=== PATIENT | female | born 1945 | race Caucasian/White ===

== ENCOUNTER 2016-10-04 10:58 | Emergency (ER) | payer BC, OTHER ==
[2016-10-04 11:07] VITALS: BP 172/100
[2016-10-04] MEDS ORDERED: methylPREDNISolone 125 MG* 2 ML VIAL IM ONE (12:07)
--- NOTE | 2016-10-04 12:36 | RAD ---
Indication: Cough. 2 views of the chest demonstrate no mediastinal shift. Heart is of normal size and configuration. Lung ponce demonstrate no pleural fluid, pneumonia or pneumothorax. When compared to previous exam of September 21, 2015 no significant change is noted. IMPRESSION: No active cardiopulmonary disease is noted.
--- NOTE | 2016-10-04 14:39 | UC ---
Dinesh Kennedy Karl, scribed for Lawanda Rosario DO on 10/04/16 at 1205 . Respiratory Complaint HPI - HPI Summary HPI Summary: Pt is a 71 y/o female that presents to [facility] c/o a cough and CP for the past 2 days. Pt reported that she has been feeling "lousy" for the past 3 days and has been suffering from a productive cough w/ green mucous (sometimes coughing so hard she vomits), burning 8/10 pleuritic CP, ear ache, SALAS, achyness in the neck and shoulders, and fatigue. - History of Current Complaint Chief Complaint: UCRespiratory Stated Complaint: DIZZINESS, AND ASTHMA Time Seen by Provider: 10/04/16 11:55 Hx Obtained From: Patient Onset/Duration: Sudden Onset, Lasting Days - 3, Worse Since Timing: Constant Severity Initially: Moderate Severity Currently: Moderate Pain Intensity: 8 - CP Pain Scale Used: 0-10 Numeric Character: Cough: Productive - green sputum Aggravating Factors: Recumbent Position Alleviating Factors: Bronchodilator, Upright Position Associated Signs And Symptoms: Positive: Dyspnea, Fever, Chills, Pleuritic Chest Pain, Wheezing, URI, Sinus Discomfort. Negative: Hemoptysis, Dizziness, Nasal Congestion, Hoarseness - Allergies/Home Medications Allergies/Adverse Reactions: Allergies Allergy/AdvReac Type Severity Reaction Status Date / Time Sulfa Drugs Allergy Severe Hives Verified 09/21/15 15:54 PMH/Surg Hx/FS Hx/Imm Hx Endocrine History Of: Reports: Thyroid Disease Denies: Diabetes Cardiovascular History Of: Reports: Cardiac Disorders - 5 stents, Hypertension Denies: Pacemaker/ICD Respiratory History Of: Reports: COPD, Asthma, Bronchitis GI/ History Of: Reports: Renal Disease - ARF in 20's Denies: Ulcer - Surgical History Surgical History: Yes Surgery Procedure, Year, and Place: HYSTERECTOMY 40 YRS AGO, BILATERAL CARPAL TUNNEL 20 YRS [id number] - 5 stents placed/cardiac, GROWTH REMOVED ON RIGHT FOOT X2 - Family History Known Family History: Positive: Hypertension Negative: Cardiac Disease, Diabetes - Social History Occupation: Retired Alcohol Use: Occasionally Substance Use Type: None Smoking Status (MU): Former Smoker Type: Cigarettes Amount Used/How Often: 2 CIG/DAY. smoking for 50 years Have You Smoked in the Last Year: Yes Household Exposure Type: Cigarettes - Immunization History Most Recent Influenza Vaccination: 2012 Most Recent Tetanus Shot: UTD Most Recent Pneumonia Vaccination: 2-3 years ago Review of Systems Constitutional: Fever, Chills, Fatigue Skin: Negative Eyes: Negative ENT: Ear Ache Respiratory: Cough Cardiovascular: Chest Pain Gastrointestinal: Vomiting Genitourinary: Negative Motor: Negative Neurovascular: Negative Musculoskeletal: Myalgia Neurological: Headache Psychological: Negative All Other Systems Reviewed And Are Negative: Yes Physical Exam Triage Information Reviewed: Yes Appearance: Well-Appearing, No Pain Distress, Well-Nourished Vital Signs: Initial Vital Signs Temp 100.0 F 10/04/16 11:02 Pulse 105 10/04/16 11:02 Resp 18 10/04/16 11:02 BP 172/100 10/04/16 11:02 Pulse Ox 97 10/04/16 11:02 Vital Signs Reviewed: Yes Eyes: Positive: Conjunctiva Clear. Negative: Discharge ENT: Positive: Normal ENT inspection, Pharynx normal, Nasal congestion, Nasal drainage, TMs normal. Negative: Tonsillar swelling, Tonsillar exudate, Trismus , Muffled/hoarse voice Neck exam: Normal Neck: Positive: Supple Respiratory: Positive: Chest non-tender, Lungs clear, Normal breath sounds, No respiratory distress Cardiovascular: Positive: RRR, No Murmur Musculoskeletal Exam: Normal Neurological: Positive: Alert, Muscle Tone Normal Psychological Exam: Normal Psychological: Positive: Age Appropriate Behavior Skin Exam: Normal - warm, dry, normal color UC Diagnostic Evaluation - Laboratory O2 Sat by Pulse Oximetry: 97 - Radiology Xray Interpretation: No Acute Changes - CXR Radiology Interpretation Completed By: Radiologist - IMPRESSION: No active cardiopulmonary disease is noted. Respiratory Course/Dx - Differential Dx/Diagnosis Differential Diagnosis/HQI/PQRI: Asthma, Bronchitis, Exacerbation Of COPD, Influenza, Lower Resp Infection, Sinusitis Provider Diagnoses: influenza, copd exacerbation Discharge - Discharge Plan Condition: Stable Disposition: HOME Prescriptions: Oseltamivir Phosphate [Tamiflu] 75 mg PO BID #10 cap guaiFENesin ER TAB [Mucinex*] 600 mg PO BID PRN #1 box PRN Reason: Cough guaiFENesin/CODIEN 100MG-10MG* [Robitussin AC 100Mg-10Mg*] 5 - 10 ml PO BEDTIME PRN #100 udc MDD 10ml PRN Reason: Cough predniSONE TAB* [Deltasone TAB*] 40 mg PO DAILY #8 tab Patient Education Materials: Influenza (ED), COPD (Chronic Obstructive Pulmonary Disease) (ED), Oseltamivir (By mouth) Referrals: Lina Miles MD [Primary Care Provider] - 2 Days (Follow up in 2 days for re- evaluation. This follow up visit is important, we want to know that you are improving. If you can not get in with your PCP, return here for re-evaluation. ) Additional Instructions: INHALED BRONCHODILATORS: You have received a prescription for an inhaled bronchodilator -- a medication which stimulates the airways in the lung to dilate. This improves the flow of air in asthma, bronchitis, and emphysema. These medicines have some similarity to adrenaline, and can cause similar side effects: shakiness, racing heart, and a sense of nervousness. These side effects decrease with time. Contact your doctor if these side effects are severe. Do not over-use the medicine. Too-frequent use of the inhaler may make it ineffective. Call your doctor if the inhaler is not controlling your symptoms at the prescribed doses. COUGH-SUPPRESSANT & EXPECTORANT MEDICATION: You are to use a cough medication as needed for relief of symptoms. This medicine is a combination of an expectorant (to make the mucous thinner and more easily "coughed up") and a cough suppressant (to reduce the frequency of coughing). The cough-suppressant medicine is related to narcotics. You may experience mild nausea and sleepiness. Some patients who are very sensitive to narcotics may have stomach pain from this medicine. Taking the medicine with food reduces these side effects. Do not drive or work with machinery until you know how this medicine affects you. The expectorant should have no side effects. Iodine-containing expectorants (such as organidin) should not be taken by persons with active thyroid disease unless approved by your doctor. Call the doctor if you develop shortness of breath, hives, rash, itching, lightheadedness, or severe nausea and vomiting. THE ABOVE MEDICATION CAN MAKE YOU GROGGY AND UNSTABLE OF YOUR FEET. SO PLEASE TAKE CARE WHEN GOING FROM LAYING DOWN TO SEATED OR WHEN STANDING UP. IF YOU FEEL LIGHT HEADED WHEN CHANGING POSITIONS, PLEASE SIT OR LAY BACK DOWN TO AVOID FALLING. ESPECIALLY WHEN WAKING UP AT NIGHT TO PEE. EXPECTORANT MEDICATION: An expectorant medicine has been prescribed. This type of drug makes mucous thinner, helping the sinuses, nose, and bronchial tubes to remain free of pus and mucous. Expectorants make a cough less severe and more comfortable, and help infected sinuses drain. In general, antihistamines defeat the purpose of the expectorant by making mucous thicker. They should be avoided unless specifically recommended by your physician Follow up in 2 days for re-evaluation. This follow up visit is important, we want to know that you are improving. If you can not get in with your PCP, return here for re-evaluation. The documentation as recorded by the Dinesh reaves Karl accurately reflects the service I personally performed and the decisions made by me, Lawanda Rosario DO.
== END 2016-10-04 13:08 | disposition home or self-care (01) ==
LOC: UCEAST 10:58
DX: J11.1 Influenza due to unidentified influenza virus with other respiratory manifestations (principal); J44.1 Chronic obstructive pulmonary disease with (acute) exacerbation; Z98.61 Coronary angioplasty status; Z87.891 Personal history of nicotine dependence; Z88.2 Allergy status to sulfonamides
CPT/HCPCS: 71020; 87502; 99212; G0463; J2930

== ENCOUNTER 2016-12-03 16:40 | Emergency (ER) | payer MEDICARE ==
[2016-12-03 19:57] VITALS: BP 160/90
--- NOTE | 2016-12-03 20:24 | RAD ---
HISTORY: Pain after trauma, left wrist COMPARISONS: None VIEWS: 3, Frontal, lateral, and oblique views of the left wrist FINDINGS: BONE DENSITY: Normal. BONES: There is no displaced fracture. 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 SOFT TISSUES: Unremarkable. OTHER FINDINGS: None. IMPRESSION: NO ACUTE OSSEOUS INJURY. IF SYMPTOMS PERSIST, RECOMMEND REPEAT IMAGING.
--- NOTE | 2016-12-03 20:31 | UC ---
Hand/Wrist HPI - HPI Summary HPI Summary: The patient comes in today for: 1. Lump on the left forearm: Onset: 5 hours ago. Palliative/provocative: Touching and moving the wrist makes the pain worse. Quality: Sharp Region: Lateral lower forearm/wrist area. Severity: 8/10 Time: Constant. Associated symptoms: Event: She had a window pane hit her left forearm. She is on Plavix. * - History Of Current Complaint Chief Complaint: UCUpperExtremity Stated Complaint: WRIST INJURY Time Seen by Provider: 12/03/16 19:54 Hx Obtained From: Patient - Allergies/Home Medications Allergies/Adverse Reactions: Allergies Allergy/AdvReac Type Severity Reaction Status Date / Time Sulfa Drugs Allergy Severe Hives Verified 09/21/15 15:54 Lisinopril Allergy See Comment Verified 12/03/16 19:23 Metoprolol Allergy See Comment Verified 12/03/16 19:23 PMH/Surg Hx/FS Hx/Imm Hx Previously Healthy: No - allergic to bees Endocrine History Of: Reports: Thyroid Disease, Dyslipidemia Denies: Diabetes, Hyperthyroidism, Hypothyroidism Cardiovascular History Of: Reports: Cardiac Disorders - 5 Stents, Hypertension - ON MEDICATION Denies: Pacemaker/ICD, Myocardial Infarction, Congestive Heart Failure, Atrial Fibrillation, Deep Vein Thrombosis, Bleeding Disorders Respiratory History Of: Reports: COPD, Asthma Denies: Bronchitis, Pneumonia, Pulmonary Embolism GI/ History Of: Reports: Gastroesophageal Reflux, Renal Disease - ARF in 20's Denies: Ulcer, Gastrointestinal Bleed, Gall Bladder Disease, Kidney Stones, Diverticulitis, Urosepsis Neurological History Of: Reports: CVA Denies: TIA, Dementia, Seizures, Migraine Psychological History Of: Reports: Depression Denies: Anxiety, Bipolar Disorder, Schizophrenia, Post Traumatic Stress Disorder Cancer History Of: Denies: Lung Cancer, Colorectal Cancer, Breast Cancer, Prostate Cancer, Cervical Cancer Other History Of: Anticoagulant Therapy - Plavix. Negative For: HIV, Hepatitis B, Hepatitis C - Surgical History Surgical History: Yes Surgery Procedure, Year, and Place: HYSTERECTOMY 40 YRS AGO, BILATERAL CARPAL TUNNEL 20 YRS [id number] - 5 stents placed/cardiac, GROWTH REMOVED ON RIGHT FOOT X2 - Family History Known Family History: Positive: Cardiac Disease, Hypertension, Diabetes - Social History Occupation: Retired Alcohol Use: Weekly Substance Use Type: None Smoking Status (MU): Light Every Day Tobacco Smoker Type: Cigarettes Amount Used/How Often: 2 CIG/DAY. smoking for 50 years Have You Smoked in the Last Year: Yes Household Exposure Type: Cigarettes - Immunization History Most Recent Influenza Vaccination: 2012 Most Recent Tetanus Shot: UTD Most Recent Pneumonia Vaccination: 2-3 years ago Review of Systems Constitutional: Negative Skin: Negative Eyes: Negative, Other - "I've got a problem with my eye." Sees a specialist. ENT: Negative Respiratory: Negative Cardiovascular: Negative Gastrointestinal: Negative Genitourinary: Negative Musculoskeletal: Arthralgia, Myalgia All Other Systems Reviewed And Are Negative: Yes Physical Exam Triage Information Reviewed: Yes Appearance: Well-Appearing, No Pain Distress, Well-Nourished Vital Signs: Initial Vital Signs Temp 98.7 F 12/03/16 19:27 Pulse 93 12/03/16 19:27 Resp 16 12/03/16 19:27 Pulse Ox 100 12/03/16 19:27 Vital Signs Reviewed: Yes Eyes: Positive: Conjunctiva Clear. Negative: Discharge ENT: Positive: Hearing grossly normal. Negative: Pharyngeal erythema, Nasal congestion, Nasal drainage, TM bulging, TM dull, TM red, Tonsillar swelling, Tonsillar exudate Dental: Negative: Gross Decay/Caries @, Dental Fracture @ Neck: Positive: Supple, Nontender, No Lymphadenopathy. Negative: Nuchal Rigidity Respiratory: Positive: Lungs clear, No respiratory distress, No accessory muscle use. Negative: Crackles, Wheezing Cardiovascular: Positive: RRR, No Murmur Abdomen Description: Positive: Nontender, No Organomegaly, Soft. Negative: Distended, Guarding Musculoskeletal: Positive: Strength Intact, Edema @ - She has ecchymotic edema of the left wrist area. It is tender. There is decreased range of motion. Neurological: Positive: Alert, Muscle Tone Normal Psychological: Positive: Normal Response To Family, Age Appropriate Behavior, Consolable Skin: Negative: rashes, breakdown Diagnostics - Radiology No standard instances Xray Interpretation: No Acute Changes - No fractures of the bones. Radiology Interpretation Completed By: Radiologist Hand/Wrist Course/Dx - Differential Dx/Diagnosis Differential Diagnosis/HQI/PQRI: Contusion Provider Diagnoses: Hematoma and contusion of the left wrist. Discharge - Discharge Plan Condition: Stable Disposition: HOME Patient Education Materials: Contusion in Children (ED), Hematoma (ED) Referrals: Lina Miles MD [Primary Care Provider] - (Please see your primary care provider later this week for re-evaluation.)
[2016-12-03] MEDS ORDERED: HYDROcodone/ACETAMIN 5-325 MG* 1 TAB PO ONE (20:51)
== END 2016-12-03 21:15 | disposition home or self-care (01) ==
LOC: UCEAST 16:40
DX: S60.212A Contusion of left wrist, initial encounter (principal); W22.8XXA Striking against or struck by other objects, initial encounter; Y93.9 Activity, unspecified; Y92.9 Unspecified place or not applicable; Z88.2 Allergy status to sulfonamides; Z88.8 Allergy status to other drugs, medicaments and biological substances; I10 Essential (primary) hypertension; Z95.5 Presence of coronary angioplasty implant and graft; F17.210 Nicotine dependence, cigarettes, uncomplicated
CPT/HCPCS: 99213; G0463

== ENCOUNTER 2017-01-27 14:40 | Emergency (ER) | payer MEDICARE ==
[2017-01-27] MEDS ORDERED: methylPREDNISolone 125 MG* 2 ML VIAL IM ONE (14:48)
[2017-01-27] MEDS ORDERED: Albuterol 2.5 MG/3 ML NEB.SOL* (0.083%) INH ONE (14:48)
[2017-01-27] MEDS ORDERED: Ipratropium 0.5MG/2.5ML NEB* 0.5 MG/2.5 ML NEB.SOLN INH ONE (14:48)
[2017-01-27 15:09] VITALS: BP 159/100
--- NOTE | 2017-03-15 07:41 | UC ---
Respiratory Complaint HPI - HPI Summary HPI Summary: pt c/o sob/wheezing since Saturday that has gotten progressively worse over the weekend. Aggravated by smoking and allergens. - History of Current Complaint Chief Complaint: UCRespiratory Stated Complaint: ASTHMA COPD SOB Time Seen by Provider: 01/27/17 14:47 Hx Obtained From: Patient Onset/Duration: Gradual Onset, Lasting Days, Still Present, Worse Since - today Severity Initially: Moderate Severity Currently: Moderate Pain Intensity: 3 Pain Scale Used: 0-10 Numeric Character: Sputum Description: - yellow Aggravating Factors: Allergens, Exertion Alleviating Factors: Nothing Associated Signs And Symptoms: Positive: Dyspnea, Wheezing, Nasal Congestion. Negative: Fever, Chills, Pleuritic Chest Pain, Hemoptysis, Dizziness, Edema, URI , Hoarseness, Sinus Discomfort - Allergies/Home Medications Allergies/Adverse Reactions: Allergies Allergy/AdvReac Type Severity Reaction Status Date / Time Sulfa Drugs Allergy Severe Hives Verified 02/22/17 15:51 Lisinopril Allergy See Comment Verified 02/22/17 15:51 Metoprolol Allergy See Comment Verified 02/22/17 15:51 PMH/Surg Hx/FS Hx/Imm Hx Endocrine History: Thyroid Disease Cardiovascular History: Cardiac Disease, Hypertension Respiratory History: COPD, Asthma Other History Of: Anticoagulant Therapy - Plavix. Negative For: HIV, Hepatitis B, Hepatitis C - Surgical History Surgical History: Yes Surgery Procedure, Year, and Place: HYSTERECTOMY 40 YRS AGO, BILATERAL CARPAL TUNNEL 20 YRS [id number] - 5 stents placed/cardiac, GROWTH REMOVED ON RIGHT FOOT X2 - Family History Known Family History: Positive: Cardiac Disease, Hypertension, Diabetes - Social History Alcohol Use: Weekly Substance Use Type: None Smoking Status (MU): Light Every Day Tobacco Smoker Type: Cigarettes Amount Used/How Often: 2 CIG/DAY. smoking for 50 years Have You Smoked in the Last Year: Yes Household Exposure Type: Cigarettes Cessation Counseling: Patient Advised to Stop - Immunization History Most Recent Influenza Vaccination: 2012 Most Recent Tetanus Shot: UTD Most Recent Pneumonia Vaccination: 2-3 years ago Review of Systems Constitutional: Negative Eyes: Negative ENT: Nasal Discharge Respiratory: Shortness Of Breath, Cough Cardiovascular: Negative Gastrointestinal: Negative Neurological: Negative Psychological: Negative All Other Systems Reviewed And Are Negative: Yes Physical Exam Triage Information Reviewed: Yes Appearance: Well-Appearing, No Pain Distress, Well-Nourished Vital Signs: Initial Vital Signs Temp 98.3 F 01/27/17 15:04 Pulse 83 01/27/17 15:04 Resp 22 01/27/17 15:04 BP 159/100 01/27/17 15:04 Pulse Ox 98 01/27/17 15:04 Vital Signs Reviewed: Yes Eyes: Positive: Conjunctiva Clear. Negative: Discharge ENT: Positive: Hearing grossly normal, Pharynx normal, Nasal drainage, TMs normal. Negative: Tonsillar swelling, Tonsillar exudate, Trismus, Muffled/ hoarse voice Neck: Positive: Supple, Nontender, No Lymphadenopathy Respiratory: Positive: No respiratory distress, No accessory muscle use, Wheezing - diffuse, all ponce. Negative: Crackles, Rhonchi Cardiovascular: Positive: RRR, No Murmur Musculoskeletal Exam: Normal Neurological: Positive: Alert, Muscle Tone Normal Psychological: Positive: Age Appropriate Behavior Skin Exam: Normal UC Diagnostic Evaluation - Laboratory O2 Sat by Pulse Oximetry: 98 Respiratory Course/Dx - Course Course Of Treatment: re-eval s/p neb and solumedrol - subjective improvement, decreased wheezing, better air movement - Differential Dx/Diagnosis Differential Diagnosis/HQI/PQRI: Asthma, Bronchitis, Exacerbation Of COPD, Lower Resp Infection, Sinusitis Provider Diagnoses: acute bronchitis, copd Discharge - Discharge Plan Condition: Stable Disposition: HOME Prescriptions: Fluticasone NASAL * [Flonase *] 2 spray BOTH NARES DAILY #1 btl Patient Education Materials: Acute Bronchitis (ED), COPD (Chronic Obstructive Pulmonary Disease) (ED), Allergies (ED) Referrals: Lina Miles MD [Primary Care Provider] - 2 Days Additional Instructions: CORTICOSTEROID MEDICATION: You have been given a medicine of the cortisone class. This medication is used to control inflammation or allergy. It is usually only given for a short period of time, until the acute process subsides. There are usually no side effects from short-term use of cortisone-like medications. Some persons feel an increased sense of well-being and are not sleepy at bedtime. Long-term use of cortisone medications is best avoided, unless required for a severe condition. If your condition does not remit, or relapses after the course of corticosteroid medication, you should consult your physician. Contact the physician if you develop lightheadedness, black or tarry stools , swelling of the legs, or significant rapid change in weight. INHALED BRONCHODILATORS: You have received a prescription for an inhaled bronchodilator -- a medication which stimulates the airways in the lung to dilate. This improves the flow of air in asthma, bronchitis, and emphysema. These medicines have some similarity to adrenaline, and can cause similar side effects: shakiness, racing heart, and a sense of nervousness. These side effects decrease with time. Contact your doctor if these side effects are severe. Do not over-use the medicine. Too-frequent use of the inhaler may make it ineffective. Call your doctor if the inhaler is not controlling your symptoms at the prescribed doses. EXPECTORANT MEDICATION: WE SENT IN A SCRIPT FOR MUCINEX SO THAT IT IS EASIER FOR YOU TO PICK THE RIGHT MED AT THE PHARMACY. HOWEVER, YOU CAN ALSO GO TO THE [employer] STORE AND BUY PLAIN GUAIFENESIN WITHOU BINDERS OR FILLERS. An expectorant medicine has been prescribed. This type of drug makes mucous thinner, helping the sinuses, nose, and bronchial tubes to remain free of pus and mucous. Expectorants make a cough less severe and more comfortable, and help infected sinuses drain. In general, antihistamines defeat the purpose of the expectorant by making mucous thicker. They should be avoided unless specifically recommended by your physician. CEPHALOSPORINS: An antibiotic of the cephalosporin class has been prescribed. This type of antibiotic covers a wide variety of infections, including those of the skin, lungs, middle ear, and urinary tract. This antibiotic is somewhat similar to the penicillin family. In rare cases , a person who is allergic to penicillin will also be allergic to this medication. If you have had a severe allergic reaction to penicillin, and have not taken this antibiotic since that time, notify your doctor. Antibiotics which cover many germs ("broad spectrum" antibiotics) are more likely to cause diarrhea or "yeast" infections. Women prone to vaginal yeast problems may suffer an attack after taking this antibiotic. In infants, oral thrush (white spots "stuck" on the cheek) or yeast diaper rash may result. See your doctor if these problems occur. Call the doctor at once if you develop hives, itching, shortness of breath , or lightheadedness. ANY TIME YOU TAKE AN ANTIBIOTIC, IT IS IMPORTANT TO REPLENISH THE BODY'S BALANCE OF "GOOD" BACTERIA BY EATING HIGH QUALITY CULTURED FOOD SUCH YOGURT, SAURKRAUT OR MARCELLO CHI AND/OR TAKING A PROBIOTIC SUPPLEMENT. NASAL CORTICOSTEROID INHALER: Nasal "cortisone" inhalers decrease swelling and inflammation in the nasal passages. Nasal steroids decrease the effects of allergy and infection without affecting your whole body. They do NOT cause the side effects we see with steroid shots or pills. These inhalers are a long-term investment in keeping your nose and sinuses clear. You probably won't notice any difference for at least a day. Sometimes it takes several days. Once you have noticed improvement, you can cut back on the inhaler. If your problem only occurs at certain times of the year, you can stop it when you' re better. There's no harm in using it for a long time. Some patients may notice a dry tight throat at first. If you develop severe pain, fever, or foul nasal drainage, see the doctor at once.
== END 2017-01-27 16:27 | disposition home or self-care (01) ==
LOC: UCEAST 14:40
DX: J44.0 Chronic obstructive pulmonary disease with (acute) lower respiratory infection (principal); J20.9 Acute bronchitis, unspecified; I10 Essential (primary) hypertension; F17.210 Nicotine dependence, cigarettes, uncomplicated; Z88.5 Allergy status to narcotic agent; Z88.2 Allergy status to sulfonamides; Z79.02 Long term (current) use of antithrombotics/antiplatelets
CPT/HCPCS: 96372; 99212; G0463; J2930; J7644

== ENCOUNTER 2017-02-22 15:43 | Emergency (ER) | payer MEDICARE ==
[2017-02-22 15:59] VITALS: BP 200/98
--- NOTE | 2017-02-22 19:13 | UC ---
David Kennedy Aidan, scribed for Kaye Andrade MD on 02/22/17 at 1617 . Shortness of Breath HPI - HPI Summary HPI Summary: 71 y/o female presents to the Urgent Care with a complaint of acute, moderate episodes of difficulty breathing that have persisted intermittently. Associated symptoms include HTN and SALAS. She denies any abdominal pain. Hx of chronic asthma. In the past, nebulizer treatment and strong abx have alleviated her symptoms. Has been seen several times in the last 3 months for the same. Had cxr in November. Abx (z-max) and prednisone helps, but she says not strong or long enough treatment. Has breathing medications at home, utd. Plans to f/u w/ pcp , but couldn't get in to the office today. No cp, palpitations. - History of Current Complaint Chief Complaint: UCRespiratory Stated Complaint: DIFFICULTY BREATHING Time Seen by Provider: 02/22/17 15:55 Hx Obtained From: Patient Hx Last Menstrual Period: unknown ?: No Onset/Duration: Gradual Onset, Lasting Weeks, Still Present Timing: Intermittent Episodes Lasting: Current Severity: Moderate Dyspnea At: Rest Aggrevating Factors: Nothing - unknown Alleviating Factors: Bronchodilators Associated Signs & Symptoms: Positive: Other - HTN, SALAS - Risk Factors Pulmonary Embolism: Smoking Cardiac: Smoking, Hypertension - Allergy/Home Medications Allergies/Adverse Reactions: Allergies Allergy/AdvReac Type Severity Reaction Status Date / Time Sulfa Drugs Allergy Severe Hives Verified 02/22/17 15:51 Lisinopril Allergy See Comment Verified 02/22/17 15:51 Metoprolol Allergy See Comment Verified 02/22/17 15:51 PMH/Surg Hx/FS Hx/Imm Hx Other History Of: Anticoagulant Therapy - Plavix. Negative For: HIV, Hepatitis B, Hepatitis C - Surgical History Surgical History: Yes Surgery Procedure, Year, and Place: HYSTERECTOMY 40 YRS AGO, BILATERAL CARPAL TUNNEL 20 YRS [id number] - 5 stents placed/cardiac, GROWTH REMOVED ON RIGHT FOOT X2 - Family History Known Family History: Positive: Cardiac Disease, Hypertension, Diabetes - Social History Occupation: Retired Lives: With Family Alcohol Use: Weekly Substance Use Type: None Smoking Status (MU): Light Every Day Tobacco Smoker Type: Cigarettes Amount Used/How Often: 2 CIG/DAY. smoking for 50 years Have You Smoked in the Last Year: Yes Household Exposure Type: Cigarettes - Immunization History Most Recent Influenza Vaccination: 2012 Most Recent Tetanus Shot: UTD Most Recent Pneumonia Vaccination: 2-3 years ago Review of Systems Constitutional: Negative Skin: Negative Eyes: Negative ENT: Negative Respiratory: Shortness Of Breath Cardiovascular: Other - high blood pressure Gastrointestinal: Negative Genitourinary: Negative Motor: Negative Neurovascular: Negative Musculoskeletal: Negative Neurological: Negative Psychological: Negative All Other Systems Reviewed And Are Negative: Yes Physical Exam Triage Information Reviewed: Yes Appearance: Well-Nourished Vital Signs: Initial Vital Signs Temp 99.5 F 02/22/17 15:48 Pulse 90 02/22/17 15:48 Resp 20 02/22/17 15:48 Pulse Ox 97 02/22/17 15:48 Vital Signs Reviewed: Yes Eye Exam: Normal ENT Exam: Normal ENT: Positive: TMs normal - [place], retracted TMs Respiratory Exam: Normal, Other - no dyspnea, no tachypnea, normal respiratory rate Respiratory: Positive: Chest non-tender, Wheezing - diffuse inspiratory and expiratory wheezes, Other: - breath sounds equal. Negative: Lungs clear, No accessory muscle use Cardiovascular Exam: Normal, Other - heart rate normal, good general skin color Cardiovascular: Positive: RRR, Brisk Capillary Refill Abdominal Exam: Normal Abdomen Description: Positive: Nontender, No Organomegaly, Soft Bowel Sounds: Positive: Present Musculoskeletal: Positive: Strength Intact Neurological Exam: Normal, Other - nonfocal, grosly intact Neurological: Positive: Alert Psychological Exam: Normal, Other - conversing easily and apropriately Skin Exam: Normal, Other - no visible or reported rash Shortness of Breath Dx - Course Course Of Treatment: 71 y/o female presents with difficulty breathing. According to the nurse, the patient was hypertensive. She should follow up with her primary care physician within 4 weeks to have her blood pressure evaluated. Declines nebulized tx - has at home, and will use upon returning home. Rx ciprofloxacin (she reports having taken in the past w/o difficulty) and longer prednisone (d/w pt). Will seek medical attention for worse or new problems, fever cp etc. Questions answered to the best of my ability. - Differential Dx/Diagnosis Provider Diagnoses: [id number] bronchitis, COPD, Wheezing Discharge - Discharge Plan Condition: Stable Disposition: HOME Prescriptions: Ciprofloxacin HCl [Cipro 500 MG TAB] 500 mg PO BID #28 tab predniSONE TAB* [Deltasone TAB*] 10 mg PO DAILY #42 tab Patient Education Materials: How to Stop Smoking (ED), COPD (Chronic Obstructive Pulmonary Disease) (ED), Chronic Bronchitis (ED), Chronic Hypertension (ED), Bronchospasm (ED) Referrals: Lina Miles MD [Primary Care Provider] - Additional Instructions: You have a blood pressure reading of 200/98, which illustrates hypertension. Recommended follow up with your primary care physician within 4 weeks to evaluate your blood pressure. The documentation as recorded by the David reaves Aidan accurately reflects the service I personally performed and the decisions made by me, Kaye Andrade MD.
== END 2017-02-22 17:15 | disposition home or self-care (01) ==
LOC: UCEAST 15:43
DX: J42 Unspecified chronic bronchitis (principal); J44.0 Chronic obstructive pulmonary disease with (acute) lower respiratory infection; J20.9 Acute bronchitis, unspecified; R06.2 Wheezing; Z72.0 Tobacco use; Z95.5 Presence of coronary angioplasty implant and graft; I10 Essential (primary) hypertension
CPT/HCPCS: 99212; G0463

== ENCOUNTER 2017-08-04 19:52 | Inpatient (IN) | payer MEDICARE ==
[2017-08-04] MEDS ORDERED: Albuterol/Ipratropium NEB.SOL* Albuterol 2.5 MG/Ipratropium 0.5 MG 3 ML INH ONE (20:13)
[2017-08-04] MEDS ORDERED: methylPREDNISolone 125 MG* 2 ML VIAL IV ONE (20:13)
[2017-08-04 20:40] LABS: Hematocrit 37 % (35-47); Hemoglobin 12.3 g/dl (12.0-16.0); Mean Corpuscular HGB Conc 34 g/dl (31-36); Mean Corpuscular Hemoglobin 27 pg (27-31); Mean Corpuscular Volume 81 fL (80-97); Mean Platelet Volume 7 um3 (7.4-10.4); Red Blood Count 4.52 10^6/ul (4.0-5.4); Red Cell Distribution Width 18 % (10.5-15); White Blood Count 9.2 10^3/ul (3.5-10.8)
--- NOTE | 2017-08-04 20:44 | RAD ---
INDICATION: Shortness of breath. COMPARISON: Comparison is made with a prior study from May 24, 2017. TECHNIQUE: A portable view of the chest was obtained. FINDINGS: Cardiac and mediastinal contours appear to be within normal limits. There is mild diffuse prominence of the interstitial markings which are unchanged. No focal infiltrate or pleural effusion is seen. The lungs are slightly hyperinflated. IMPRESSION: FINDINGS SUGGESTIVE OF COPD, NO EVIDENCE FOR ACUTE FINDING.
[2017-08-04 20:52] LABS: Albumin 3.9 g/dL (3.2-5.2); BUN/Creatinine Ratio 10.3 (8-20); Calcium 8.7 mg/dL (8.6-10.3); EGFR African American 109.7 (>60); EGFR Non-African American 85.3 (>60); Globulin 2.6 g/dL (2-4); Magnesium 1.9 mg/dL (1.9-2.7); Potassium 3.3 mmol/L (3.5-5.0); Total Bilirubin 0.2 mg/dL (0.2-1.0); Total Protein 6.5 g/dL (6.4-8.9)
[2017-08-04 20:54] LABS: PCO2 Arterial 38 mmHg (35-45)
[2017-08-04 20:58] LABS: Troponin I 1.54 ng/mL (<0.04)
[2017-08-04] MEDS ORDERED: Aspirin TAB* 325 MG PO ONE (20:59)
[2017-08-04] MEDS ORDERED: Potassium Chlor TAB* 20 MEQ TAB.ER PO ONE (21:00)
[2017-08-04 21:49] LABS: Troponin I 1.64 ng/mL (<0.04)
[2017-08-04] MEDS ORDERED: Heparin DRIP 25,000 UNITS(*) 25,000 UNITS/500 ML BAG IVPB SCH (22:00)
[2017-08-04] MEDS ORDERED: Heparin VIAL(*) 5000 UNITS/ML VIAL (FIVE THOUSAND) IV SCH (22:00)
[2017-08-04] MEDS: Nitroglycerin TAB 0.4 MG* 0.4 MG TAB SL PRN ×3 (22:16→22:27)
[2017-08-04] MEDS ORDERED: Nitroglycerin TAB 0.4 MG* 0.4 MG TAB ONE (22:17)
--- NOTE | 2017-08-04 22:20 | ED ---
Jt Kennedy Nikita, scribed for Clement Klein on 08/04/17 at 2018 . Shortness of Breath - HPI Summary HPI Summary: This patient is a 72 year old F presenting to ED with a chief complaint of SOB since earlier today. The CC is described as worsened since onset. The patient rates the pain 9/10 in severity. Symptoms aggravated by exertion. Symptoms alleviated by nothing. Patient reports difficulty breathing, SALAS, non-productive cough, and CP. Patient denies fever. Pt has not smoked in the last 3 weeks. - History of Current Complaint Chief Complaint: EDAsthma Time Seen by Provider: 08/04/17 20:06 Hx Obtained From: Patient Onset/Duration: Sudden Onset, Lasting Hours, Still Present Timing: Constant Current Severity: Severe Dyspnea At: Exertion Aggrevating Factors: Other - exertion Alleviating Factors: Nothing Associated Signs & Symptoms: Cough (Nonproductive) - Patient reports difficulty breathing, SALAS, non-productive cough, and CP. Patient denies fever. - Allergy/Home Medications Allergies/Adverse Reactions: Allergies Allergy/AdvReac Type Severity Reaction Status Date / Time Sulfa Drugs Allergy Severe Hives Verified 04/10/17 13:32 Bee Venom Allergy Unknown Verified 05/03/17 10:25 Reaction Details Lisinopril Allergy See Comment Verified 04/10/17 13:32 Metoprolol Allergy See Comment Verified 04/10/17 13:32 PMH/Surg Hx/FS Hx/Imm Hx Endocrine/Hematology History: Reports: Hx Anticoagulant Therapy - Plavix., Hx Thyroid Disease Denies: Hx Diabetes Cardiovascular History: Reports: Hx Coronary Artery Disease - stents 2005, Hx Hypercholesterolemia, Hx Hypertension - ON MEDICATION Denies: Hx Congestive Heart Failure, Hx Deep Vein Thrombosis, Hx Myocardial Infarction, Hx Pacemaker/ICD Respiratory History: Reports: Hx Asthma, Hx Chronic Obstructive Pulmonary Disease (COPD), Other Respiratory Problems/Disorders - HX OF PNEUMONIA 3/4 TIMES Denies: Hx Lung Cancer, Hx Pneumonia, Hx Pulmonary Embolism GI History: Reports: Hx Gastroesophageal Reflux Disease Denies: Hx Gall Bladder Disease, Hx Gastrointestinal Bleed, Hx Ulcer, Hx Urosepsis History: Reports: Hx Renal Disease - ARF in 20's Denies: Hx Kidney Stones Musculoskeletal History: Reports: Hx Back Problems - Chronic back pain, Hx Osteoporosis Sensory History: Reports: Hx Cataracts, Hx Contacts or Glasses Denies: Hx Hearing Aid Opthamlomology History: Reports: Hx Cataracts, Hx Contacts or Glasses Neurological History: Reports: Hx Headaches Denies: Hx Dementia, Hx Migraine, Hx Seizures, Hx Transient Ischemic Attacks (TIA) Psychiatric History: Reports: Hx Depression Denies: Hx Anxiety, Hx Panic Disorder, Hx Schizophrenia, Hx Bipolar Disorder - Cancer History Hx Chemotherapy: No Hx Radiation Therapy: No - Surgical History Surgery Procedure, Year, and Place: HYSTERECTOMY 40 YRS AGO,. BILATERAL CARPAL TUNNEL 20 YRS AGO. 2005 - stents placed/cardiac,. GROWTH REMOVED ON RIGHT FOOT X2. CATARACT Infectious Disease History: No Infectious Disease History: Denies: Hx Clostridium Difficile, Hx Hepatitis, Hx Human Immunodeficiency Virus (HIV), Hx of Known/Suspected MRSA, Hx Shingles, Hx Tuberculosis, Hx Known/ Suspected VRE, Hx Known/Suspected VRSA, History Other Infectious Disease, Traveled Outside the in Last 30 Days - Family History Known Family History: Positive: Cardiac Disease, Hypertension, Diabetes - Social History Alcohol Use: Daily Substance Use Type: Reports: None Smoking Status (MU): Former Smoker Type: Cigarettes Amount Used/How Often: 2 CIG/DAY. smoking for 50 years Have You Smoked in the Last Year: Yes Review of Systems Negative: Fever Positive: Chest Pain Positive: Shortness Of Breath, Cough - non-productive, Other - difficulty breathing Positive: Headache All Other Systems Reviewed And Are Negative: Yes Physical Exam Triage Information Reviewed: Yes Vital Signs On Initial Exam: Initial Vitals Temp Pulse Resp BP Pulse Ox 97 F 118 24 167/114 92 08/04/17 19:55 08/04/17 19:55 08/04/17 19:55 08/04/17 19:55 08/04/17 19:55 Vital Signs Reviewed: Yes Appearance: Positive: Well-Appearing, No Pain Distress Skin: Positive: Warm, Skin Color Reflects Adequate Perfusion, Dry Head/Face: Positive: Normal Head/Face Inspection Eyes: Positive: EOMI, AMADOR ENT: Positive: Normal ENT inspection Neck: Positive: Supple, Nontender Respiratory/Lung Sounds: Positive: Wheezes - bilaterally Cardiovascular: Positive: Pulses are Symmetrical in both Upper and Lower Extremities, Tachycardia Abdomen Description: Positive: Nontender, Soft Bowel Sounds: Positive: Present Musculoskeletal: Positive: Normal, Strength/ROM Intact Neurological: Positive: Normal, Sensory/Motor Intact, Alert, Oriented to Person Place, Time - Jorge Coma Scale Coma Scale Total: 15 Diagnostics - Vital Signs Vital Signs Temp Pulse Resp BP Pulse Ox 08/04/17 19:55 97 F 118 24 167/114 92 - Laboratory Lab Results: Lab Results 08/04/17 08/04/17 08/04/17 Range/Units 20:24 20:24 20:24 WBC (3.5-10.8) 10^3/ul RBC (4.0-5.4) 10^6/ul Hgb (12.0-16.0) g/dl Hct (35-47) % MCV (80-97) fL MCH (27-31) pg MCHC (31-36) g/dl RDW (10.5-15) % Plt Count (150-450) 10^3/ul MPV (7.4-10.4) um3 Neut % (Auto) (38-83) % Lymph % (Auto) (25-47) % [place] % (Auto) (1-9) % Eos % (Auto) (0-6) % Baso % (Auto) (0-2) % Absolute Neuts (auto) (1.5-7.7) 10^3/ul Absolute Lymphs (auto) (1.0-4.8) 10^3/ul Absolute Monos (auto) (0-0.8) 10^3/ul Absolute Eos (auto) (0-0.6) 10^3/ul Absolute Basos (auto) (0-0.2) 10^3/ul Absolute Nucleated RBC 10^3/ul Nucleated RBC % INR (Anticoag Therapy) 0.90 (0.89-1.11) APTT 27.4 (26.0-36.3) seconds Patient Temperature ABG pH (7.35-7.45) ABG pCO2 (35-45) mmHg ABG pO2 (80-100) mmHg ABG HCO3 (19-31) mmol/L ABG O2 Saturation (95-98) % ABG Base Excess (-2.0-2.0) Respiration Rate O2 Delivery Device Ventilator Type Vent Mode FiO2 Inspiratory Time PEEP Pressure Support Pressure Control EPAP IPAP BiPAP Sodium 127 L (133-145) mmol/L Potassium 3.3 L (3.5-5.0) mmol/L Chloride 95 L (101-111) mmol/L Carbon Dioxide 24 (22-32) mmol/L Anion Gap 8 (2-11) mmol/L BUN 7 (6-24) mg/dL Creatinine 0.68 (0.51-0.95) mg/dL Est GFR ( Amer) 109.7 (>60) Est GFR (Non-Af Amer) 85.3 (>60) BUN/Creatinine Ratio 10.3 (8-20) Glucose 128 H (70-100) mg/dL Lactic Acid (0.5-2.0) mmol/L Calcium 8.7 (8.6-10.3) mg/dL Magnesium 1.9 (1.9-2.7) mg/dL Total Bilirubin 0.20 (0.2-1.0) mg/dL AST 22 (13-39) U/L ALT 21 (7-52) U/L Alkaline Phosphatase 88 (34-104) U/L Total Creatine Kinase 124 (10-223) U/L CK-MB (CK-2) Pending Troponin I 1.54 H* (<0.04) ng/mL B-Natriuretic Peptide 331 H ( - 100) pg/mL Total Protein 6.5 (6.4-8.9) g/dL Albumin 3.9 (3.2-5.2) g/dL Globulin 2.6 (2-4) g/dL Albumin/Globulin Ratio 1.5 (1-3) Influenza A (Rapid) (Negative) Influenza B (Rapid) (Negative) 08/04/17 08/04/17 08/04/17 Range/Units 20:24 20:24 20:35 WBC 9.2 (3.5-10.8) 10^3/ul RBC 4.52 (4.0-5.4) 10^6/ul Hgb 12.3 (12.0-16.0) g/dl Hct 37 (35-47) % MCV 81 (80-97) fL MCH 27 (27-31) pg MCHC 34 (31-36) g/dl RDW 18 H (10.5-15) % Plt Count 240 (150-450) 10^3/ul MPV 7 L (7.4-10.4) um3 Neut % (Auto) 63.8 (38-83) % Lymph % (Auto) 16.8 L (25-47) % [place] % (Auto) 11.2 H (1-9) % Eos % (Auto) 7.5 H (0-6) % Baso % (Auto) 0.7 (0-2) % Absolute Neuts (auto) 5.8 (1.5-7.7) 10^3/ul Absolute Lymphs (auto) 1.5 (1.0-4.8) 10^3/ul Absolute Monos (auto) 1.0 H (0-0.8) 10^3/ul Absolute Eos (auto) 0.7 H (0-0.6) 10^3/ul Absolute Basos (auto) 0.1 (0-0.2) 10^3/ul Absolute Nucleated RBC 0 10^3/ul Nucleated RBC % 0 INR (Anticoag Therapy) (0.89-1.11) APTT (26.0-36.3) seconds Patient Temperature Not Reportable ABG pH 7.42 (7.35-7.45) ABG pCO2 38 (35-45) mmHg ABG pO2 63 L (80-100) mmHg ABG HCO3 25.0 (19-31) mmol/L ABG O2 Saturation 96.0 (95-98) % ABG Base Excess 0.2 (-2.0-2.0) Respiration Rate Not Reportable O2 Delivery Device Not Reportable Ventilator Type Not Reportable Vent Mode Not Reportable FiO2 Not Reportable Inspiratory Time Not Reportable PEEP Not Reportable Pressure Support Not Reportable Pressure Control Not Reportable EPAP Not Reportable IPAP Not Reportable BiPAP Not Reportable Sodium (133-145) mmol/L Potassium (3.5-5.0) mmol/L Chloride (101-111) mmol/L Carbon Dioxide (22-32) mmol/L Anion Gap (2-11) mmol/L BUN (6-24) mg/dL Creatinine (0.51-0.95) mg/dL Est GFR ( Amer) (>60) Est GFR (Non-Af Amer) (>60) BUN/Creatinine Ratio (8-20) Glucose (70-100) mg/dL Lactic Acid 1.2 (0.5-2.0) mmol/L Calcium (8.6-10.3) mg/dL Magnesium (1.9-2.7) mg/dL Total Bilirubin (0.2-1.0) mg/dL AST (13-39) U/L ALT (7-52) U/L Alkaline Phosphatase (34-104) U/L Total Creatine Kinase (10-223) U/L CK-MB (CK-2) Troponin I (<0.04) ng/mL B-Natriuretic Peptide ( - 100) pg/mL Total Protein (6.4-8.9) g/dL Albumin (3.2-5.2) g/dL Globulin (2-4) g/dL Albumin/Globulin Ratio (1-3) Influenza A (Rapid) (Negative) Influenza B (Rapid) (Negative) 08/04/17 08/04/17 Range/Units 21:06 21:23 WBC (3.5-10.8) 10^3/ul RBC (4.0-5.4) 10^6/ul Hgb (12.0-16.0) g/dl Hct (35-47) % MCV (80-97) fL MCH (27-31) pg MCHC (31-36) g/dl RDW (10.5-15) % Plt Count (150-450) 10^3/ul MPV (7.4-10.4) um3 Neut % (Auto) (38-83) % Lymph % (Auto) (25-47) % [place] % (Auto) (1-9) % Eos % (Auto) (0-6) % Baso % (Auto) (0-2) % Absolute Neuts (auto) (1.5-7.7) 10^3/ul Absolute Lymphs (auto) (1.0-4.8) 10^3/ul Absolute Monos (auto) (0-0.8) 10^3/ul Absolute Eos (auto) (0-0.6) 10^3/ul Absolute Basos (auto) (0-0.2) 10^3/ul Absolute Nucleated RBC 10^3/ul Nucleated RBC % INR (Anticoag Therapy) (0.89-1.11) APTT (26.0-36.3) seconds Patient Temperature ABG pH (7.35-7.45) ABG pCO2 (35-45) mmHg ABG pO2 (80-100) mmHg ABG HCO3 (19-31) mmol/L ABG O2 Saturation (95-98) % ABG Base Excess (-2.0-2.0) Respiration Rate O2 Delivery Device Ventilator Type Vent Mode FiO2 Inspiratory Time PEEP Pressure Support Pressure Control EPAP IPAP BiPAP Sodium (133-145) mmol/L Potassium (3.5-5.0) mmol/L Chloride (101-111) mmol/L Carbon Dioxide (22-32) mmol/L Anion Gap (2-11) mmol/L BUN (6-24) mg/dL Creatinine (0.51-0.95) mg/dL Est GFR ( Amer) (>60) Est GFR (Non-Af Amer) (>60) BUN/Creatinine Ratio (8-20) Glucose (70-100) mg/dL Lactic Acid (0.5-2.0) mmol/L Calcium (8.6-10.3) mg/dL Magnesium (1.9-2.7) mg/dL Total Bilirubin (0.2-1.0) mg/dL AST (13-39) U/L ALT (7-52) U/L Alkaline Phosphatase (34-104) U/L Total Creatine Kinase 125 (10-223) U/L CK-MB (CK-2) Pending Troponin I 1.64 H* (<0.04) ng/mL B-Natriuretic Peptide ( - 100) pg/mL Total Protein (6.4-8.9) g/dL Albumin (3.2-5.2) g/dL Globulin (2-4) g/dL Albumin/Globulin Ratio (1-3) Influenza A (Rapid) Negative (Negative) Influenza B (Rapid) Negative (Negative) Result Diagrams: 08/04/17 20:24 08/04/17 20:24 Lab Statement: Any lab studies that have been ordered have been reviewed, and results considered in the medical decision making process. - Radiology CXR Radiology Interpretation Completed By: Radiologist - FINDINGS SUGGESTIVE OF COPD , NO EVIDENCE FOR ACUTE FINDING. ED physician has reviewed this radiology report and agrees. - EKG 2101 Cardiac Rate: Tachycardia EKG Rhythm: Sinus Tachycardia - [address] Segment: Non-Specific Course/Dx - Course Assessment/Plan: This patient is a 72 year old F presenting to ED with a chief complaint of SOB since earlier today. Patient reports difficulty breathing, SALAS, non-productive cough, and CP. Patient denies fever. In the ED course, pt was given a neb treatment and solu-medrol. CXR reveals FINDINGS SUGGESTIVE OF COPD, NO EVIDENCE FOR ACUTE FINDING. EKG reveals sinus tachycardia at 100 bpm and non- specific ST changes. Bloodwork/UA obtained. Pt will be admitted for COPD exacerbation. Consulted Dr. Shirley at 2120 who accepts pt for admission. Pt will be admitted. - Diagnoses Differential Diagnosis/HQI/PQRI: Positive: Asthma, Bronchitis, CHF, COPD Exacerbation, NM, Pneumonia, Pneumothorax, Pulmonary Edema, Unstable Angina Provider Diagnoses: COPD exacerbation, ACS (acute coronary syndrome), Hyponatremia, Hypokalemia - Physician Notifications Discussed Care of Patient With: Lopez Shirley Time Discussed With Above Provider: 21:20 Instructed by Provider To: Other - Consulted Dr. Shirley who accepts pt for admission. - Critical Care Time Critical Care Time: 30-74 min Discharge - Discharge Plan Condition: Stable Disposition: ADMITTED TO [facility] Referrals: Lina Miles MD [Primary Care Provider] - The documentation as recorded by the Jt reaves Nikita accurately reflects the service I personally performed and the decisions made by Latoya pickens Emmanuel.
[2017-08-04] MEDS ORDERED: Aspirin Low Dose CHEW TAB* 81 MG ONE (22:34)
[2017-08-04] MEDS ORDERED: Aspirin Low Dose CHEW TAB* 81 MG PO ONE (22:36)
[2017-08-04] MEDS ORDERED: Heparin for STEMI(*) 5,000 UNITS/ML 1 ML VIAL IV ONE ×2 (22:42→22:50)
[2017-08-04 22:48] LABS: Urine Bacteria Absent (Absent); Urine Bilirubin Negative (Negative); Urine Glucose Negative (Negative); Urine Nitrite Negative (Negative)
[2017-08-04] MEDS ORDERED: Ticagrelor* 90 MG TAB PO ONE ×2 (23:00→23:04)
[2017-08-04] MEDS ORDERED: Heparin(*) 1000 UNIT/ML 10 ML VIAL CATH LAB IV ONE (23:01)
[2017-08-04] MEDS ORDERED: fentaNYL* 50 MCG/ML 2 ML VIAL (100 MCG VIAL) ONE (23:01)
[2017-08-04] MEDS ORDERED: Heparin 2 UNITS/ML IVPREMIX* 3,000 ML IV ONE (23:02)
[2017-08-04] MEDS ORDERED: nitroGLYCERIN DRIP* 25,000 MCG/250 ML BTL ONE (23:02)
[2017-08-04] MEDS ORDERED: Iohexol 350 (CONTRAST) 200 ML MDV IV ONE ×2 (23:02→23:57)
[2017-08-04] MEDS ORDERED: Lidocaine 1% INJ* 10 MG/ML 30 ML SDV ONE (23:02)
[2017-08-04] MEDS ORDERED: Midazolam* 1 MG/ML 10 ML VIAL (10 MG) ONE (23:38)
--- NOTE | 2017-08-04 23:41 | HP ---
H&P (Free Text) History and Physical: PCP: Cardiology: Gloria Rodriguez MD Date/Time: 08/04/20172119 CC: SOB HPI: Mrs An is a 72YO female HX CAD/stent x4 in the 1989, COPD recently quit who initially denied chest pain, but when pointed asked admitted to continuous chest pressure for the past 4 days ago associated with SOB, fatigue, light-headedness, & generalized weakness, but no sweats. She states that activity and exertion makes it worse and rest provides relief. This AM when she awoke it was the worst yet, but with nebulized albuterol and relaxation it subsided, but didn't go away. She went to visit her grandson in [place] today with her . She developed some nausea and radiation into the L neck and on the way home her decided she needed to be evaluated. Initial troponin was 1.5, confirmed with recheck at 1.6. MB index is >10%. She had been given aspirin 324mg in ED and heparin GTT initiated for non-STEMI. However; she was actively reporting 7/10 chest pressure improved to 4/10 after SL nitro x2. Case was reviewed with Nevaeh Muller MD cardiology who felt her ECG was diagnostic and advised activating the STEMI team. Case was then reviewed with Aye Damon MD interventional cardiology who evaluated her in the ED to arrange cardiac catheterization. Serial ECGs revealed subtle new elevation developing in V5/6 whereas the original ECG showed 1mm ST elevation in V3, 1.5mm in V4 with a Q-wave. Reciprocal changes were present in the inferior leads. She admits to non-compliance with her clopidogrel and states she has never been told to take aspirin. PMedHx CAD/stent x4 COPD hypothyroidism Ambulatory Orders Nursing to reconcile. FLUoxetine CAP* [Prozac CAP*] 20 mg PO DAILY 10/06/12 Clopidogrel TAB* [Plavix TAB*] 75 mg PO DAILY 07/19/14 Diltiazem CD CAP* [Cardizem CD CAP*] 180 mg PO DAILY 07/19/14 Pantoprazole TAB (NF) [Protonix TAB (NF)] 40 mg PO DAILY 07/19/14 Pravastatin (NF) [Pravachol (NF)] 40 mg PO QPM 07/19/14 EPINEPHrine PEN ADULT(NF) [Epipen ADULT(NF)] 0.3 mg .SEE ORDER ONCE 09/17/14 Levothyroxine TAB* [Synthroid 75 MCG TAB*] 50 mcg PO DAILY 09/17/14 Tiotropium CAP.INH* [Spiriva CAP.INH*] 1 cap INH DAILY 09/17/14 Trazodone HCl 150 mg PO BEDTIME PRN 09/17/14 Fluticasone NASAL * [Flonase *] 2 spray BOTH NARES DAILY #1 btl 01/27/17 Albuterol 2.5MG/3ML (0.083%)* [Ventolin 2.5 MG/3 ML NEB.MATTEO*] 2.5 mg INH QID PRN 05/03/17 Albuterol Sulfate [Proventil Hfa] 108 mcg IN QID 05/03/17 Aliskiren TAB* [Tekturna TAB*] 300 mg PO DAILY 05/03/17 Fexofenadine (NF) [Sabi 180 (NF)] 180 mg PO DAILY 05/03/17 Fluconazole [Fluconazole 150 mg tab] 150 mg PO DAILY 05/03/17 Fluticas/Salmet 230/21 HFA(NF) [Advair HFA 23O/21 (NF)] 1 puff INH BID 05/03/17 HYDROcodone/ACETAM 10-325 MG(N 1 tab PO Q6H PRN 05/03/17 Mometasone NASAL (NF) [Nasonex (NF)] 50 mcg NA QAM 05/03/17 Allergies Sulfa Drugs Allergy (Severe, Verified 04/10/17 13:32) Hives Bee Venom Allergy (Verified 05/03/17 10:25) Unknown Reaction Details Lisinopril Allergy (Verified 04/10/17 13:32) See Comment "Makes my asthma bad" Metoprolol Allergy (Verified 04/10/17 13:32) See Comment "Makes my asthma bad" PSurgHx OU cataract extractions tonsillectomy cardiac stents x4 (, 2005) appendectomy hysterectomy carpal tunnel release B foot surgery SocHx: quit smoking 1 month ago, 1-2 beer/day, no recreational drugs; lives with her ; 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; 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 FamHx: positive for CHF, HTN, CAD, dementia ROS: as above, otherwise reviewed and all were negative vitals: Vital Signs Temp 36.1 C 08/04/17 19:55 Pulse 109 08/04/17 22:23 Resp 26 08/04/17 22:23 BP 107/70 08/04/17 22:24 Pulse Ox 96 08/04/17 22:23 Intake & Output 08/03/17 08/04/17 08/04/17 23:59 11:59 23:59 Weight 54.431 kg Constitutional: NAD, normally developed, well-nourished elderly white female HEENM: atraumatic; sclera/conjunctiva: anicteric/clear; hearing: clinically intact; oropharynx: clear, mucosa moist Neck: soft tissue: non-tender; thyroid: normal Pulmonary: clear to auscultation bilaterally, good aeration, no accessory muscle use CV: RR/RR, normal S1S2, no carotid bruit, no jugular venous distention, 2+ B DP/ PT, no edema Abdominal: soft, non-distended, non-tender, no rebound/guarding/rigidity, normoactive bowel sounds, no hepatosplenomegaly or masses, no costovertebral angle tenderness Musculoskeletal: general: grossly intact, no palpable tenderness Integumental: normal appearance and texture of exposed skin, scattered SKs Psychiatric orientation: AA&O to PPS affect: anxious mood: cooperative eye contact: good content: minimizes, initially denied chest pain, then admitted to intermittent pain, and finally continuous pain responses: timely insight: poor Testing: Lab Results 08/04/17 08/04/17 08/04/17 Range/Units 20:24 20:24 20:24 WBC (3.5-10.8) 10^3/ul RBC (4.0-5.4) 10^6/ul Hgb (12.0-16.0) g/dl Hct (35-47) % MCV (80-97) fL MCH (27-31) pg MCHC (31-36) g/dl RDW (10.5-15) % Plt Count (150-450) 10^3/ul MPV (7.4-10.4) um3 Neut % (Auto) (38-83) % Lymph % (Auto) (25-47) % Polk % (Auto) (1-9) % Eos % (Auto) (0-6) % Baso % (Auto) (0-2) % Absolute Neuts (auto) (1.5-7.7) 10^3/ul Absolute Lymphs (auto) (1.0-4.8) 10^3/ul Absolute Monos (auto) (0-0.8) 10^3/ul Absolute Eos (auto) (0-0.6) 10^3/ul Absolute Basos (auto) (0-0.2) 10^3/ul Absolute Nucleated RBC 10^3/ul Nucleated RBC % INR (Anticoag Therapy) 0.90 (0.89-1.11) APTT 27.4 (26.0-36.3) seconds Patient Temperature ABG pH (7.35-7.45) ABG pCO2 (35-45) mmHg ABG pO2 (80-100) mmHg ABG HCO3 (19-31) mmol/L ABG O2 Saturation (95-98) % ABG Base Excess (-2.0-2.0) Respiration Rate O2 Delivery Device Ventilator Type Vent Mode FiO2 Inspiratory Time PEEP Pressure Support Pressure Control EPAP IPAP BiPAP Sodium 127 L (133-145) mmol/L Potassium 3.3 L (3.5-5.0) mmol/L Chloride 95 L (101-111) mmol/L Carbon Dioxide 24 (22-32) mmol/L Anion Gap 8 (2-11) mmol/L BUN 7 (6-24) mg/dL Creatinine 0.68 (0.51-0.95) mg/dL Est GFR ( Amer) 109.7 (>60) Est GFR (Non-Af Amer) 85.3 (>60) BUN/Creatinine Ratio 10.3 (8-20) Glucose 128 H (70-100) mg/dL Lactic Acid (0.5-2.0) mmol/L Calcium 8.7 (8.6-10.3) mg/dL Magnesium 1.9 (1.9-2.7) mg/dL Total Bilirubin 0.20 (0.2-1.0) mg/dL AST 22 (13-39) U/L ALT 21 (7-52) U/L Alkaline Phosphatase 88 (34-104) U/L Total Creatine Kinase 124 (10-223) U/L CK-MB (CK-2) 15.3 H (0.6-6.3) ng/mL Troponin I 1.54 H* (<0.04) ng/mL B-Natriuretic Peptide 331 H ( - 100) pg/mL Total Protein 6.5 (6.4-8.9) g/dL Albumin 3.9 (3.2-5.2) g/dL Globulin 2.6 (2-4) g/dL Albumin/Globulin Ratio 1.5 (1-3) Urine Color Urine Appearance Urine pH (5-9) Ur Specific E[place] (1.010-1.030) Urine Protein (Negative) Urine Ketones (Negative) Urine Blood (Negative) Urine Nitrate (Negative) Urine Bilirubin (Negative) Urine Urobilinogen (Negative) Ur Leukocyte Esterase (Negative) Urine WBC (Auto) (Absent) Urine RBC (Auto) (Absent) Ur Squamous Epith Cells (Absent) Urine Bacteria (Absent) Urine Glucose (Negative) Influenza A (Rapid) (Negative) Influenza B (Rapid) (Negative) 08/04/17 08/04/17 08/04/17 Range/Units 20:24 20:24 20:35 WBC 9.2 (3.5-10.8) 10^3/ul RBC 4.52 (4.0-5.4) 10^6/ul Hgb 12.3 (12.0-16.0) g/dl Hct 37 (35-47) % MCV 81 (80-97) fL MCH 27 (27-31) pg MCHC 34 (31-36) g/dl RDW 18 H (10.5-15) % Plt Count 240 (150-450) 10^3/ul MPV 7 L (7.4-10.4) um3 Neut % (Auto) 63.8 (38-83) % Lymph % (Auto) 16.8 L (25-47) % Polk % (Auto) 11.2 H (1-9) % Eos % (Auto) 7.5 H (0-6) % Baso % (Auto) 0.7 (0-2) % Absolute Neuts (auto) 5.8 (1.5-7.7) 10^3/ul Absolute Lymphs (auto) 1.5 (1.0-4.8) 10^3/ul Absolute Monos (auto) 1.0 H (0-0.8) 10^3/ul Absolute Eos (auto) 0.7 H (0-0.6) 10^3/ul Absolute Basos (auto) 0.1 (0-0.2) 10^3/ul Absolute Nucleated RBC 0 10^3/ul Nucleated RBC % 0 INR (Anticoag Therapy) (0.89-1.11) APTT (26.0-36.3) seconds Patient Temperature Not Reportable ABG pH 7.42 (7.35-7.45) ABG pCO2 38 (35-45) mmHg ABG pO2 63 L (80-100) mmHg ABG HCO3 25.0 (19-31) mmol/L ABG O2 Saturation 96.0 (95-98) % ABG Base Excess 0.2 (-2.0-2.0) Respiration Rate Not Reportable O2 Delivery Device Not Reportable Ventilator Type Not Reportable Vent Mode Not Reportable FiO2 Not Reportable Inspiratory Time Not Reportable PEEP Not Reportable Pressure Support Not Reportable Pressure Control Not Reportable EPAP Not Reportable IPAP Not Reportable BiPAP Not Reportable Sodium (133-145) mmol/L Potassium (3.5-5.0) mmol/L Chloride (101-111) mmol/L Carbon Dioxide (22-32) mmol/L Anion Gap (2-11) mmol/L BUN (6-24) mg/dL Creatinine (0.51-0.95) mg/dL Est GFR ( Amer) (>60) Est GFR (Non-Af Amer) (>60) BUN/Creatinine Ratio (8-20) Glucose (70-100) mg/dL Lactic Acid 1.2 (0.5-2.0) mmol/L Calcium (8.6-10.3) mg/dL Magnesium (1.9-2.7) mg/dL Total Bilirubin (0.2-1.0) mg/dL AST (13-39) U/L ALT (7-52) U/L Alkaline Phosphatase (34-104) U/L Total Creatine Kinase (10-223) U/L CK-MB (CK-2) (0.6-6.3) ng/mL Troponin I (<0.04) ng/mL B-Natriuretic Peptide ( - 100) pg/mL Total Protein (6.4-8.9) g/dL Albumin (3.2-5.2) g/dL Globulin (2-4) g/dL Albumin/Globulin Ratio (1-3) Urine Color Urine Appearance Urine pH (5-9) Ur Specific E[place] (1.010-1.030) Urine Protein (Negative) Urine Ketones (Negative) Urine Blood (Negative) Urine Nitrate (Negative) Urine Bilirubin (Negative) Urine Urobilinogen (Negative) Ur Leukocyte Esterase (Negative) Urine WBC (Auto) (Absent) Urine RBC (Auto) (Absent) Ur Squamous Epith Cells (Absent) Urine Bacteria (Absent) Urine Glucose (Negative) Influenza A (Rapid) (Negative) Influenza B (Rapid) (Negative) 08/04/17 08/04/17 08/04/17 Range/Units 21:06 21:23 21:49 WBC (3.5-10.8) 10^3/ul RBC (4.0-5.4) 10^6/ul Hgb (12.0-16.0) g/dl Hct (35-47) % MCV (80-97) fL MCH (27-31) pg MCHC (31-36) g/dl RDW (10.5-15) % Plt Count (150-450) 10^3/ul MPV (7.4-10.4) um3 Neut % (Auto) (38-83) % Lymph % (Auto) (25-47) % Polk % (Auto) (1-9) % Eos % (Auto) (0-6) % Baso % (Auto) (0-2) % Absolute Neuts (auto) (1.5-7.7) 10^3/ul Absolute Lymphs (auto) (1.0-4.8) 10^3/ul Absolute Monos (auto) (0-0.8) 10^3/ul Absolute Eos (auto) (0-0.6) 10^3/ul Absolute Basos (auto) (0-0.2) 10^3/ul Absolute Nucleated RBC 10^3/ul Nucleated RBC % INR (Anticoag Therapy) (0.89-1.11) APTT (26.0-36.3) seconds Patient Temperature ABG pH (7.35-7.45) ABG pCO2 (35-45) mmHg ABG pO2 (80-100) mmHg ABG HCO3 (19-31) mmol/L ABG O2 Saturation (95-98) % ABG Base Excess (-2.0-2.0) Respiration Rate O2 Delivery Device Ventilator Type Vent Mode FiO2 Inspiratory Time PEEP Pressure Support Pressure Control EPAP IPAP BiPAP Sodium (133-145) mmol/L Potassium (3.5-5.0) mmol/L Chloride (101-111) mmol/L Carbon Dioxide (22-32) mmol/L Anion Gap (2-11) mmol/L BUN (6-24) mg/dL Creatinine (0.51-0.95) mg/dL Est GFR ( Amer) (>60) Est GFR (Non-Af Amer) (>60) BUN/Creatinine Ratio (8-20) Glucose (70-100) mg/dL Lactic Acid (0.5-2.0) mmol/L Calcium (8.6-10.3) mg/dL Magnesium (1.9-2.7) mg/dL Total Bilirubin (0.2-1.0) mg/dL AST (13-39) U/L ALT (7-52) U/L Alkaline Phosphatase (34-104) U/L Total Creatine Kinase 125 (10-223) U/L CK-MB (CK-2) 15.2 H (0.6-6.3) ng/mL Troponin I 1.64 H* (<0.04) ng/mL B-Natriuretic Peptide ( - 100) pg/mL Total Protein (6.4-8.9) g/dL Albumin (3.2-5.2) g/dL Globulin (2-4) g/dL Albumin/Globulin Ratio (1-3) Urine Color Yellow Urine Appearance Clear Urine pH 5.0 (5-9) Ur Specific E[place] 1.016 (1.010-1.030) Urine Protein Negative (Negative) Urine Ketones Negative (Negative) Urine Blood Negative (Negative) Urine Nitrate Negative (Negative) Urine Bilirubin Negative (Negative) Urine Urobilinogen Negative (Negative) Ur Leukocyte Esterase Trace H (Negative) Urine WBC (Auto) Trace(0-5/hpf) (Absent) Urine RBC (Auto) Trace(0-2/hpf) (Absent) Ur Squamous Epith Cells Present H (Absent) Urine Bacteria Absent (Absent) Urine Glucose Negative (Negative) Influenza A (Rapid) Negative (Negative) Influenza B (Rapid) Negative (Negative) ECG, personally reviewed: (initial): sinus tachycardia rate 100, 1mm ST elevation in V3, 1.5mm ST elevation in V4, 1/2mm ST elevation in V5, reciprocal changes II/III ECG, personally reviewed: (2nd): sinus tachycardia rate 102, 1/2mm ST elevation in V2, 1mm in V3, 1mm V4 w/ Q-wave ECG, personally reviewed: (3rd): sinus tachycardia rate 108, 1mm ST elevation in V3, 1mm V4, 1mm V5, 0.5mm V6 CXR, personally reviewed: no acute process Impression: 72F presenting late in the course of an johanny-lateral STEMI DIAGNOSIS & PLAN Primary STEMI : 324mg aspirin given in ED : heparin loading : 180mg PO ticagrelor : Aye Damon MD interventional cardiology evaluated in ED and arranged emergent cardiac cath : ICU admission : post-cath orders per Aye Damon MD : supplemental oxygen : supportive care COPD exacerbation : albuterol nebs : mometasone/formoterol : tiotropium : IV methylprednisolone : incentive spirometry : supportive care Secondary hypothyroidism : review medication once reconciled Admission Rational: inpatient for subacute STEMI requiring cardiac cath, ICU monitoring DVTp: heparin GTT Code Status: full HCP:
[2017-08-04] MEDS ORDERED: Bivalirudin(*) 250 MG VIAL ONE (23:48)
[2017-08-05] MEDS ORDERED: nitroGLYCERIN DRIP* 25,000 MCG/250 ML BTL ONE (00:05)
[2017-08-05] MEDS ORDERED: Furosemide IV* 10 MG/ML 2 ML VIAL (20 MG) IV ONE ×2 (00:35→16:00)
[2017-08-05] MEDS ORDERED: Nitroglycerin TAB 0.4 MG* 0.4 MG TAB SL PRN (00:50)
[2017-08-05] MEDS ORDERED: Atorvastatin* 80 MG TAB PO ONE (00:59)
[2017-08-05] MEDS ORDERED: NS 0.9% 1000 ML* 1,000 ML IV SCH (01:00)
[2017-08-05 01:33] LABS: Hematocrit 36 % (35-47); Hemoglobin 12.2 g/dl (12.0-16.0); Mean Corpuscular HGB Conc 34 g/dl (31-36); Mean Corpuscular Hemoglobin 27 pg (27-31); Mean Corpuscular Volume 81 fL (80-97); Mean Platelet Volume 7 um3 (7.4-10.4); Red Blood Count 4.51 10^6/ul (4.0-5.4); Red Cell Distribution Width 18 % (10.5-15)
[2017-08-05] MEDS ORDERED: Albuterol 2.5 MG/3 ML NEB.SOL* (0.083%) INH PRN (02:06)
--- NOTE | 2017-08-05 02:40 | PN ---
Progress Note - Progress Note Date of Service: 08/05/17 Note: Aye Damon MD & I agree that given her EF ~25% on cardiac cath w/ global hypokinesia, she should continue a ORLIN agent and will there for continue aliskirin. Additionally, she would greatly benefit from low dose beta blockade, but has a HX of COPD exacerbation with metoprolol. As she is in the ICU in as controlled of an environment as possible, we will try carvedilol 3.125mg PO BID to start in the AM and monitor closely for worsening respiratory status. Reasoning and rationale, risks & benefits of this plan were discussed with Mrs An and she is in agreement to try. Questions were sought and answered to her satisfaction. Will start carvedilol in the AM after the steroids & further breathing treatments have had more of a chance to improve her current pulmonary status.
[2017-08-05] MEDS ORDERED: nitroGLYCERIN DRIP* 25,000 MCG/250 ML BTL IV SCH (04:00)
--- NOTE | 2017-08-05 04:07 | CONS ---
CC: Dr. Armin Rodriguez; Dr. Lina Miles * INTERVENTIONAL CARDIOLOGY CONSULT: DATE OF CONSULT: 08/04/17 INDICATION FOR CONSULT: The patient is a 72-year-old female with a known history of prior stents in her left anterior descending artery and circumflex artery, now with chest discomfort, abnormal cardiac enzymes, abnormal EKG suggesting possible subacute anterior myocardial infarction with ongoing symptoms. HISTORY OF PRESENT ILLNESS: The patient is a pleasant 72-year-old female, known to our group through Dr. Armin Rodriguez, who follows her for cardiac problems. She states that 4 days ago, she started having severe problems with her asthma and significant shortness of breath. On gi, it worsened and she started developing chest tightness with it. This chest tightness persisted over the past 3 days. Eventually, it got so severe that she presented to the emergency room. She arrived in the emergency room at 1952 by car. She eventually had an EKG done and cardiac enzymes were done as well and after Dr. Shirley, the hospitalist, got involved with the case, he called a STEMI alert after speaking with Dr. Muller, mechanic welder truck driver on-call. Of note, Dr. Muller did not formally see the patient but told Dr. Shirley to call the STEMI alert. I got notified of this at 2213. I came in to see her in the emergency room. She was still short of breath complaining about chest tightness sensation, she had diffuse wheezing noted. Her EKG demonstrated Q waves in V3 and V4 with poor R waves in V1 and V2 with mild ST- segment elevation in V3 and V4 and subtly in V5 with question of T-wave inversion inferiorly. Her cardiac enzymes were done within 2 hours of each other as a repeat sample was drawn and revealed a total CPK of 124, an MB of 15.3, and a troponin of 1.54. On repeat, roughly 1 hour later, total CPK 125, an MB of 15.2 , and a troponin of 1.64. Her B-natriuretic peptide was 331. With ongoing symptoms and EKG abnormalities and prior history of stents, I discussed with her the issue proceeding emergently to the cardiovascular laboratory. She understood that, understood the risks and benefits, and wished to proceed. Of note, in the emergency room, she was given 4000 units of heparin, 180 mg of Brilinta, and full- dose aspirin. At home, the patient reportedly has been inconsistently on clopidogrel and misses quite a number of doses at a time. She is also on diltiazem 180 mg a day , Tekturna 300 mg a day for hypertension, and is on pravastatin. Due to inability to obtain records from the office due to computer problems, the only significant history I could get on her was from the old records, which had other facility records showing on 04/19/06, she had a Cordis Cypher stent to the diagonal and a Cypher stent to the LAD as well as a stent listed also to the circumflex and another Cypher stent to the diagonal. These were done at [facility] and I have no records available regarding the actual report from back then. PAST MEDICAL HISTORY: Includes the coronary artery disease as well as hypertension, chronic obstructive lung disease/asthma, and hypothyroidism. ALLERGIES: Reportedly, she has an allergy to LISINOPRIL and METOPROLOL, which we do not know the etiology of this. REVIEW OF SYSTEMS: Negative for any bleeding issues including hematochezia, hematemesis, hematuria. No history of TIA or stroke, no history of allergy to contrast, and no history of renal insufficiency. PHYSICAL EXAM: When I saw revealed a female in mild respiratory distress. Blood pressure 120/79, pulse 108, oxygen saturation 99% on oxygen, respirations 24. Neck was supple. There was increased JVP. Carotids could not be assessed for bruits due to the wheezing that she was unable to stop. Chest had diffuse wheezing bilaterally. Heart revealed a regular rate and rhythm. Heart sounds were difficult to appreciate but no significant systolic murmur. Abdomen was soft and nontender. Extremities: Without edema. Neuro: The patient is alert and oriented with normal mentation. Musculoskeletal: The patient moves all extremities appropriately. Psychological: The patient is appropriately anxious. DIAGNOSTIC STUDIES/LAB DATA: Sodium 127, potassium 3.3, chloride 95, bicarb 24 , BUN 7, creatinine 0.6. Hemoglobin and hematocrit of 12.3 and 37 with a white count of 9200, platelet count of 240,000. SGOT 22. Total CPK of 124 and 125, MB 15.3 and 15.2, troponin 1.54 and 1.64 respectively. BNP was 331. EKG was as described with sinus tachycardia, heart rate of 100, MS interval 1.19 , QRS 0.09, QT 0.33, axis is -45 degrees with poor R-wave throughout the precordial leads all the way to V4 with mild ST-segment elevation in V3, V4, and minimally in V5. T-wave inversion suggested inferiorly. A repeat EKG showed similar findings with the exception of probable lead placement. OVERALL ASSESSMENT: Ms. An now presents in the throes of shortness of breath and chest discomfort for multiple days but interestingly an SGOT that was normal that would suggest she did not have a severe anterior wall myocardial infarction within the past 2 days. Her cardiac enzymes are elevated , some of which could be due to stress of her asthma, which has been severe over the past couple of days versus the presence of an ongoing critically occluded left anterior descending system. Her EKG clearly has changes from prior ones suggesting a dynamic acute coronary syndrome, possibly acute anterior NE. The risks and benefits of the cardiac catheterization were explained. She understood them and she was on appropriate medications preprocedure for the cardiac catheterization. Further management will be made pending results. [id number]/[facility] #: [id number] NEFTALY
[2017-08-05] MEDS: methylPREDNISolone SOD 40 MG* 1 ML VIAL IV SCH ×3 (04:18→19:42)
[2017-08-05] MEDS ORDERED: Morphine INJ* 2 MG/ML 1 ML SYRINGE (TWO MG - NEW SYRINGE VERSION) ONE (04:32)
--- NOTE | 2017-08-05 04:35 | PN ---
Progress Note - Progress Note Date of Service: 08/05/17 Note: Nursing reports back pain post-cardiac cath. Upon arrival Mrs An is lying supine w/ R groin sandbag per post-cath orders. She reports toothache like 8/10 back pain, no tearing or ripping. It is R>L, none centrally. While she has chronic LBP, this is higher than and not as severe as her typical pain. Blood pressure is good, systolic 130s. HR is sinus tachycardia in the 110s, stable. BLE PT/DP pulses are 2+. BLE capillary refill is <2s. R groin cath site appears normal. She denies chest pain at this time. There is no CVAT & no abdominal pain with palpation. Her pain is not typical for dissection. She has a history of unexplained renal failure x2 and so at this time, given the clinical picture I would not risk another dye load. Will give 2mg IV morphine and continue close monitoring.
[2017-08-05] MEDS ORDERED: Morphine INJ* 2 MG/ML 1 ML SYRINGE (TWO MG - NEW SYRINGE VERSION) IV ONE (05:00)
[2017-08-05 05:45] LABS: Hematocrit 38 % (35-47); Hemoglobin 12.6 g/dl (12.0-16.0); Mean Corpuscular HGB Conc 34 g/dl (31-36); Mean Corpuscular Hemoglobin 27 pg (27-31); Mean Corpuscular Volume 80 fL (80-97); Mean Platelet Volume 7 um3 (7.4-10.4); Red Blood Count 4.67 10^6/ul (4.0-5.4); Red Cell Distribution Width 18 % (10.5-15)
[2017-08-05 05:56] LABS: BUN/Creatinine Ratio 9.9 (8-20); EGFR African American 104.4 (>60); EGFR Non-African American 81.2 (>60); HDL Cholesterol 96.6 mg/dL; Potassium 3.5 mmol/L (3.5-5.0)
[2017-08-05 06:04] LABS: Troponin I 0.64 ng/mL (<0.04)
[2017-08-05] MEDS: Levothyroxine TAB* 50 MCG TAB PO SCH (06:07)
[2017-08-05] MEDS ORDERED: Lidocaine 2% VISCOUS* 15 ML UDC PO ONE (06:32)
[2017-08-05] MEDS ORDERED: Al Hydrox/Mg Hydrox/Simet LIQ* 30 ML UDC PO ONE (06:32)
[2017-08-05] MEDS: amLODIPine TAB* 5 MG PO SCH ×2 (06:44→08:23)
[2017-08-05] MEDS: Albuterol 2.5 MG/3 ML NEB.SOL* (0.083%) INH SCH ×2 (08:18→14:12)
[2017-08-05] MEDS: Mometasone/Formoter 200/5 MDI INH SCH ×2 (08:19→20:29)
[2017-08-05] MEDS: Tiotropium CAP.INH* CAP.INH/18 MCG (USE ORDER SET !) INH SCH (08:19)
[2017-08-05] MEDS: Carvedilol TAB* 3.125 MG PO SCH ×2 (08:22→20:53)
[2017-08-05] MEDS: Aspirin Low Dose CHEW TAB* 81 MG PO SCH (08:22)
[2017-08-05] MEDS: PARoxetine HCL TAB* 40 MG PO SCH (08:22)
[2017-08-05] MEDS: Fluticasone NASAL SPRAY 50MCG* 16 gm SPRAY BTL BOTH NARES SCH (08:23)
[2017-08-05] MEDS: Ticagrelor* 90 MG TAB PO SCH ×2 (08:23→20:53)
[2017-08-05] MEDS: Aliskiren TAB* 150 MG PO SCH (08:24)
[2017-08-05] MEDS ORDERED: Spiriva Inhaler DEVICE* 1 EACH DEVICE INH ONE (09:00)
--- NOTE | 2017-08-05 09:43 | PN ---
Subjective Date of Service: 08/05/17 Interval History: Patient seen and examined at bedside. Denies fever, chills, chest discomfort, N/ V/D. Pt continues to report shortness of breath, Pt states this has been ongoing for a few days but she feels it is improving. Tele: Sinus tach, rate 100's. Family History: Unchanged from Admission Social History: Unchanged from Admission Past Medical History: Unchanged from Admission Objective Active Medications: Albuterol (Ventolin 2.5 Mg/3 Ml Neb.Terra*) 2.5 mg INH Q2H PRN Reason: SOB/ WHEEZING Albuterol (Ventolin 2.5 Mg/3 Ml Neb.Terra*) 2.5 mg INH [id number] AWAKE BAHMAN Aliskiren (Tekturna Tab*) 300 mg PO DAILY BAHMAN Amlodipine Besylate (Norvasc Tab*) 2.5 mg PO DAILY BAHMAN Aspirin (Aspirin Low Dose Tab*) 81 mg PO DAILY BAHMAN Atorvastatin Calcium (Lipitor*) 80 mg PO 1700 BAHMAN Carvedilol (Coreg Tab*) 3.125 mg PO BID BAHMAN Fluticasone Propionate (Flonase Nasal [place] 50mcg*) 2 spray BOTH NARES DAILY BAHMAN Nitroglycerin/Dextrose (Nitroglycerin Drip*) 25,000 mcg in 250 mls @ 0 mls/hr IV .(Initial Rate) BAHMAN; 0 MCG/MIN Reason: Protocol Levothyroxine Sodium (Synthroid Tab*) 50 mcg PO 0600 BAHMAN Methylprednisolone Sodium Succinate (Solu-Medrol 40 Mg) 40 mg IV Q8H BAHMAN Mometasone Furoate/Formoterol Fumar (Dulera 200/5 Mdi*) 2 puff INH BID BAHMAN Nitroglycerin (Nitroglycerin Tab 0.4 Mg*) 0.4 mg SL Q5M PRN Reason: ANGINA Paroxetine HCl (Paxil Tab*) 40 mg PO DAILY BAHMAN Ticagrelor (Brilinta*) 90 mg PO BID BAHMAN Tiotropium [place] (Spiriva Cap.Inh*) 1 cap INH DAILY BAHMAN Trazodone HCl (Desyrel Tab*) 150 mg PO BEDTIME PRN Reason: SLEEP Vital Signs 08/05/17 08/05/17 08/05/17 00:50 00:58 01:00 Temperature 98.8 F 98.8 F Pulse Rate 111 Respiratory 22 22 Rate Blood Pressure 142/81 (mmHg) O2 Sat by Pulse 100 Oximetry 08/05/17 08/05/17 08/05/17 01:20 02:00 02:27 Temperature 98.8 F Pulse Rate 112 Respiratory 20 20 Rate Blood Pressure (mmHg) O2 Sat by Pulse 100 Oximetry 08/05/17 08/05/17 08/05/17 02:30 02:45 03:00 Temperature Pulse Rate 112 110 114 Respiratory 25 22 28 Rate Blood Pressure 127/96 157/90 163/101 (mmHg) O2 Sat by Pulse 100 100 100 Oximetry 08/05/17 08/05/17 08/05/17 03:02 03:08 03:15 Temperature Pulse Rate 111 115 119 Respiratory 22 18 29 Rate Blood Pressure 153/108 140/87 160/112 (mmHg) O2 Sat by Pulse 100 100 100 Oximetry 08/05/17 08/05/17 08/05/17 03:21 03:30 03:32 Temperature Pulse Rate 115 115 111 Respiratory 15 18 21 Rate Blood Pressure 147/94 130/88 (mmHg) O2 Sat by Pulse 100 100 100 Oximetry 08/05/17 08/05/17 08/05/17 03:36 03:45 03:51 Temperature 99.1 F Pulse Rate 113 116 Respiratory 25 24 Rate Blood Pressure 126/87 135/98 (mmHg) O2 Sat by Pulse 100 100 Oximetry 08/05/17 08/05/17 08/05/17 04:00 04:15 04:30 Temperature Pulse Rate 113 113 111 Respiratory 20 22 23 Rate Blood Pressure 135/99 138/99 134/93 (mmHg) O2 Sat by Pulse 99 100 99 Oximetry 08/05/17 08/05/17 08/05/17 04:38 04:39 04:45 Temperature Pulse Rate 107 Respiratory 27 27 26 Rate Blood Pressure 126/98 (mmHg) O2 Sat by Pulse 100 Oximetry 08/05/17 08/05/17 08/05/17 05:00 05:04 05:15 Temperature Pulse Rate 105 110 109 Respiratory 18 25 24 Rate Blood Pressure 126/78 148/80 (mmHg) O2 Sat by Pulse 100 100 100 Oximetry 08/05/17 08/05/17 08/05/17 05:30 05:45 06:00 Temperature Pulse Rate 105 108 109 Respiratory 24 26 16 Rate Blood Pressure 151/98 151/101 146/97 (mmHg) O2 Sat by Pulse 100 100 99 Oximetry 08/05/17 08/05/17 08/05/17 06:15 06:30 06:32 Temperature Pulse Rate 111 112 118 Respiratory 30 21 20 Rate Blood Pressure 160/92 163/98 150/108 (mmHg) O2 Sat by Pulse 100 100 100 Oximetry 08/05/17 08/05/17 08/05/17 06:46 07:00 07:10 Temperature Pulse Rate 114 102 108 Respiratory 23 21 16 Rate Blood Pressure 152/100 152/103 130/86 (mmHg) O2 Sat by Pulse 100 99 100 Oximetry 08/05/17 08/05/17 08/05/17 07:15 07:30 07:45 Temperature Pulse Rate 109 104 114 Respiratory 21 25 26 Rate Blood Pressure 134/91 137/87 122/80 (mmHg) O2 Sat by Pulse 100 99 99 Oximetry 08/05/17 08/05/17 08/05/17 08:00 08:15 08:30 Temperature 99.2 F Pulse Rate 114 111 107 Respiratory 24 25 20 Rate Blood Pressure 144/92 140/99 133/91 (mmHg) O2 Sat by Pulse 98 100 100 Oximetry 08/05/17 08:31 Temperature Pulse Rate 109 Respiratory 16 Rate Blood Pressure (mmHg) O2 Sat by Pulse 97 Oximetry Oxygen Devices in Use Now: None Appearance: NAD, laying in bed Ears/Nose/Mouth/Throat: Mucous Membranes Moist Respiratory: Symmetrical Chest Expansion and Respiratory Effort, Clear to Auscultation Cardiovascular: NL Sounds; No Murmurs; No JVD, RRR Abdominal: NL Sounds; No Tenderness; No Distention Extremities: No Edema Skin: No Rash or Ulcers Neurological: Alert and Oriented x 3, NL Muscle Strength and Tone Lines/Tubes/Other Access: Clean, Dry and Intact Peripheral IV - site benign Nutrition: Taking PO's Result Diagrams: 08/05/17 05:05 08/05/17 05:05 Additional Lab and Data: Microbiology and Other Data: Microbiology 08/05/17 01:10 Nasal Screen MRSA (PCR)(LEAH) - Final Nasal Mrsa Negative Assess/Plan/Problems-Billing Assessment: Ms. 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 - Patient Problems (1) Demand myocardial infarction Code(s): I21.9 - ACUTE MYOCARDIAL INFARCTION, UNSPECIFIED SNOMED Code(s): 15551618 Comment: - S/P cardiac cath, no intervention - Troponin peaked at 1.64 - Discontinue Nitro gtt - Continue statin, ASA, low dose carvedilol and Brilinta (2) COPD exacerbation Code(s): J44.1 - CHRONIC OBSTRUCTIVE PULMONARY DISEASE W (ACUTE) EXACERBATION SNOMED Code(s): 423193036680689 Comment: - Continue albuterol nebs, spiriva, dulera and steroids (3) CAD (coronary artery disease) Code(s): I25.10 - ATHSCL HEART DISEASE OF [place] CORONARY ARTERY W/O ANG PCTRS SNOMED Code(s): 42586384 Comment: - Continue ASA and statin - Started on low dose carvedilol and Brilinta (4) HTN (hypertension) Code(s): I10 - ESSENTIAL (PRIMARY) HYPERTENSION SNOMED Code(s): 41506797 Comment: - SBP 130-150's - Continue tekturna and amlodipine (5) Hypothyroidism Code(s): E03.9 - HYPOTHYROIDISM, UNSPECIFIED SNOMED Code(s): 16363251 Comment: - TSH 0.February - Continue levothyroxine (6) DVT prophylaxis Code(s): ZSH8415 - SNOMED Code(s): 483460921 (7) Full code status Code(s): Z78.9 - OTHER SPECIFIED HEALTH STATUS SNOMED Code(s): 388931134 Status and Disposition: Inpatient. Discharge to home when medically stable.
[2017-08-05] MEDS ORDERED: LORazepam TAB(*) 0.5 MG PO PRN ×2 (11:09→14:47)
[2017-08-05] MEDS: Al Hydrox/Mg Hydrox/Simet LIQ* 30 ML UDC PO PRN (11:34)
[2017-08-05 11:55] LABS: Troponin I 0.63 ng/mL (<0.04)
[2017-08-05] MEDS ORDERED: LORazepam TAB(*) 0.5 MG PO ONE (14:46)
[2017-08-05] MEDS: Atorvastatin* 80 MG TAB PO SCH (16:01)
--- NOTE | 2017-08-05 16:10 | ECHO ---
Patient: GAVIOTA ASENCIO [facility] Rec#: [id number] : 1945 Date: 08/05/2017 Age: 72y Height: 149.86 cm / 59.0 in Weight: 54.43 kg / 120.0 lbs Sex: F BSA: 1.48 Room#: [facility] Admit Date#: 08/05/2017 Type: Inpatient Referring: Carlos Alberto Damon MD Reading: Armin Rodriguez MD Control Supervisor: Rosalba Haro RDCS CC: FIOR GARVEY Transthoracic Echocardiogram Indication: S/P PCI BP: 146/97 HR: 112 Rhythm: A-Fib Findings History: CAD with stents x1989, COPD, hypothyroidism, former smoker, HTN. Technical Comments: The study quality is poor. The study is technically limited due to poor acoustic windows. Completed at 1210. Left Ventricle: The left ventricular chamber size is normal. Posterior wall hypertrophy is observed. There is a focal wall motion abnormality present. There is moderate to severely decreased left ventricular systolic function. The estimated ejection fraction is 30-35%. There is no consistent Doppler evidence of clinically significant diastolic dysfunction. The mid inferoseptal, apical anterior, apical lateral, and apical inferior wall segments are hypokinetic (score 2). The apical septal wall segment is akinetic (score 3). Overall wallmotion score index is 2.20 Left Atrium: The left atrium is mildly dilated. Right Ventricle: The right ventricular cavity size is normal. The right ventricular global systolic function is normal. Right Atrium: The right atrial cavity size is normal. Aortic Valve: The aortic valve is trileaflet. Systolic excursion of the aortic valve cusps is reduced. There is a trace of aortic regurgitation. There is mild aortic stenosis. The mean gradient of the aortic valve is 11.38 mmHg. The peak instantaneous gradient of the aortic valve is 19.03 mmHg. The aortic valve area, by peak velocities, is calculated at 1.2 cm2. The aortic valve area, by VTI's, is calculated at 1.25 cm2. Mitral Valve: There is mitral annular calcification. The mitral valve leaflets are moderately thickened. There is trace to mild mitral regurgitation. There is no evidence of mitral stenosis. Tricuspid Valve: The tricuspid valve leaflets are normal. There is mild tricuspid regurgitation. The right ventricular systolic pressure is estimated at 28 mmHg. There is evidence that pulmonary hypertension may be underestimated. There is no tricuspid stenosis. Pulmonic Valve: The pulmonic valve structure is not well visualized. There is no pulmonic stenosis. Pericardium: There is no significant pericardial effusion. Aorta: There is no dilatation of the ascending aorta. There is no dilatation of the aortic arch. The aortic root is normal in size. Pulmonary Artery: The main pulmonary artery is not well visualized. Venous: The inferior vena cava appears normal in size. There is a greater than 50% respiratory change in the inferior vena cava dimension. Conclusions There is a focal wall motion abnormality present. There is moderate to severely decreased left ventricular systolic function. The estimated ejection fraction is 30-35%. The mid inferoseptal, apical anterior, apical lateral, and apical inferior wall segments are hypokinetic (score 2). The apical septal wall segment is akinetic (score 3). The right ventricular global systolic function is normal. There is mild aortic stenosis. The mean gradient of the aortic valve is 11.38 mmHg. There is trace to mild mitral regurgitation. There is mild tricuspid regurgitation. The right ventricular systolic pressure is estimated at 28 mmHg. There is no significant pericardial effusion. Compared to study of 05/25/16, the decrease in LV function is new (previously normal) Measurements Name Value Normal Range RVIDd (AP) 2D 2 cm (0.9 - 2.6) RVDdMajor (2D) 2.7 cm (2.2 - 4.4) RAd ISD 4CH 4.2 cm (3.4 - 4.9) RA (A4C)W 3 cm (2.9 - 4.6) IVSd (2D) 1 cm (0.6 - 1) LVPWd (2D) 1.1 cm (0.6 - 1) LVIDd (2D) 4.3 cm (3.6 - 5.4) LVIDs (2D) 2.9 cm - LV FS (2D) 32 % (25 - 45) Aortic Annulus 2.1 cm (1.4 - 2.6) Ao root diameter (2D) 2.8 cm (2.1 - 3.5) Ascending Ao 2.8 cm (2.1 - 3.4) Aortic arch 3.3 cm (1.8 - 3.4) LA dimension (AP) 2D 2.9 cm (2.3 - 3.8) LAd ISD 4CH 5.1 cm (2.9 - 5.3) LA ISD 4CH W 3.6 cm (2.5 - 4.5) Name Value Normal Range LA ESV SP 4CH (A/L) 48 ml - LA ESV SP 2CH (A/L) 66 ml - LA ESV BP (A/L) 57 ml - LA ESV BP (A/L) index 38.27 ml/m2 - LA ESV SP 4CH (MOD) 46 ml - LA ESV SP 2CH (MOD) 65 ml - Name Value Normal Range MV E-wave Vmax 1.26 m/sec - MV deceleration time 149 msec - MV A-wave Vmax 0.83 m/sec - MV E:A ratio 1.51 ratio - LV septal e' Vmax 0.06 m/sec - LV lateral e' Vmax 0.13 m/sec - LV E:e' septal ratio 21 ratio - LV E:e' lateral ratio 9.69 ratio - Name Value Normal Range AV Vmax 2.2 m/sec - AV VTI 31.7 cm - AV peak gradient 19.03 mmHg - AV mean gradient 11.38 mmHg - LVOT diameter 2 cm - LVOT Vmax 0.84 m/sec - LVOT VTI 12.69 cm - LVOT peak gradient 2.83 mmHg - LVOT mean gradient 1.39 mmHg - AYLA (continuity Vmax) 1.2 cm2 - AYLA (continuity VTI) 1.25 cm2 - PEDRO Vmax 0.53 m/sec - Name Value Normal Range TR Vmax 2.5 m/sec - TR peak gradient 25 mmHg - RAP 3 mmHg - RVSP 28 mmHg - IVC diameter 1.3 cm - Name Value Normal Range PV Vmax 0.8 m/sec - PV peak gradient 2.57 mmHg - Wallmotion BAS Not Seen BA Not Seen BAL Not Seen DORIS Not Seen BI Not Seen BIS Not Seen MAS Not Seen MA Not Seen MAL Not Seen MIL Not Seen CA Not Seen MIS Hypokinetic Akinetic AA Hypokinetic AL Hypokinetic AI Hypokinetic APEX Akinetic
[2017-08-05] MEDS ORDERED: Acetaminophen TAB* 325 MG PO PRN (20:11)
[2017-08-05] MEDS: Levalbuterol 0.63MG/3ML NEB* UNIT OF USE INH SCH (20:26)
[2017-08-05] MEDS ORDERED: Metoprolol Tartrate TAB* 25 MG PO ONE (21:52)
[2017-08-05] MEDS: traZODone TAB* 100 MG PO PRN (21:59)
[2017-08-06] MEDS: Levalbuterol 0.63MG/3ML NEB* UNIT OF USE INH SCH ×6 (01:37→23:13)
[2017-08-06] MEDS: Levothyroxine TAB* 50 MCG TAB PO SCH (05:01)
[2017-08-06] MEDS: methylPREDNISolone SOD 40 MG* 1 ML VIAL IV SCH ×3 (05:01→21:11)
--- NOTE | 2017-08-06 05:18 | CATH ---
CC: Dr. Lina Miles; Dr. Armin Rodriguez * CARDIAC CATHETERIZATION REPORT: DATE OF PROCEDURE: 08/05/17 INDICATION FOR THE PROCEDURE: The patient presents with significant shortness of breath, abnormal EKG raising question of anterior wall myocardial infarction with abnormal cardiac enzyme. PROCEDURE: Coronary arteriography, left heart catheterization, left ventriculography. The patient was interviewed and examined in the emergency room where the risks and benefits were explained. She understood and wished to proceed. She was brought to the cardiovascular laboratory where a formal time-out was performed. EQUIPMENTS UTILIZED: 1. Sheath: A 6.5 Merit Prelude sheath. 2. Diagnostic catheter for right coronary artery was an AL1 5-Bel[place]ian after a FR4 5- [place]ian could not engage the anterior takeoff of the right coronary artery. The left coronary artery was cannulated utilizing a 6-[place]ian CL S3 curve catheter. 3. Left heart catheterization performed utilizing a 5-[place]ian angled pigtail catheter. HEMOSTASIS TECHNIQUE: With manual pressure in the intensive care unit with the sheath sutured in place. Medications given during the procedure included 0.5 mg of Versed, IV nitroglycerin drip started at 2 mcg per minute. The patient had already received aspirin and 180 mg Brilinta in the emergency room as well as 4000 units of heparin. The total contrast used was 175 cc of Omnipaque dye. The radiation exposure included 9.1 minutes of fluoro time. The air kerma radiation was 641 milligray. The DAP radiation was 3760 microgray per sq. m. RESULTS: HEMODYNAMIC DATA: LEFT HEART CATHETERIZATION: Central aortic pressure recorded at 127/68 with a mean of 94, left ventricular pressure 134 with left ventricular end-diastolic pressure of 22. LEFT VENTRICULOGRAPHY: Performed in the BAUER projection revealed severe hypo to akinesis of the mid to distal anterior wall and mid to distal inferior wall with severe hypokinesis of the apical region. Overall ejection fraction estimated at 25%. CORONARY ARTERIOGRAPHY: A. Left coronary artery: 1. Left main widely patent. 2. Left anterior descending artery, the proximal portion of left anterior descending artery has an eccentric 35% lesion. The proximal portion of the left anterior descending artery after that had a prior stent placed with the presence of a 50% narrowing in worst view just prior to the origin of that stent. The distal part of the stent was noted to have a 40% to 45% in-stent restenosis. The first diagonal branch bifurcated into a lateral and medial branch. The lateral branch had a 65 to 70% lesion, small caliber vessel. The ostium of the first diagonal branch had a 50% to 55% narrowing. The second diagonal branch had two stents within it and there was diffuse disease in the proximal portion of the stented area with 60% luminal reduction. 3. Circumflex artery - a nondominant vessel supplying a mid to low lying obtuse marginal branch. There was a stent seen in the proximal area with no significant in-stent restenosis identified. B. Right coronary artery - a dominant vessel supplying the PDA and multiple posterior left ventricular branches. There were multiple 30% narrowings seen in the proximal to mid portion with a 35% lesion seen in the mid to distal portion. OVERALL ASSESSMENT: The presence of moderate coronary artery disease involving the left system including the proximal left anterior descending artery leading to an area just prior to the stent in the proximal to mid LAD with distal in-stent restenosis as noted above. The second diagonal branch had 2 stents with a proximal area of 60% narrowing of in-stent restenosis. Moderate disease as mentioned in the ostium of the first diagonal branch. Of note, there is MICHELINE-3 flow seen throughout these vessels with no evidence of focal critical stenosis at this time. Any type of fractional flow reverse analysis was deferred in light of the patient actively wheezing with significant underlying lung disease. At this point in time, stabilization of the patient's breathing status as well as diuretic therapy to try to lower her left ventricular end-diastolic pressure, which will hopefully help to breathing, as well in addition to tuning her underlying lung disease would be most appropriate. Ideally, low dose beta elis would be recommended, perhaps with Coreg 3.125 mg once a day increasing to twice a day gingerly as she apparently does not tolerate beta blockers due to the lung disease. She apparently also did not tolerate lisinopril, but is currently on Tekturna, which should be continued for her LV dysfunction. She will be managed by her primary functional architect, Dr. Armin Rodriguez, who is coming on service on Saturday. Aggressive risk factor management including cholesterol management will be pursued and the patient was started on atorvastatin, high dose therapy. [id number]/[facility] #: [id number] [facility]
[2017-08-06 06:17] LABS: Hematocrit 37 % (35-47); Hemoglobin 12.3 g/dl (12.0-16.0); Mean Corpuscular HGB Conc 33 g/dl (31-36); Mean Corpuscular Hemoglobin 27 pg (27-31); Mean Corpuscular Volume 80 fL (80-97); Red Blood Count 4.61 10^6/ul (4.0-5.4); Red Cell Distribution Width 18 % (10.5-15); White Blood Count 13.3 10^3/ul (3.5-10.8)
[2017-08-06 06:32] LABS: Add Diff/Slide Review? Slide Review Added; Comments Flag Yes
[2017-08-06 06:43] LABS: Albumin 3.7 g/dL (3.2-5.2); BUN/Creatinine Ratio 21.9 (8-20); Calcium 8.6 mg/dL (8.6-10.3); EGFR African American 101.1 (>60); EGFR Non-African American 78.6 (>60); Globulin 2.7 g/dL (2-4); HDL Cholesterol 84.5 mg/dL; Potassium 3.6 mmol/L (3.5-5.0); Total Bilirubin 0.6 mg/dL (0.2-1.0); Total Protein 6.4 g/dL (6.4-8.9)
[2017-08-06] MEDS: Tiotropium CAP.INH* CAP.INH/18 MCG (USE ORDER SET !) INH SCH (07:44)
[2017-08-06] MEDS: Mometasone/Formoter 200/5 MDI INH SCH ×2 (07:45→20:44)
[2017-08-06] MEDS: PARoxetine HCL TAB* 40 MG PO SCH (08:43)
[2017-08-06] MEDS: Carvedilol TAB* 3.125 MG PO SCH ×2 (08:44→21:11)
[2017-08-06] MEDS: Aspirin Low Dose CHEW TAB* 81 MG PO SCH (08:44)
[2017-08-06] MEDS: Ticagrelor* 90 MG TAB PO SCH (08:44)
[2017-08-06] MEDS: amLODIPine TAB* 5 MG PO SCH (08:44)
[2017-08-06] MEDS: Aliskiren TAB* 150 MG PO SCH (08:46)
[2017-08-06] MEDS: Fluticasone NASAL SPRAY 50MCG* 16 gm SPRAY BTL BOTH NARES SCH (08:47)
[2017-08-06] MEDS: Atorvastatin* 80 MG TAB PO SCH (16:54)
[2017-08-06] MEDS ORDERED: guaiFENesin LIQ* 100 MG/5 ML UDC PO PRN (18:52)
--- NOTE | 2017-08-06 19:06 | PN ---
Subjective Date of Service: 08/06/17 Interval History: Patient seen and examined at bedside. Denies fever, chills, chest discomfort, N/ V/D. Pt reports a dry "hacking" cough that is occasionally productive with yellow mucous, oral and vaginal yeast infection related to steroids use. Pt states that he shortness of breath is slightly improved, but continues to be above her baseline. Pt reports that her anxiety has improved since changing to xopenex nebs yesterday. Pt states that she has not moved her bowels in several days, but reports passing flatus. Tele: Sinus tachy, rate 90-100's Family History: Unchanged from Admission Social History: Unchanged from Admission Past Medical History: Unchanged from Admission Objective Active Medications: Acetaminophen (Tylenol Tab*) 650 mg PO Q6H PRN Reason: PAIN Al Hydrox/Mg Hydrox/Simethicone (Maalox Plus*) 30 ml PO Q6H PRN Reason: INDIGESTION Albuterol (Ventolin 2.5 Mg/3 Ml Neb.Terra*) 2.5 mg INH Q2H PRN Reason: SOB/ WHEEZING Aliskiren (Tekturna Tab*) 300 mg PO DAILY [facility] Amlodipine Besylate (Norvasc Tab*) 2.5 mg PO DAILY [facility] Aspirin (Aspirin Low Dose Tab*) 81 mg PO DAILY BAHMAN Atorvastatin Calcium (Lipitor*) 80 mg PO 1700 BAHMAN Carvedilol (Coreg Tab*) 3.125 mg PO BID [facility] Clopidogrel Bisulfate (Plavix Tab*) 75 mg PO DAILY [facility] Fluticasone Propionate (Flonase Nasal [place] 50mcg*) 2 spray BOTH NARES DAILY BAHMAN Guaifenesin (Robitussin*) 5 ml PO Q6H PRN Reason: COUGH Levothyroxine Sodium (Synthroid Tab*) 50 mcg PO 0600 BAHMAN Methylprednisolone Sodium Succinate (Solu-Medrol 40 Mg) 40 mg IV Q8H BAHMAN Mometasone Furoate/Formoterol Fumar (Dulera 200/5 Mdi*) 2 puff INH BID BAHMAN Nitroglycerin (Nitroglycerin Tab 0.4 Mg*) 0.4 mg SL Q5M PRN Reason: ANGINA Paroxetine HCl (Paxil Tab*) 40 mg PO DAILY BAHMAN Tiotropium [place] (Spiriva Cap.Inh*) 1 cap INH DAILY BAHMAN Trazodone HCl (Desyrel Tab*) 150 mg PO BEDTIME PRN Reason: SLEEP Vital Signs 08/05/17 08/05/17 08/05/17 19:45 19:58 20:00 Temperature Pulse Rate 108 Respiratory 24 24 24 Rate Blood Pressure 122/86 (mmHg) O2 Sat by Pulse 95 Oximetry 08/05/17 08/05/17 08/06/17 20:18 20:30 03:23 Temperature 98.1 F 98.2 F Pulse Rate 120 89 99 Respiratory 24 20 20 Rate Blood Pressure 146/87 152/84 (mmHg) O2 Sat by Pulse 95 95 97 Oximetry 08/06/17 08/06/17 08/06/17 07:22 07:47 07:55 Temperature 98.0 F Pulse Rate 92 110 Respiratory 20 14 22 Rate Blood Pressure 136/84 (mmHg) O2 Sat by Pulse 95 97 Oximetry 08/06/17 08/06/17 08/06/17 11:15 14:09 15:30 Temperature 97.5 F 97.7 F Pulse Rate 86 97 93 Respiratory 20 14 20 Rate Blood Pressure 141/81 154/88 (mmHg) O2 Sat by Pulse 98 97 96 Oximetry Oxygen Devices in Use Now: None Appearance: NAD, sitting up in bed Respiratory: Symmetrical Chest Expansion and Respiratory Effort, - - Significant insp and exp wheezing bilateral Cardiovascular: NL Sounds; No Murmurs; No JVD, RRR - , tachycardia Abdominal: NL Sounds; No Tenderness; No Distention Extremities: No Edema Skin: No Rash or Ulcers Neurological: Alert and Oriented x 3, NL Muscle Strength and Tone Lines/Tubes/Other Access: Clean, Dry and Intact Peripheral IV - site benign Nutrition: Taking PO's Result Diagrams: 08/06/17 05:32 08/06/17 05:32 Additional Lab and Data: Microbiology and Other Data: Microbiology 08/05/17 01:10 Nasal Screen MRSA (PCR)(LEAH) - Final Nasal Mrsa Negative EKG Data: EKG today - shows new diffuse TWI Assess/Plan/Problems-Billing Assessment: Ms. 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 - Patient Problems (1) Demand myocardial infarction Code(s): I21.9 - ACUTE MYOCARDIAL INFARCTION, UNSPECIFIED SNOMED Code(s): 89295575 Comment: - ? [place]ubo cardiomyopathy - S/P cardiac cath, no intervention - moderate in-stent restenosis, no critical disease, EF 25-30% - Troponin peaked at 1.64 - Echo - EF 30-35%, focal wall motion abnormality present, multiple areas of hypokinesis, mild - Continue statin, ASA, low dose carvedilol and plavix (2) COPD exacerbation Code(s): J44.1 - CHRONIC OBSTRUCTIVE PULMONARY DISEASE W (ACUTE) EXACERBATION SNOMED Code(s): 553066792224110 Comment: - Continue albuterol nebs, spiriva, dulera and steroids - Will start doxycycline (no azithromycin as QTc is already prolonged) - Will ask pulm to consult on Pt in AM (3) CAD (coronary artery disease) Code(s): I25.10 - ATHSCL HEART DISEASE OF [place] CORONARY ARTERY W/O ANG PCTRS SNOMED Code(s): 51994391 Comment: - Continue low dose carvedilol, ASA and statin - Started on plavix (4) HTN (hypertension) Code(s): I10 - ESSENTIAL (PRIMARY) HYPERTENSION SNOMED Code(s): 37642687 Comment: - SBP 130-150's - Continue tekturna and amlodipine (5) Hypothyroidism Code(s): E03.9 - HYPOTHYROIDISM, UNSPECIFIED SNOMED Code(s): 71338613 Comment: - TSH 0.February - Continue levothyroxine (6) DVT prophylaxis Code(s): EJP5010 - SNOMED Code(s): 277735819 (7) Full code status Code(s): Z78.9 - OTHER SPECIFIED HEALTH STATUS SNOMED Code(s): 833665788 Status and Disposition: Inpatient. Discharge to home when medically stable.
[2017-08-06] MEDS ORDERED: Magnesium Hydroxide LIQ* 30 ML UDC PO PRN (19:16)
[2017-08-06] MEDS ORDERED: Polyethylene Glycol 3350* 17 GM PACKET PO PRN (19:16)
[2017-08-06] MEDS: Nystatin SUSPENSION* 100000 UNITS/ML 5 ML UDC PO SCH (22:45)
[2017-08-06] MEDS: traZODone TAB* 100 MG PO PRN (22:46)
[2017-08-06] MEDS: DOXYcycline IV* 100 MG in NS 0.9% 250 ML* 250 ML IVPB SCH (22:50)
[2017-08-06] MEDS: Miconazole VAG SUPP* 200 MG SUP VAGINAL SCH (22:56)
[2017-08-07] MEDS: Levalbuterol 0.63MG/3ML NEB* UNIT OF USE INH SCH ×6 (05:10→23:23)
[2017-08-07] MEDS: methylPREDNISolone SOD 40 MG* 1 ML VIAL IV SCH ×2 (05:37→12:44)
[2017-08-07] MEDS: Levothyroxine TAB* 50 MCG TAB PO SCH (05:37)
[2017-08-07 06:10] LABS: Hematocrit 35 % (35-47); Hemoglobin 11.9 g/dl (12.0-16.0); Mean Corpuscular HGB Conc 34 g/dl (31-36); Mean Corpuscular Hemoglobin 27 pg (27-31); Mean Corpuscular Volume 80 fL (80-97); Mean Platelet Volume 7 um3 (7.4-10.4); Red Blood Count 4.41 10^6/ul (4.0-5.4); Red Cell Distribution Width 18 % (10.5-15); White Blood Count 9.3 10^3/ul (3.5-10.8)
[2017-08-07 06:17] LABS: BUN/Creatinine Ratio 22.5 (8-20); Calcium 8.6 mg/dL (8.6-10.3); EGFR African American 90.9 (>60); EGFR Non-African American 70.7 (>60); Potassium 3.3 mmol/L (3.5-5.0)
[2017-08-07] MEDS: Mometasone/Formoter 200/5 MDI INH SCH ×2 (08:00→20:19)
[2017-08-07] MEDS: Tiotropium CAP.INH* CAP.INH/18 MCG (USE ORDER SET !) INH SCH (08:00)
[2017-08-07] MEDS: Carvedilol TAB* 3.125 MG PO SCH ×2 (09:29→20:46)
[2017-08-07] MEDS: PARoxetine HCL TAB* 40 MG PO SCH (09:29)
[2017-08-07] MEDS: amLODIPine TAB* 5 MG PO SCH (09:29)
[2017-08-07] MEDS: Aspirin Low Dose CHEW TAB* 81 MG PO SCH (09:30)
[2017-08-07] MEDS: Clopidogrel TAB* 75 MG PO SCH (09:30)
[2017-08-07] MEDS: Aliskiren TAB* 150 MG PO SCH (09:30)
[2017-08-07] MEDS: Fluticasone NASAL SPRAY 50MCG* 16 gm SPRAY BTL BOTH NARES SCH (09:31)
[2017-08-07] MEDS: Nystatin SUSPENSION* 100000 UNITS/ML 5 ML UDC PO SCH ×4 (09:32→20:44)
[2017-08-07] MEDS: DOXYCYCLINE IVPB SCH ×2 (09:33→20:45)
[2017-08-07] MEDS: D5W IVPB SCH ×2 (09:33→20:45)
[2017-08-07] MEDS: DOXYcycline IV* 100 MG in NS 0.9% 250 ML* 250 ML IVPB SCH (09:39)
--- NOTE | 2017-08-07 10:59 | PN ---
Progress Note - Progress Note Date of Service: 08/07/17 SOAP: Subjective: Ms. An is a very pleasant 72 yo female with a history of COPD, hypothyroidism, HTN, and CAD with four stents. Patient presented to the ED on complaining of worsening SOB. Patient was admitted to the hospital for a COPD exacerbation. Patient was also found to have an acute OH and had a cardiac catheterization procedure on 08/05. Today, patient states that she is feeling better, although states that she is still significantly SOB. Patient also admits to chest pressure, but states that it has also gotten much better within the past couple of days. Admits to thick, yellow sputum with difficulty coughing it up. Patient also admits to fatigue, significant wheezing, coughing, occasional nausea, decreased appetite, and constipation. Patient denies fevers, chills, CP, abdominal pain, vomiting, and LE edema. Objective: Vital Signs (72 hours) 08/04/17 08/04/17 08/04/17 19:55 20:10 20:11 Temperature 97 F Pulse Rate 118 Respiratory 24 22 Rate Blood Pressure 167/114 149/85 (mmHg) O2 Sat by Pulse 92 Oximetry 08/04/17 08/04/17 08/04/17 20:30 20:44 21:00 Temperature Pulse Rate 104 105 104 Respiratory 20 20 22 Rate Blood Pressure 121/92 126/91 (mmHg) O2 Sat by Pulse 92 99 99 Oximetry 08/04/17 08/04/17 08/04/17 21:30 22:00 22:23 Temperature Pulse Rate 104 107 109 Respiratory 22 24 26 Rate Blood Pressure 146/89 127/71 120/73 (mmHg) O2 Sat by Pulse 97 96 96 Oximetry 08/04/17 08/04/17 08/04/17 22:24 22:30 22:50 Temperature Pulse Rate 115 Respiratory 27 Rate Blood Pressure 107/70 115/69 126/74 (mmHg) O2 Sat by Pulse 98 Oximetry 08/04/17 08/04/17 08/05/17 23:00 23:15 00:50 Temperature 98.8 F Pulse Rate 107 108 Respiratory 18 22 Rate Blood Pressure 120/79 125/59 (mmHg) O2 Sat by Pulse 99 99 Oximetry 08/05/17 08/05/17 08/05/17 00:58 01:00 01:20 Temperature 98.8 F 98.8 F Pulse Rate 111 Respiratory 22 22 Rate Blood Pressure 142/81 (mmHg) O2 Sat by Pulse 100 Oximetry 08/05/17 08/05/17 08/05/17 02:00 02:27 02:30 Temperature Pulse Rate 112 112 Respiratory 20 20 25 Rate Blood Pressure 127/96 (mmHg) O2 Sat by Pulse 100 100 Oximetry 08/05/17 08/05/17 08/05/17 02:45 03:00 03:02 Temperature Pulse Rate 110 114 111 Respiratory 22 28 22 Rate Blood Pressure 157/90 163/101 153/108 (mmHg) O2 Sat by Pulse 100 100 100 Oximetry 08/05/17 08/05/17 08/05/17 03:08 03:15 03:21 Temperature Pulse Rate 115 119 115 Respiratory 18 29 15 Rate Blood Pressure 140/87 160/112 147/94 (mmHg) O2 Sat by Pulse 100 100 100 Oximetry 08/05/17 08/05/17 08/05/17 03:30 03:32 03:36 Temperature Pulse Rate 115 111 113 Respiratory 18 21 25 Rate Blood Pressure 130/88 126/87 (mmHg) O2 Sat by Pulse 100 100 100 Oximetry 08/05/17 08/05/17 08/05/17 03:45 03:51 04:00 Temperature 99.1 F Pulse Rate 116 113 Respiratory 24 20 Rate Blood Pressure 135/98 135/99 (mmHg) O2 Sat by Pulse 100 99 Oximetry 08/05/17 08/05/17 08/05/17 04:15 04:30 04:38 Temperature Pulse Rate 113 111 Respiratory 22 23 27 Rate Blood Pressure 138/99 134/93 (mmHg) O2 Sat by Pulse 100 99 Oximetry 08/05/17 08/05/17 08/05/17 04:39 04:45 05:00 Temperature Pulse Rate 107 105 Respiratory 27 26 18 Rate Blood Pressure 126/98 (mmHg) O2 Sat by Pulse 100 100 Oximetry 08/05/17 08/05/17 08/05/17 05:04 05:15 05:30 Temperature Pulse Rate 110 109 105 Respiratory 25 24 24 Rate Blood Pressure 126/78 148/80 151/98 (mmHg) O2 Sat by Pulse 100 100 100 Oximetry 08/05/17 08/05/17 08/05/17 05:45 06:00 06:15 Temperature Pulse Rate 108 109 111 Respiratory 26 16 30 Rate Blood Pressure 151/101 146/97 160/92 (mmHg) O2 Sat by Pulse 100 99 100 Oximetry 08/05/17 08/05/17 08/05/17 06:30 06:32 06:46 Temperature Pulse Rate 112 118 114 Respiratory 21 20 23 Rate Blood Pressure 163/98 150/108 152/100 (mmHg) O2 Sat by Pulse 100 100 100 Oximetry 08/05/17 08/05/17 08/05/17 07:00 07:10 07:15 Temperature Pulse Rate 102 108 109 Respiratory 21 16 21 Rate Blood Pressure 152/103 130/86 134/91 (mmHg) O2 Sat by Pulse 99 100 100 Oximetry 08/05/17 08/05/17 08/05/17 07:30 07:45 08:00 Temperature 99.2 F Pulse Rate 104 114 114 Respiratory 25 26 24 Rate Blood Pressure 137/87 122/80 144/92 (mmHg) O2 Sat by Pulse 99 99 98 Oximetry 08/05/17 08/05/17 08/05/17 08:15 08:30 08:31 Temperature Pulse Rate 111 107 109 Respiratory 25 20 16 Rate Blood Pressure 140/99 133/91 (mmHg) O2 Sat by Pulse 100 100 97 Oximetry 08/05/17 08/05/17 08/05/17 08:45 08:51 08:52 Temperature Pulse Rate 115 108 113 Respiratory 25 26 23 Rate Blood Pressure 147/101 147/84 136/99 (mmHg) O2 Sat by Pulse 97 97 96 Oximetry 08/05/17 08/05/17 08/05/17 09:00 09:15 09:32 Temperature Pulse Rate 109 114 Respiratory 28 26 24 Rate Blood Pressure 134/84 139/77 128/92 (mmHg) O2 Sat by Pulse 96 97 Oximetry 08/05/17 08/05/17 08/05/17 09:45 10:00 10:15 Temperature Pulse Rate 115 99 108 Respiratory 21 17 17 Rate Blood Pressure 128/87 132/96 124/79 (mmHg) O2 Sat by Pulse 94 96 98 Oximetry 08/05/17 08/05/17 08/05/17 10:30 10:45 10:47 Temperature Pulse Rate 88 104 98 Respiratory 24 22 22 Rate Blood Pressure 143/87 163/106 146/102 (mmHg) O2 Sat by Pulse 97 97 97 Oximetry 08/05/17 08/05/17 08/05/17 11:00 11:15 11:30 Temperature Pulse Rate 99 97 105 Respiratory 18 20 21 Rate Blood Pressure 146/107 139/101 147/104 (mmHg) O2 Sat by Pulse 97 99 100 Oximetry 08/05/17 08/05/17 08/05/17 11:34 11:45 11:48 Temperature Pulse Rate 114 Respiratory 20 26 22 Rate Blood Pressure 148/107 (mmHg) O2 Sat by Pulse 100 Oximetry 08/05/17 08/05/17 08/05/17 11:52 12:00 12:17 Temperature 98.9 F Pulse Rate 102 104 Respiratory 27 Rate Blood Pressure 168/102 155/97 (mmHg) O2 Sat by Pulse 100 100 Oximetry 08/05/17 08/05/17 08/05/17 12:30 13:00 13:30 Temperature Pulse Rate 102 100 103 Respiratory 33 20 16 Rate Blood Pressure 138/90 158/89 131/87 (mmHg) O2 Sat by Pulse 100 100 100 Oximetry 08/05/17 08/05/17 08/05/17 14:00 14:15 14:30 Temperature Pulse Rate 111 106 96 Respiratory 20 20 32 Rate Blood Pressure 119/102 145/90 (mmHg) O2 Sat by Pulse 98 98 98 Oximetry 08/05/17 08/05/17 08/05/17 15:00 15:01 16:00 Temperature 98.6 F Pulse Rate 102 102 Respiratory 43 22 24 Rate Blood Pressure 154/97 154/99 (mmHg) O2 Sat by Pulse 98 98 Oximetry 08/05/17 08/05/17 08/05/17 17:00 17:51 18:07 Temperature 97.5 F Pulse Rate 114 107 Respiratory 33 20 20 Rate Blood Pressure 166/91 141/81 (mmHg) O2 Sat by Pulse 99 95 Oximetry 08/05/17 08/05/17 08/05/17 19:45 19:58 20:00 Temperature Pulse Rate 108 Respiratory 24 24 24 Rate Blood Pressure 122/86 (mmHg) O2 Sat by Pulse 95 Oximetry 08/05/17 08/05/17 08/06/17 20:18 20:30 03:23 Temperature 98.1 F 98.2 F Pulse Rate 120 89 99 Respiratory 24 20 20 Rate Blood Pressure 146/87 152/84 (mmHg) O2 Sat by Pulse 95 95 97 Oximetry 08/06/17 08/06/17 08/06/17 07:22 07:47 07:55 Temperature 98.0 F Pulse Rate 92 110 Respiratory 20 14 22 Rate Blood Pressure 136/84 (mmHg) O2 Sat by Pulse 95 97 Oximetry 08/06/17 08/06/17 08/06/17 11:15 14:09 15:30 Temperature 97.5 F 97.7 F Pulse Rate 86 97 93 Respiratory 20 14 20 Rate Blood Pressure 141/81 154/88 (mmHg) O2 Sat by Pulse 98 97 96 Oximetry 08/06/17 08/06/17 08/06/17 19:22 20:44 20:45 Temperature 97.3 F Pulse Rate 96 92 Respiratory 24 18 Rate Blood Pressure 138/80 (mmHg) O2 Sat by Pulse 95 97 96 Oximetry 08/06/17 08/06/17 08/06/17 21:15 23:14 23:39 Temperature 98.0 F Pulse Rate 88 93 Respiratory 24 20 20 Rate Blood Pressure 111/69 (mmHg) O2 Sat by Pulse 94 95 Oximetry 08/07/17 08/07/17 08/07/17 03:32 07:26 07:55 Temperature 98.1 F 98.1 F Pulse Rate 93 83 84 Respiratory 18 20 Rate Blood Pressure 130/85 154/79 (mmHg) O2 Sat by Pulse 97 97 96 Oximetry Active Medications Acetaminophen (Tylenol Tab*) 650 mg PO Q6H PRN PRN Reason: PAIN Al Hydrox/Mg Hydrox/Simethicone (Maalox Plus*) 30 ml PO Q6H PRN PRN Reason: INDIGESTION Last Admin: 08/05/17 11:34 Dose: 30 ml Albuterol (Ventolin 2.5 Mg/3 Ml Neb.Terra*) 2.5 mg INH Q2H PRN PRN Reason: SOB/WHEEZING Last Admin: 08/05/17 03:31 Dose: 2.5 mg Aliskiren (Tekturna Tab*) 300 mg PO DAILY [facility] Last Admin: 08/07/17 09:30 Dose: 300 mg Amlodipine Besylate (Norvasc Tab*) 2.5 mg PO DAILY [facility] Last Admin: 08/07/17 09:29 Dose: 2.5 mg Aspirin (Aspirin Low Dose Tab*) 81 mg PO DAILY [facility] Last Admin: 08/07/17 09:30 Dose: 81 mg Atorvastatin Calcium (Lipitor*) 80 mg PO 1700 [facility] Last Admin: 08/06/17 16:54 Dose: 80 mg Carvedilol (Coreg Tab*) 3.125 mg PO BID [facility] Last Admin: 08/07/17 09:29 Dose: 3.125 mg Clopidogrel Bisulfate (Plavix Tab*) 75 mg PO DAILY [facility] Last Admin: 08/07/17 09:30 Dose: 75 mg Fluticasone Propionate (Flonase Nasal [place] 50mcg*) 2 spray BOTH NARES DAILY [facility] Last Admin: 08/07/17 09:31 Dose: 2 spray Guaifenesin (Robitussin*) 5 ml PO Q6H PRN PRN Reason: COUGH Last Admin: 08/07/17 09:29 Dose: 5 ml Doxycycline Hyclate 100 mg/ (Dextrose) 250 mls @ 250 mls/hr IVPB Q12H [facility] Last Admin: 08/07/17 09:33 Dose: 250 mls/hr Levalbuterol HCl (Xopenex 0.63mg/3ml Neb*) 0.63 mg INH [id number] AWAKE [facility] Last Admin: 08/07/17 07:59 Dose: 0.63 mg Levothyroxine Sodium (Synthroid Tab*) 50 mcg PO 0600 [facility] Last Admin: 08/07/17 05:37 Dose: 50 mcg Magnesium Hydroxide (Milk Of Magnesia Liq*) 30 ml PO Q6H PRN PRN Reason: CONSTIPATION Methylprednisolone Sodium Succinate (Solu-Medrol 40 Mg) 40 mg IV Q8H [facility] Last Admin: 08/07/17 05:37 Dose: 40 mg Miconazole Nitrate (Miconazole Vag Supp*) 200 mg VAGINAL BEDTIME [facility] Stop: 08/09/17 20:59 Last Admin: 08/06/17 22:56 Dose: 200 mg Mometasone Furoate/Formoterol Fumar (Dulera 200/5 Mdi*) 2 puff INH BID [facility] Last Admin: 08/07/17 08:00 Dose: 2 puff Nitroglycerin (Nitroglycerin Tab 0.4 Mg*) 0.4 mg SL Q5M PRN PRN Reason: ANGINA Nystatin (Nystatin Suspension*) 200,000 units PO QID [facility] Last Admin: 08/07/17 09:32 Dose: 200,000 units Paroxetine HCl (Paxil Tab*) 40 mg PO DAILY [facility] Last Admin: 08/07/17 09:29 Dose: 40 mg Polyethylene Glycol/Electrolytes (Miralax*) 17 gm PO DAILY PRN PRN Reason: CONSTIPATION Tiotropium [place] (Spiriva Cap.Inh*) 1 cap INH DAILY [facility] Last Admin: 08/07/17 08:00 Dose: 1 cap Trazodone HCl (Desyrel Tab*) 150 mg PO BEDTIME PRN PRN Reason: SLEEP Last Admin: 08/06/17 22:46 Dose: 150 mg Laboratory Results - last 24 hr 08/07/17 08/07/17 05:18 05:18 WBC 9.3 RBC 4.41 Hgb 11.9 L Hct 35 MCV 80 MCH 27 MCHC 34 RDW 18 H Plt Count 274 MPV 7 L Neut % (Auto) 84.1 H Lymph % (Auto) 6.5 L [place] % (Auto) 9.3 H Eos % (Auto) 0 Baso % (Auto) 0.1 Absolute Neuts (auto) 7.8 H Absolute Lymphs (auto) 0.6 L Absolute Monos (auto) 0.9 H Absolute Eos (auto) 0 Absolute Basos (auto) 0 Absolute Nucleated RBC 0 Nucleated RBC % 0 Sodium 126 L Potassium 3.3 L Chloride 95 L Carbon Dioxide 24 Anion Gap 7 BUN 18 Creatinine 0.80 Est GFR ( Amer) 90.9 Est GFR (Non-Af Amer) 70.7 BUN/Creatinine Ratio 22.5 H Glucose 137 H Calcium 8.6 HEENT: Moist, pink mucous membranes CV: RRR w/o MRG Respiratory: Significant inspiratory and expiratory wheezing in lung bases BL GI: Abdomen is soft, non-distended, and is non-tender to palpation. Extremities: W/o edema Assessment: Ms. An is a 72 yo female with a PMH of CAD, HTN, hypothyroidism , and COPD who presented to the ED complaining of worsening SOB. Patient was admitted for a COPD exacerbation. CXR revealed no acute findings and was consistent with COPD. EKG revealed non-specific ST segment changes as well as elevated troponin levels, and subsequently had a cardiac catheterization as a result. Plan: 1. Acute OH and CAD: Cardiac catheterization significant for stent re-stenosis; EF 25-30%. Continue medical therapy: ASA, plavix, carvedilol, and statin 2. COPD exacerbation: Continue albuterol nebulizer treatments, Spiriva, Dulera, and Methylprednisolone. Doxycycline has been initiated. 3. HTN: Continue carvedilol and amlodipine 4. Hypothyroidism: Continue levothyroxine
[2017-08-07] MEDS ORDERED: guaiFENesin LIQ* 100 MG/5 ML UDC PO SCH (14:00)
[2017-08-07] MEDS ORDERED: NS 0.9% 1000 ML* 1,000 ML IV SCH (14:30)
--- NOTE | 2017-08-07 14:39 | PN ---
Subjective Date of Service: 08/07/17 Interval History: This is a 72 yo female with COPD and CAD who presented with c/o CP and SOB. Initial concern for STEMI, cardiac cath was nonspecific but LV was globally hypokinetic thought to be a result of Takotsubo. She has an associated COPD exacerbation, currently being treated with IV corticosteroids and inhaled medications. Mucinex and doxycycline started yesterday. She is having trouble with significant anxiety. She continues to be dyspneic, cough is improving. Still producing thick sputum. No c/o CP, n/v. Appetite is poor. Objective Active Medications: Acetaminophen (Tylenol Tab*) 650 mg PO Q6H PRN PRN Reason: PAIN Al Hydrox/Mg Hydrox/Simethicone (Maalox Plus*) 30 ml PO Q6H PRN PRN Reason: INDIGESTION Last Admin: 08/05/17 11:34 Dose: 30 ml Albuterol (Ventolin 2.5 Mg/3 Ml Neb.Terra*) 2.5 mg INH Q2H PRN PRN Reason: SOB/WHEEZING Last Admin: 08/05/17 03:31 Dose: 2.5 mg Aliskiren (Tekturna Tab*) 300 mg PO DAILY [facility] Last Admin: 08/07/17 09:30 Dose: 300 mg Amlodipine Besylate (Norvasc Tab*) 2.5 mg PO DAILY [facility] Last Admin: 08/07/17 09:29 Dose: 2.5 mg Aspirin (Aspirin Low Dose Tab*) 81 mg PO DAILY [facility] Last Admin: 08/07/17 09:30 Dose: 81 mg Atorvastatin Calcium (Lipitor*) 80 mg PO 1700 [facility] Last Admin: 08/06/17 16:54 Dose: 80 mg Carvedilol (Coreg Tab*) 3.125 mg PO BID [facility] Last Admin: 08/07/17 09:29 Dose: 3.125 mg Clopidogrel Bisulfate (Plavix Tab*) 75 mg PO DAILY [facility] Last Admin: 08/07/17 09:30 Dose: 75 mg Fluticasone Propionate (Flonase Nasal [place] 50mcg*) 2 spray BOTH NARES DAILY [facility] Last Admin: 08/07/17 09:31 Dose: 2 spray Guaifenesin (Robitussin*) 5 ml PO Q6H [facility] Doxycycline Hyclate 100 mg/ (Dextrose) 250 mls @ 250 mls/hr IVPB Q12H [facility] Last Admin: 08/07/17 09:33 Dose: 250 mls/hr Sodium Chloride (Ns 0.9% 1000 Ml*) 1,000 mls @ 100 mls/hr IV PER RATE [facility] Stop: 08/08/17 00:29 Levalbuterol HCl (Xopenex 0.63mg/3ml Neb*) 0.63 mg INH [id number] AWAKE [facility] Last Admin: 08/07/17 11:13 Dose: 0.63 mg Levothyroxine Sodium (Synthroid Tab*) 50 mcg PO 0600 [facility] Last Admin: 08/07/17 05:37 Dose: 50 mcg Magnesium Hydroxide (Milk Of Magnesia Liq*) 30 ml PO Q6H PRN PRN Reason: CONSTIPATION Methylprednisolone Sodium Succinate (Solu-Medrol 40 Mg) 40 mg IV Q8H [facility] Last Admin: 08/07/17 12:44 Dose: 40 mg Miconazole Nitrate (Miconazole Vag Supp*) 200 mg VAGINAL BEDTIME [facility] Stop: 08/09/17 20:59 Last Admin: 08/06/17 22:56 Dose: 200 mg Mometasone Furoate/Formoterol Fumar (Dulera 200/5 Mdi*) 2 puff INH BID [facility] Last Admin: 08/07/17 08:00 Dose: 2 puff Nitroglycerin (Nitroglycerin Tab 0.4 Mg*) 0.4 mg SL Q5M PRN PRN Reason: ANGINA Nystatin (Nystatin Suspension*) 200,000 units PO QID [facility] Last Admin: 08/07/17 12:49 Dose: 200,000 units Paroxetine HCl (Paxil Tab*) 40 mg PO DAILY [facility] Last Admin: 08/07/17 09:29 Dose: 40 mg Polyethylene Glycol/Electrolytes (Miralax*) 17 gm PO DAILY PRN PRN Reason: CONSTIPATION Last Admin: 08/07/17 10:58 Dose: 17 gm Tiotropium [place] (Spiriva Cap.Inh*) 1 cap INH DAILY [facility] Last Admin: 08/07/17 08:00 Dose: 1 cap Trazodone HCl (Desyrel Tab*) 150 mg PO BEDTIME PRN PRN Reason: SLEEP Last Admin: 08/06/17 22:46 Dose: 150 mg Vital Signs: Temp Pulse Resp BP Pulse Ox 97.5 F 79 20 146/73 97 08/07/17 11:42 08/07/17 11:42 08/07/17 11:42 08/07/17 11:42 08/07/17 11:42 Oxygen Devices in Use Now: None Appearance: Relatively well appearing 72 yo female accompanied by her sister and in NAD Respiratory: Symmetrical Chest Expansion and Respiratory Effort, - - diffuse exp wheeze Cardiovascular: NL Sounds; No Murmurs; No JVD, RRR Abdominal: NL Sounds; No Tenderness; No Distention Extremities: No Edema Skin: No Rash or Ulcers Neurological: Alert and Oriented x 3 Result Diagrams: 08/07/17 05:18 08/07/17 05:18 Additional Lab and Data: Microbiology and Other Data: Microbiology 08/05/17 01:10 Nasal Screen MRSA (PCR)([facility]) - Final Nasal Mrsa Negative EKG Data: EKG today - shows new diffuse TWI Assess/Plan/Problems-Billing Assessment: Ms. An is a 72 yo female with PMH significant for CAD s/p cardiac stents x4 , COPD, HTN and hypothyroidism who presented to the emergency room with chest pain and was found to have an elevated troponin and was taken to the cardiac label maker with no focal stenosis noted but depressed EF, possibly Takotsubo's cardiomyopathy with COPD exacerbation. - Patient Problems (1) Demand myocardial infarction Comment: ? Takotsubo cardiomyopathy S/P cardiac cath, no intervention - moderate in-stent restenosis, no critical disease, EF 25-30% Troponin peaked at 1.64 Echo - EF 30-35%, focal wall motion abnormality present, multiple areas of hypokinesis, mild Continue statin, ASA, low dose carvedilol and plavix Cardiology consultation appreciated (2) Cardiomyopathy Comment: Possible Takotsubo No focal coronary stenosis EF 30-35% Cont Tekturna, ASA, Plavix, statin (3) COPD exacerbation Comment: Continue albuterol nebs, spiriva, dulera and steroids Transition from IV to po steroids Cont doxycycline (no azithromycin as QTc is already prolonged) and Mucinex (4) Prolonged QT interval Comment: Improving Cont to monitor No dysrhythmias (5) Hyponatremia Comment: Appears mildly hypovolemic Evaluate response to 1L fluid given slowly (6) Anxiety Comment: Likely acutely worse due to IV steroid use Cont Paxil Limit steroids Cont prn lorazepam (7) CAD (coronary artery disease) Comment: Moderate diffuse disease on cardiac cath Continue low dose carvedilol, ASA and statin Started on plavix (8) HTN (hypertension) Comment: SBP 130-150's Continue tekturna and amlodipine (9) Hypothyroidism Comment: TSH 0.February Continue levothyroxine (10) DVT prophylaxis Comment: Lovenox SQ (11) Full code status Status and Disposition: Inpatient. Anticipate dc in 2-3d
[2017-08-07] MEDS ORDERED: Potassium Chlor TAB* 20 MEQ TAB.ER PO ONE (14:46)
[2017-08-07] MEDS: Enoxaparin(*) 40 MG/0.4 ML SYR SUBCUT SCH (15:51)
--- NOTE | 2017-08-07 16:19 | PN ---
Subjective Date of Service: 08/07/17 - CC: SOB and pleuritic CP Interval History: The patient continues to be very winded, sleeps with HOB at 90 degrees. Persistent pleuritic CP and she is anxious although admits all improved c/w admission. Medications Active Medications: Acetaminophen (Tylenol Tab*) 650 mg PO Q6H PRN PRN Reason: PAIN Al Hydrox/Mg Hydrox/Simethicone (Maalox Plus*) 30 ml PO Q6H PRN PRN Reason: INDIGESTION Last Admin: 08/05/17 11:34 Dose: 30 ml Albuterol (Ventolin 2.5 Mg/3 Ml Neb.Terra*) 2.5 mg INH Q2H PRN PRN Reason: SOB/WHEEZING Last Admin: 08/05/17 03:31 Dose: 2.5 mg Aliskiren (Tekturna Tab*) 300 mg PO DAILY [facility] Last Admin: 08/07/17 09:30 Dose: 300 mg Amlodipine Besylate (Norvasc Tab*) 2.5 mg PO DAILY [facility] Last Admin: 08/07/17 09:29 Dose: 2.5 mg Aspirin (Aspirin Low Dose Tab*) 81 mg PO DAILY [facility] Last Admin: 08/07/17 09:30 Dose: 81 mg Atorvastatin Calcium (Lipitor*) 80 mg PO 1700 [facility] Last Admin: 08/06/17 16:54 Dose: 80 mg Carvedilol (Coreg Tab*) 3.125 mg PO BID [facility] Last Admin: 08/07/17 09:29 Dose: 3.125 mg Clopidogrel Bisulfate (Plavix Tab*) 75 mg PO DAILY [facility] Last Admin: 08/07/17 09:30 Dose: 75 mg Enoxaparin Sodium (Lovenox(*)) 40 mg SUBCUT Q24H [facility] Last Admin: 08/07/17 15:51 Dose: 40 mg Fluticasone Propionate (Flonase Nasal [place] 50mcg*) 2 spray BOTH NARES DAILY [facility] Last Admin: 08/07/17 09:31 Dose: 2 spray Guaifenesin (Mucinex*) 1,200 mg PO BID [facility] Doxycycline Hyclate 100 mg/ (Dextrose) 250 mls @ 250 mls/hr IVPB Q12H [facility] Last Admin: 08/07/17 09:33 Dose: 250 mls/hr Sodium Chloride (Ns 0.9% 1000 Ml*) 1,000 mls @ 100 mls/hr IV PER RATE [facility] Stop: 08/08/17 00:29 Last Admin: 08/07/17 14:36 Dose: 100 mls/hr Levalbuterol HCl (Xopenex 0.63mg/3ml Neb*) 0.63 mg INH [id number] AWAKE [facility] Last Admin: 08/07/17 15:44 Dose: 0.63 mg Levothyroxine Sodium (Synthroid Tab*) 50 mcg PO 0600 [facility] Last Admin: 08/07/17 05:37 Dose: 50 mcg Lorazepam (Ativan Tab(*)) 0.5 mg PO Q4H PRN PRN Reason: ANXIETY Magnesium Hydroxide (Milk Of Magnesia Liq*) 30 ml PO Q6H PRN PRN Reason: CONSTIPATION Last Admin: 08/07/17 15:51 Dose: 30 ml Miconazole Nitrate (Miconazole Vag Supp*) 200 mg VAGINAL BEDTIME [facility] Stop: 08/09/17 20:59 Last Admin: 08/06/17 22:56 Dose: 200 mg Mometasone Furoate/Formoterol Fumar (Dulera 200/5 Mdi*) 2 puff INH BID [facility] Last Admin: 08/07/17 08:00 Dose: 2 puff Nitroglycerin (Nitroglycerin Tab 0.4 Mg*) 0.4 mg SL Q5M PRN PRN Reason: ANGINA Nystatin (Nystatin Suspension*) 200,000 units PO QID [facility] Last Admin: 08/07/17 12:49 Dose: 200,000 units Paroxetine HCl (Paxil Tab*) 40 mg PO DAILY [facility] Last Admin: 08/07/17 09:29 Dose: 40 mg Polyethylene Glycol/Electrolytes (Miralax*) 17 gm PO DAILY PRN PRN Reason: CONSTIPATION Last Admin: 08/07/17 10:58 Dose: 17 gm Prednisone (Deltasone Tab*) 40 mg PO DAILY [facility] Tiotropium [place] (Spiriva Cap.Inh*) 1 cap INH DAILY [facility] Last Admin: 08/07/17 08:00 Dose: 1 cap Trazodone HCl (Desyrel Tab*) 150 mg PO BEDTIME PRN PRN Reason: SLEEP Last Admin: 08/06/17 22:46 Dose: 150 mg Objective Vital Signs: Temp Pulse Resp BP Pulse Ox 98.1 F 96 20 140/80 96 08/07/17 15:28 08/07/17 15:40 08/07/17 15:28 08/07/17 15:28 08/07/17 15:28 Oxygen Devices in Use Now: None, Nasal Cannula Appearance: lean older woman seen in gomez, O2 on, tachypnic and coughing. Eyes: No Scleral Icterus, PERRLA Ears/Nose/Mouth/Throat: Clear Oropharnyx Neck: NL Appearance and Movements; NL JVP Respiratory: Symmetrical Chest Expansion and Respiratory Effort - diffuse coarse rhonci, inspiratory wheezing and bronchial breathsounds. Distant throughout. Cardiovascular: NL Sounds; No Murmurs; No JVD, RRR Abdominal: NL Sounds; No Tenderness; No Distention Extremities: No Edema Skin: No Rash or Ulcers Neurological: Alert and Oriented x 3, NL Gait Laboratory Results: 08/07/17 05:18 08/07/17 05:18 INR (Anticoag Therapy) 0.90 (0.89-1.11) 08/04/17 20:24 APTT 20.8 seconds (26.0-36.3) L 08/06/17 05:32 Total Bilirubin 0.60 mg/dL (0.2-1.0) 08/06/17 05:32 AST 24 U/L (13-39) 08/06/17 05:32 ALT 18 U/L (7-52) 08/06/17 05:32 Alkaline Phosphatase 77 U/L (34-104) 08/06/17 05:32 CK-MB (CK-2) 12.0 ng/mL (0.6-6.3) H 08/05/17 10:50 B-Natriuretic Peptide 331 pg/mL (-100) H 08/04/17 20:24 Total Protein 6.4 g/dL (6.4-8.9) 08/06/17 05:32 Albumin 3.7 g/dL (3.2-5.2) 08/06/17 05:32 Globulin 2.7 g/dL (2-4) 08/06/17 05:32 Albumin/Globulin Ratio 1.4 (1-3) 08/06/17 05:32 Triglycerides 49 mg/dL 08/06/17 05:32 Cholesterol 176 mg/dL 08/06/17 05:32 LDL Cholesterol 82 mg/dL 08/06/17 05:32 HDL Cholesterol 84.5 mg/dL 08/06/17 05:32 08/05/17 08/05/17 05:05 10:50 Troponin I 0.64 H* 0.63 H* EKG Data: ECG today shows NSR, PVC, T wave inversion much improved c/w yesterday (seen in inferior and precordial leads). Assessment/Plan 72 yo with severe COPD, sub acute progressive SOB and pleuritic CP since January of this year, acutely worse this week. Troponins elevated, abnormal on admission, cathed and found to have moderate CAD with recommendations for medical management. EF 25% of V gram and elevated LVEDP or 20. Improving slowly with management of lungs and heart. Points of Discussion: CM: Continue Coreg and Tekturna. Low sodium prevents addition of aldactone unfortunately. Titrate medications for BP control. With elevated LVEDP and BP, and current steroid use may benefit from loop diuretic, consider 3 days/week or PRN. CAD: Continue Coreg/statin/plavis and supportive care to minimize stress on coronary plaque. Improved ECG reassuring. CP Sounds non cardiac as pleuritic. Hypokalemia noted, replace for goal 4.0-4.5 if able to diminsh risk of dysrhythmias.
[2017-08-07] MEDS: Atorvastatin* 80 MG TAB PO SCH (17:17)
[2017-08-07] MEDS: guaiFENesin ER TAB 600 MG PO SCH (20:46)
[2017-08-07] MEDS: Miconazole VAG SUPP* 200 MG SUP VAGINAL SCH (20:46)
[2017-08-07] MEDS: traZODone TAB* 100 MG PO PRN (23:44)
[2017-08-08] MEDS: Levalbuterol 0.63MG/3ML NEB* UNIT OF USE INH SCH ×3 (03:20→10:16)
[2017-08-08 07:00] LABS: Calcium 8.6 mg/dL (8.6-10.3); EGFR African American 90.9 (>60); EGFR Non-African American 70.7 (>60); Potassium 3.9 mmol/L (3.5-5.0)
[2017-08-08] MEDS: Levothyroxine TAB* 50 MCG TAB PO SCH (07:08)
[2017-08-08] MEDS: Tiotropium CAP.INH* CAP.INH/18 MCG (USE ORDER SET !) INH SCH (08:17)
[2017-08-08] MEDS: Aliskiren TAB* 150 MG PO SCH (08:19)
[2017-08-08] MEDS: Mometasone/Formoter 200/5 MDI INH SCH ×2 (08:19→19:49)
[2017-08-08] MEDS: Fluticasone NASAL SPRAY 50MCG* 16 gm SPRAY BTL BOTH NARES SCH (08:19)
[2017-08-08] MEDS: Nystatin SUSPENSION* 100000 UNITS/ML 5 ML UDC PO SCH ×4 (08:19→20:34)
[2017-08-08] MEDS: PARoxetine HCL TAB* 40 MG PO SCH (08:20)
[2017-08-08] MEDS: guaiFENesin ER TAB 600 MG PO SCH ×2 (08:20→20:31)
[2017-08-08] MEDS: Aspirin Low Dose CHEW TAB* 81 MG PO SCH (08:20)
[2017-08-08] MEDS: amLODIPine TAB* 5 MG PO SCH (08:20)
[2017-08-08] MEDS: Clopidogrel TAB* 75 MG PO SCH (08:20)
[2017-08-08] MEDS: Carvedilol TAB* 3.125 MG PO SCH ×2 (08:20→20:31)
[2017-08-08] MEDS ORDERED: predniSONE TAB* 20 MG PO SCH (09:00)
--- NOTE | 2017-08-08 09:52 | PN ---
Progress Note - Progress Note Date of Service: 08/08/17 SOAP: Subjective: Ms. An is a 72 yo female with a history of COPD, CAD, HTN, and hypothyroidism who presented with c/o SOB and chest pressure. Ms. An had a cardiac catheterization procedure d/t non-specific ST segment changes and elevated cardiac enzymes. Pt was found to have moderate stenosis that was advised to be treated with medical management. Patient is also being treated for a COPD exacerbation. Pt. is on doxycycline, maintenance and rescue inhalers , as well as IV corticosteroids. Pt. states she is feeling better today, however , still becomes SOB with any amount of exertion. Patient is interested in going home as she believes she will get a better night of sleep. Patient denies CP, abdominal pain, vomiting and diarrhea. Pt. admits to SOB with exertion, productive cough with thick, yellow sputum, decreased appetite, and fatigue. Objective: Vital Signs Temp Pulse Resp BP Pulse Ox 98.3 F 76 16 155/70 96 08/08/17 07:15 08/08/17 08:19 08/08/17 08:19 08/08/17 07:15 08/08/17 08:19 Active Medications Acetaminophen (Tylenol Tab*) 650 mg PO Q6H PRN PRN Reason: PAIN Al Hydrox/Mg Hydrox/Simethicone (Maalox Plus*) 30 ml PO Q6H PRN PRN Reason: INDIGESTION Last Admin: 08/05/17 11:34 Dose: 30 ml Albuterol (Ventolin 2.5 Mg/3 Ml Neb.Terra*) 2.5 mg INH Q2H PRN PRN Reason: SOB/WHEEZING Last Admin: 08/05/17 03:31 Dose: 2.5 mg Aliskiren (Tekturna Tab*) 300 mg PO DAILY [facility] Last Admin: 08/08/17 08:19 Dose: 300 mg Amlodipine Besylate (Norvasc Tab*) 2.5 mg PO DAILY [facility] Last Admin: 08/08/17 08:20 Dose: 2.5 mg Aspirin (Aspirin Low Dose Tab*) 81 mg PO DAILY [facility] Last Admin: 08/08/17 08:20 Dose: 81 mg Atorvastatin Calcium (Lipitor*) 80 mg PO 1700 [facility] Last Admin: 08/07/17 17:17 Dose: 80 mg Carvedilol (Coreg Tab*) 3.125 mg PO BID [facility] Last Admin: 08/08/17 08:20 Dose: 3.125 mg Clopidogrel Bisulfate (Plavix Tab*) 75 mg PO DAILY [facility] Last Admin: 08/08/17 08:20 Dose: 75 mg Enoxaparin Sodium (Lovenox(*)) 40 mg SUBCUT Q24H [facility] Last Admin: 08/07/17 15:51 Dose: 40 mg Fluticasone Propionate (Flonase Nasal [place] 50mcg*) 2 spray BOTH NARES DAILY [facility] Last Admin: 08/08/17 08:19 Dose: 2 spray Guaifenesin (Mucinex*) 1,200 mg PO BID [facility] Last Admin: 08/08/17 08:20 Dose: 1,200 mg Doxycycline Hyclate 100 mg/ (Dextrose) 250 mls @ 250 mls/hr IVPB Q12H [facility] Last Admin: 08/07/17 20:45 Dose: 250 mls/hr Levalbuterol HCl (Xopenex 0.63mg/3ml Neb*) 0.63 mg INH [id number] AWAKE [facility] Last Admin: 08/08/17 08:17 Dose: 0.63 mg Levothyroxine Sodium (Synthroid Tab*) 50 mcg PO 0600 [facility] Last Admin: 08/08/17 07:08 Dose: 50 mcg Lorazepam (Ativan Tab(*)) 0.5 mg PO Q4H PRN PRN Reason: ANXIETY Magnesium Hydroxide (Milk Of Magnesia Liq*) 30 ml PO Q6H PRN PRN Reason: CONSTIPATION Last Admin: 08/07/17 15:51 Dose: 30 ml Miconazole Nitrate (Miconazole Vag Supp*) 200 mg VAGINAL BEDTIME [facility] Stop: 08/09/17 20:59 Last Admin: 08/07/17 20:46 Dose: 200 mg Mometasone Furoate/Formoterol Fumar (Dulera 200/5 Mdi*) 2 puff INH BID [facility] Last Admin: 08/08/17 08:19 Dose: 2 puff Nitroglycerin (Nitroglycerin Tab 0.4 Mg*) 0.4 mg SL Q5M PRN PRN Reason: ANGINA Nystatin (Nystatin Suspension*) 200,000 units PO QID [facility] Last Admin: 08/08/17 08:19 Dose: 200,000 units Paroxetine HCl (Paxil Tab*) 40 mg PO DAILY [facility] Last Admin: 08/08/17 08:20 Dose: 40 mg Polyethylene Glycol/Electrolytes (Miralax*) 17 gm PO DAILY PRN PRN Reason: CONSTIPATION Last Admin: 08/07/17 10:58 Dose: 17 gm Prednisone (Deltasone Tab*) 40 mg PO DAILY [facility] Last Admin: 08/08/17 08:20 Dose: 40 mg Tiotropium [place] (Spiriva Cap.Inh*) 1 cap INH DAILY [facility] Last Admin: 08/08/17 08:17 Dose: 1 cap Trazodone HCl (Desyrel Tab*) 150 mg PO BEDTIME PRN PRN Reason: SLEEP Last Admin: 08/07/17 23:44 Dose: 150 mg Laboratory Last Values WBC 9.3 10^3/ul (3.5-10.8) 08/07/17 05:18 RBC 4.41 10^6/ul (4.0-5.4) 08/07/17 05:18 Hgb 11.9 g/dl (12.0-16.0) L 08/07/17 05:18 Hct 35 % (35-47) 08/07/17 05:18 MCV 80 fL (80-97) 08/07/17 05:18 MCH 27 pg (27-31) 08/07/17 05:18 MCHC 34 g/dl (31-36) 08/07/17 05:18 RDW 18 % (10.5-15) H 08/07/17 05:18 Plt Count 274 10^3/ul (150-450) 08/07/17 05:18 MPV 7 um3 (7.4-10.4) L 08/07/17 05:18 Neut % (Auto) 84.1 % (38-83) H 08/07/17 05:18 Lymph % (Auto) 6.5 % (25-47) L 08/07/17 05:18 [place] % (Auto) 9.3 % (1-9) H 08/07/17 05:18 Eos % (Auto) 0 % (0-6) 08/07/17 05:18 Baso % (Auto) 0.1 % (0-2) 08/07/17 05:18 Absolute Neuts (auto) 7.8 10^3/ul (1.5-7.7) H 08/07/17 05:18 Absolute Lymphs (auto) 0.6 10^3/ul (1.0-4.8) L 08/07/17 05:18 Absolute Monos (auto) 0.9 10^3/ul (0-0.8) H 08/07/17 05:18 Absolute Eos (auto) 0 10^3/ul (0-0.6) 08/07/17 05:18 Absolute Basos (auto) 0 10^3/ul (0-0.2) 08/07/17 05:18 Absolute Nucleated RBC 0 10^3/ul 08/07/17 05:18 Nucleated RBC % 0 08/07/17 05:18 INR (Anticoag Therapy) 0.90 (0.89-1.11) 08/04/17 20:24 APTT 20.8 seconds (26.0-36.3) L 08/06/17 05:32 Patient Temperature Not Reportable 08/04/17 20:35 ABG pH 7.42 (7.35-7.45) 08/04/17 20:35 ABG pCO2 38 mmHg (35-45) 08/04/17 20:35 ABG pO2 63 mmHg (80-100) L 08/04/17 20:35 ABG HCO3 25.0 mmol/L (19-31) 08/04/17 20:35 ABG O2 Saturation 96.0 % (95-98) 08/04/17 20:35 ABG Base Excess 0.2 (-2.0-2.0) 08/04/17 20:35 Respiration Rate Not Reportable 08/04/17 20:35 O2 Delivery Device Not Reportable 08/04/17 20:35 Ventilator Type Not Reportable 08/04/17 20:35 Vent Mode Not Reportable 08/04/17 20:35 FiO2 Not Reportable 08/04/17 20:35 Inspiratory Time Not Reportable 08/04/17 20:35 PEEP Not Reportable 08/04/17 20:35 Pressure Support Not Reportable 08/04/17 20:35 Pressure Control Not Reportable 08/04/17 20:35 EPAP Not Reportable 08/04/17 20:35 IPAP Not Reportable 08/04/17 20:35 BiPAP Not Reportable 08/04/17 20:35 Sodium 129 mmol/L (133-145) L 08/08/17 06:32 Potassium 3.9 mmol/L (3.5-5.0) 08/08/17 06:32 Chloride 100 mmol/L (101-111) L 08/08/17 06:32 Carbon Dioxide 23 mmol/L (22-32) 08/08/17 06:32 Anion Gap 6 mmol/L (2-11) 08/08/17 06:32 BUN 16 mg/dL (6-24) 08/08/17 06:32 Creatinine 0.80 mg/dL (0.51-0.95) 08/08/17 06:32 Est GFR ( Amer) 90.9 (>60) 08/08/17 06:32 Est GFR (Non-Af Amer) 70.7 (>60) 08/08/17 06:32 BUN/Creatinine Ratio 20.0 (8-20) 08/08/17 06:32 Glucose 100 mg/dL (70-100) 08/08/17 06:32 Lactic Acid 1.2 mmol/L (0.5-2.0) 08/04/17 20:24 Calcium 8.6 mg/dL (8.6-10.3) 08/08/17 06:32 Magnesium 1.9 mg/dL (1.9-2.7) 08/04/17 20:24 Total Bilirubin 0.60 mg/dL (0.2-1.0) 08/06/17 05:32 AST 24 U/L (13-39) 08/06/17 05:32 ALT 18 U/L (7-52) 08/06/17 05:32 Alkaline Phosphatase 77 U/L (34-104) 08/06/17 05:32 Total Creatine Kinase 121 U/L (10-223) 08/05/17 10:50 CK-MB (CK-2) 12.0 ng/mL (0.6-6.3) H 08/05/17 10:50 Troponin I 0.63 ng/mL (<0.04) H* 08/05/17 10:50 B-Natriuretic Peptide 331 pg/mL (-100) H 08/04/17 20:24 Total Protein 6.4 g/dL (6.4-8.9) 08/06/17 05:32 Albumin 3.7 g/dL (3.2-5.2) 08/06/17 05:32 Globulin 2.7 g/dL (2-4) 08/06/17 05:32 Albumin/Globulin Ratio 1.4 (1-3) 08/06/17 05:32 Triglycerides 49 mg/dL 08/06/17 05:32 Cholesterol 176 mg/dL 08/06/17 05:32 LDL Cholesterol 82 mg/dL 08/06/17 05:32 HDL Cholesterol 84.5 mg/dL 08/06/17 05:32 Urine Color Yellow 08/04/17 21:49 Urine Appearance Clear 08/04/17 21:49 Urine pH 5.0 (5-9) 08/04/17 21:49 Ur Specific [place] 1.016 (1.010-1.030) 08/04/17 21:49 Urine Protein Negative (Negative) 08/04/17 21:49 Urine Ketones Negative (Negative) 08/04/17 21:49 Urine Blood Negative (Negative) 08/04/17 21:49 Urine Nitrate Negative (Negative) 08/04/17 21:49 Urine Bilirubin Negative (Negative) 08/04/17 21:49 Urine Urobilinogen Negative (Negative) 08/04/17 21:49 Ur Leukocyte Esterase Trace (Negative) H 08/04/17 21:49 Urine WBC (Auto) Trace(0-5/hpf) (Absent) 08/04/17 21:49 Urine RBC (Auto) Trace(0-2/hpf) (Absent) 08/04/17 21:49 Ur Squamous Epith Cells Present (Absent) H 08/04/17 21:49 Urine Bacteria Absent (Absent) 08/04/17 21:49 Urine Glucose Negative (Negative) 08/04/17 21:49 Influenza A (Rapid) Negative (Negative) 08/04/17 21:06 Influenza B (Rapid) Negative (Negative) 08/04/17 21:06 General: WDWN 72 yo female in NAD. A&O x3. CV: RRR w/o MRG Respiratory: Expiratory wheezes appreciated GI: Abdomen is soft, non-distended and non-tender to palpation. Extremities: W/o edema Assessment: Ms. An is a 72 yo female with a history of CAD, COPD, hypothyroidism, and HTN who was admitted for a COPD exacerbation as well as a cardiac event. Plan: 1. COPD Exacerbation: Continue maintenance and rescue inhalers as well as doxycycline and mucinex. Transition to oral steroid taper. 2. CAD: Continue medical management--ASA, Plavix, Tekturna, and statin therapy. 3. HTN: Continue tekturna and amlodipine 4. Hypothyroidism: Continue levothyroxine 5. DVT prophylaxis: Lovenox SQ
[2017-08-08] MEDS: DOXYCYCLINE IVPB SCH (10:00)
[2017-08-08] MEDS: D5W IVPB SCH (10:00)
[2017-08-08] MEDS: Enoxaparin(*) 40 MG/0.4 ML SYR SUBCUT SCH (13:39)
[2017-08-08] MEDS: Albuterol/Ipratropium NEB.SOL* Albuterol 2.5 MG/Ipratropium 0.5 MG 3 ML INH SCH ×2 (13:51→19:51)
--- NOTE | 2017-08-08 14:07 | PN ---
Subjective Date of Service: 08/08/17 Interval History: Patient offers no new complaints. She continues to have a productive cough and significant dyspnea. No CP or edema Objective Active Medications: Acetaminophen (Tylenol Tab*) 650 mg PO Q6H PRN PRN Reason: PAIN Al Hydrox/Mg Hydrox/Simethicone (Maalox Plus*) 30 ml PO Q6H PRN PRN Reason: INDIGESTION Last Admin: 08/05/17 11:34 Dose: 30 ml Albuterol/Ipratropium (Duoneb (Albuterol 2.5 Mg/Ipratropium 0.5 Mg)) 1 neb INH [id number] AWAKE [facility] Last Admin: 08/08/17 13:51 Dose: 1 neb [place]iren (Tekturna Tab*) 300 mg PO DAILY [facility] Last Admin: 08/08/17 08:19 Dose: 300 mg Amlodipine Besylate (Norvasc Tab*) 2.5 mg PO DAILY [facility] Last Admin: 08/08/17 08:20 Dose: 2.5 mg Aspirin (Aspirin Low Dose Tab*) 81 mg PO DAILY [facility] Last Admin: 08/08/17 08:20 Dose: 81 mg Atorvastatin Calcium (Lipitor*) 80 mg PO 1700 [facility] Last Admin: 08/07/17 17:17 Dose: 80 mg Carvedilol (Coreg Tab*) 3.125 mg PO BID [facility] Last Admin: 08/08/17 08:20 Dose: 3.125 mg Clopidogrel Bisulfate (Plavix Tab*) 75 mg PO DAILY [facility] Last Admin: 08/08/17 08:20 Dose: 75 mg Enoxaparin Sodium (Lovenox(*)) 40 mg SUBCUT Q24H [facility] Last Admin: 08/08/17 13:39 Dose: 40 mg Fluticasone Propionate (Flonase Nasal [place] 50mcg*) 2 spray BOTH NARES DAILY [facility] Last Admin: 08/08/17 08:19 Dose: 2 spray Guaifenesin (Mucinex*) 1,200 mg PO BID [facility] Last Admin: 08/08/17 08:20 Dose: 1,200 mg Doxycycline Hyclate 100 mg/ (Dextrose) 250 mls @ 250 mls/hr IVPB Q12H [facility] Last Admin: 08/08/17 10:00 Dose: 250 mls/hr Levothyroxine Sodium (Synthroid Tab*) 50 mcg PO 0600 [facility] Last Admin: 08/08/17 07:08 Dose: 50 mcg Lorazepam (Ativan Tab(*)) 0.5 mg PO Q4H PRN PRN Reason: ANXIETY Magnesium Hydroxide (Milk Of Magnesia Liq*) 30 ml PO Q6H PRN PRN Reason: CONSTIPATION Last Admin: 08/07/17 15:51 Dose: 30 ml Miconazole Nitrate (Miconazole Vag Supp*) 200 mg VAGINAL BEDTIME [facility] Stop: 08/09/17 20:59 Last Admin: 08/07/17 20:46 Dose: 200 mg Mometasone Furoate/Formoterol Fumar (Dulera 200/5 Mdi*) 2 puff INH BID [facility] Last Admin: 08/08/17 08:19 Dose: 2 puff Nitroglycerin (Nitroglycerin Tab 0.4 Mg*) 0.4 mg SL Q5M PRN PRN Reason: ANGINA Nystatin (Nystatin Suspension*) 200,000 units PO QID [facility] Last Admin: 08/08/17 13:39 Dose: 200,000 units Paroxetine HCl (Paxil Tab*) 40 mg PO DAILY [facility] Last Admin: 08/08/17 08:20 Dose: 40 mg Polyethylene Glycol/Electrolytes (Miralax*) 17 gm PO DAILY PRN PRN Reason: CONSTIPATION Last Admin: 08/07/17 10:58 Dose: 17 gm Prednisone (Deltasone Tab*) 40 mg PO DAILY [facility] Last Admin: 08/08/17 08:20 Dose: 40 mg Tiotropium [place] (Spiriva Cap.Inh*) 1 cap INH DAILY [facility] Last Admin: 08/08/17 08:17 Dose: 1 cap Trazodone HCl (Desyrel Tab*) 150 mg PO BEDTIME PRN PRN Reason: SLEEP Last Admin: 08/07/17 23:44 Dose: 150 mg Vital Signs: Temp Pulse Resp BP Pulse Ox 97.6 F 87 14 141/78 97 08/08/17 11:15 08/08/17 13:52 08/08/17 13:52 08/08/17 11:15 08/08/17 13:52 Oxygen Devices in Use Now: None Appearance: 72 yo female in NAD, accompanied by her daughter and sister Respiratory: Symmetrical Chest Expansion and Respiratory Effort, - - diffuse expiratory wheeze Cardiovascular: NL Sounds; No Murmurs; No JVD, RRR Abdominal: NL Sounds; No Tenderness; No Distention Extremities: No Edema Skin: No Rash or Ulcers Neurological: Alert and Oriented x 3 Result Diagrams: 08/07/17 05:18 08/08/17 06:32 Additional Lab and Data: Microbiology and Other Data: Microbiology 08/05/17 01:10 Nasal Screen MRSA (PCR)([facility]) - Final Nasal Mrsa Negative EKG Data: EKG today - shows new diffuse TWI Assess/Plan/Problems-Billing Assessment: Ms. An is a 72 yo female with PMH significant for CAD s/p cardiac stents x4 , COPD, HTN and hypothyroidism who presented to the emergency room with chest pain and was found to have an elevated troponin and was taken to the cardiac lab intern with no focal stenosis noted but depressed EF, possibly Takotsubo's cardiomyopathy with COPD exacerbation. - Patient Problems (1) Demand myocardial infarction Comment: ? Takotsubo cardiomyopathy S/P cardiac cath, no intervention - moderate in-stent restenosis, no critical disease, EF 25-30% Troponin peaked at 1.64 Echo - EF 30-35%, focal wall motion abnormality present, multiple areas of hypokinesis, mild Continue statin, ASA, low dose carvedilol and plavix Cardiology consultation appreciated (2) Cardiomyopathy Comment: Possible Takotsubo No focal coronary stenosis EF 30-35% Cont Tekturna, ASA, Plavix, statin (3) COPD exacerbation Comment: Continue albuterol nebs, spiriva, dulera and steroids Cont po steroids Cont doxycycline (no azithromycin as QTc is already prolonged) and Mucinex Requested pulm consult (4) Prolonged QT interval Comment: Improved No dysrhythmias (5) Hyponatremia Comment: Improved with 1L NS (6) Anxiety Comment: Likely acutely worse due to IV steroid use Cont Paxil Improving with tapering steroids Cont prn lorazepam (7) CAD (coronary artery disease) Comment: Moderate diffuse disease on cardiac cath Continue low dose carvedilol, ASA and statin Started on plavix (8) HTN (hypertension) Comment: SBP 130-150's Continue tekturna and amlodipine (9) Hypothyroidism Comment: TSH 0.February Continue levothyroxine (10) DVT prophylaxis Comment: Lovenox SQ (11) Full code status Status and Disposition: Inpatient. Anticipate dc in 1-2d
[2017-08-08] MEDS: Atorvastatin* 80 MG TAB PO SCH (17:46)
[2017-08-08] MEDS: methylPREDNISolone SOD 40 MG* 1 ML VIAL IV SCH (18:01)
[2017-08-08] MEDS ORDERED: DOXYcycline IV* 100 MG in NS 0.9% 250 ML* 250 ML IVPB SCH ×2 (19:35→21:00)
[2017-08-08] MEDS: Miconazole VAG SUPP* 200 MG SUP VAGINAL SCH (20:39)
--- NOTE | 2017-08-08 20:45 | CONS ---
PULMONARY CONSULTATION REPORT: DATE OF CONSULT: 08/08/17 CONSULTATION REQUESTED BY: DEMETRIA Marcelino REASON FOR CONSULT: Evaluation of shortness of breath, COPD exacerbation. HISTORY OF PRESENT ILLNESS: The patient is a 72-year-old female with history of coronary artery disease, status post stent; COPD, known to me from prior outpatient evaluation. The patient was admitted for evaluation of chest pain for 4 days and was found to have non-ST elevation OR. The patient underwent cardiac catheterization and was found to have no significant thrombosis, mild occlusion of previously placed stents. Pulmonary consultation was requested for evaluation of COPD exacerbation. The patient reports having worsening dyspnea on exertion for few weeks prior to the admission. The patient denies sick contacts. The patient reports cough productive of mild amounts of phlegm, mostly dry in nature. The patient has been getting progressively dyspneic with exertion recently as per her , who is at bedside. The patient also reports fatigue, lightheadedness, and generalized weakness. The patient denies fevers or chills. PAST MEDICAL HISTORY: 1. Coronary artery disease, status post stent. 2. COPD. 3. Hypothyroidism. PAST SURGICAL HISTORY: 1. Cataract extraction. 2. Tonsillectomy. 3. Cardiac stent. 4. Appendectomy. 5. Hysterectomy. 6. Carpal tunnel release surgery. MEDICATIONS: 1. Fluoxetine. 2. Clopidogrel. 3. Diltiazem. 4. Pantoprazole. 5. Pravastatin. 6. Epinephrine. 7. Levothyroxine. 8. Tiotropium. 9. Trazodone. 10. Fluticasone. 11. Albuterol. 12. Aliskiren. 13. Fluconazole. 14. Advair. 15. Hydrocodone. 16. Nasonex. ALLERGIES: SULFA DRUGS, BEE VENOM, LISINOPRIL, METOPROLOL. FAMILY HISTORY: CHF, hypertension, CAD, and dementia. SOCIAL HISTORY: Former smoker, quit smoking a month ago, drinks 1 to 2 beers per day. No drug abuse. Liver at home with her . REVIEW OF SYSTEMS: All 14 systems reviewed and as per HPI, review of systems negative other than stated above. PHYSICAL EXAM: General: The patient in bed, in no apparent distress. Vital Signs: Temperature 97.6, pulse 87 beats per minute, respiratory rate 14 per minute, O2 sat 97% on room air, blood pressure 141/78. HEENT: Pupils equal , reactive to light. Mucous membranes moist. Neck: Supple. No JVD. Lungs: Good air entry bilaterally, scattered wheezes and end-expiratory wheezes bilaterally. Cardiovascular: S1, S2 present. Slightly tachycardic. Abdomen: Soft, nontender, nondistended. Bowel sounds are present. Musculoskeletal: Normal range of motion, no edema. Skin: No rash or bruises. Neurological: No focal deficits. DIAGNOSTIC STUDIES/LAB DATA: WBC 9.3, hemoglobin 11.9, hematocrit 35, platelet count 274. Blood gas analysis showed pH of 7.42, PCO2 38, PO2 63, bicarb 25, O2 sat 96%. Sodium 129, potassium 3.9, chloride 100, bicarb 23, BUN 16, creatinine 0.8. Troponin is elevated. LFTs within normal limits. Influenza A and B negative. Chest x-ray on admission was personally reviewed by me, evidence of hyperinflation without acute airspace opacities. IMPRESSION AND RECOMMENDATIONS: 72-year-old female with history of chronic obstructive pulmonary disease, former smoker, quit smoking a month ago with history of coronary artery disease, systolic heart failure admitted with worsening shortness of breath, found to have a [id number] elevation myocardial infarction and acute chronic obstructive pulmonary disease exacerbation. Acute chronic obstructive pulmonary disease exacerbation. The patient with significant wheezing still. The patient was tapered off to p.o. prednisone. Given significant symptoms, would recommend continuing on Solu-Medrol 40 mg q.12 hours. The patient with thick phlegm, having trouble expectorating. Recommend flutter device. Continue with current management for cardiac disease. Continue with inhalers. The patient reports that she has not been smoking over the past month. She is slow to recover and her shortness of breath is combination of underlying heart and lung disease. Continue with current management. Thank you for allowing me to participate in care of your patient. Will follow up with you. [id number]/[facility] #: [id number] NEFTALY
[2017-08-08] MEDS: LORazepam TAB(*) 0.5 MG PO PRN (21:29)
[2017-08-08] MEDS: traZODone TAB* 100 MG PO PRN (23:20)
[2017-08-09] MEDS: Albuterol/Ipratropium NEB.SOL* Albuterol 2.5 MG/Ipratropium 0.5 MG 3 ML INH SCH ×4 (01:32→21:30)
[2017-08-09] MEDS: methylPREDNISolone SOD 40 MG* 1 ML VIAL IV SCH ×2 (03:59→15:33)
[2017-08-09] MEDS: Levothyroxine TAB* 50 MCG TAB PO SCH (05:28)
[2017-08-09] MEDS: Nystatin SUSPENSION* 100000 UNITS/ML 5 ML UDC PO SCH ×4 (09:05→20:27)
[2017-08-09] MEDS: Aspirin Low Dose CHEW TAB* 81 MG PO SCH (09:06)
[2017-08-09] MEDS: amLODIPine TAB* 5 MG PO SCH (09:06)
[2017-08-09] MEDS: Clopidogrel TAB* 75 MG PO SCH (09:07)
[2017-08-09] MEDS: PARoxetine HCL TAB* 40 MG PO SCH (09:07)
[2017-08-09] MEDS: Carvedilol TAB* 3.125 MG PO SCH ×2 (09:07→20:25)
[2017-08-09] MEDS: guaiFENesin ER TAB 600 MG PO SCH ×2 (09:07→20:25)
[2017-08-09] MEDS: Fluticasone NASAL SPRAY 50MCG* 16 gm SPRAY BTL BOTH NARES SCH (09:08)
[2017-08-09] MEDS: Aliskiren TAB* 150 MG PO SCH (09:08)
[2017-08-09] MEDS: Mometasone/Formoter 200/5 MDI INH SCH ×2 (09:30→21:27)
[2017-08-09] MEDS: DOXYCYCLINE IVPB SCH ×2 (09:32→20:25)
[2017-08-09] MEDS: D5W IVPB SCH ×2 (09:32→20:25)
[2017-08-09] MEDS: Tiotropium CAP.INH* CAP.INH/18 MCG (USE ORDER SET !) INH SCH (09:51)
--- NOTE | 2017-08-09 12:08 | PN ---
Subjective Date of Service: 08/09/17 Interval History: Patient feels slightly improved today. Cough is not as severe and dyspnea improving. No new complaints. Objective Active Medications: Acetaminophen (Tylenol Tab*) 650 mg PO Q6H PRN PRN Reason: PAIN Al Hydrox/Mg Hydrox/Simethicone (Maalox Plus*) 30 ml PO Q6H PRN PRN Reason: INDIGESTION Last Admin: 08/05/17 11:34 Dose: 30 ml Albuterol/Ipratropium (Duoneb (Albuterol 2.5 Mg/Ipratropium 0.5 Mg)) 1 neb INH [id number] AWAKE [facility] Last Admin: 08/09/17 09:18 Dose: 1 neb Aliskiren (Tekturna Tab*) 300 mg PO DAILY [facility] Last Admin: 08/09/17 09:08 Dose: 300 mg Amlodipine Besylate (Norvasc Tab*) 2.5 mg PO DAILY [facility] Last Admin: 08/09/17 09:06 Dose: 2.5 mg Aspirin (Aspirin Low Dose Tab*) 81 mg PO DAILY [facility] Last Admin: 08/09/17 09:06 Dose: 81 mg Atorvastatin Calcium (Lipitor*) 80 mg PO 1700 [facility] Last Admin: 08/08/17 17:46 Dose: 80 mg Carvedilol (Coreg Tab*) 3.125 mg PO BID [facility] Last Admin: 08/09/17 09:07 Dose: 3.125 mg Clopidogrel Bisulfate (Plavix Tab*) 75 mg PO DAILY [facility] Last Admin: 08/09/17 09:07 Dose: 75 mg Enoxaparin Sodium (Lovenox(*)) 40 mg SUBCUT Q24H [facility] Last Admin: 08/08/17 13:39 Dose: 40 mg Fluticasone Propionate (Flonase Nasal [place] 50mcg*) 2 spray BOTH NARES DAILY [facility] Last Admin: 08/09/17 09:08 Dose: 2 spray Guaifenesin (Mucinex*) 1,200 mg PO BID [facility] Last Admin: 08/09/17 09:07 Dose: 1,200 mg Doxycycline Hyclate 100 mg/ (Dextrose) 250 mls @ 250 mls/hr IVPB 0900,2100 [facility] Last Admin: 08/09/17 09:32 Dose: 250 mls/hr Levothyroxine Sodium (Synthroid Tab*) 50 mcg PO 0600 [facility] Last Admin: 08/09/17 05:28 Dose: 50 mcg Lorazepam (Ativan Tab(*)) 0.5 mg PO Q4H PRN PRN Reason: ANXIETY Last Admin: 08/08/17 21:29 Dose: 0.5 mg Magnesium Hydroxide (Milk Of Magnesia Liq*) 30 ml PO Q6H PRN PRN Reason: CONSTIPATION Last Admin: 08/07/17 15:51 Dose: 30 ml Methylprednisolone Sodium Succinate (Solu-Medrol 40 Mg) 40 mg IV Q12H [facility] Stop: 08/09/17 18:00 Last Admin: 08/09/17 03:59 Dose: 40 mg Miconazole Nitrate (Miconazole Vag Supp*) 200 mg VAGINAL BEDTIME [facility] Stop: 08/09/17 20:59 Last Admin: 08/08/17 20:39 Dose: 200 mg Mometasone Furoate/Formoterol Fumar (Dulera 200/5 Mdi*) 2 puff INH BID [facility] Last Admin: 08/09/17 09:30 Dose: 2 puff Nitroglycerin (Nitroglycerin Tab 0.4 Mg*) 0.4 mg SL Q5M PRN PRN Reason: ANGINA Nystatin (Nystatin Suspension*) 200,000 units PO QID [facility] Last Admin: 08/09/17 09:05 Dose: 200,000 units Paroxetine HCl (Paxil Tab*) 40 mg PO DAILY [facility] Last Admin: 08/09/17 09:07 Dose: 40 mg Polyethylene Glycol/Electrolytes (Miralax*) 17 gm PO DAILY PRN PRN Reason: CONSTIPATION Last Admin: 08/07/17 10:58 Dose: 17 gm Prednisone (Deltasone Tab*) 40 mg PO DAILY [facility] Tiotropium [place] (Spiriva Cap.Inh*) 1 cap INH DAILY [facility] Last Admin: 08/09/17 09:51 Dose: 1 cap Trazodone HCl (Desyrel Tab*) 150 mg PO BEDTIME PRN PRN Reason: SLEEP Last Admin: 08/08/17 23:20 Dose: 150 mg Vital Signs: Temp Pulse Resp BP Pulse Ox 97.6 F 87 20 145/72 97 08/09/17 11:28 08/09/17 11:28 08/09/17 11:28 08/09/17 11:28 08/09/17 11:28 Oxygen Devices in Use Now: None Appearance: Relatively well appearing 72 yo female in NAD Respiratory: Symmetrical Chest Expansion and Respiratory Effort, - - diffuse wheeze, but less severe, better air exchange Cardiovascular: NL Sounds; No Murmurs; No JVD, RRR Abdominal: NL Sounds; No Tenderness; No Distention Extremities: No Edema Skin: No Rash or Ulcers Neurological: Alert and Oriented x 3 Result Diagrams: 08/07/17 05:18 08/08/17 06:32 Additional Lab and Data: Microbiology and Other Data: Microbiology 08/05/17 01:10 Nasal Screen MRSA (PCR)(LE[facility]) - Final Nasal Mrsa Negative EKG Data: EKG today - shows new diffuse TWI Assess/Plan/Problems-Billing Assessment: Ms. An is a 72 yo female with PMH significant for CAD s/p cardiac stents x4 , COPD, HTN and hypothyroidism who presented to the emergency room with chest pain and was found to have an elevated troponin and was taken to the cardiac component lab tech with no focal stenosis noted but depressed EF, possibly Takotsubo's cardiomyopathy with COPD exacerbation. - Patient Problems (1) Demand myocardial infarction Comment: ? Takotsubo cardiomyopathy S/P cardiac cath, no intervention - moderate in-stent restenosis, no critical disease, EF 25-30% Troponin peaked at 1.64 Echo - EF 30-35%, focal wall motion abnormality present, multiple areas of hypokinesis, mild Continue statin, ASA, low dose carvedilol and plavix Cardiology consultation appreciated (2) Cardiomyopathy Comment: Possible Takotsubo No focal coronary stenosis EF 30-35% Cont Tekturna, ASA, Plavix, statin (3) COPD exacerbation Comment: Slightly improved today, pulm consult appreciated Continue albuterol nebs, spiriva, dulera and steroids Cont doxycycline (no azithromycin as QTc is already prolonged) and Mucinex Will attempt to transition back to oral steroids again and cont with flutter valve (4) Prolonged QT interval Comment: Improved No dysrhythmias (5) Hyponatremia Comment: Improved with 1L NS (6) Anxiety Comment: Likely acutely worse due to IV steroid use Cont Paxil Improving with tapering steroids Cont prn lorazepam (7) CAD (coronary artery disease) Comment: Moderate diffuse disease on cardiac cath Continue low dose carvedilol, ASA and statin Started on plavix (8) HTN (hypertension) Comment: SBP 130-150's Continue tekturna and amlodipine (9) Hypothyroidism Comment: TSH 0.February Continue levothyroxine (10) DVT prophylaxis Comment: Lovenox SQ (11) Full code status Status and Disposition: Inpatient. Possible dc home tomorrow
--- NOTE | 2017-08-09 12:20 | PN ---
Progress Note - Progress Note Date of Service: 08/09/17 SOAP: Subjective: Ms. An is a 72 yo female with a history of COPD, CAD s/p stent, and hypothyroidism who presents c/o SOB and chest pressure. Patient was admitted for a COPD exacerbation and also had non-specific ST segment changes and elevated cardiac enzymes that led to a cardiac catheterization procedure and was found to have moderate stenosis that was advised to be medically managed. Today, patient states that she is feeling better and denies fatigue, fevers, chills, CP, abdominal pain, N/V/D. Is still having YOU, but pt states she is able to ambulate around the hallways w/o stopping. Objective: Vital Signs Temp Pulse Resp BP Pulse Ox 97.6 F 87 20 145/72 97 08/09/17 11:28 08/09/17 11:28 08/09/17 11:28 08/09/17 11:28 08/09/17 11:28 Laboratory Last Values WBC 9.3 10^3/ul (3.5-10.8) 08/07/17 05:18 RBC 4.41 10^6/ul (4.0-5.4) 08/07/17 05:18 Hgb 11.9 g/dl (12.0-16.0) L 08/07/17 05:18 Hct 35 % (35-47) 08/07/17 05:18 MCV 80 fL (80-97) 08/07/17 05:18 MCH 27 pg (27-31) 08/07/17 05:18 MCHC 34 g/dl (31-36) 08/07/17 05:18 RDW 18 % (10.5-15) H 08/07/17 05:18 Plt Count 274 10^3/ul (150-450) 08/07/17 05:18 MPV 7 um3 (7.4-10.4) L 08/07/17 05:18 Neut % (Auto) 84.1 % (38-83) H 08/07/17 05:18 Lymph % (Auto) 6.5 % (25-47) L 08/07/17 05:18 [place] % (Auto) 9.3 % (1-9) H 08/07/17 05:18 Eos % (Auto) 0 % (0-6) 08/07/17 05:18 Baso % (Auto) 0.1 % (0-2) 08/07/17 05:18 Absolute Neuts (auto) 7.8 10^3/ul (1.5-7.7) H 08/07/17 05:18 Absolute Lymphs (auto) 0.6 10^3/ul (1.0-4.8) L 08/07/17 05:18 Absolute Monos (auto) 0.9 10^3/ul (0-0.8) H 08/07/17 05:18 Absolute Eos (auto) 0 10^3/ul (0-0.6) 08/07/17 05:18 Absolute Basos (auto) 0 10^3/ul (0-0.2) 08/07/17 05:18 Absolute Nucleated RBC 0 10^3/ul 08/07/17 05:18 Nucleated RBC % 0 08/07/17 05:18 INR (Anticoag Therapy) 0.90 (0.89-1.11) 08/04/17 20:24 APTT 20.8 seconds (26.0-36.3) L 08/06/17 05:32 Patient Temperature Not Reportable 08/04/17 20:35 ABG pH 7.42 (7.35-7.45) 08/04/17 20:35 ABG pCO2 38 mmHg (35-45) 08/04/17 20:35 ABG pO2 63 mmHg (80-100) L 08/04/17 20:35 ABG HCO3 25.0 mmol/L (19-31) 08/04/17 20:35 ABG O2 Saturation 96.0 % (95-98) 08/04/17 20:35 ABG Base Excess 0.2 (-2.0-2.0) 08/04/17 20:35 Respiration Rate Not Reportable 08/04/17 20:35 O2 Delivery Device Not Reportable 08/04/17 20:35 Ventilator Type Not Reportable 08/04/17 20:35 Vent Mode Not Reportable 08/04/17 20:35 FiO2 Not Reportable 08/04/17 20:35 Inspiratory Time Not Reportable 08/04/17 20:35 PEEP Not Reportable 08/04/17 20:35 Pressure Support Not Reportable 08/04/17 20:35 Pressure Control Not Reportable 08/04/17 20:35 EPAP Not Reportable 08/04/17 20:35 IPAP Not Reportable 08/04/17 20:35 BiPAP Not Reportable 08/04/17 20:35 Sodium 129 mmol/L (133-145) L 08/08/17 06:32 Potassium 3.9 mmol/L (3.5-5.0) 08/08/17 06:32 Chloride 100 mmol/L (101-111) L 08/08/17 06:32 Carbon Dioxide 23 mmol/L (22-32) 08/08/17 06:32 Anion Gap 6 mmol/L (2-11) 08/08/17 06:32 BUN 16 mg/dL (6-24) 08/08/17 06:32 Creatinine 0.80 mg/dL (0.51-0.95) 08/08/17 06:32 Est GFR ( Amer) 90.9 (>60) 08/08/17 06:32 Est GFR (Non-Af Amer) 70.7 (>60) 08/08/17 06:32 BUN/Creatinine Ratio 20.0 (8-20) 08/08/17 06:32 Glucose 100 mg/dL (70-100) 08/08/17 06:32 Lactic Acid 1.2 mmol/L (0.5-2.0) 08/04/17 20:24 Calcium 8.6 mg/dL (8.6-10.3) 08/08/17 06:32 Magnesium 1.9 mg/dL (1.9-2.7) 08/04/17 20:24 Total Bilirubin 0.60 mg/dL (0.2-1.0) 08/06/17 05:32 AST 24 U/L (13-39) 08/06/17 05:32 ALT 18 U/L (7-52) 08/06/17 05:32 Alkaline Phosphatase 77 U/L (34-104) 08/06/17 05:32 Total Creatine Kinase 121 U/L (10-223) 08/05/17 10:50 CK-MB (CK-2) 12.0 ng/mL (0.6-6.3) H 08/05/17 10:50 Troponin I 0.63 ng/mL (<0.04) H* 08/05/17 10:50 B-Natriuretic Peptide 331 pg/mL (-100) H 08/04/17 20:24 Total Protein 6.4 g/dL (6.4-8.9) 08/06/17 05:32 Albumin 3.7 g/dL (3.2-5.2) 08/06/17 05:32 Globulin 2.7 g/dL (2-4) 08/06/17 05:32 Albumin/Globulin Ratio 1.4 (1-3) 08/06/17 05:32 Triglycerides 49 mg/dL 08/06/17 05:32 Cholesterol 176 mg/dL 08/06/17 05:32 LDL Cholesterol 82 mg/dL 08/06/17 05:32 HDL Cholesterol 84.5 mg/dL 08/06/17 05:32 Urine Color Yellow 08/04/17 21:49 Urine Appearance Clear 08/04/17 21:49 Urine pH 5.0 (5-9) 08/04/17 21:49 Ur Specific [place] 1.016 (1.010-1.030) 08/04/17 21:49 Urine Protein Negative (Negative) 08/04/17 21:49 Urine Ketones Negative (Negative) 08/04/17 21:49 Urine Blood Negative (Negative) 08/04/17 21:49 Urine Nitrate Negative (Negative) 08/04/17 21:49 Urine Bilirubin Negative (Negative) 08/04/17 21:49 Urine Urobilinogen Negative (Negative) 08/04/17 21:49 Ur Leukocyte Esterase Trace (Negative) H 08/04/17 21:49 Urine WBC (Auto) Trace(0-5/hpf) (Absent) 08/04/17 21:49 Urine RBC (Auto) Trace(0-2/hpf) (Absent) 08/04/17 21:49 Ur Squamous Epith Cells Present (Absent) H 08/04/17 21:49 Urine Bacteria Absent (Absent) 08/04/17 21:49 Urine Glucose Negative (Negative) 08/04/17 21:49 Influenza A (Rapid) Negative (Negative) 08/04/17 21:06 Influenza B (Rapid) Negative (Negative) 08/04/17 21:06 Active Medications Acetaminophen (Tylenol Tab*) 650 mg PO Q6H PRN PRN Reason: PAIN Al Hydrox/Mg Hydrox/Simethicone (Maalox Plus*) 30 ml PO Q6H PRN PRN Reason: INDIGESTION Last Admin: 08/05/17 11:34 Dose: 30 ml Albuterol/Ipratropium (Duoneb (Albuterol 2.5 Mg/Ipratropium 0.5 Mg)) 1 neb INH [id number] AWAKE [facility] Last Admin: 08/09/17 09:18 Dose: 1 neb Aliskiren (Tekturna Tab*) 300 mg PO DAILY [facility] Last Admin: 08/09/17 09:08 Dose: 300 mg Amlodipine Besylate (Norvasc Tab*) 2.5 mg PO DAILY [facility] Last Admin: 08/09/17 09:06 Dose: 2.5 mg Aspirin (Aspirin Low Dose Tab*) 81 mg PO DAILY [facility] Last Admin: 08/09/17 09:06 Dose: 81 mg Atorvastatin Calcium (Lipitor*) 80 mg PO 1700 [facility] Last Admin: 08/08/17 17:46 Dose: 80 mg Carvedilol (Coreg Tab*) 3.125 mg PO BID [facility] Last Admin: 08/09/17 09:07 Dose: 3.125 mg Clopidogrel Bisulfate (Plavix Tab*) 75 mg PO DAILY [facility] Last Admin: 08/09/17 09:07 Dose: 75 mg Enoxaparin Sodium (Lovenox(*)) 40 mg SUBCUT Q24H [facility] Last Admin: 08/08/17 13:39 Dose: 40 mg Fluticasone Propionate (Flonase Nasal [place] 50mcg*) 2 spray BOTH NARES DAILY [facility] Last Admin: 08/09/17 09:08 Dose: 2 spray Guaifenesin (Mucinex*) 1,200 mg PO BID [facility] Last Admin: 08/09/17 09:07 Dose: 1,200 mg Doxycycline Hyclate 100 mg/ (Dextrose) 250 mls @ 250 mls/hr IVPB 0900,2100 [facility] Last Admin: 08/09/17 09:32 Dose: 250 mls/hr Levothyroxine Sodium (Synthroid Tab*) 50 mcg PO 0600 [facility] Last Admin: 08/09/17 05:28 Dose: 50 mcg Lorazepam (Ativan Tab(*)) 0.5 mg PO Q4H PRN PRN Reason: ANXIETY Last Admin: 08/08/17 21:29 Dose: 0.5 mg Magnesium Hydroxide (Milk Of Magnjermain Liq*) 30 ml PO Q6H PRN PRN Reason: CONSTIPATION Last Admin: 08/07/17 15:51 Dose: 30 ml Methylprednisolone Sodium Succinate (Solu-Medrol 40 Mg) 40 mg IV Q12H [facility] Stop: 08/09/17 18:00 Last Admin: 08/09/17 03:59 Dose: 40 mg Miconazole Nitrate (Miconazole Vag Supp*) 200 mg VAGINAL BEDTIME [facility] Stop: 08/09/17 20:59 Last Admin: 08/08/17 20:39 Dose: 200 mg Mometasone Furoate/Formoterol Fumar (Dulera 200/5 Mdi*) 2 puff INH BID [facility] Last Admin: 08/09/17 09:30 Dose: 2 puff Nitroglycerin (Nitroglycerin Tab 0.4 Mg*) 0.4 mg SL Q5M PRN PRN Reason: ANGINA Nystatin (Nystatin Suspension*) 200,000 units PO QID [facility] Last Admin: 08/09/17 09:05 Dose: 200,000 units Paroxetine HCl (Paxil Tab*) 40 mg PO DAILY [facility] Last Admin: 08/09/17 09:07 Dose: 40 mg Polyethylene Glycol/Electrolytes (Miralax*) 17 gm PO DAILY PRN PRN Reason: CONSTIPATION Last Admin: 08/07/17 10:58 Dose: 17 gm Prednisone (Deltasone Tab*) 40 mg PO DAILY [facility] Tiotropium [place] (Spiriva Cap.Inh*) 1 cap INH DAILY [facility] Last Admin: 08/09/17 09:51 Dose: 1 cap Trazodone HCl (Desyrel Tab*) 150 mg PO BEDTIME PRN PRN Reason: SLEEP Last Admin: 08/08/17 23:20 Dose: 150 mg General: WDWN in NAD. A&O x3. HEENT: Mucous membranes and moist and pink CV: RRR w/o MRG Respiratory: CTA w/ moderate expiratory wheezes. Better today than previously Extremities: w/o edema Assessment: Ms. An is a 72 yo female who has a history of COPD, hypothyroidism, and CAD s/p stent who has been admitted for a COPD exacerbation and telemetry monitoring for a cardiac event in which there were non-specific ST segment changes and elevated cardiac enzymes. Plan: 1. COPD Exacerbation: Continue maintenance and rescue inhalers, nebulizer treatments, IV steroids that should be transitioned to orals w/in the next day, and doxycycline therapy. 2. CAD: Continue ASA, Plavix, statin, carvedilol 3. Anxiety: Continue prn ativan and paxil 4. HTN: Continue Amlodipine and Tekturna 5. Hypothyroidism: Continue levothyroxine
--- NOTE | 2017-08-09 15:22 | PN ---
Progress Note - Progress Note Date of Service: 08/09/17 - Pulm f/u Note: Pt seen and examined at bedside. Pt reports improvement in SOB. No new complaints. Cough is improved. Active Medications Generic Name Dose Route Start Last Admin Trade Name Freq PRN Reason Stop Dose Admin Acetaminophen 650 mg 08/05/17 20:11 Tylenol Tab* PO Q6H PRN PAIN Al Hydrox/Mg Hydrox/Simethicone 30 ml 08/05/17 11:07 08/05/17 11:34 Maalox Plus* PO 30 ml Q6H PRN Administration INDIGESTION Albuterol/Ipratropium 1 neb 08/08/17 13:00 08/09/17 14:01 Duoneb (Albuterol 2.5 Mg/Ipratropium 0.5 Mg) INH 1 neb [id number] AWAKE [facility] Administration Aliskiren 300 mg 08/05/17 09:00 08/09/17 09:08 Tekturna Tab* PO 300 mg DAILY [facility] Administration Amlodipine Besylate 2.5 mg 08/05/17 07:00 08/09/17 09:06 Norvasc Tab* PO 2.5 mg DAILY [facility] Administration Aspirin 81 mg 08/05/17 09:00 08/09/17 09:06 Aspirin Low Dose Tab* PO 81 mg DAILY [facility] Administration Atorvastatin Calcium 80 mg 08/05/17 17:00 08/08/17 17:46 Lipitor* PO 80 mg 1700 [facility] Administration Carvedilol 3.125 mg 08/05/17 09:00 08/09/17 09:07 Coreg Tab* PO 3.125 mg BID [facility] Administration Clopidogrel Bisulfate 75 mg 08/07/17 09:00 08/09/17 09:07 Plavix Tab* PO 75 mg DAILY [facility] Administration Enoxaparin Sodium 40 mg 08/07/17 15:00 08/08/17 13:39 Lovenox(*) SUBCUT 40 mg Q24H [facility] Administration Fluticasone Propionate 2 spray 08/05/17 09:00 08/09/17 09:08 Flonase Nasal [place] 50mcg* BOTH NARES 2 spray DAILY [facility] Administration Guaifenesin 1,200 mg 08/07/17 21:00 08/09/17 09:07 Mucinex* PO 1,200 mg BID [facility] Administration Doxycycline Hyclate 100 mg/ 250 mls @ 250 mls/hr 08/09/17 07:50 08/09/17 09: 32 Dextrose IVPB 250 mls/hr 0900,2100 [facility] Administration Levothyroxine Sodium 50 mcg 08/05/17 06:00 08/09/17 05:28 Synthroid Tab* PO 50 mcg 0600 [facility] Administration Lorazepam 0.5 mg 08/07/17 14:49 08/08/17 21:29 Ativan Tab(*) PO 0.5 mg Q4H PRN Administration ANXIETY Magnesium Hydroxide 30 ml 08/06/17 19:16 08/07/17 15:51 Milk Of Magnesia Liq* PO 30 ml Q6H PRN Administration CONSTIPATION Methylprednisolone Sodium Succinate 40 mg 08/08/17 16:00 08/09/17 03:59 Solu-Medrol 40 Mg IV 08/09/17 18:00 40 mg Q12H [facility] Administration Miconazole Nitrate 200 mg 08/06/17 21:00 08/08/17 20:39 Miconazole Vag Supp* VAGINAL 08/09/17 20:59 200 mg BEDTIME [facility] Administration Mometasone Furoate/Formoterol Fumar 2 puff 08/05/17 09:00 08/09/17 09:30 Dulera 200/5 Mdi* INH 2 puff BID [facility] Administration Nitroglycerin 0.4 mg 08/05/17 00:50 Nitroglycerin Tab 0.4 Mg* SL Q5M PRN ANGINA Nystatin 200,000 units 08/06/17 21:00 08/09/17 09:05 Nystatin Suspension* PO 200,000 units QID [facility] Administration Paroxetine HCl 40 mg 08/05/17 09:00 08/09/17 09:07 Paxil Tab* PO 40 mg DAILY [facility] Administration Polyethylene Glycol/Electrolytes 17 gm 08/06/17 19:16 08/07/17 10:58 Miralax* PO 17 gm DAILY PRN Administration CONSTIPATION Prednisone 40 mg 08/10/17 09:00 Deltasone Tab* PO DAILY [facility] Tiotropium [place] 1 cap 08/05/17 09:00 08/09/17 09:51 Spiriva Cap.Inh* INH 1 cap DAILY [facility] Administration Trazodone HCl 150 mg 08/05/17 02:34 08/08/17 23:20 Desyrel Tab* PO 150 mg BEDTIME PRN Administration SLEEP Vital Signs Temp Pulse Resp BP Pulse Ox 97.6 F 87 20 145/72 97 08/09/17 11:28 08/09/17 11:28 08/09/17 11:28 08/09/17 11:28 08/09/17 11:28 O/E; Pt in NAD HEENT: PERRLA, no JVD Lungs: Scaterred wheeze b/l CVS; S1, S2+ Abd: Soft, BS+ Ext: No edema Neuro; No focal defecits I/R: 72 yo f with CAD s/p cardiac stents x4, COPD, HTN and hypothyroidism who presented to the emergency room with chest pain and was found to have an elevated troponin and 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 Pt also with COPD exacerbation Improving slowly Will c/w steroid taper, will change to po tomorrow c/w bronchodilators Ambulate as tolerated O2 requirement to be assessed prior to d/c D/w Mickey Vieira NP.
[2017-08-09] MEDS: Enoxaparin(*) 40 MG/0.4 ML SYR SUBCUT SCH (15:33)
--- NOTE | 2017-08-09 16:47 | PN ---
Subjective Date of Service: 08/09/17 Interval History: Able to walk around hallway now Still with significant cough trouble bringing mucous up. No current chest pain no arrhythmias on telemetry ekg today nsr, LVH with repolarization abnormalities, anterior infarct, age indeterminate similar to 08/08/2017 Medications Active Medications: Acetaminophen (Tylenol Tab*) 650 mg PO Q6H PRN PRN Reason: PAIN Al Hydrox/Mg Hydrox/Simethicone (Maalox Plus*) 30 ml PO Q6H PRN PRN Reason: INDIGESTION Last Admin: 08/05/17 11:34 Dose: 30 ml Albuterol/Ipratropium (Duoneb (Albuterol 2.5 Mg/Ipratropium 0.5 Mg)) 1 neb INH [id number] AWAKE [facility] Last Admin: 08/09/17 14:01 Dose: 1 neb Aliskiren (Tekturna Tab*) 300 mg PO DAILY [facility] Last Admin: 08/09/17 09:08 Dose: 300 mg Amlodipine Besylate (Norvasc Tab*) 2.5 mg PO DAILY [facility] Last Admin: 08/09/17 09:06 Dose: 2.5 mg Aspirin (Aspirin Low Dose Tab*) 81 mg PO DAILY [facility] Last Admin: 08/09/17 09:06 Dose: 81 mg Atorvastatin Calcium (Lipitor*) 80 mg PO 1700 [facility] Last Admin: 08/08/17 17:46 Dose: 80 mg Carvedilol (Coreg Tab*) 3.125 mg PO BID [facility] Last Admin: 08/09/17 09:07 Dose: 3.125 mg Clopidogrel Bisulfate (Plavix Tab*) 75 mg PO DAILY [facility] Last Admin: 08/09/17 09:07 Dose: 75 mg Enoxaparin Sodium (Lovenox(*)) 40 mg SUBCUT Q24H [facility] Last Admin: 08/09/17 15:33 Dose: 40 mg Fluticasone Propionate (Flonase Nasal [place] 50mcg*) 2 spray BOTH NARES DAILY [facility] Last Admin: 08/09/17 09:08 Dose: 2 spray Guaifenesin (Mucinex*) 1,200 mg PO BID [facility] Last Admin: 08/09/17 09:07 Dose: 1,200 mg Doxycycline Hyclate 100 mg/ (Dextrose) 250 mls @ 250 mls/hr IVPB 0900,2100 [facility] Last Admin: 08/09/17 09:32 Dose: 250 mls/hr Levothyroxine Sodium (Synthroid Tab*) 50 mcg PO 0600 [facility] Last Admin: 08/09/17 05:28 Dose: 50 mcg Lorazepam (Ativan Tab(*)) 0.5 mg PO Q4H PRN PRN Reason: ANXIETY Last Admin: 08/08/17 21:29 Dose: 0.5 mg Magnesium Hydroxide (Milk Of Magnesia Liq*) 30 ml PO Q6H PRN PRN Reason: CONSTIPATION Last Admin: 08/07/17 15:51 Dose: 30 ml Methylprednisolone Sodium Succinate (Solu-Medrol 40 Mg) 40 mg IV Q12H [facility] Stop: 08/09/17 18:00 Last Admin: 08/09/17 15:33 Dose: 40 mg Miconazole Nitrate (Miconazole Vag Supp*) 200 mg VAGINAL BEDTIME [facility] Stop: 08/09/17 20:59 Last Admin: 08/08/17 20:39 Dose: 200 mg Mometasone Furoate/Formoterol Fumar (Dulera 200/5 Mdi*) 2 puff INH BID [facility] Last Admin: 08/09/17 09:30 Dose: 2 puff Nitroglycerin (Nitroglycerin Tab 0.4 Mg*) 0.4 mg SL Q5M PRN PRN Reason: ANGINA Nystatin (Nystatin Suspension*) 200,000 units PO QID [facility] Last Admin: 08/09/17 15:33 Dose: 200,000 units Paroxetine HCl (Paxil Tab*) 40 mg PO DAILY [facility] Last Admin: 08/09/17 09:07 Dose: 40 mg Polyethylene Glycol/Electrolytes (Miralax*) 17 gm PO DAILY PRN PRN Reason: CONSTIPATION Last Admin: 08/07/17 10:58 Dose: 17 gm Prednisone (Deltasone Tab*) 40 mg PO DAILY [facility] Tiotropium Reeves (Spiriva Cap.Inh*) 1 cap INH DAILY [facility] Last Admin: 08/09/17 09:51 Dose: 1 cap Trazodone HCl (Desyrel Tab*) 150 mg PO BEDTIME PRN PRN Reason: SLEEP Last Admin: 08/08/17 23:20 Dose: 150 mg Objective Vital Signs: Temp Pulse Resp BP Pulse Ox 98.2 F 92 18 136/68 96 08/09/17 15:40 12/01/17 15:40 08/09/17 15:40 08/09/17 15:40 08/09/17 15:40 Oxygen Devices in Use Now: None Appearance: nad, able to speak in sentences Eyes: No Scleral Icterus, PERRLA Ears/Nose/Mouth/Throat: Clear Oropharnyx Neck: NL Appearance and Movements; NL JVP Respiratory: - - mild increased work of breathing, decreased air movement with no wheezing noted Cardiovascular: NL Sounds; No Murmurs; No JVD, RRR Abdominal: NL Sounds; No Tenderness; No Distention Extremities: No Edema Skin: No Rash or Ulcers Neurological: Alert and Oriented x 3 Laboratory Results: 08/07/17 05:18 08/08/17 06:32 INR (Anticoag Therapy) 0.90 (0.89-1.11) 08/04/17 20:24 APTT 20.8 seconds (26.0-36.3) L 08/06/17 05:32 Total Bilirubin 0.60 mg/dL (0.2-1.0) 08/06/17 05:32 AST 24 U/L (13-39) 08/06/17 05:32 ALT 18 U/L (7-52) 08/06/17 05:32 Alkaline Phosphatase 77 U/L (34-104) 08/06/17 05:32 CK-MB (CK-2) 12.0 ng/mL (0.6-6.3) H 08/05/17 10:50 B-Natriuretic Peptide 331 pg/mL (-100) H 08/04/17 20:24 Total Protein 6.4 g/dL (6.4-8.9) 08/06/17 05:32 Albumin 3.7 g/dL (3.2-5.2) 08/06/17 05:32 Globulin 2.7 g/dL (2-4) 08/06/17 05:32 Albumin/Globulin Ratio 1.4 (1-3) 08/06/17 05:32 Triglycerides 49 mg/dL 08/06/17 05:32 Cholesterol 176 mg/dL 08/06/17 05:32 LDL Cholesterol 82 mg/dL 08/06/17 05:32 HDL Cholesterol 84.5 mg/dL 08/06/17 05:32 08/05/17 08/05/17 05:05 10:50 Troponin I 0.64 H* 0.63 H* Assessment/Plan 72 yo with severe COPD, sub acute progressive SOB and pleuritic CP since January of this year, acutely worse this week. Troponins elevated, abnormal on admission, cathed and found to have moderate CAD with recommendations for medical management. EF 25% of V gram and elevated LVEDP or 20. Improving slowly with management of lungs and heart. 08/09/2017 BSM: Angiogram, LV gram and clinical course reviewed, suspect stress cardiomyopathy in setting of COPD exacerbation and underlying CAD Points of Discussion: Coreg 3.125 mg po BID, did not tolerate metoprolol prevously Continue Tekturna, did not tolerate AceI previously Continue aspirin, plavix and statin Needs LVEF repeated at some point, hopeful for recovery once COPD exacerbation resolved. Patient needs follow up with Dr. Rodriguez after discharge
[2017-08-09] MEDS: Atorvastatin* 80 MG TAB PO SCH (17:44)
[2017-08-09] MEDS: Al Hydrox/Mg Hydrox/Simet LIQ* 30 ML UDC PO PRN (20:24)
[2017-08-09] MEDS: LORazepam TAB(*) 0.5 MG PO PRN (23:02)
[2017-08-09] MEDS: traZODone TAB* 100 MG PO PRN (23:02)
[2017-08-10] MEDS: Albuterol/Ipratropium NEB.SOL* Albuterol 2.5 MG/Ipratropium 0.5 MG 3 ML INH SCH ×2 (03:13→07:35)
[2017-08-10] MEDS: Levothyroxine TAB* 50 MCG TAB PO SCH (05:29)
[2017-08-10] MEDS: Tiotropium CAP.INH* CAP.INH/18 MCG (USE ORDER SET !) INH SCH (07:36)
[2017-08-10] MEDS: Mometasone/Formoter 200/5 MDI INH SCH (07:36)
[2017-08-10] MEDS: Aliskiren TAB* 150 MG PO SCH (08:55)
[2017-08-10] MEDS: Nystatin SUSPENSION* 100000 UNITS/ML 5 ML UDC PO SCH (08:55)
[2017-08-10] MEDS: Fluticasone NASAL SPRAY 50MCG* 16 gm SPRAY BTL BOTH NARES SCH (08:55)
[2017-08-10] MEDS: guaiFENesin ER TAB 600 MG PO SCH (08:56)
[2017-08-10] MEDS: Aspirin Low Dose CHEW TAB* 81 MG PO SCH (08:56)
[2017-08-10] MEDS: Carvedilol TAB* 3.125 MG PO SCH (08:56)
[2017-08-10] MEDS: amLODIPine TAB* 5 MG PO SCH (08:56)
[2017-08-10] MEDS: Clopidogrel TAB* 75 MG PO SCH (08:57)
[2017-08-10] MEDS: PARoxetine HCL TAB* 40 MG PO SCH (08:57)
[2017-08-10] MEDS ORDERED: predniSONE TAB* 20 MG PO SCH (09:00)
[2017-08-10] MEDS: DOXYCYCLINE IVPB SCH (09:55)
[2017-08-10] MEDS: D5W IVPB SCH (09:55)
[2017-08-10] MEDS: Al Hydrox/Mg Hydrox/Simet LIQ* 30 ML UDC PO PRN (11:12)
[2017-08-10] MEDS ORDERED: Albuterol/Ipratropium NEB.SOL* Albuterol 2.5 MG/Ipratropium 0.5 MG 3 ML INH PRN (12:21)
[2017-08-10 12:30] VITALS: BP 140/69
--- NOTE | 2017-08-11 06:41 | DS ---
CC: Dr. Miles; Dr. Damon; Dr. Sierra; Dr. Rodriguez; Dr. Jones. DISCHARGE SUMMARY: DATE OF ADMISSION: 08/04/17 DATE OF DISCHARGE: 08/10/17 PRIMARY CARE PROVIDER: Dr. Miles. MANAGER RETIREMENT: Dr. Damon. POLYMERIZATION OVEN TENDER: Dr. Jones. DISCHARGE DIAGNOSES: 1. 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 2. Systolic congestive heart failure with ejection fraction of 30% to 35%. 3. Acute hypoxemic respiratory failure. 4. Chronic obstructive pulmonary disease exacerbation secondary to bronchitis. 5. Hyponatremia. SECONDARY DIAGNOSES: 1. Coronary artery disease, status post stent x4. 2. Chronic obstructive pulmonary disease. 3. Hypothyroidism. MEDICATION LIST: 1. Paroxetine 40 mg p.o. daily. 2. Albuterol 2.5 mg nebulized q.i.d. p.r.n. shortness of breath. 3. Albuterol HFA 2 puffs inhaled q.i.d. 4. Clopidogrel 75 mg p.o. daily. 5. Aliskiren 300 mg p.o. daily. 6. EpiPen as needed for anaphylactic reaction. 7. Fexofenadine 180 mg p.o. daily. 8. Advair 230/21 one puff inhaled b.i.d. 9. Hydrocodone/acetaminophen 10/325 one tablet p.o. q. 6 hours p.r.n. pain. 10. Levothyroxine 50 mcg p.o. daily. 11. Pantoprazole 40 mg p.o. daily. 12. Spiriva 1 capsule inhaled daily. 13. Trazodone 150 mg p.o. at bedtime as needed for insomnia. 14. Fluticasone nasal spray 2 sprays to both nares daily. 15. Guaifenesin syrup 100 mg p.o. b.i.d. 16. Aspirin 81 mg p.o. daily. 17. Atorvastatin 80 mg p.o. daily. 18. Coreg 3.125 mg p.o. b.i.d. 19. Doxycycline 100 mg p.o. b.i.d. for 7 more days. 20. Lorazepam 0.5 mg p.o. t.i.d. as needed for anxiety, MDD 3 tablets dispensed 21 tablets, no refil l. 21. Nitroglycerin 0.4 mg sublingual q. 5 minutes as needed for chest pain, maximum 3 doses. 22. Nystatin suspension 200,000 units p.o. q.i.d. 23. Amlodipine 2.5 mg p.o. daily. HOSPITAL COURSE: Ms. An is a 72-year-old lady with a past medical history as stated above that p resented to the emergency room on August 05 with complaints of shortness of breath and chest pres sure that had started 4 days prior to admission. For more details about her presentation I refer you to her history and physical. 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 Damon and her cardiac cath showed moderate coronary artery disease involvi ng the left system including the proximal left anterior descending leading to an area just prior to t he stent in the proximal to mid LAD with distal in-stent restenosis. The second diagonal branch had 2 stents with the proximal area of 60% narrowing. Dr. Damon felt that stabilization of her breathin g status would be the mainstay of her therapy. Transthoracic echocardiogram revealed an ejection fra ction of 30% to 35% with inferoseptal, apical, anterior apical, lateral apical, inferior wall segment hypokinesis and the apical septal wall segment was akinetic and those changes were new when compared to her prior echo from May 2016. The patient was treated for her COPD exacerbation and had a progressive improvement of her respirator y status with doxycycline, steroids, and bronchodilators. She was seen in followup by Dr. 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 He suspected that the etiology was stress cardiomyopathy in the setting of COPD exacerbation and underlying CAD. The patient could not tolerate metoprolol previously so his recommendation was for Coreg. Continue Tekturna as the patient could not tolerate VEL inhibitors in the past. Continue aspirin, Plavix, statin, and they are hopeful that her LV function will improve over time once her COPD exacerbation is resolved. She will need f ollowup with Dr. Rodriguez after discharge. She was also seen by Dr. Jones and she agreed with the treatment with bronchodilators, steroid taper , and doxycycline. The patient had progressive improvement of her symptoms. She does not require masterson pplemental oxygen. She is able to ambulate around the unit without significant shortness of breath a nd she felt well enough to be discharged home today. She was advised that she should avoid tobacco. She states that she quit smoking 2 months ago and is now planning to start again, but she declines n eed for nicotine supplementation at this point. She was also advised to avoid excessive physical exer tion until she is seen by cardiology and cleared to resume all her activities. The patient is medically stable to be discharged home today. PHYSICAL EXAMINATION: Vital Signs: Temperature 99, respiratory rate 16, heart rate 80, oxygen satur ation 96% on room air, blood pressure 140/69. General: The patient is a pleasant elderly lady, sitt ing up in bed, in no acute distress. CVS: Normal S1 and S2. Regular, rate, and rhythm. Chest: Martine ath sounds present bilaterally, decreased, but no added sounds. Abdomen: Soft, bowel sounds are pre sent. Extremities: No edema. Neuro: She is alert, awake, and oriented x3. Able to move all 4 extr emities. DIET: Heart-healthy diet. ACTIVITY: As tolerated. Avoid excessive physical exertion. DISPOSITION: To home. STATUS WHILE IN THE HOSPITAL: Inpatient. Please keep in mind this is a summarized version of the patient's complex hospital stay. If you need more information please feel free to call me at [phone] or please obtain the full medical recor d. Approximately 45 minutes was spent to complete this discharge. [id number]/[facility] #: [id number]
== END 2017-08-10 13:32 | disposition home or self-care (01) | DRG 280 ==
LOC: ED 19:52 → CHICATH 23:26 → ICU 08-05 00:10 → MEDTELE 08-05 17:54
PROVIDERS: ADMIT Hospitalist; ATTEND Internal Medicine
PROC: B2111ZZ Fluoroscopy of Multiple Coronary Arteries using Low Osmolar Contrast (ICD-10-PCS; principal; 2017-08-05)
PROC: B2151ZZ Fluoroscopy of Left Heart using Low Osmolar Contrast (ICD-10-PCS; 2017-08-05)
PROC: 4A023N7 Measurement of Cardiac Sampling and Pressure, Left Heart, Percutaneous Approach (ICD-10-PCS; 2017-08-05)
DX: I21.A1 Myocardial infarction type 2 (principal); J96.01 Acute respiratory failure with hypoxia; I50.22 Chronic systolic (congestive) heart failure; I11.0 Hypertensive heart disease with heart failure; T82.855A Stenosis of coronary artery stent, initial encounter; E87.1 Hypo-osmolality and hyponatremia; J44.1 Chronic obstructive pulmonary disease with (acute) exacerbation; I51.81 Takotsubo syndrome; I25.10 Atherosclerotic heart disease of native coronary artery without angina pectoris; E03.9 Hypothyroidism, unspecified; Z88.8 Allergy status to other drugs, medicaments and biological substances; E78.00 Pure hypercholesterolemia, unspecified; K21.9 Gastro-esophageal reflux disease without esophagitis; G89.29 Other chronic pain; M54.9 Dorsalgia, unspecified; M81.0 Age-related osteoporosis without current pathological fracture; F32.9 Major depressive disorder, single episode, unspecified; R40.2412 Glasgow coma scale score 13-15, at arrival to emergency department; Y71.1 Therapeutic (nonsurgical) and rehabilitative cardiovascular devices associated with adverse incidents; D72.829 Elevated white blood cell count, unspecified; F41.9 Anxiety disorder, unspecified; K59.00 Constipation, unspecified; E86.1 Hypovolemia; I45.81 Long QT syndrome; J40 Bronchitis, not specified as acute or chronic; Z79.02 Long term (current) use of antithrombotics/antiplatelets; Z95.5 Presence of coronary angioplasty implant and graft; Z88.2 Allergy status to sulfonamides; Z91.030 Bee allergy status; Z98.42 Cataract extraction status, left eye; Z98.41 Cataract extraction status, right eye; Z90.710 Acquired absence of both cervix and uterus; Z87.891 Personal history of nicotine dependence; Z82.49 Family history of ischemic heart disease and other diseases of the circulatory system; Z82.0 Family history of epilepsy and other diseases of the nervous system; Z87.01 Personal history of pneumonia (recurrent); Z83.3 Family history of diabetes mellitus; Y92.9 Unspecified place or not applicable; Z79.82 Long term (current) use of aspirin
CPT/HCPCS: 36415; 71010; 80048; 80053; 80061; 81003; 81015; 82550; 82553; 82803; 83605; 83735; 83880; 84484; 84520; 85025; 85610; 85730; 87086; 87502; 87641; 93005; 93306; 94640; 94760; 99156; 99157; A9270-GY; C1887; J0583; J1644; J1650; J1940; J2250; J2270; J2920; J2930; J3010; J7512; J7614

== ENCOUNTER 2018-05-16 09:23 | Emergency (ER) | payer MEDICARE ==
[2018-05-16 09:40] VITALS: BP 183/90
[2018-05-16] MEDS ORDERED: Albuterol 2.5 MG/3 ML NEB.SOL* (0.083%) INH ONE (09:40)
[2018-05-16] MEDS ORDERED: Ipratropium 0.5MG/2.5ML NEB* 0.5 MG/2.5 ML NEB.SOLN INH ONE (09:40)
[2018-05-16] MEDS ORDERED: predniSONE TAB* 20 MG PO ONE (09:41)
--- NOTE | 2018-05-16 10:58 | UC ---
Respiratory Complaint HPI - HPI Summary HPI Summary: Patient is a 73-year-old female with a long history of COPD she presents here with wheezing which has been severe for the past 3 days. SHe states that she has been using her nebulizer almost continuously through the night. Denies any chest pain. She denies any productive cough. She denies any fever or chills. - History of Current Complaint Chief Complaint: UCRespiratory Stated Complaint: TROUBLE BREATHING Time Seen by Provider: 05/16/18 09:39 Hx Obtained From: Patient Hx Last Menstrual Period: unknown Onset/Duration: Gradual Onset, Lasting Days Timing: Constant Severity Initially: Mild Severity Currently: Moderate Pain Intensity: 0 Pain Scale Used: 0-10 Numeric Character: Cough: Nonproductive Aggravating Factors: Nothing Associated Signs And Symptoms: Positive: Wheezing - Allergies/Home Medications Allergies/Adverse Reactions: Allergies Allergy/AdvReac Type Severity Reaction Status Date / Time bee venom protein (honey bee) Allergy Unknown Verified 05/16/18 09:41 Reaction Details lisinopril Allergy Coughing Verified 05/16/18 09:41 metoprolol Allergy Unknown Verified 05/16/18 09:41 Reaction Details Sulfa (Sulfonamide Allergy Hives Verified 05/16/18 09:41 Antibiotics) PMH/Surg Hx/FS Hx/Imm Hx Endocrine History: Diabetes, Dyslipidemia Cardiovascular History: Cardiac Disease, Hypertension Respiratory History: COPD, Asthma Other History Of: Anticoagulant Therapy - Plavix. Negative For: HIV, Hepatitis B, Hepatitis C - Surgical History Surgical History: Yes Surgery Procedure, Year, and Place: HYSTERECTOMY 40 YRS AGO,. BILATERAL CARPAL TUNNEL 20 YRS AGO. 2005 - stents placed/cardiac,. GROWTH REMOVED ON RIGHT FOOT X2. CATARACT - Family History Known Family History: Positive: Cardiac Disease, Hypertension, Diabetes - Social History Alcohol Use: Daily Alcohol Amount: beer Substance Use Type: None Smoking Status (MU): Current Every Day Smoker Type: Cigarettes Amount Used/How Often: 5 CIG/DAY. smoking for 50 years Have You Smoked in the Last Year: Yes Household Exposure Type: Cigarettes - Immunization History Most Recent Influenza Vaccination: may 2017 Most Recent Tetanus Shot: UTD Most Recent Pneumonia Vaccination: 2013 Review of Systems Constitutional: Negative Skin: Negative Eyes: Negative ENT: Negative Respiratory: Shortness Of Breath Cardiovascular: Negative Gastrointestinal: Negative Genitourinary: Negative Motor: Negative Neurovascular: Negative Musculoskeletal: Negative Neurological: Negative Psychological: Negative Is Patient Immunocompromised?: No All Other Systems Reviewed And Are Negative: Yes Physical Exam Triage Information Reviewed: Yes Appearance: Ill-Appearing - Patient speaking in fragmented sentences/ appears in respiratory distress. Using accessory muscles. Vital Signs: Initial Vital Signs Temp 98.7 F 05/16/18 09:37 Pulse 91 05/16/18 09:37 Resp 20 05/16/18 09:37 BP 183/90 05/16/18 09:37 Pulse Ox 95 05/16/18 09:37 Eye Exam: Normal ENT Exam: Normal ENT: Positive: Hearing grossly normal, Uvula midline. Negative: Nasal congestion, Nasal drainage, Tonsillar swelling, Tonsillar exudate, Trismus, Muffled voice, Hoarse voice Dental: Negative: Abscess @ Neck: Positive: Supple Respiratory: Positive: Respiratory distress, Accessory muscle use, Wheezing Cardiovascular: Positive: RRR Musculoskeletal: Positive: ROM Intact, No Edema Neurological: Positive: Alert Psychological Exam: Normal Skin Exam: Normal UC Diagnostic Evaluation - Laboratory O2 Sat by Pulse Oximetry: 95 - low normal Re-Evaluation - Re-Evaluation First Eval Re-Evaluation Time: 10:53 Change: Improved - still wheezing, POx 97 %, still with increased WOB Respiratory Course/Dx - Course Course Of Treatment: refuses more nebs, refuses EKG or CXR, refuses to go to ER - Differential Dx/Diagnosis Provider Diagnoses: acute exacerbation of COPD Discharge - Sign-Out/Discharge Documenting (check all that apply): Patient Departure All imaging exams completed and their final reports reviewed: No Studies - Discharge Plan Condition: Guarded Disposition: HOME Prescriptions: predniSONE [Deltasone 20 MG TAB] 40 mg PO DAILY #10 tab Patient Education Materials: Bronchospasm (ED) Referrals: Lina Miles MD [Primary Care Provider] - As Soon As Possible - Billing Disposition and Condition Condition: GUARDED Disposition: Home
== END 2018-05-16 11:03 | disposition home or self-care (01) ==
LOC: UCEAST 09:23
DX: J44.1 Chronic obstructive pulmonary disease with (acute) exacerbation (principal); Z79.01 Long term (current) use of anticoagulants; Z95.5 Presence of coronary angioplasty implant and graft; Z88.2 Allergy status to sulfonamides; Z88.8 Allergy status to other drugs, medicaments and biological substances; Z91.030 Bee allergy status; F17.210 Nicotine dependence, cigarettes, uncomplicated
CPT/HCPCS: 99212; G0463; J7512

== ENCOUNTER 2018-06-06 20:21 | Emergency (ER) | payer MEDICARE ==
[2018-06-06 20:54] VITALS: BP 144/66
[2018-06-06] MEDS ORDERED: predniSONE TAB* 20 MG PO ONE (21:26)
--- NOTE | 2018-06-06 21:32 | UC ---
Asthma HPI - HPI Summary HPI Summary: 73-year-old female with history of COPD presents with 2 day history of shortness of breath wheezing. Associated with a nonproductive cough. States she's been unable to use her nebulizer at home as the tubing is cracked. Denies fever, chills, nasal congestion or drainage, ear pain or pressure, sinus pain or pressure, sore throat, chest pain, abdominal pain, nausea, or vomiting. Patient reports that she is still smoking. - History of Current Complaint Chief Complaint: UCRespiratory Stated Complaint: ASTHMA Time Seen by Provider: 06/06/18 21:03 Hx Obtained From: Patient Hx Last Menstrual Period: unknown Onset/Duration: Gradual Onset, Lasting Days - 2 Timing: Constant Initial Severity: Mild Current Severity: Moderate Pain Intensity: 0 Location/Character: Wheezing Aggravating Factor(s): Weather Change Alleviating Factor(s): Nothing Associated Signs and Symptoms: Positive: Shortness of Breath. Negative: Chest Pain, Edema, URI, Sinus Infection - Allergy/Home Medications Allergies/Adverse Reactions: Allergies Allergy/AdvReac Type Severity Reaction Status Date / Time bee venom protein (honey bee) Allergy Unknown Verified 06/06/18 20:55 Reaction Details lisinopril Allergy Coughing Verified 06/06/18 20:55 metoprolol Allergy Unknown Verified 06/06/18 20:55 Reaction Details Sulfa (Sulfonamide Allergy Hives Verified 06/06/18 20:55 Antibiotics) PMH/Surg Hx/FS Hx/Imm Hx Endocrine History: Thyroid Disease, Dyslipidemia Cardiovascular History: Cardiac Disease, Hypertension, Other Other Cardiovascular History: cardiomyopathy Respiratory History: COPD Psychological History: Anxiety Other History Of: Anticoagulant Therapy - Plavix. Negative For: HIV, Hepatitis B, Hepatitis C - Surgical History Surgical History: Yes Surgery Procedure, Year, and Place: HYSTERECTOMY 40 YRS AGO,. BILATERAL CARPAL TUNNEL 20 YRS AGO. 2005 - stents placed/cardiac,. GROWTH REMOVED ON RIGHT FOOT X2. CATARACT - Family History Known Family History: Positive: Cardiac Disease, Hypertension, Diabetes - Social History Occupation: Retired Lives: With Family Alcohol Use: Daily Alcohol Amount: beer Substance Use Type: None Smoking Status (MU): Current Every Day Smoker Type: Cigarettes Amount Used/How Often: 5 CIG/DAY. smoking for 50 years Have You Smoked in the Last Year: Yes Household Exposure Type: Cigarettes - Immunization History Most Recent Influenza Vaccination: may 2017 Most Recent Tetanus Shot: UTD Most Recent Pneumonia Vaccination: 2013 Review of Systems Constitutional: Negative Skin: Negative Eyes: Negative ENT: Negative Respiratory: Shortness Of Breath, Cough, Other - wheezing Cardiovascular: Negative Gastrointestinal: Negative Is Patient Immunocompromised?: No All Other Systems Reviewed And Are Negative: Yes Physical Exam Triage Information Reviewed: Yes Appearance: No Pain Distress, Well-Nourished, Ill-Appearing - Chronically Vital Signs: Initial Vital Signs Temp 97.6 F 06/06/18 20:49 Pulse 98 06/06/18 20:49 Resp 22 06/06/18 20:49 BP 144/66 06/06/18 20:49 Pulse Ox 99 06/06/18 20:49 Vital Signs Reviewed: Yes Eyes: Positive: Conjunctiva Clear. Negative: Discharge ENT: Positive: Hearing grossly normal, Pharynx normal, TMs normal, Uvula midline. Negative: Nasal congestion, Nasal drainage, Tonsillar swelling, Sinus tenderness Neck: Positive: Supple, Nontender, No Lymphadenopathy Respiratory: Positive: No respiratory distress, No accessory muscle use, Wheezing - Diffusely bilaterally. Negative: Crackles, Rhonchi Cardiovascular: Positive: RRR, No Murmur Neurological: Positive: Alert Skin Exam: Normal Asthma Course/Dx - Course Course Of Treatment: 73-year-old female with a history of COPD and still smoking presents with 2 day history of increasing shortness of breath. States that she's been unable to use her nebulizer because her tubing was cracked. Afebrile. No complaints of URI symptoms. Nonproductive cough. On exam she is in no acute distress however she has diffuse wheezing bilaterally. Patient is declining nebulizer treatments in the clinic. Start her on a prednisone taper giving her the first dose tonight. She was provided with new tubing for her nebulizer and instructed to perform a treatment when she gets home. She is to follow-up with her primary care provider in 2 days if symptoms persist. She is to seek immediate medical attention in the emergency room if she develops a fever, increased shortness of breath, chest pain, or any worsening of symptoms. Patient verbalizes understanding and agrees with plan of care. - Differential Dx/Diagnosis Differential Diagnosis/HQI/PQRI: Bronchitis, COPD Excerbation, Pneumonia Provider Diagnoses: COPD Exacerbation Discharge - Sign-Out/Discharge Documenting (check all that apply): Patient Departure All imaging exams completed and their final reports reviewed: No Studies - Discharge Plan Condition: Stable Disposition: HOME Prescriptions: predniSONE TAB* [Deltasone 10 MG TAB*] 10 mg PO DAILY #26 tab Patient Education Materials: COPD (Chronic Obstructive Pulmonary Disease) (ED) Referrals: Lina Miles MD [Primary Care Provider] - 2 Days (If no improvement) Additional Instructions: Start prednisone taper. We gave you the first dose of 40 mg in the clinic tonight. Starting tomorrow he will take 4 tablets daily for 2 days ,then 3 tablets daily for 3 days, then 2 tablets daily for 3 days, then 1 tablet daily for 3 days then stop. Be sure to use your albuterol inhaler and/or nebulizer according to directions for shortness of breath and wheezing. Follow-up with your primary care provider in 2 days if symptoms persist. Seek immediate medical attention in the emergency room if you develop fever greater than 100.5 F, develop chest pain, have worsening shortness of breath, persistent wheezing despite using albuterol, or any worsening of symptoms. - Billing Disposition and Condition Condition: STABLE Disposition: Home
== END 2018-06-06 21:35 | disposition home or self-care (01) ==
LOC: UCEAST 20:21
DX: J44.1 Chronic obstructive pulmonary disease with (acute) exacerbation (principal); Z88.8 Allergy status to other drugs, medicaments and biological substances; I10 Essential (primary) hypertension; Z88.1 Allergy status to other antibiotic agents; F17.210 Nicotine dependence, cigarettes, uncomplicated
CPT/HCPCS: 99212; G0463; J7512

== ENCOUNTER 2018-07-02 13:22 | Emergency (ER) | payer MEDICARE ==
[2018-07-02 13:50] VITALS: BP 145/62
--- NOTE | 2018-07-02 14:34 | UC ---
Respiratory Complaint HPI - HPI Summary HPI Summary: 73-year-old female with history of COPD presents with 2 day history of increased shortness of breath and persistent wheezing. Associated with a nonproductive cough. Denies fever, chills, chest pain, palpitations, edema, weakness, dizziness, abdominal pain, nausea, or vomiting. She is a smoker less than half a pack per day. - History of Current Complaint Chief Complaint: UCRespiratory Stated Complaint: RESP COMPLAINT Time Seen by Provider: 07/02/18 14:18 Hx Obtained From: Patient Hx Last Menstrual Period: unknown Onset/Duration: Gradual Onset, Lasting Days - 2 Severity Initially: Mild Severity Currently: Moderate Pain Intensity: 0 Character: Cough: Nonproductive Aggravating Factors: Exertion Alleviating Factors: Bronchodilator Associated Signs And Symptoms: Positive: Dyspnea, Wheezing. Negative: Fever, Chills, Pleuritic Chest Pain, Hemoptysis, Dizziness, Edema, URI, Nasal Congestion, Sinus Discomfort - Allergies/Home Medications Allergies/Adverse Reactions: Allergies Allergy/AdvReac Type Severity Reaction Status Date / Time bee venom protein (honey bee) Allergy Unknown Verified 07/02/18 13:41 Reaction Details lisinopril Allergy Coughing Verified 07/02/18 13:41 metoprolol Allergy Unknown Verified 07/02/18 13:41 Reaction Details Sulfa (Sulfonamide Allergy Hives Verified 07/02/18 13:41 Antibiotics) Home Medications: Home Medications amLODIPine TAB* [Norvasc 5 mg TAB*] 5 tab PO DAILY 07/02/18 [History] PMH/Surg Hx/FS Hx/Imm Hx Endocrine History: Hypothyroidism Cardiovascular History: Cardiac Disease, Hypertension Other Cardiovascular History: Cardiomyopathy Respiratory History: COPD Psychological History: Anxiety Other History Of: Anticoagulant Therapy - Plavix. Negative For: HIV, Hepatitis B, Hepatitis C - Surgical History Surgical History: Yes Surgery Procedure, Year, and Place: HYSTERECTOMY 40 YRS AGO,. BILATERAL CARPAL TUNNEL 20 YRS AGO. 2006 - stents placed/cardiac,. GROWTH REMOVED ON RIGHT FOOT X2. CATARACT - Family History Known Family History: Positive: Cardiac Disease, Hypertension, Diabetes - Social History Occupation: Retired Lives: With Family Alcohol Use: Weekly Alcohol Amount: beer Substance Use Type: None Smoking Status (MU): Current Every Day Smoker Type: Cigarettes Amount Used/How Often: 5 CIG/DAY. smoking for 50 years Have You Smoked in the Last Year: Yes Household Exposure Type: Cigarettes - Immunization History Most Recent Influenza Vaccination: may 2017 Most Recent Tetanus Shot: UTD Most Recent Pneumonia Vaccination: 2013 Review of Systems Constitutional: Negative Skin: Negative Eyes: Negative ENT: Negative Respiratory: Shortness Of Breath, Cough, Other - Wheezing Cardiovascular: Negative Gastrointestinal: Negative Is Patient Immunocompromised?: No All Other Systems Reviewed And Are Negative: Yes Physical Exam Triage Information Reviewed: Yes Appearance: No Pain Distress, Well-Nourished, Ill-Appearing - Chronically Vital Signs: Initial Vital Signs Temp 97.8 F 07/02/18 13:45 Pulse 71 07/02/18 13:45 Resp 18 07/02/18 13:45 BP 145/62 07/02/18 13:45 Pulse Ox 99 07/02/18 13:45 Eyes: Positive: Conjunctiva Clear. Negative: Discharge ENT: Positive: Pharynx normal, TMs normal, Uvula midline. Negative: Nasal congestion, Nasal drainage, Sinus tenderness Neck: Positive: Supple, Nontender, No Lymphadenopathy Respiratory: Positive: No respiratory distress, Wheezing - Diffuse bilateral wheezes Cardiovascular: Positive: RRR, No Murmur Neurological: Positive: Alert Skin Exam: Normal UC Diagnostic Evaluation - Laboratory O2 Sat by Pulse Oximetry: 99 Respiratory Course/Dx - Course Course Of Treatment: 73-year-old female with history of COPD presents with 2 day history of increased shortness of breath, wheezing, and a nonproductive cough. Afebrile. Exam reveals diffuse bilateral wheezing. Patient declines nebulizer treatment in the clinic. Start her on a prednisone taper. She is to follow-up with her primary care provider within 5 days for recheck. Warning symptoms were reviewed with the patient. Verbalized understanding and agrees with plan of care. - Differential Dx/Diagnosis Differential Diagnosis/HQI/PQRI: Bronchitis, Exacerbation Of COPD, Lower Resp Infection Provider Diagnoses: COPD Exacerbation Discharge - Sign-Out/Discharge Documenting (check all that apply): Patient Departure All imaging exams completed and their final reports reviewed: No Studies - Discharge Plan Condition: Stable Disposition: HOME Prescriptions: predniSONE TAB* [Deltasone 10 MG TAB*] 10 mg PO DAILY #30 tab Patient Education Materials: COPD (Chronic Obstructive Pulmonary Disease) (ED) Referrals: Lina Miles MD [Primary Care Provider] - 5 Days (Follow up within 5 days for recheck.) Additional Instructions: We will start you on a prednisone taper for your COPD exacerbation. Starting today take 4 tabs orally once a day for 3 days, then 3 tabs daily for 3 days, then 2 tabs daily for 3 days, then 1 tab daily for 3 days, then stop. Continue to use your inhalers and nebulizer treatments as directed. Follow up with your primary care provider within 5 days for recheck. Seek immediate medical attention in the emergency room if you develop fever greater than 100.5 F, have chest pain, increased shortness of breath, become weak or dizzy, or have any worsening of symptoms. - Billing Disposition and Condition Condition: STABLE Disposition: Home - Attestation Statements Provider Attestation: Please note I did not see this patient My shift ended at 2:30 PM chart was reviewed by me
== END 2018-07-02 14:48 | disposition home or self-care (01) ==
LOC: UCEAST 13:22
DX: J44.1 Chronic obstructive pulmonary disease with (acute) exacerbation (principal); I25.10 Atherosclerotic heart disease of native coronary artery without angina pectoris; I10 Essential (primary) hypertension; Z95.5 Presence of coronary angioplasty implant and graft; Z79.01 Long term (current) use of anticoagulants; Z88.2 Allergy status to sulfonamides; Z88.8 Allergy status to other drugs, medicaments and biological substances; Z91.030 Bee allergy status; F17.210 Nicotine dependence, cigarettes, uncomplicated
CPT/HCPCS: 99212; G0463

== ENCOUNTER 2018-08-01 15:08 | Emergency (ER) | payer MEDICARE ==
[2018-08-01] MEDS ORDERED: Albuterol/Ipratropium NEB.SOL* Albuterol 2.5 MG/Ipratropium 0.5 MG 3 ML INH ONE ×2 (16:10→16:17)
[2018-08-01] MEDS ORDERED: methylPREDNISolone 125 MG* 2 ML VIAL IV ONE (16:11)
[2018-08-01 16:24] LABS: ABS Basophils 0.1 10^3/ul (0-0.2); ABS Eosinophils 0 10^3/ul (0-0.6); ABS Lymphocytes 0.8 10^3/ul (1.0-4.8); ABS Monocytes 0.7 10^3/ul (0-0.8); ABS Neutrophils 9.8 10^3/ul (1.5-7.7); ABS Nucleated RBC 0 10^3/ul; Eosinophil % 0 % (0-6); Hematocrit 37 % (35-47); Hemoglobin 12.9 g/dl (12.0-16.0); Lymphocyte % 6.9 % (25-47); Mean Corpuscular HGB Conc 35 g/dl (31-36); Mean Corpuscular Hemoglobin 28 pg (27-31); Mean Corpuscular Volume 81 fL (80-97); Mean Platelet Volume 6.3 fL (7.4-10.4); Nucleated Red Blood Cells % 0; Platelet Count 438 10^3/ul (150-450); Red Blood Count 4.62 10^6/ul (4.00-5.40); Red Cell Distribution Width 15 % (10.5-15); White Blood Count 11.4 10^3/ul (3.5-10.8)
[2018-08-01 16:42] LABS: ALT 14 U/L (7-52); AST 18 U/L (13-39); Albumin 4.3 g/dL (3.2-5.2); Albumin/Globulin Ratio 1.6 (1-3); Alkaline Phosphatase 52 U/L (34-104); BUN/Creatinine Ratio 12.1 (8-20); Blood Urea Nitrogen 12 mg/dL (6-24); CO2 Carbon Dioxide 25 mmol/L (22-32); Calcium 9.3 mg/dL (8.6-10.3); Chloride 93 mmol/L (101-111); EGFR Non-African American 55.1 (>60); Globulin 2.7 g/dL (2-4); Glucose 133 mg/dL (70-100); Sodium 130 mmol/L (135-145)
[2018-08-01 16:44] LABS: Anion Gap 12 mmol/L (2-11); Potassium 2.7 mmol/L (3.5-5.0)
--- NOTE | 2018-08-01 16:52 | ED ---
Syncope/Near Syncope - HPI Summary HPI Summary: Patient is a 73 y/o F w/ c/o syncopal episode and back pain. She is accompanied by daughter. In the room, patient states that she does not want to be here and tells provider to, "get out". Daughter states that patient had a syncopal episode two days ago while she was standing at the kitchen counter. As she was falling, she hit her back and reported back pain and swelling. Daughter also notes that patient has not been taking her Prozac, which she has been on for years. Daughter is concerned about dementia, but reports that PCP is not entertaining the idea of a dementia workup. Daughter also reports that patient will experience dizziness with slight movements, has been increasingly forgetful , and behaving irrationally. She claims that patient "had a breakdown" this morning and asked for "help". Patient was willing to be in ED until she was placed in a room. She notes PMHx of CAD, COPD, hypothyroidism, asthma, ovarian cancer, [place], takotsubo cardiomyopathy. Daughter reports no Hx of schizophrenia, bipolar disorder. PSHx of stents, hysterectomy. On triage, pain is rated 8/10, nothing is noted to aggravate/alleviate Sx. Home medications and allergies are reviewed. - History Of Current Complaint Chief Complaint: EDDizziness Time Seen by Provider: 08/01/18 15:56 Hx Obtained From: Family/Steel Estimator - daughter Hx From Patient Unobtainable Due To: Other - patient refuses to talk to provider at this point Onset/Duration: Sudden Onset, Lasting Days - back pain two days, Still Present - back pain, Resolved - syncope Timing: Days - two days ago syncope Activity At Onset: Other - standing in front of kitchen counter Associated Head Trauma: No Aggravating Factor(s): Nothing Alleviating Factor(s): Nothing Associated Signs And Symptoms: Other - POSITIVE - DIZZINESS, BACK PAIN, BEHAVING IRRATIONALLY AND INCREASINGLY FORGETFUL - Allergies/Home Medications Allergies/Adverse Reactions: Allergies Allergy/AdvReac Type Severity Reaction Status Date / Time bee venom protein (honey bee) Allergy Unknown Verified 08/01/18 15:22 Reaction Details lisinopril Allergy Coughing Verified 08/01/18 15:22 metoprolol Allergy Unknown Verified 08/01/18 15:22 Reaction Details Sulfa (Sulfonamide Allergy Hives Verified 08/01/18 15:22 Antibiotics) PMH/Surg Hx/FS Hx/Imm Hx Endocrine/Hematology History: Reports: Hx Anticoagulant Therapy - Plavix., Hx Thyroid Disease Denies: Hx Diabetes Cardiovascular History: Reports: Hx Angina, Hx Coronary Artery Disease - stents 2005, Hx Hypercholesterolemia, Hx Hypertension Denies: Hx Congestive Heart Failure, Hx Deep Vein Thrombosis, Hx Myocardial Infarction, Hx Pacemaker/ICD Respiratory History: Reports: Hx Asthma, Hx Chronic Obstructive Pulmonary Disease (COPD), Hx Pneumonia, Other Respiratory Problems/Disorders - HX OF PNEUMONIA 3/4 TIMES Denies: Hx Lung Cancer, Hx Pulmonary Embolism GI History: Reports: Hx Gastroesophageal Reflux Disease Denies: Hx Gall Bladder Disease, Hx Gastrointestinal Bleed, Hx Ulcer, Hx Urosepsis History: Reports: Hx Renal Disease - ARF in 's Denies: Hx Kidney Stones Musculoskeletal History: Reports: Hx Back Problems - Chronic back pain, Hx Osteoporosis Sensory History: Reports: Hx Cataracts, Hx Contacts or Glasses Denies: Hx Hearing Aid Opthamlomology History: Reports: Hx Cataracts, Hx Contacts or Glasses Neurological History: Reports: Hx Headaches Denies: Hx Dementia, Hx Migraine, Hx Seizures, Hx Transient Ischemic Attacks (TIA) Psychiatric History: Reports: Hx Depression Denies: Hx Anxiety, Hx Panic Disorder, Hx Schizophrenia, Hx Bipolar Disorder - Cancer History Hx Chemotherapy: No Hx Radiation Therapy: No - Surgical History Surgery Procedure, Year, and Place: HYSTERECTOMY 40 YRS AGO,. BILATERAL CARPAL TUNNEL 20 YRS AGO. 2005 - stents placed/cardiac,. GROWTH REMOVED ON RIGHT FOOT X2. CATARACT Hx Anesthesia Reactions: No - slow to wake up prn Infectious Disease History: No Infectious Disease History: Denies: Hx Clostridium Difficile, Hx Hepatitis, Hx Human Immunodeficiency Virus (HIV), Hx of Known/Suspected MRSA, Hx Shingles, Hx Tuberculosis, Hx Known/ Suspected VRE, Hx Known/Suspected VRSA, History Other Infectious Disease, Traveled Outside the [place] in Last 30 Days - Family History Known Family History: Positive: Cardiac Disease, Hypertension, Diabetes - Social History Alcohol Use: Daily Alcohol Amount: beer Substance Use Type: Reports: None Smoking Status (MU): Current Every Day Smoker Type: Cigarettes Amount Used/How Often: 5 CIG/DAY. smoking for 50 years Have You Smoked in the Last Year: Yes Review of Systems Positive: Other - POSITIVE - BACK PAIN Neurological: Other - POSITIVE - DIZZINESS, INCREASINGLY FORGETFUL Positive: Syncope Psychological: Other - POSITIVE - BEHAVING IRRATIONALLY All Other Systems Reviewed And Are Negative: Yes Physical Exam - Summary Physical Exam Summary: Appearance: Well appearing, no pain distress Skin: warm, dry, reflects adequate perfusion Head/face: normal Eyes: EOMI, AMADOR ENT: normal Neck: supple, non-tender Respiratory: breath sounds present, bilateral wheezing Cardiovascular: RRR, pulses symmetrical Abdomen: non-tender, soft Bowel: present Musculoskeletal: normal, strength/ROM intact Neuro: normal, sensory motor intact, A&Ox3 Triage Information Reviewed: Yes Vital Signs On Initial Exam: Initial Vitals Temp Pulse Resp BP Pulse Ox 98.9 F 76 16 174/85 100 08/01/18 15:19 08/01/18 15:19 08/01/18 15:19 08/01/18 15:19 08/01/18 15:19 Vital Signs Reviewed: Yes Diagnostics - Vital Signs Vital Signs Temp Pulse Resp BP Pulse Ox 08/01/18 15:19 98.9 F 76 16 174/85 100 - Laboratory Lab Results: Lab Results 08/01/18 08/01/18 Range/Units 16:11 16:11 WBC 11.4 H (3.5-10.8) 10^3/ul RBC 4.62 (4.00-5.40) 10^6/ul Hgb 12.9 (12.0-16.0) g/dl Hct 37 (35-47) % MCV 81 (80-97) fL MCH 28 (27-31) pg MCHC 35 (31-36) g/dl RDW 15 (10.5-15) % Plt Count 438 (150-450) 10^3/ul MPV 6.3 L (7.4-10.4) fL Neut % (Auto) 86.0 H (38-83) % Lymph % (Auto) 6.9 L (25-47) % [place] % (Auto) 6.6 (0-7) % Eos % (Auto) 0 (0-6) % Baso % (Auto) 0.5 (0-2) % Absolute Neuts (auto) 9.8 H (1.5-7.7) 10^3/ul Absolute Lymphs (auto) 0.8 L (1.0-4.8) 10^3/ul Absolute Monos (auto) 0.7 (0-0.8) 10^3/ul Absolute Eos (auto) 0 (0-0.6) 10^3/ul Absolute Basos (auto) 0.1 (0-0.2) 10^3/ul Absolute Nucleated RBC 0 10^3/ul Nucleated RBC % 0 APTT 25.4 L (26.0-36.3) seconds Result Diagrams: 08/01/18 16:11 08/01/18 16:11 Lab Statement: Any lab studies that have been ordered have been reviewed, and results considered in the medical decision making process. - Radiology CXR Radiology Interpretation Completed By: Radiologist Summary of Radiographic Findings: CXR IMPRESSION: COPD WITH MILD FIBROTIC CHANGES. THIS REPORT WAS REVIEWED BY ED PHYSICIAN. - CT BRAIN CT CT Interpretation Completed By: Radiologist Summary of CT Findings: BRAIN CT IMPRESSION: NO ACUTE INTRACRANIAL PATHOLOGY. THIS REPORT WAS REVIEWED BY ED PHYSICIAN. ABD/PEL CT CT Interpretation Completed By: Radiologist Summary of CT Findings: ABD/PEL CT IMPRESSION: 1. ATHEROSCLEROSIS. 2. SCOLIOSIS AND DEGENERATIVE DISC DISEASE. 3. NO APPRECIABLE HYDRONEPHROSIS OR NEPHROLITHIASIS. THIS REPORT WAS REVIEWED BY ED PHYSICIAN. - EKG 1532 Cardiac Rate: NL - rate of 92 bpm EKG Rhythm: Sinus Rhythm Summary of EKG Findings: EKG showed sinus rhythm with rate of 92 BPM, no acute changes Re-Evaluation - Re-Evaluation First Eval Re-Evaluation Time: 16:15 Comment: Patient now agreeable with physical examination and further workup Second Eval Re-Evaluation Time: 18:42 Comment: Results of labs and tests were discussed with patient and patient's daughter. Admission was offerred, patient refused. Patient will be discharged to home and follow up with PCP. Course/Dx Course Of Treatment: Patient is a 73 y/o F w/ c/o syncopal episode and back pain. She is accompanied by daughter. In the room, patient states that she does not want to be here and tells provider to, "get out". Daughter states that patient had a syncopal episode two days ago while she was standing at the kitchen counter. As she was falling, she hit her back and reported back pain and swelling. Daughter also notes that patient has not been taking her Prozac, which she has been on for years. Daughter is concerned about dementia, but reports that PCP is not entertaining the idea of a dementia workup. Daughter also reports that patient will experience dizziness with slight movements, has been increasingly forgetful, and behaving irrationally. She claims that patient "had a breakdown" this morning and asked for "help". Patient was willing to be in ED until she was placed in a room. She notes PMHx of CAD, COPD, hypothyroidism, asthma, ovarian cancer, [place], takotsubo cardiomyopathy. Daughter reports no Hx of schizophrenia, bipolar disorder. PSHx of stents, hysterectomy. On physical exam, bilateral wheezing is noted. CXR IMPRESSION: COPD WITH MILD FIBROTIC CHANGES. BRAIN CT IMPRESSION: NO ACUTE INTRACRANIAL PATHOLOGY. ABD/ PEL CT IMPRESSION: 1. ATHEROSCLEROSIS. 2. SCOLIOSIS AND DEGENERATIVE DISC DISEASE. 3. NO APPRECIABLE HYDRONEPHROSIS OR NEPHROLITHIASIS. EKG showed sinus rhythm with rate of 92 BPM, no acute changes. Bloodwork, Toxicology screen, and UA were received. During ED course, patient received Klor Con Er Tab 40 meq PO ED ONCE ONE, solu-medrol 125 mg IV ED ONCE ONE, Ativan 1 mg IV PUSH ONCE ONE, and 1 duoneb. Results of labs and tests were discussed with patient and patient's daughter. Admission was offerred, patient refused. Patient will be discharged to home and follow up with PCP. - Diagnoses Differential Diagnosis/HQI/PQRI: Positive: Hyperventilation, Metabolic Reaction , Other - exc copd Provider Diagnoses: Anxiety, COPD exacerbation, Hypokalemia Discharge - Sign-Out/Discharge Documenting (check all that apply): Patient Departure - discharge - Discharge Plan Condition: Stable Disposition: HOME Prescriptions: Albuterol/Ipratropium NEB.MATTEO* [Duoneb (Albuterol 2.5 MG/Ipratropium 0.5 MG)] 1 neb INH Q6H PRN 20 Days neb.matteo PRN Reason: Sob/Wheezing Albuterol/Ipratropium NEB.MATTEO* [Duoneb (Albuterol 2.5 MG/Ipratropium 0.5 MG)] 1 neb INH Q6H PRN #50 neb.matteo MDD 4 PRN Reason: Sob/Wheezing ALPRAZolam TAB* [Xanax TAB*] 0.25 mg PO BID PRN #10 tab MDD 2 PRN Reason: Agitation/Anxiety/Insomnia methylPREDNISolone [Medrol Dosepak 4 MG*] 0 mg PO .SEE DANITA INSTRUCTION #1 tab Potassium Chlor TAB (NF) [Kaon-Cl-10 TAB (NF)] 10 meq PO ONCE #7 tab Patient Education Materials: Hypokalemia (ED), COPD (Chronic Obstructive Pulmonary Disease) (ED), Anxiety (ED) Referrals: Lina Miles MD [Primary Care Provider] - 3 Days Additional Instructions: RETURN TO ED FOR ANY NEW OR WORSENING SYMPTOMS. FOLLOW UP WITH PRIMARY CARE PHYSICIAN IN THREE DAYS. - Billing Disposition and Condition Condition: STABLE Disposition: Home - Attestation Statements Document Initiated by Scribe: Yes Documenting Scribe: RITESH LOZOYA Provider For Whom Scribe is Documenting (Include Credential): THEA GUSMAN MD Scribe Attestation: RITESH Kennedy , scribed for THEA GUSMAN MD on 08/01/18 at 1910. Scribe Documentation Reviewed: Yes Provider Attestation: The documentation as recorded by the RITESH reaves accurately reflects the service I personally performed and the decisions made by THEA pickens MD
[2018-08-01] MEDS ORDERED: LORazepam INJ* 2 MG/ML 1 ML VIAL IV PUSH ONE (17:01)
[2018-08-01] MEDS ORDERED: Potassium Chlor TAB* 20 MEQ TAB.ER PO ONE ×3 (17:02→18:59)
[2018-08-01] MEDS ORDERED: LORazepam INJ* 2 MG/ML 1 ML VIAL ONE (17:03)
[2018-08-01 17:04] LABS: Alcohol < 10 mg/dL (<10)
[2018-08-01 17:18] LABS: TSH (Thyroid Stimulating Horm) 0.85 mcIU/mL (0.34-5.60)
[2018-08-01 18:13] LABS: Urine Appearance Clear; Urine Bilirubin Negative (Negative); Urine Blood Negative (Negative); Urine Color Yellow; Urine Glucose Negative (Negative); Urine Ketones Negative (Negative); Urine Nitrite Negative (Negative); Urine Protein Negative (Negative); Urine Specific Gravity 1.009 (1.010-1.030); Urine Urobilinogen Negative (Negative)
[2018-08-01 18:28] LABS: Barbiturates Urine Screen None Detected (None Detect); Benzodiazepine Urine Screen None Detected (None Detect); Urine Cannabinoids Screen None Detected (None Detect)
[2018-08-01 19:15] VITALS: BP 163/82
== END 2018-08-01 19:13 | disposition home or self-care (01) ==
LOC: ED 15:08
DX: F41.9 Anxiety disorder, unspecified (principal); J44.1 Chronic obstructive pulmonary disease with (acute) exacerbation; E87.6 Hypokalemia; R55 Syncope and collapse; R42 Dizziness and giddiness; I25.10 Atherosclerotic heart disease of native coronary artery without angina pectoris; J44.9 Chronic obstructive pulmonary disease, unspecified; E03.9 Hypothyroidism, unspecified; J45.909 Unspecified asthma, uncomplicated; Z85.43 Personal history of malignant neoplasm of ovary; Z79.01 Long term (current) use of anticoagulants; F17.210 Nicotine dependence, cigarettes, uncomplicated
CPT/HCPCS: 36415; 70450; 71045; 74176; 80053; 80307; 80320; 81003; 82140; 83605; 83735; 83880; 84443; 84484; 85025; 85730; 93005; 96374; 96375; 99282; A9270-GY; G0480; J2060; J2930

== ENCOUNTER 2018-08-10 11:14 | Inpatient (IN) | payer MEDICARE ==
[2018-08-10] MEDS ORDERED: NS 0.9% 1000 ML*IV.FLUID IV ONE (12:06)
[2018-08-10 12:44] LABS: ABS Basophils 0 10^3/ul (0-0.2); ABS Eosinophils 0.1 10^3/ul (0-0.6); ABS Lymphocytes 0.7 10^3/ul (1.0-4.8); ABS Monocytes 1.2 10^3/ul (0-0.8); ABS Neutrophils 5.3 10^3/ul (1.5-7.7); ABS Nucleated RBC 0 10^3/ul; Eosinophil % 0.9 %; Hematocrit 32 % (35-47); Hemoglobin 11.3 g/dl (12.0-16.0); Lymphocyte % 10.3 %; Mean Corpuscular HGB Conc 36 g/dl (31-36); Mean Corpuscular Hemoglobin 28 pg (27-31); Mean Corpuscular Volume 78 fL (80-97); Mean Platelet Volume 6.5 fL (7.4-10.4); Nucleated Red Blood Cells % 0; Platelet Count 258 10^3/ul (150-450); Red Blood Count 4.04 10^6/ul (4.00-5.40); Red Cell Distribution Width 15 % (10.5-15); White Blood Count 7.3 10^3/ul (3.5-10.8)
[2018-08-10] MEDS ORDERED: Albuterol/Ipratropium NEB.SOL* Albuterol 2.5 MG/Ipratropium 0.5 MG 3 ML ONE (12:49)
[2018-08-10 12:52] LABS: INR 0.95 (0.77-1.02)
--- NOTE | 2018-08-10 12:52 | ED ---
Dizziness - HPI Summary HPI Summary: A 73 y/o female presents to [facility] with a chief complaint of dizziness since . The patient can't carry on a conversation so most of the following information is from her daughter. On 07/30/18 the patient had a syncopal episode and had a CT done on 08/01/18. The patient has not been taking her Restoril, Paxil and Tektura, but when she followed up with Dr. Miles started her up again on Restoril, Paxil and Tektura. The patient began taking these medications on 08/04/18 so she believes her dizziness is due to the medication. She also c/o nausea, confusion and lightheadedness. Her BP and HR are lower than her baseline. She is able to ambulate with help from others. She denies vomiting or room-spinning dizziness. She also takes coreg, chlorthalidone, clonidine and amlodipine. - History Of Current Complaint Chief Complaint: EDDizziness Stated Complaint: DIZZINESS Time Seen by Provider: 08/10/18 11:30 Hx Obtained From: Patient, Family/Referral Clerk Onset/Duration: Still Present, Gradually Timing: Constant Severity Initially: Moderate Severity Currently: Moderate Character: Lightheaded Associated Signs And Symptoms: Positive: Nausea, Change In Medication. Negative : Vomiting - Allergies/Home Medications Allergies/Adverse Reactions: Allergies Allergy/AdvReac Type Severity Reaction Status Date / Time bee venom protein (honey bee) Allergy Unknown Verified 08/01/18 15:22 Reaction Details lisinopril Allergy Coughing Verified 08/01/18 15:22 metoprolol Allergy Unknown Verified 08/01/18 15:22 Reaction Details Sulfa (Sulfonamide Allergy Hives Verified 08/01/18 15:22 Antibiotics) PMH/Surg Hx/FS Hx/Imm Hx Endocrine/Hematology History: Reports: Hx Anticoagulant Therapy - Plavix., Hx Thyroid Disease Denies: Hx Diabetes Cardiovascular History: Reports: Hx Angina, Hx Coronary Artery Disease - stents 2005, Hx Hypercholesterolemia, Hx Hypertension Denies: Hx Congestive Heart Failure, Hx Deep Vein Thrombosis, Hx Myocardial Infarction, Hx Pacemaker/ICD Respiratory History: Reports: Hx Asthma, Hx Chronic Obstructive Pulmonary Disease (COPD), Hx Pneumonia, Other Respiratory Problems/Disorders - HX OF PNEUMONIA 3/4 TIMES Denies: Hx Lung Cancer, Hx Pulmonary Embolism GI History: Reports: Hx Gastroesophageal Reflux Disease Denies: Hx Gall Bladder Disease, Hx Gastrointestinal Bleed, Hx Ulcer, Hx Urosepsis History: Reports: Hx Renal Disease - ARF in 20's Denies: Hx Kidney Stones Musculoskeletal History: Reports: Hx Back Problems - Chronic back pain, Hx Osteoporosis Sensory History: Reports: Hx Cataracts, Hx Contacts or Glasses Denies: Hx Hearing Aid Opthamlomology History: Reports: Hx Cataracts, Hx Contacts or Glasses Neurological History: Reports: Hx Headaches Denies: Hx Dementia, Hx Migraine, Hx Seizures, Hx Transient Ischemic Attacks (TIA) Psychiatric History: Reports: Hx Depression Denies: Hx Anxiety, Hx Panic Disorder, Hx Schizophrenia, Hx Bipolar Disorder - Cancer History Hx Chemotherapy: No Hx Radiation Therapy: No - Surgical History Surgery Procedure, Year, and Place: HYSTERECTOMY 40 YRS AGO,. BILATERAL CARPAL TUNNEL 20 YRS AGO. 2005 - stents placed/cardiac,. GROWTH REMOVED ON RIGHT FOOT X2. CATARACT Hx Anesthesia Reactions: No - slow to wake up prn Infectious Disease History: No Infectious Disease History: Denies: Hx Clostridium Difficile, Hx Hepatitis, Hx Human Immunodeficiency Virus (HIV), Hx of Known/Suspected MRSA, Hx Shingles, Hx Tuberculosis, Hx Known/ Suspected VRE, Hx Known/Suspected VRSA, History Other Infectious Disease, Traveled Outside the [place] in Last 30 Days - Family History Known Family History: Positive: Cardiac Disease, Hypertension, Diabetes - Social History Alcohol Use: Daily Alcohol Amount: beer Substance Use Type: Reports: None Smoking Status (MU): Current Every Day Smoker Type: Cigarettes Amount Used/How Often: 5 CIG/DAY. smoking for 50 years Have You Smoked in the Last Year: Yes Review of Systems Positive: Other - Positive: HR and BP lower than baseline Positive: Nausea. Negative: Vomiting Neurological: Other - Positive: non room spinning dizziness, lightheadedness, confused All Other Systems Reviewed And Are Negative: Yes Physical Exam - Summary Physical Exam Summary: Appearance: The patient is well-nourished in no acute distress and in no acute pain. Skin: The skin is warm and dry and skin color reflects adequate perfusion. HEENT: The head is normocephalic and atraumatic. The pupils are equal and reactive. The conjunctivae are clear and without drainage. Nares are patent and without drainage. Mouth reveals moist mucous membranes and the throat is without erythema and exudate. The external ears are intact. The ear canals are patent and without drainage. The tympanic membranes are intact. Neck: The neck is supple with full range of motion and non-tender. There are no carotid bruits. There is no neck vein distension. Respiratory: Chest is non-tender. Diffuse wheezes. Cardiovascular: Heart is regular rate and rhythm. There is no murmur or rub auscultated. There is no peripheral edema and pulses are symmetrical and equal. Abdomen: The abdomen is soft and non-tender. There are normal bowel sounds heard in all four quadrants and there is no organomegaly palpated. Musculoskeletal: There is no back tenderness noted. Extremities are non-tender with full range of motion. There is good capillary refill. There is no peripheral edema or calf tenderness elicited. Neurological: Sleepy. Patient is alert and oriented to person, place and time. The patient has symmetrical motor strength in all four extremities. Cranial nerves are grossly intact. Deep tendon reflexes are symmetrical and equal in all four extremities. Psychiatric: The patient has an appropriate affect and does not exhibit any anxiety or depression. GCS: 14 Triage Information Reviewed: Yes Vital Signs On Initial Exam: Initial Vitals Temp Pulse Resp BP Pulse Ox 98.1 F 58 16 80/42 98 08/10/18 11:23 08/10/18 11:23 08/10/18 11:23 08/10/18 11:23 08/10/18 11:23 Vital Signs Reviewed: Yes Diagnostics - Vital Signs Vital Signs Temp Pulse Resp BP Pulse Ox 08/10/18 12:21 57 18 115/58 97 08/10/18 12:06 55 17 91/60 97 08/10/18 12:00 55 20 96 08/10/18 11:51 56 14 86/55 98 08/10/18 11:36 56 15 106/58 98 08/10/18 11:35 17 08/10/18 11:23 98.1 F 58 16 80/42 98 - Laboratory Result Diagrams: 08/10/18 12:27 08/10/18 17:03 Lab Statement: Any lab studies that have been ordered have been reviewed, and results considered in the medical decision making process. - Radiology CXR Radiology Interpretation Completed By: Radiologist Summary of Radiographic Findings: No evidence for acute disease. ED physician has reviewed this imaging report. - CT Brain CT Interpretation Completed By: Radiologist Summary of CT Findings: 1. NO EVIDENCE FOR ACUTE INTRACRANIAL ABNORMALITY. 2. FINDINGS SUGGESTIVE OF MILD CHRONIC SMALL VESSEL ISCHEMIC CHANGES. ED physician has reviewed this imaging report. - EKG 13:29 Cardiac Rate: NL - 61 bpm EKG Rhythm: Sinus Rhythm Summary of EKG Findings: LAD Re-Evaluation - Re-Evaluation First Eval Re-Evaluation Time: 13:20 Change: Unchanged Comment: Pt Still feels the same. Dizzy Course/Dx - Course Course Of Treatment: Ms. An was brought in by her daughter with a concern that she has been weak and nauseated and sitting in her chair for several days. She has been this way in the past with UTIs. She also for some reason stopped taking her Paxil, Restoril and Tekturna a couple months ago and was just restarted a few days ago. The patient was cooperative to the exam but somewhat sleepy. She was found to be quite hyponatremic at 107 and hypokalemic at 2.5. Normal saline was started for her and the hospitalist service was contacted. They recommended that she go to the ICU under Dr. Stoner's care and he came to the department and admitted her. - Diagnoses Provider Diagnoses: Hyponatremia, Hypokalemia - Provider Notifications Discussed Care Of Patient With: Sofia Martinez Time Discussed With Above Provider: 13:40 Instructed by Provider To: Other - referred to city weighmaster - Critical Care Time Critical Care Time: 30-74 min Discharge - Sign-Out/Discharge Documenting (check all that apply): Patient Departure - admit - Discharge Plan Condition: Fair Disposition: ADMITTED TO [facility] Referrals: Lina Miles MD [Primary Care Provider] - - Billing Disposition and Condition Condition: FAIR Disposition: Admitted to [facility] - Attestation Statements Document Initiated by Anthonyibe: Yes Documenting Scribe: Carlos Alberto Gasca Provider For Whom Trevin is Documenting (Include Credential): Tramaine Dominguez MD Scribe Attestation: Carlos Alberto Kennedy, scribed for Tramaine Dominguez MD on 08/10/18 at 1916. Scribe Documentation Reviewed: Yes Provider Attestation: The documentation as recorded by the Carlos Alberto reaves accurately reflects the service I personally performed and the decisions made by me, Tramaine Dominguez MD Status of Scribe Document: Viewed Consult Consult: at 14:40 Dr. Stoner, city weighmaster, saw the patient in the ED. At 15:00 discussed pt plan with Dr. Stoner. The patient will be admitted.
[2018-08-10] MEDS ORDERED: Albuterol/Ipratropium NEB.SOL* Albuterol 2.5 MG/Ipratropium 0.5 MG 3 ML INH ONE (13:03)
[2018-08-10 13:08] LABS: EGFR Non-African American 69.5 (>60)
[2018-08-10 14:01] LABS: Urine Appearance Clear; Urine Blood Negative (Negative); Urine Color Yellow; Urine Ketones Negative (Negative); Urine Protein Negative (Negative); Urine Specific Gravity 1.008 (1.010-1.030); Urine Urobilinogen Negative (Negative)
[2018-08-10] MEDS ORDERED: NS 0.9% 1000 ML* 1,000 ML IV ONE (14:11)
[2018-08-10] MEDS ORDERED: Potassium Chlor TAB* 20 MEQ TAB.ER PO ONE (15:31)
[2018-08-10] MEDS ORDERED: Albuterol/Ipratropium NEB.SOL* Albuterol 2.5 MG/Ipratropium 0.5 MG 3 ML INH PRN (15:32)
[2018-08-10] MEDS ORDERED: Ondansetron INJ* 2 MG/ML VIAL IV PRN (15:36)
--- NOTE | 2018-08-10 15:43 | HP ---
H&P (Free Text) History and Physical: History and Physical -- Critical Care Limitations in history/physical: none, history from daughters at bedside as well as patient HPI: 73y F w/pmhx of CAD s/p PCI, HLD, HTN, h/o takatsubo CMP, COPD, hypothyroidism, GERD, Depression; patient brought in from home after they noticed she was not well responsive, pale appearing, HR lower and BP lower. Patient had an episode of syncope prior to , resolved, not taken to hospital. She was brought to hospital the Saturday after, noted to have low potassium, given potassium and sent home. She saw her PMD/psychiatrist on saturday who restarted her Paxil, added back restoril and restarted Tekturna (she was off these meds for an unknown amount of time). Since saturday she has been more tired as per family, not her self. Patient states she hasnt been hungry, has been drinking fluids though, baseline about 1 liter of water a day, still taking her other medications which include chlorthalidone. Making urine, no diarrhea/n/v/and pain. no sob/cp. no seizures. She has been on steroids for short periods of 5-7 days 2-3x in the past 3 months for exaccerbations of her COPD but not on chronic systemic steroids except for inhaled steroids. In ER, she was hypotensive 80s, given IVF bolus, then 2nd bolus. BP now 130s. She is awake/alert, feels okay, family states she looks better. History as above confirmed from her and daughters. Given 2 Liter NS bolus only. Noted ot have severe hyponatremia. ROS: negative except for pertinent positives mentioned above. PMHx: CAD s/p PCI, HLD, HTN, h/o takatsubo CMP, COPD, hypothyroidism, GERD, Depression PSHx: hysterectomy, CAD s/p PCI Family History: HTN, cardiac disease, DM Social History: Alcohol-daily beer, Smoking-active 5cig/day , Drug use-none; family-lives with Allergies: Allergies Allergy/AdvReac Type Severity Reaction Status Date / Time bee venom protein (honey bee) Allergy Unknown Verified 08/01/18 15:22 Reaction Details lisinopril Allergy Coughing Verified 08/01/18 15:22 metoprolol Allergy Unknown Verified 08/01/18 15:22 Reaction Details Sulfa (Sulfonamide Allergy Hives Verified 08/01/18 15:22 Antibiotics) Home Medications: Clopidogrel TAB* [Plavix TAB*] 75 mg PO DAILY 07/19/14 [History Confirmed ] Pantoprazole TAB (NF) [Protonix TAB (NF)] 40 mg PO DAILY 07/19/14 [History Confirmed 06/06/18] EPINEPHrine PEN ADULT(NF) [Epipen ADULT(NF)] 0.3 mg .SEE ORDER ONCE 09/17/14 [ History Confirmed 06/06/18] Levothyroxine TAB* [Synthroid 75 MCG TAB*] 50 mcg PO DAILY 09/17/14 [History Confirmed 06/06/18] Tiotropium CAP.INH* [Spiriva CAP.INH*] 1 cap INH DAILY 09/17/14 [History Confirmed 06/06/18] Trazodone HCl 150 mg PO BEDTIME PRN 09/17/14 [History Confirmed 06/06/18] Fluticasone NASAL * [Flonase *] 2 spray BOTH NARES DAILY #1 btl 01/27/17 [Rx Confirmed 06/06/18] Albuterol 2.5MG/3ML (0.083%)* [Ventolin 2.5 MG/3 ML NEB.MATTEO*] 2.5 mg INH QID PRN 05/03/17 [History Confirmed 06/06/18] Albuterol Sulfate [Proventil Hfa] 108 mcg IN QID 05/03/17 [History Confirmed ] Aliskiren TAB* [Tekturna TAB*] 300 mg PO DAILY 05/03/17 [History Confirmed 06/06] Fexofenadine (NF) [Sabi 180 (NF)] 180 mg PO DAILY 05/03/17 [History Confirmed 06/06/18] Fluticas/Salmet 230/21 HFA(NF) [Advair HFA 23O (NF)] 1 puff INH BID 05/03/17 [History Confirmed 06/06/18] PARoxetine HCL TAB* [Paxil TAB*] 40 mg PO DAILY 08/05/17 [History Confirmed ] Aspirin 81 mg CHEW TAB* 81 mg PO DAILY #30 tab 08/10/17 [Rx Confirmed 06/06/18] Atorvastatin* [Lipitor 80 MG*] 80 mg PO 1700 #30 tab 08/10/17 [Rx Confirmed ] Carvedilol TAB* [Coreg TAB*] 3.125 mg PO BID #60 tab 08/10/17 [Rx Confirmed ] LORazepam TAB(*) [Ativan 0.5 MG TAB (*)] 0.5 mg PO TID PRN #21 tab MDD 3 tabs [Rx Confirmed 06/06/18] Nitroglycerin TAB 0.4 MG* 0.4 mg SL Q5M PRN #30 tab 08/10/17 [Rx Confirmed 06/06] amLODIPine TAB* [Norvasc 5 mg TAB*] 5 tab PO DAILY 07/02/18 [History] predniSONE TAB* [Deltasone 10 MG TAB*] 10 mg PO DAILY #30 tab 07/02/18 [Rx] ALPRAZolam TAB* [Xanax TAB*] 0.25 mg PO BID PRN #10 tab MDD 2 08/01/18 [Rx] Albuterol/Ipratropium NEB.MATTEO* [Duoneb (Albuterol 2.5 MG/Ipratropium 0.5 MG)] 1 neb INH Q6H PRN #50 neb.matteo MDD 4 08/01/18 [Rx] Albuterol/Ipratropium NEB.MATTEO* [Duoneb (Albuterol 2.5 MG/Ipratropium 0.5 MG)] 1 neb INH Q6H PRN 20 Days neb.matteo 08/01/18 [Rx] Potassium Chlor TAB (NF) [Kaon-Cl-10 TAB (NF)] 10 meq PO ONCE #7 tab 08/01/18 [ Rx] methylPREDNISolone [Medrol Dosepak 4 MG*] 0 mg PO .SEE DANITA INSTRUCTION #1 tab [Rx] Tele: NSR Vitals: Vital Signs Temp 98.1 F 08/10/18 11:23 Pulse 64 08/10/18 14:19 Resp 21 08/10/18 14:19 BP 118/59 08/10/18 14:19 Pulse Ox 98 08/10/18 14:19 Intake & Output 08/09/18 08/10/18 08/10/18 18:59 06:59 18:59 Intake Total 1000 Balance 1000 Weight 53.524 kg Intake: IV Fluids 1000 O2/Vent: NC Infusions: heplock Current Medications: - Physical Exam: General: awake, alert, no distress, no diaphoresis Head: normocephalic, atraumatic HEENT: no pallor, no icterus, moist mucous membranes Neck: soft, supple, no jvd, no stridor CVS: normal rate, regular, no murmur Resp: bilateral air entry, no rhales, no wheeze, no rhonchi, no acc muscle use Abdomen: soft, nontender, nondistended, bowel sounds present Ext: pulses+, warm, no edema Skin: intact, dry appearing Neuro: awake, alert, orientedx3, moving all extremities, no gross focal deficit Labs: Laboratory Results - last 24 hr 08/10/18 08/10/18 08/10/18 12:27 12:27 12:27 WBC 7.3 RBC 4.04 Hgb 11.3 L Hct 32 L MCV 78 L MCH 28 MCHC 36 RDW 15 Plt Count 258 MPV 6.5 L Neut % (Auto) 72.5 Lymph % (Auto) 10.3 [place] % (Auto) 16.0 Eos % (Auto) 0.9 Baso % (Auto) 0.3 Absolute Neuts (auto) 5.3 Absolute Lymphs (auto) 0.7 L Absolute Monos (auto) 1.2 H Absolute Eos (auto) 0.1 Absolute Basos (auto) 0 Absolute Nucleated RBC 0 Nucleated RBC % 0 INR (Anticoag Therapy) 0.95 ABG pH ABG pCO2 ABG pO2 ABG HCO3 ABG O2 Saturation ABG Base Excess Sodium 107 L* Potassium 2.5 L* D Chloride 74 L Carbon Dioxide 27 Anion Gap 6 BUN 13 Creatinine 0.81 Est GFR ( Amer) 84.1 Est GFR (Non-Af Amer) 69.5 BUN/Creatinine Ratio 16.0 Glucose 106 H Serum Osmolality Lactic Acid Calcium 7.9 L Total Bilirubin 0.80 AST 15 ALT 10 Alkaline Phosphatase 46 Troponin I 0.00 Total Protein 5.2 L Albumin 3.3 Globulin 1.9 L Albumin/Globulin Ratio 1.7 Urine Color Urine Appearance Urine pH Ur Specific [place] Urine Protein Urine Ketones Urine Blood Urine Nitrate Urine Bilirubin Urine Urobilinogen Ur Leukocyte Esterase Urine Glucose 08/10/18 08/10/18 08/10/18 12:27 12:27 12:40 WBC RBC Hgb Hct MCV MCH MCHC RDW Plt Count MPV Neut % (Auto) Lymph % (Auto) [place] % (Auto) Eos % (Auto) Baso % (Auto) Absolute Neuts (auto) Absolute Lymphs (auto) Absolute Monos (auto) Absolute Eos (auto) Absolute Basos (auto) Absolute Nucleated RBC Nucleated RBC % INR (Anticoag Therapy) ABG pH 7.49 H ABG pCO2 30 L ABG pO2 83 ABG HCO3 25.0 ABG O2 Saturation 98.6 H ABG Base Excess 0.1 Sodium Potassium Chloride Carbon Dioxide Anion Gap BUN Creatinine Est GFR ( Amer) Est GFR (Non-Af Amer) BUN/Creatinine Ratio Glucose Serum Osmolality 227 L* Lactic Acid 0.8 Calcium Total Bilirubin AST ALT Alkaline Phosphatase Troponin I Total Protein Albumin Globulin Albumin/Globulin Ratio Urine Color Urine Appearance Urine pH Ur Specific [place] Urine Protein Urine Ketones Urine Blood Urine Nitrate Urine Bilirubin Urine Urobilinogen Ur Leukocyte Esterase Urine Glucose 08/10/18 13:41 WBC RBC Hgb Hct MCV MCH MCHC RDW Plt Count MPV Neut % (Auto) Lymph % (Auto) [place] % (Auto) Eos % (Auto) Baso % (Auto) Absolute Neuts (auto) Absolute Lymphs (auto) Absolute Monos (auto) Absolute Eos (auto) Absolute Basos (auto) Absolute Nucleated RBC Nucleated RBC % INR (Anticoag Therapy) ABG pH ABG pCO2 ABG pO2 ABG HCO3 ABG O2 Saturation ABG Base Excess Sodium Potassium Chloride Carbon Dioxide Anion Gap BUN Creatinine Est GFR ( Amer) Est GFR (Non-Af Amer) BUN/Creatinine Ratio Glucose Serum Osmolality Lactic Acid Calcium Total Bilirubin AST ALT Alkaline Phosphatase Troponin I Total Protein Albumin Globulin Albumin/Globulin Ratio Urine Color Yellow Urine Appearance Clear Urine pH 7.0 Ur Specific [place] 1.008 L Urine Protein Negative Urine Ketones Negative Urine Blood Negative Urine Nitrate Negative Urine Bilirubin Negative Urine Urobilinogen Negative Ur Leukocyte Esterase Negative Urine Glucose Negative Imaging: CT brain 08/10 - no acute process CXR 08/10 - no acute infiltrate Assessment: 73y F w/pmhx of CAD s/p PCI, HLD, HTN, h/o takatsubo CMP, COPD, hypothyroidism, GERD, Depression; patient brought in from home after they noticed she was not well responsive, pale appearing, HR lower and BP lower. Patient had an episode of syncope prior to , resolved, not taken to hospital. She was brought to hospital the Saturday after, noted to have low potassium, given potassium and sent home. She saw her PMD/psychiatrist on saturday who restarted her Paxil, added back restoril and restarted Tekturna (she was off these meds for an unknown amount of time). Since saturday she has been more tired as per family, not her self. Patient states she hasnt been hungry, has been drinking fluids though, baseline about 1 liter of water a day, still taking her other medications which include chlorthalidone. Making urine, no diarrhea/n/v/and pain. no sob/cp. no seizures. She has been on steroids for short periods of 5-7 days 2-3x in the past 3 months for exaccerbations of her COPD but not on chronic systemic steroids except for inhaled steroids. -Severe hyponatremia, with mild symptoms -Hypovolemia suspected -hypokalemia -hypotension, improved HTN CAD Hypothyroidism COPD Plan: Neuro- awake, alert. no seizures, nausea/vom. she may have had some hypovolemia and IVF bolus improved her mental status also. No indication for hypertonic saline solution at this time. delirium prec. avoid sedation -cont paxil, she has been on it chronically and just restarted; though this is a possible cause of hyponatremia, she has been on it long standing. discussed with family, will have psych reconsider anther potential agent if hyponatremia recurrent/not improving. -prn restoril CVS- hypotension initially but imrpoved with IVF bolus. clinically dry appearing. hold off diuretics. will continue tekturna, coreg, clonidine, amlodipine as needed for blood pressure. IVF hydration NS. follow BMP. Replete IV KCL 60meq and 40meq PO after BMP followup done at 5pm. monitor i/o. TTE to follow LV function from last time. Resp- no distress, RA. cont bronchodilators prn. cont pulmicort inh. ID- afebrile. wbc normal. no source of active infection. no abx indicated. GI- no nausea/vom. zofran prn. heart healthy diet, fluid restrict for tonight. cont PPI for GERD. Renal- Cr okay, Hypokalemia and hyponatremia. Clinically dry appearing, was hypotensive. Likely volume depleted and solute depleted from poor po intake as well as concurrent use of diuretics. Possibility of antidepressants also causing this but less likely to me. followup urine Na and urine osmo. serum osmo low. r/o SIADH vs renal loss. BMP repeat at 5pm, then will re-eval fluid administration needed. Will fluid restrict for now. hold all diuretics. Seems symptoms have been ongoing for a week now and worse. will correct volume status first and then reassess Na level and rate of correction, will likely target goal of 8-12/day of Na correction. -nephrology consult. Heme- hg stbale, plt stable. cont DAPT for CAD. Endo- fingerstick as needed. cont synthroid. Musculsk- pressure ulcer prophylaxis. Bedrest. Wounds- none Nutrition- cardiac diet, fluid restrict DVT prophylaxis: scd GI prophylaxis: ppi Central Line: no Arterial Line: no Bateman Cathetor: no Disposition: admit to ICU; expected LOS >2 midnights Code Status: full code Total Critical Care time is 40 minutes, excluding procedures/teaching Flaquito Stoner MD Lease Administration Supervisor (Electronically Signed)
[2018-08-10] MEDS ORDERED: POTASSIUM CHLORIDE ONE (15:49)
[2018-08-10] MEDS: KCL 20 MEQ/100 ML IVPREMIX* 20 MEQ/100 ML BAG IV SCH ×2 (15:51→20:07)
[2018-08-10 18:00] LABS: EGFR Non-African American 77.1 (>60)
--- NOTE | 2018-08-10 18:32 | PN ---
Progress Note - Progress Note Date of Service: 08/10/18 Note: Patient recieved IVF bolus in ER 2 L NS repeat NA now 107->112; K 2.4 Likely was hypovolemia and solute depletion Urine osmo normal with elevated Na level, with dilute serum osmo, overal DRY appearing. will given KCL IV runs to replete KCL which has 50cc/hr NS infusion also. Then recheck BMP and start NaCL infusion then. Correction of volume has occurred already, now will start Na correction. Flaquito Stoner Glove Maker
[2018-08-10] MEDS: Budesonide NEB* 0.25 MG/2 ML NEB.SOLN INH SCH (19:42)
[2018-08-10] MEDS: ALPRAZolam TAB* 0.25 MG PO PRN (21:56)
[2018-08-11] MEDS ORDERED: Potassium Chlor TAB* 20 MEQ TAB.ER PO ONE (00:30)
[2018-08-11 00:34] LABS: EGFR Non-African American 70.5 (>60)
[2018-08-11] MEDS: KCL 20 MEQ/100 ML IVPREMIX* 20 MEQ/100 ML BAG IV SCH (00:50)
[2018-08-11 04:43] LABS: Hematocrit 30 % (35-47); Hemoglobin 10.8 g/dl (12.0-16.0); Mean Corpuscular HGB Conc 36 g/dl (31-36); Mean Corpuscular Hemoglobin 28 pg (27-31); Mean Corpuscular Volume 78 fL (80-97); Mean Platelet Volume 6.7 fL (7.4-10.4); Platelet Count 218 10^3/ul (150-450); Red Blood Count 3.83 10^6/ul (4.00-5.40); Red Cell Distribution Width 15 % (10.5-15); White Blood Count 6.6 10^3/ul (3.5-10.8)
[2018-08-11] MEDS: Levothyroxine TAB* 50 MCG TAB PO SCH (06:04)
[2018-08-11] MEDS: CMC:Pantoprazole TAB (NF) 40 MG TAB PO SCH (06:04)
[2018-08-11] MEDS: PARoxetine HCL TAB* 40 MG PO SCH (07:39)
[2018-08-11] MEDS: Clopidogrel TAB* 75 MG PO SCH (07:39)
[2018-08-11] MEDS: Aspirin 81 mg CHEW TAB* 81 MG TAB.CHEW PO SCH (07:39)
[2018-08-11] MEDS: Budesonide NEB* 0.25 MG/2 ML NEB.SOLN INH SCH ×2 (07:50→19:32)
[2018-08-11] MEDS: Tiotropium CAP.INH* CAP.INH/18 MCG (USE ORDER SET !) INH SCH (07:50)
[2018-08-11 08:13] LABS: EGFR Non-African American 74.8 (>60)
[2018-08-11] MEDS ORDERED: Spiriva Inhaler DEVICE* 1 EACH DEVICE INH ONE (09:00)
[2018-08-11] MEDS ORDERED: NS 0.9% 500 ML* 500 ML IV ONE ×2 (11:00→11:01)
--- NOTE | 2018-08-11 11:13 | PN ---
Progress Note - Progress Note Date of Service: 08/11/18 Note: Progress Note -- Critical Care 24 hour events -awake/alert. no distress. no complaints -afebrile, making urine -BP 80-90s; giving additional bolus today Tele: NSR Vitals: Vital Signs Temp 98.5 F 08/11/18 08:00 Pulse 60 08/11/18 10:30 Resp 16 08/11/18 10:54 BP 87/50 08/11/18 10:30 Pulse Ox 96 08/11/18 10:30 Intake & Output 08/10/18 08/11/18 08/11/18 18:59 06:59 18:59 Intake Total 2080 689 Output Total 1350 1175 200 Balance 730 -486 -200 Weight 53.5 kg 53.9 kg Intake: IV Fluids 2000 250 NS 1000 250 IVPB 199 KCL in Sterile Water 199 Oral 80 240 Output: Urine 1350 1175 200 O2/Vent: RA Infusions: heplock Current Medications: Albuterol/Ipratropium (Duoneb (Albuterol 2.5 Mg/Ipratropium 0.5 Mg)) 1 neb INH Q6H PRN PRN Reason: SOB/WHEEZING Alprazolam (Xanax Tab*) 0.25 mg PO BID PRN PRN Reason: AGITATION/ANXIETY/INSOMNIA Last Admin: 08/10/18 21:56 Dose: 0.25 mg Aspirin (Aspirin 81 Mg Chew Tab*) 81 mg PO DAILY [facility] Last Admin: 08/11/18 07:39 Dose: 81 mg Budesonide (Pulmicort Neb*) 0.25 mg INH RT.BID [facility] Last Admin: 08/11/18 07:50 Dose: 0.25 mg Clopidogrel Bisulfate (Plavix Tab*) 75 mg PO DAILY [facility] Last Admin: 08/11/18 07:39 Dose: 75 mg Levothyroxine Sodium (Synthroid Tab*) 50 mcg PO DAILY@0600 [facility] Last Admin: 08/11/18 06:04 Dose: 50 mcg Ondansetron HCl (Zofran Inj*) 4 mg IV Q4H PRN PRN Reason: NAUSEA/VOMITING Pantoprazole Sodium (Protonix Tab (Nf)) 40 mg PO DAILY@0600 [facility] Last Admin: 08/11/18 06:04 Dose: 40 mg Paroxetine HCl (Paxil Tab*) 40 mg PO DAILY [facility] Last Admin: 08/11/18 07:39 Dose: 40 mg Tiotropium [place] (Spiriva Cap.Inh*) 1 cap INH DAILY [facility] Last Admin: 08/11/18 07:50 Dose: 1 cap Physical Exam: General: awake, alert, no distress, no diaphoresis Head: normocephalic, atraumatic HEENT: no pallor, no icterus, moist mucous membranes Neck: soft, supple, no jvd, no stridor CVS: normal rate, regular, no murmur Resp: bilateral air entry, no rhales, no wheeze, no rhonchi, no acc muscle use Abdomen: soft, nontender, nondistended, bowel sounds present Ext: pulses+, warm, no edema Skin: intact, dry appearing Neuro: awake, alert, orientedx3, moving all extremities, no gross focal deficit Labs: Laboratory Results - last 24 hr 08/10/18 08/10/18 08/10/18 12:27 12:27 12:27 WBC 7.3 RBC 4.04 Hgb 11.3 L Hct 32 L MCV 78 L MCH 28 MCHC 36 RDW 15 Plt Count 258 MPV 6.5 L Neut % (Auto) 72.5 Lymph % (Auto) 10.3 Whitley % (Auto) 16.0 Eos % (Auto) 0.9 Baso % (Auto) 0.3 Absolute Neuts (auto) 5.3 Absolute Lymphs (auto) 0.7 L Absolute Monos (auto) 1.2 H Absolute Eos (auto) 0.1 Absolute Basos (auto) 0 Absolute Nucleated RBC 0 Nucleated RBC % 0 INR (Anticoag Therapy) 0.95 ABG pH ABG pCO2 ABG pO2 ABG HCO3 ABG O2 Saturation ABG Base Excess Sodium 107 L* Potassium 2.5 L* D Chloride 74 L Carbon Dioxide 27 Anion Gap 6 BUN 13 Creatinine 0.81 Est GFR ( Amer) 84.1 Est GFR (Non-Af Amer) 69.5 BUN/Creatinine Ratio 16.0 Glucose 106 H Hemoglobin A1c Serum Osmolality Lactic Acid Calcium 7.9 L Phosphorus Magnesium Total Bilirubin 0.80 AST 15 ALT 10 Alkaline Phosphatase 46 Troponin I 0.00 Total Protein 5.2 L Albumin 3.3 Globulin 1.9 L Albumin/Globulin Ratio 1.7 TSH Urine Color Urine Appearance Urine pH Ur Specific [place] Urine Protein Urine Ketones Urine Blood Urine Nitrate Urine Bilirubin Urine Urobilinogen Ur Leukocyte Esterase Urine Osmolality U Sodium Concentration Urine Glucose 08/10/18 08/10/18 08/10/18 12:27 12:27 12:27 WBC RBC Hgb Hct MCV MCH MCHC RDW Plt Count MPV Neut % (Auto) Lymph % (Auto) Whitley % (Auto) Eos % (Auto) Baso % (Auto) Absolute Neuts (auto) Absolute Lymphs (auto) Absolute Monos (auto) Absolute Eos (auto) Absolute Basos (auto) Absolute Nucleated RBC Nucleated RBC % INR (Anticoag Therapy) ABG pH ABG pCO2 ABG pO2 ABG HCO3 ABG O2 Saturation ABG Base Excess Sodium Potassium Chloride Carbon Dioxide Anion Gap BUN Creatinine Est GFR ( Amer) Est GFR (Non-Af Amer) BUN/Creatinine Ratio Glucose Hemoglobin A1c 5.7 H Serum Osmolality 227 L* Lactic Acid 0.8 Calcium Phosphorus Magnesium Total Bilirubin AST ALT Alkaline Phosphatase Troponin I Total Protein Albumin Globulin Albumin/Globulin Ratio TSH Urine Color Urine Appearance Urine pH Ur Specific [place] Urine Protein Urine Ketones Urine Blood Urine Nitrate Urine Bilirubin Urine Urobilinogen Ur Leukocyte Esterase Urine Osmolality U Sodium Concentration Urine Glucose 08/10/18 08/10/18 08/10/18 12:27 12:40 13:41 WBC RBC Hgb Hct MCV MCH MCHC RDW Plt Count MPV Neut % (Auto) Lymph % (Auto) Whitley % (Auto) Eos % (Auto) Baso % (Auto) Absolute Neuts (auto) Absolute Lymphs (auto) Absolute Monos (auto) Absolute Eos (auto) Absolute Basos (auto) Absolute Nucleated RBC Nucleated RBC % INR (Anticoag Therapy) ABG pH 7.49 H ABG pCO2 30 L ABG pO2 83 ABG HCO3 25.0 ABG O2 Saturation 98.6 H ABG Base Excess 0.1 Sodium Potassium Chloride Carbon Dioxide Anion Gap BUN Creatinine Est GFR ( Amer) Est GFR (Non-Af Amer) BUN/Creatinine Ratio Glucose Hemoglobin A1c Serum Osmolality Lactic Acid Calcium Phosphorus Magnesium Total Bilirubin AST ALT Alkaline Phosphatase Troponin I Total Protein Albumin Globulin Albumin/Globulin Ratio TSH 3.66 Urine Color Yellow Urine Appearance Clear Urine pH 7.0 Ur Specific [place] 1.008 L Urine Protein Negative Urine Ketones Negative Urine Blood Negative Urine Nitrate Negative Urine Bilirubin Negative Urine Urobilinogen Negative Ur Leukocyte Esterase Negative Urine Osmolality U Sodium Concentration Urine Glucose Negative 08/10/18 08/10/18 08/10/18 14:21 14:21 17:03 WBC RBC Hgb Hct MCV MCH MCHC RDW Plt Count MPV Neut % (Auto) Lymph % (Auto) [place] % (Auto) Eos % (Auto) Baso % (Auto) Absolute Neuts (auto) Absolute Lymphs (auto) Absolute Monos (auto) Absolute Eos (auto) Absolute Basos (auto) Absolute Nucleated RBC Nucleated RBC % INR (Anticoag Therapy) ABG pH ABG pCO2 ABG pO2 ABG HCO3 ABG O2 Saturation ABG Base Excess Sodium 112 L* Potassium 2.4 L* Chloride 81 L Carbon Dioxide 23 Anion Gap 8 BUN 10 Creatinine 0.74 Est GFR ( Amer) 93.3 Est GFR (Non-Af Amer) 77.1 BUN/Creatinine Ratio 13.5 Glucose 93 Hemoglobin A1c Serum Osmolality Lactic Acid Calcium 7.7 L Phosphorus Magnesium Total Bilirubin AST ALT Alkaline Phosphatase Troponin I Total Protein Albumin Globulin Albumin/Globulin Ratio TSH Urine Color Urine Appearance Urine pH Ur Specific [place] Urine Protein Urine Ketones Urine Blood Urine Nitrate Urine Bilirubin Urine Urobilinogen Ur Leukocyte Esterase Urine Osmolality 294 U Sodium Concentration 43 Urine Glucose 08/11/18 08/11/18 08/11/18 00:08 04:27 04:27 WBC 6.6 RBC 3.83 L Hgb 10.8 L Hct 30 L MCV 78 L MCH 28 MCHC 36 RDW 15 Plt Count 218 MPV 6.7 L Neut % (Auto) Lymph % (Auto) Whit[place] % (Auto) Eos % (Auto) Baso % (Auto) Absolute Neuts (auto) Absolute Lymphs (auto) Absolute Monos (auto) Absolute Eos (auto) Absolute Basos (auto) Absolute Nucleated RBC Nucleated RBC % INR (Anticoag Therapy) ABG pH ABG pCO2 ABG pO2 ABG HCO3 ABG O2 Saturation ABG Base Excess Sodium 113 L* 114 L* Potassium 3.2 L 3.2 L Chloride 85 L 86 L Carbon Dioxide 23 24 Anion Gap 5 4 BUN 10 9 Creatinine 0.80 0.75 Est GFR ( Amer) 85.3 91.9 Est GFR (Non-Af Amer) 70.5 76.0 BUN/Creatinine Ratio 12.5 12.0 Glucose 100 98 Hemoglobin A1c Serum Osmolality Lactic Acid Calcium 7.8 L 8.1 L Phosphorus 2.5 Magnesium 1.7 L Total Bilirubin AST ALT Alkaline Phosphatase Troponin I Total Protein Albumin Globulin Albumin/Globulin Ratio TSH Urine Color Urine Appearance Urine pH Ur Specific [place] Urine Protein Urine Ketones Urine Blood Urine Nitrate Urine Bilirubin Urine Urobilinogen Ur Leukocyte Esterase Urine Osmolality U Sodium Concentration Urine Glucose 08/11/18 07:47 WBC RBC Hgb Hct MCV MCH MCHC RDW Plt Count MPV Neut % (Auto) Lymph % (Auto) [place] % (Auto) Eos % (Auto) Baso % (Auto) Absolute Neuts (auto) Absolute Lymphs (auto) Absolute Monos (auto) Absolute Eos (auto) Absolute Basos (auto) Absolute Nucleated RBC Nucleated RBC % INR (Anticoag Therapy) ABG pH ABG pCO2 ABG pO2 ABG HCO3 ABG O2 Saturation ABG Base Excess Sodium 117 L* Potassium 3.3 L Chloride 85 L Carbon Dioxide 26 Anion Gap 6 BUN 8 Creatinine 0.76 Est GFR ( Amer) 90.5 Est GFR (Non-Af Amer) 74.8 BUN/Creatinine Ratio 10.5 Glucose 95 Hemoglobin A1c Serum Osmolality Lactic Acid Calcium 8.4 L Phosphorus Magnesium Total Bilirubin AST ALT Alkaline Phosphatase Troponin I Total Protein Albumin Globulin Albumin/Globulin Ratio TSH Urine Color Urine Appearance Urine pH Ur Specific [place] Urine Protein Urine Ketones Urine Blood Urine Nitrate Urine Bilirubin Urine Urobilinogen Ur Leukocyte Esterase Urine Osmolality U Sodium Concentration Urine Glucose Imaging: CT brain 08/10 - no acute process CXR 08/10 - no acute infiltrate Assessment: 73y F w/pmhx of CAD s/p PCI, HLD, HTN, h/o takatsubo CMP, COPD, hypothyroidism, GERD, Depression; patient brought in from home after they noticed she was not well responsive, pale appearing, HR lower and BP lower. Patient had an episode of syncope prior to , resolved, not taken to hospital. She was brought to hospital the Saturday after, noted to have low potassium, given potassium and sent home. She saw her PMD/psychiatrist on saturday who restarted her Paxil, added back restoril and restarted Tekturna (she was off these meds for an unknown amount of time). Since saturday she has been more tired as per family, not her self. Patient states she hasnt been hungry, has been drinking fluids though, baseline about 1 liter of water a day, still taking her other medications which include chlorthalidone. Making urine, no diarrhea/n/v/and pain. no sob/cp. no seizures. She has been on steroids for short periods of 5-7 days 2-3x in the past 3 months for exaccerbations of her COPD but not on chronic systemic steroids except for inhaled steroids. -Severe hyponatremia, with mild symptoms -Hypovolemia suspected -hypokalemia -hypotension, improved HTN CAD Hypothyroidism COPD Plan: Neuro- awake, alert. no seizures, nausea/vom. sodium improving. no hypertonic indicated. delirium prec. avoid sedation -cont paxil. prn restoril if needed CVS- BP lower this morning, afebrile, wbc normal, nontoxic. will give additional IVF NS bolus. has not been on IVF infusion. fluids were bolus from yesterday and KCL infusions yesterday. Na improved, making urine. euvolemic appearing now. Re-eval after NS bolus, then will start low dose NS infusion. hold off diuretics. holding antihypertensives still (tekturna, coreg, clonidine , amlodipine). TTE to follow LV function from last time. Resp- no distress, RA. cont bronchodilators prn. cont pulmicort inh. ID- afebrile. wbc normal. no source of active infection. no abx indicated. GI- no nausea/vom. zofran prn. heart healthy diet. cont PPI for GERD. Renal- Cr okay, Hypokalemia and hyponatremia. Sodium improved 107 to 117 after bolus for volume rescucitation. did recieve IV KCL with NA piggybacks. NA bolus now, then will start NS infusion 50cc/hr after next BMP. holding antihypertensives. no diuretics. Urine osm normal, higher sodium, which could mean renal loss of Na causing hyponatremia. Slow correction of Na. -nephrology consult. Heme- hg stbale, plt stable. cont DAPT for CAD. Endo- fingerstick as needed. cont synthroid. Musculsk- pressure ulcer prophylaxis. Bedrest, oob to chair Wounds- none Nutrition- cardiac diet, fluid restrict DVT prophylaxis: scd GI prophylaxis: ppi Central Line: no Arterial Line: no Bateman Cathetor: no Disposition: ICU Code Status: full code Total Critical Care time is 30 minutes, excluding procedures/teaching Flaquito Stoner MD [employer] (Electronically Signed)
[2018-08-11 12:56] LABS: EGFR Non-African American 86.5 (>60)
--- NOTE | 2018-08-11 13:12 | ECHO ---
Patient: GAVIOTA ASENCIO [facility] Rec#: [id number] : 1945 Date: 08/11/2018 Age: 73y Height: 147 cm / 57.9 in Weight: 53.5 kg / 117.9 lbs Sex: F BSA: 1.45 Room#: ICU 1 Admit Date#: 08/10/2018 Type: Inpatient Referring: Flaquito Stoner Reading: Armin Rodriguez MD Non Morse Intercept Technician: Jana Stokes,JATINCS,RDMS CC: FIRO GARVEY Transthoracic Echocardiogram Indication: Cardiomyopathy BP: 135/58 HR: 56 Rhythm: Bradycardia Findings History: CAD, PCI, Takotsubo, COPD, syncope Technical Comments: The study quality is fair. Left Ventricle: The left ventricular chamber size is normal. There is no left ventricular hypertrophy. Global left ventricular wall motion and contractility are within normal limits. The estimated ejection fraction is 55-60%. There is no consistent Doppler evidence of clinically significant diastolic dysfunction. Left Atrium: The left atrial chamber size is normal. Right Ventricle: The right ventricular chamber size and systolic function are within normal limits. Right Atrium: The right atrial cavity size is normal. Aortic Valve: The aortic valve leaflets are mildly thickened. There is aortic annular calcification. There is a trace of aortic regurgitation. There is moderate aortic stenosis. The mean gradient of the aortic valve is 14 mmHg. The aortic valve area, by VTI's, is calculated at 0.9 cm2. Mitral Valve: The mitral valve leaflets are mildly thickened. There is no evidence of mitral regurgitation. There is no evidence of mitral stenosis. Tricuspid Valve: The tricuspid valve leaflets are normal. There is mild tricuspid regurgitation. No pulmonary hypertension is noted. Pulmonic Valve: The pulmonic valve structure is not well visualized. Pericardium: There is no significant pericardial effusion. Aorta: The aortic root appears normal. The aortic arch is not well visualized. Pulmonary Artery: The main pulmonary artery is not well visualized. Venous: The inferior vena cava appears normal in size. There is an approximate 50% respiratory change in the inferior vena cava dimension. Summary: There was not any prior study for comparison. Conclusions There is no left ventricular hypertrophy. Global left ventricular wall motion and contractility are within normal limits. The estimated ejection fraction is 55-60%. The aortic valve leaflets are mildly thickened. There is moderate aortic stenosis. The mean gradient of the aortic valve is 14 mmHg. There is no evidence of mitral regurgitation. There is mild tricuspid regurgitation. There is no significant pericardial effusion. Measurements Name Value Normal Range RVIDd (AP) 2D 2 cm (0.9 - 2.6) RAd ISD 4CH 4.1 cm (3.4 - 4.9) RA (A4C)W 2.5 cm (2.9 - 4.6) IVSd (2D) 1 cm (0.6 - 1) LVPWd (2D) 1 cm (0.6 - 1) LVIDd (2D) 4 cm (3.6 - 5.4) LVIDs (2D) 3 cm - LV FS (2D) 25 % (25 - 45) Aortic Annulus 2 cm (1.4 - 2.6) Ao root diameter (2D) 2.7 cm (2.1 - 3.5) Ascending Ao 2.3 cm (2.1 - 3.4) LA dimension (AP) 2D 3 cm (2.3 - 3.8) LAd ISD 4CH 4.4 cm (2.9 - 5.3) LA ISD 4CH W 3.4 cm (2.5 - 4.5) Name Value Normal Range LA ESV BP (A/L) index 26 ml/m2 - Name Value Normal Range MV E-wave Vmax 0.7 m/sec - MV deceleration time 264 msec - MV A-wave Vmax 0.9 m/sec - MV E:A ratio 0.9 ratio - LV septal e' Vmax 0.06 m/sec - LV lateral e' Vmax 0.06 m/sec - LV E:e' septal ratio 12 ratio - LV E:e' lateral ratio 12 ratio - Name Value Normal Range AV Vmax 2.7 m/sec - AV VTI 60 cm - AV peak gradient 29 mmHg - AV mean gradient 14 mmHg - LVOT diameter 2 cm - LVOT Vmax 0.8 m/sec - LVOT VTI 17 cm - LVOT peak gradient 2.6 mmHg - LVOT mean gradient 1 mmHg - DOI (VTI) 0.3 ratio - AYLA (continuity Vmax) 0.9 cm2 - AYLA (continuity VTI) 0.9 cm2 - Name Value Normal Range TR Vmax 2.1 m/sec - TR peak gradient 17 mmHg - RAP 3 mmHg - RVSP 20 mmHg - IVC diameter 1.7 cm - Name Value Normal Range PV Vmax 0.6 m/sec - PV peak gradient 1.4 mmHg -
[2018-08-11] MEDS ORDERED: NS 0.9% IVPB ONE (15:00)
[2018-08-11] MEDS ORDERED: POTASSIUM CHLORIDE IVPB ONE (15:00)
[2018-08-11] MEDS ORDERED: Magnesium Sulfate IV* 2 GM in NS 0.9% 100 ML* 100 ML IV ONE (15:43)
[2018-08-11] MEDS ORDERED: Magnesium Sulfate 2 GM IV (Premix) IVPB ONE (16:00)
[2018-08-11 16:36] LABS: EGFR Non-African American 70.5 (>60)
[2018-08-11] MEDS ORDERED: Acetaminophen TAB* 325 MG PO PRN (17:04)
[2018-08-11] MEDS ORDERED: Acetaminophen TAB* 325 MG ONE (17:14)
[2018-08-11 22:37] LABS: EGFR Non-African American 67.6 (>60)
[2018-08-12] MEDS: Levothyroxine TAB* 50 MCG TAB PO SCH (05:37)
[2018-08-12] MEDS: CMC:Pantoprazole TAB (NF) 40 MG TAB PO SCH (05:37)
[2018-08-12 05:41] LABS: Hematocrit 33 % (35-47); Hemoglobin 11.5 g/dl (12.0-16.0); Mean Corpuscular HGB Conc 35 g/dl (31-36); Mean Corpuscular Hemoglobin 28 pg (27-31); Mean Corpuscular Volume 79 fL (80-97); Mean Platelet Volume 6.7 fL (7.4-10.4); Platelet Count 226 10^3/ul (150-450); Red Blood Count 4.11 10^6/ul (4.00-5.40); Red Cell Distribution Width 15 % (10.5-15); White Blood Count 5.9 10^3/ul (3.5-10.8)
[2018-08-12 06:06] LABS: EGFR Non-African American 89.6 (>60)
[2018-08-12] MEDS: Budesonide NEB* 0.25 MG/2 ML NEB.SOLN INH SCH ×2 (07:59→19:48)
[2018-08-12] MEDS: Tiotropium CAP.INH* CAP.INH/18 MCG (USE ORDER SET !) INH SCH (07:59)
[2018-08-12] MEDS: Clopidogrel TAB* 75 MG PO SCH (09:06)
[2018-08-12] MEDS: Aspirin 81 mg CHEW TAB* 81 MG TAB.CHEW PO SCH (09:06)
[2018-08-12] MEDS: PARoxetine HCL TAB* 40 MG PO SCH (09:06)
--- NOTE | 2018-08-12 10:44 | PN ---
Progress Note - Progress Note Date of Service: 08/12/18 Note: Progress Note -- Critical Care 24 hour events -awake/alert. no distress. no complaints -afebrile, making urine Tele: NSR Vitals: Vital Signs Temp 99.3 F 08/12/18 08:00 Pulse 71 08/12/18 09:01 Resp 17 08/12/18 09:01 BP 124/59 08/12/18 09:01 Pulse Ox 97 08/12/18 09:01 Intake & Output 08/11/18 08/12/18 08/12/18 18:59 06:59 18:59 Intake Total 820 1109 Output Total 750 1350 225 Balance 70 -241 -225 Weight 54 kg Intake: IV Fluids 500 929 NS 500 NS 60KCL 929 Oral 320 180 Output: Urine 750 1350 225 Other: Estimated Void Small # Voids 1 O2/Vent: RA Infusions: NS + 40meq kcl @ 75cc/hr Current Medications: Acetaminophen (Tylenol Tab*) 650 mg PO Q4H PRN PRN Reason: PAIN Albuterol/Ipratropium (Duoneb (Albuterol 2.5 Mg/Ipratropium 0.5 Mg)) 1 neb INH Q6H PRN PRN Reason: SOB/WHEEZING Last Admin: 08/12/18 07:59 Dose: 1 neb Alprazolam (Xanax Tab*) 0.25 mg PO BID PRN PRN Reason: AGITATION/ANXIETY/INSOMNIA Last Admin: 08/10/18 21:56 Dose: 0.25 mg Aspirin (Aspirin 81 Mg Chew Tab*) 81 mg PO DAILY [facility] Last Admin: 08/12/18 09:06 Dose: 81 mg Budesonide (Pulmicort Neb*) 0.25 mg INH RT.BID [facility] Last Admin: 08/12/18 07:59 Dose: 0.25 mg Clopidogrel Bisulfate (Plavix Tab*) 75 mg PO DAILY [facility] Last Admin: 08/12/18 09:06 Dose: 75 mg Potassium Chloride/Sodium Chloride (Ns 0.9% W/ 40 Meq Kcl 1000 Ml*) 1,000 mls @ 75 mls/hr IV PER RATE [facility] Levothyroxine Sodium (Synthroid Tab*) 50 mcg PO DAILY@0600 [facility] Last Admin: 08/12/18 05:37 Dose: 50 mcg Ondansetron HCl (Zofran Inj*) 4 mg IV Q4H PRN PRN Reason: NAUSEA/VOMITING Pantoprazole Sodium (Protonix Tab (Nf)) 40 mg PO DAILY@0600 [facility] Last Admin: 08/12/18 05:37 Dose: 40 mg Paroxetine HCl (Paxil Tab*) 40 mg PO DAILY [facility] Last Admin: 08/12/18 09:06 Dose: 40 mg Tiotropium [place] (Spiriva Cap.Inh*) 1 cap INH DAILY [facility] Last Admin: 08/12/18 07:59 Dose: 1 cap Physical Exam: General: awake, alert, no distress, no diaphoresis Head: normocephalic, atraumatic HEENT: no pallor, no icterus, moist mucous membranes Neck: soft, supple, no jvd, no stridor CVS: normal rate, regular, no murmur Resp: bilateral air entry, no rhales, no wheeze, no rhonchi, no acc muscle use Abdomen: soft, nontender, nondistended, bowel sounds present Ext: pulses+, warm, no edema Skin: intact, dry appearing Neuro: awake, alert, orientedx3, moving all extremities, no gross focal deficit Labs: Laboratory Results - last 24 hr 08/11/18 08/11/18 08/11/18 12:08 15:50 21:57 WBC RBC Hgb Hct MCV MCH MCHC RDW Plt Count MPV Sodium 118 L* 116 L* 116 L* Potassium 3.2 L 3.2 L TNP Chloride 90 L 88 L 88 L Carbon Dioxide 24 23 22 Anion Gap 4 5 6 BUN 8 10 11 Creatinine 0.67 0.80 0.83 Est GFR ( Amer) 104.7 85.3 81.8 Est GFR (Non-Af Amer) 86.5 70.5 67.6 BUN/Creatinine Ratio 11.9 12.5 13.3 Glucose 91 139 H 105 H Calcium 7.7 L 7.9 L 7.9 L Phosphorus Magnesium 08/11/18 08/12/18 08/12/18 22:45 05:34 05:34 WBC 5.9 RBC 4.11 Hgb 11.5 L Hct 33 L MCV 79 L MCH 28 MCHC 35 RDW 15 Plt Count 226 MPV 6.7 L Sodium 120 L Potassium 3.5 3.6 Chloride 91 L Carbon Dioxide 24 Anion Gap 5 BUN 7 Creatinine 0.65 Est GFR ( Amer) 108.4 Est GFR (Non-Af Amer) 89.6 BUN/Creatinine Ratio 10.8 Glucose 92 Calcium 8.1 L Phosphorus 2.0 L Magnesium 2.1 Imaging: CT brain 08/10 - no acute process CXR 08/10 - no acute infiltrate Assessment: 73y F w/pmhx of CAD s/p PCI, HLD, HTN, h/o takatsubo CMP, COPD, hypothyroidism, GERD, Depression; patient brought in from home after they noticed she was not well responsive, pale appearing, HR lower and BP lower. Patient had an episode of syncope prior to , resolved, not taken to hospital. She was brought to hospital the Saturday after, noted to have low potassium, given potassium and sent home. She saw her PMD/psychiatrist on saturday who restarted her Paxil, added back restoril and restarted Tekturna (she was off these meds for an unknown amount of time). Since saturday she has been more tired as per family, not her self. Patient states she hasnt been hungry, has been drinking fluids though, baseline about 1 liter of water a day, still taking her other medications which include chlorthalidone. Making urine, no diarrhea/n/v/and pain. no sob/cp. no seizures. She has been on steroids for short periods of 5-7 days 2-3x in the past 3 months for exaccerbations of her COPD but not on chronic systemic steroids except for inhaled steroids. -Severe hyponatremia, with mild symptoms -Hypovolemia suspected -hypokalemia -hypotension, improved HTN CAD Hypothyroidism COPD Plan: Neuro- awake, alert. no seizures, nausea/vom. sodium improving. no hypertonic indicated. delirium prec. avoid sedation -cont paxil. prn restoril if needed CVS- BP stable.cont NS + 40meq kcl @ 75cc/hr. Na improved, making urine. euvolemic appearing now. hold off diuretics. holding antihypertensives still ( tekturna, coreg, clonidine, amlodipine). restart as needed. TTE to follow LV function from last time. Resp- no distress, RA. cont bronchodilators prn. cont pulmicort inh. ID- afebrile. wbc normal. no source of active infection. no abx indicated. GI- no nausea/vom. zofran prn. heart healthy diet. cont PPI for GERD. Renal- Cr okay, Hypokalemia and hyponatremia. Na improving. will cont 0.9% NS + 40KCL @ 75cc/hr. check BMP at 4pm. -nephrology consult later today or tomorrow for other alternative source; no further diuretics at this time. Heme- hg stbale, plt stable. cont DAPT for CAD. Endo- fingerstick as needed. cont synthroid. Musculsk- pressure ulcer prophylaxis. oob to chair, ambulate Wounds- none Nutrition- cardiac diet, fluid restrict DVT prophylaxis: scd GI prophylaxis: ppi Central Line: no Arterial Line: no Bateman Cathetor: no Disposition: potential transfer to medical floor later today Code Status: full code Flaquito Stoner MD [employer] (Electronically Signed)
[2018-08-12] MEDS ORDERED: NS 0.9% w/ 40 Meq KCL 1000 ML* 1,000 ML IV SCH (11:00)
[2018-08-12] MEDS: Ibuprofen TAB* 400 MG PO PRN (15:25)
[2018-08-12 16:00] LABS: EGFR Non-African American 67.6 (>60)
[2018-08-12] MEDS ORDERED: Lidocaine PATCH 5%* 1 PATCH ONE (16:07)
[2018-08-12] MEDS: Lidocaine PATCH 5%* 1 PATCH TRANSDERM SCH (16:21)
[2018-08-12] MEDS: Lidocaine Patch REMOVE* 1 NOTE MISC SCH (20:26)
[2018-08-12] MEDS ORDERED: Cyclobenzaprine TAB* 10 MG PO ONE (21:00)
[2018-08-12] MEDS: NS 0.9% w/ 40 Meq KCL 1000 ML* 1,000 ML IV SCH (22:38)
[2018-08-13] MEDS: Levothyroxine TAB* 50 MCG TAB PO SCH (06:00)
[2018-08-13] MEDS: CMC:Pantoprazole TAB (NF) 40 MG TAB PO SCH (06:00)
[2018-08-13 06:43] LABS: Hematocrit 33 % (35-47); Hemoglobin 11.5 g/dl (12.0-16.0); Mean Corpuscular HGB Conc 35 g/dl (31-36); Mean Corpuscular Hemoglobin 29 pg (27-31); Mean Corpuscular Volume 81 fL (80-97); Mean Platelet Volume 6.8 fL (7.4-10.4); Platelet Count 210 10^3/ul (150-450); Red Blood Count 4.03 10^6/ul (4.00-5.40); Red Cell Distribution Width 15 % (10.5-15); White Blood Count 8.7 10^3/ul (3.5-10.8)
[2018-08-13 07:17] LABS: EGFR Non-African American 94.6 (>60)
[2018-08-13] MEDS: Budesonide NEB* 0.25 MG/2 ML NEB.SOLN INH SCH ×2 (07:19→20:08)
[2018-08-13] MEDS: Tiotropium CAP.INH* CAP.INH/18 MCG (USE ORDER SET !) INH SCH (07:19)
[2018-08-13] MEDS ORDERED: Magnesium Sulfate 2 GM IV* 2 GM/50 ML BAG IVPB ONE (07:45)
[2018-08-13] MEDS: PARoxetine HCL TAB* 40 MG PO SCH (08:42)
[2018-08-13] MEDS: Aspirin 81 mg CHEW TAB* 81 MG TAB.CHEW PO SCH (08:42)
[2018-08-13] MEDS: NS 0.9% w/ 40 Meq KCL 1000 ML* 1,000 ML IV SCH ×2 (08:50→23:13)
[2018-08-13] MEDS: Lidocaine PATCH 5%* 1 PATCH TRANSDERM SCH (08:52)
[2018-08-13] MEDS: Clopidogrel TAB* 75 MG PO SCH (08:58)
--- NOTE | 2018-08-13 17:42 | PN ---
Subjective Date of Service: 08/13/18 Interval History: Ms. An is feeling fine today. She is frustrated about being in the hospital and is anxious to go home. She has been ambulating around the unit, but is bored. She is very hesitant to any medication changes at d/c without approval from her PCP. She denies CP, SOB, N/V/D, dizziness. Family History: Unchanged from Admission Social History: Unchanged from Admission Past Medical History: Unchanged from Admission Objective Active Medications: Acetaminophen (Tylenol Tab*) 650 mg PO Q4H PRN PAIN Albuterol/Ipratropium (Duoneb (Albuterol 2.5 Mg/Ipratropium 0.5 Mg)) 1 neb INH Q6H PRN SOB/WHEEZING Alprazolam (Xanax Tab*) 0.25 mg PO BID PRN AGITATION/ANXIETY/INSOMNIA Aspirin (Aspirin 81 Mg Chew Tab*) 81 mg PO DAILY [facility] Budesonide (Pulmicort Neb*) 0.25 mg INH RT.BID [facility] Clopidogrel Bisulfate (Plavix Tab*) 75 mg PO DAILY [facility] Potassium Chloride/Sodium Chloride (Ns 0.9% W/ 40 Meq Kcl 1000 Ml*) 1,000 mls @ 100 mls/hr IV PER RATE [facility] Ibuprofen (Motrin Tab*) 400 mg PO Q6H PRN PAIN Levothyroxine Sodium (Synthroid Tab*) 50 mcg PO DAILY@0600 [facility] Lidocaine (Lidoderm 5% Patch*) 1 patch TRANSDERM DAILY [facility] Ondansetron HCl (Zofran Inj*) 4 mg IV Q4H PRN NAUSEA/VOMITING Pantoprazole Sodium (Protonix Tab (Nf)) 40 mg PO DAILY@0600 [facility] Paroxetine HCl (Paxil Tab*) 40 mg PO DAILY [facility] Pharmacy Profile Note (Lidocaine Patch Remove*) 1 note N/A 2100 [facility] Tiotropium [place] (Spiriva Cap.Inh*) 1 cap INH DAILY [facility] Vital Signs - 8 hr 08/13/18 08/13/18 11:11 14:58 Temperature 98.2 F 97.8 F Pulse Rate 70 66 Respiratory 17 16 Rate Blood Pressure 129/59 137/47 (mmHg) O2 Sat by Pulse 99 100 Oximetry Oxygen Devices in Use Now: None Appearance: Elderly female sitting in bed in NAD Eyes: No Scleral Icterus Ears/Nose/Mouth/Throat: Mucous Membranes Moist Neck: NL Appearance and Movements; NL JVP, Trachea Midline Respiratory: Symmetrical Chest Expansion and Respiratory Effort, - - Expiratory wheezes throughout Cardiovascular: NL Sounds; No Murmurs; No JVD, RRR Abdominal: NL Sounds; No Tenderness; No Distention Extremities: No Edema Skin: No Rash or Ulcers Neurological: Alert and Oriented x 3, NL Gait Lines/Tubes/Other Access: Clean, Dry and Intact Peripheral IV Nutrition: Taking PO's Result Diagrams: 08/13/18 06:24 08/13/18 06:24 Assess/Plan/Problems-Billing Assessment: Ms. An is a 73 yo with PMH of CAD, HTN, COPD, and depression who presented to the ED with c/o AMS and was found to have hyponatremia, hypokalemia, and hypotension. - Patient Problems (1) Hyponatremia Current Visit: Yes Status: Acute Code(s): E87.1 - HYPO-OSMOLALITY AND HYPONATREMIA SNOMED Code(s): 11648431 Comment: - Down to 107 on admission, now up to 123 - Improving with IVF (2) Hypokalemia Current Visit: Yes Status: Acute Code(s): E87.6 - HYPOKALEMIA SNOMED Code( s): 76971425 Comment: - Resolved with repletion (3) Depression Current Visit: Yes Status: Acute Code(s): F32.9 - MAJOR DEPRESSIVE DISORDER , SINGLE EPISODE, UNSPECIFIED SNOMED Code(s): 27582457 Comment: - Appreciate psych consult - Continue paxil, xanax (4) COPD (chronic obstructive pulmonary disease) Current Visit: No Status: Chronic Code(s): J44.9 - CHRONIC OBSTRUCTIVE PULMONARY DISEASE, UNSPECIFIED SNOMED Code(s): 98496914 Comment: - Wheezing on exam today, though no evidence of exacerbation - Continue budesonide, spiriva, nebs (5) HTN (hypertension) Current Visit: No Status: Chronic Code(s): I10 - ESSENTIAL (PRIMARY) HYPERTENSION SNOMED Code(s): 03329022 Comment: - Hypotensive on admission, SBP now 120-150s - Currently off all antihypertensives; will need to reassess need for antihypertensives at d/c (6) CAD (coronary artery disease) Current Visit: No Status: Chronic Code(s): I25.10 - ATHSCL HEART DISEASE OF [place] CORONARY ARTERY W/O ANG PCTRS SNOMED Code(s): 27866741 Comment: - Continue aspirin, plavix (7) GERD (gastroesophageal reflux disease) Current Visit: Yes Status: Acute Code(s): K21.9 - GASTRO-ESOPHAGEAL REFLUX DISEASE WITHOUT ESOPHAGITIS SNOMED Code(s): 866190692 Comment: - Continue protonix (8) Hypothyroidism Current Visit: No Status: Chronic Code(s): E03.9 - HYPOTHYROIDISM, UNSPECIFIED SNOMED Code(s): 08159143 Comment: - TSH 3.66 - Continue levothyroxine (9) DVT prophylaxis Current Visit: No Status: Acute Code(s): WOR7361 - SNOMED Code(s): 664486917 Comment: - SCDs (10) Full code status Current Visit: No Status: Acute Code(s): Z78.9 - OTHER SPECIFIED HEALTH STATUS SNOMED Code(s): 176194392 Status and Disposition: Inpatient. Anticipate d/c home when medically stable. Attending: Alejandra David
[2018-08-13] MEDS: Ibuprofen TAB* 400 MG PO PRN (22:26)
[2018-08-13] MEDS: ALPRAZolam TAB* 0.25 MG PO PRN (22:26)
[2018-08-13] MEDS: Lidocaine Patch REMOVE* 1 NOTE MISC SCH (22:28)
[2018-08-14] MEDS: CMC:Pantoprazole TAB (NF) 40 MG TAB PO SCH (05:02)
[2018-08-14] MEDS: Levothyroxine TAB* 50 MCG TAB PO SCH (05:03)
[2018-08-14 06:18] LABS: Hematocrit 30 % (35-47); Hemoglobin 10.4 g/dl (12.0-16.0); Mean Corpuscular HGB Conc 35 g/dl (31-36); Mean Corpuscular Hemoglobin 28 pg (27-31); Mean Corpuscular Volume 81 fL (80-97); Mean Platelet Volume 6.7 fL (7.4-10.4); Platelet Count 196 10^3/ul (150-450); Red Blood Count 3.72 10^6/ul (4.00-5.40); Red Cell Distribution Width 16 % (10.5-15); White Blood Count 6.4 10^3/ul (3.5-10.8)
[2018-08-14 06:33] LABS: EGFR Non-African American 96.4 (>60)
[2018-08-14] MEDS: Lidocaine PATCH 5%* 1 PATCH TRANSDERM SCH (08:10)
[2018-08-14] MEDS: amLODIPine TAB* 5 MG PO SCH (08:10)
[2018-08-14] MEDS: Clopidogrel TAB* 75 MG PO SCH (08:11)
[2018-08-14] MEDS: Aspirin 81 mg CHEW TAB* 81 MG TAB.CHEW PO SCH (08:11)
[2018-08-14] MEDS: PARoxetine HCL TAB* 40 MG PO SCH (08:14)
[2018-08-14] MEDS: Budesonide NEB* 0.25 MG/2 ML NEB.SOLN INH SCH ×2 (08:18→19:37)
[2018-08-14] MEDS: Tiotropium CAP.INH* CAP.INH/18 MCG (USE ORDER SET !) INH SCH (08:19)
[2018-08-14] MEDS: NS 0.9% w/ 40 Meq KCL 1000 ML* 1,000 ML IV SCH (08:33)
--- NOTE | 2018-08-14 11:37 | PN ---
Subjective Date of Service: 08/14/18 Interval History: Ms. An feels ok today. She appears to be in better spirits. She has been up ambulating. Offers no complaints. Appetite is good. She is anxious to go home, but understand the need to stay in the hospital until her sodium has mostly normalized. She denies CP, SOB, N/V/D, dizziness. She reports that she started chlorthalidone approx 4 days prior to admission. Family History: Unchanged from Admission Social History: Unchanged from Admission Past Medical History: Unchanged from Admission Objective Active Medications: Acetaminophen (Tylenol Tab*) 650 mg PO Q4H PRN PAIN Albuterol/Ipratropium (Duoneb (Albuterol 2.5 Mg/Ipratropium 0.5 Mg)) 1 neb INH Q6H PRN SOB/WHEEZING Aliskiren (Tekturna Tab*) 300 mg PO DAILY [facility] Alprazolam (Xanax Tab*) 0.25 mg PO BID PRN AGITATION/ANXIETY/INSOMNIA Amlodipine Besylate (Norvasc Tab*) 5 mg PO DAILY [facility] Aspirin (Aspirin 81 Mg Chew Tab*) 81 mg PO DAILY [facility] Budesonide (Pulmicort Neb*) 0.25 mg INH RT.BID [facility] Carvedilol (Coreg Tab*) 3.125 mg PO BID [facility] Clopidogrel Bisulfate (Plavix Tab*) 75 mg PO DAILY [facility] Sodium Chloride (Ns 0.9% 1000 Ml*) 1,000 mls @ 100 mls/hr IV PER RATE [facility] Levothyroxine Sodium (Synthroid Tab*) 50 mcg PO DAILY@0600 [facility] Lidocaine (Lidoderm 5% Patch*) 1 patch TRANSDERM DAILY [facility] Ondansetron HCl (Zofran Inj*) 4 mg IV Q4H PRN NAUSEA/VOMITING Pantoprazole Sodium (Protonix Tab (Nf)) 40 mg PO DAILY@0600 [facility] Paroxetine HCl (Paxil Tab*) 40 mg PO DAILY [facility] Pharmacy Profile Note (Lidocaine Patch Remove*) 1 note N/A 2100 [facility] Tiotropium [place] (Spiriva Cap.Inh*) 1 cap INH DAILY [facility] Vital Signs - 8 hr 08/14/18 08/14/18 08/14/18 03:55 07:27 08:00 Temperature 98.1 F Pulse Rate 72 Respiratory 16 18 Rate Blood Pressure 172/60 153/63 (mmHg) O2 Sat by Pulse 100 Oximetry 08/14/18 08:23 Temperature Pulse Rate 72 Respiratory 14 Rate Blood Pressure (mmHg) O2 Sat by Pulse 99 Oximetry Oxygen Devices in Use Now: None Appearance: Elderly female sitting in bed in NAD Eyes: No Scleral Icterus Ears/Nose/Mouth/Throat: Mucous Membranes Moist Neck: NL Appearance and Movements; NL JVP, Trachea Midline Respiratory: Symmetrical Chest Expansion and Respiratory Effort, Clear to Auscultation Cardiovascular: NL Sounds; No Murmurs; No JVD, RRR Abdominal: NL Sounds; No Tenderness; No Distention Extremities: No Edema Skin: No Rash or Ulcers Neurological: Alert and Oriented x 3, NL Gait, NL Muscle Strength and Tone Lines/Tubes/Other Access: Clean, Dry and Intact Peripheral IV Nutrition: Taking PO's Result Diagrams: 08/14/18 05:58 08/14/18 05:58 Assess/Plan/Problems-Billing Assessment: Ms. An is a 73 yo with PMH of CAD, HTN, COPD, and depression who presented to the ED with c/o AMS, recently started on chlorthalidone and was found to have hyponatremia, hypokalemia, and hypotension. - Patient Problems (1) Hyponatremia Current Visit: Yes Status: Acute Code(s): E87.1 - HYPO-OSMOLALITY AND HYPONATREMIA SNOMED Code(s): 39675639 Comment: - Likely d/t a combination of factors, but recently starting a thiazide was likely a large contributor - Down to 107 on admission, now up to 125; continue to trend - Improving with IVF; continue NS - Should not resume chlorthalidone at d/c (2) HTN (hypertension) Current Visit: No Status: Chronic Code(s): I10 - ESSENTIAL (PRIMARY) HYPERTENSION SNOMED Code(s): 57248633 Comment: - Hypotensive on admission, SBP now 120-170 - No antihypertensives since admission - Hold amlodipine, clonidine - Restart coreg, tekturna - Should not resume chlorthalidone at d/c (3) Hypokalemia Current Visit: Yes Status: Acute Code(s): E87.6 - HYPOKALEMIA SNOMED Code( s): 44581917 Comment: - 2/2 hypovolemia, dehydration, thiazide use - Resolved with repletion - Back to normal, will change fluids to NS w/o potassium (4) Depression Current Visit: Yes Status: Acute Code(s): F32.9 - MAJOR DEPRESSIVE DISORDER , SINGLE EPISODE, UNSPECIFIED SNOMED Code(s): 54627771 Comment: - Paroxetine may have contributed to hyponatremia - Appreciate psych consult to determine if medications need adjustment - Hold lorazepam - Continue paxil, xanax (5) Hypothyroidism Current Visit: No Status: Chronic Code(s): E03.9 - HYPOTHYROIDISM, UNSPECIFIED SNOMED Code(s): 49602724 Comment: - TSH 3.66 - Med rec on admission was not correct, and pt was taken off levothyroxine in July by her PCP, but has been on it since admission; she will need to f/u with PCP to have TSH rechecked - D/c levothyroxine (6) COPD (chronic obstructive pulmonary disease) Current Visit: No Status: Chronic Code(s): J44.9 - CHRONIC OBSTRUCTIVE PULMONARY DISEASE, UNSPECIFIED SNOMED Code(s): 47665138 Comment: - Clear lungs on exam today; no evidence of exacerbation - Continue budesonide, spiriva, nebs (7) CAD (coronary artery disease) Current Visit: No Status: Chronic Code(s): I25.10 - ATHSCL HEART DISEASE OF [place] CORONARY ARTERY W/O ANG PCTRS SNOMED Code(s): 33176968 Comment: - Continue aspirin, plavix (8) GERD (gastroesophageal reflux disease) Current Visit: Yes Status: Acute Code(s): K21.9 - GASTRO-ESOPHAGEAL REFLUX DISEASE WITHOUT ESOPHAGITIS SNOMED Code(s): 050857588 Comment: - Continue protonix (9) DVT prophylaxis Current Visit: No Status: Acute Code(s): UDS6778 - SNOMED Code(s): 503078053 Comment: - SCDs (10) Full code status Current Visit: No Status: Acute Code(s): Z78.9 - OTHER SPECIFIED HEALTH STATUS SNOMED Code(s): 537776972 Status and Disposition: Inpatient. Anticipate d/c home when medically stable, possibly tomorrow. Attending: Alejandra David
[2018-08-14] MEDS: NS 0.9% 1000 ML* 1,000 ML IV SCH ×2 (12:28→22:39)
[2018-08-14] MEDS: Aliskiren TAB* 300 MG PO SCH (12:28)
[2018-08-14] MEDS: Carvedilol TAB* 3.125 MG PO SCH (21:11)
[2018-08-14] MEDS: Lidocaine Patch REMOVE* 1 NOTE MISC SCH (21:13)
[2018-08-15] MEDS: CMC:Pantoprazole TAB (NF) 40 MG TAB PO SCH (05:54)
[2018-08-15 06:24] LABS: Hematocrit 30 % (35-47); Hemoglobin 10.3 g/dl (12.0-16.0); Mean Corpuscular HGB Conc 35 g/dl (31-36); Mean Corpuscular Hemoglobin 28 pg (27-31); Mean Corpuscular Volume 82 fL (80-97); Mean Platelet Volume 6.9 fL (7.4-10.4); Platelet Count 201 10^3/ul (150-450); Red Blood Count 3.65 10^6/ul (4.00-5.40); Red Cell Distribution Width 16 % (10.5-15); White Blood Count 6.5 10^3/ul (3.5-10.8)
[2018-08-15 06:46] LABS: EGFR Non-African American 98.3 (>60)
[2018-08-15] MEDS: Tiotropium CAP.INH* CAP.INH/18 MCG (USE ORDER SET !) INH SCH (07:11)
[2018-08-15] MEDS: Budesonide NEB* 0.25 MG/2 ML NEB.SOLN INH SCH (07:11)
--- NOTE | 2018-08-15 07:52 | PN ---
Subjective Date of Service: 08/15/18 Interval History: Ms. An reports feeling better but she is quite tired as she has had a hard time sleeping in the hospital as she has shared a room. She denies chest pain. She doesn't feel short of breath but agrees that she is a bit wheezy today. She does not like taking prednisone but would consider it if need be. She is happy with the plan for discharge today. Family History: Unchanged from Admission Social History: Unchanged from Admission Past Medical History: Unchanged from Admission Objective Active Medications: Acetaminophen (Tylenol Tab*) 650 mg PO Q4H PRN Albuterol/Ipratropium (Duoneb (Albuterol 2.5 Mg/Ipratropium 0.5 Mg)) 1 neb INH Q6H PRN Aliskiren (Tekturna Tab*) 300 mg PO DAILY [facility] Alprazolam (Xanax Tab*) 0.25 mg PO BID PRN Amlodipine Besylate (Norvasc Tab*) 5 mg PO DAILY [facility] Aspirin (Aspirin 81 Mg Chew Tab*) 81 mg PO DAILY [facility] Budesonide (Pulmicort Neb*) 0.25 mg INH RT.BID [facility] Carvedilol (Coreg Tab*) 3.125 mg PO BID [facility] Clopidogrel Bisulfate (Plavix Tab*) 75 mg PO DAILY [facility] Sodium Chloride (Ns 0.9% 1000 Ml*) 1,000 mls @ 100 mls/hr IV PER RATE [facility] Lidocaine (Lidoderm 5% Patch*) 1 patch TRANSDERM DAILY [facility] Ondansetron HCl (Zofran Inj*) 4 mg IV Q4H PRN Pantoprazole Sodium (Protonix Tab (Nf)) 40 mg PO DAILY@0600 [facility] Paroxetine HCl (Paxil Tab*) 40 mg PO DAILY [facility] Pharmacy Profile Note (Lidocaine Patch Remove*) 1 note N/A 2100 [facility] Tiotropium [place] (Spiriva Cap.Inh*) 1 cap INH DAILY [facility] Vital Signs: Temp Pulse Resp BP Pulse Ox 98.8 F 73 15 159/68 96 08/15/18 02:45 08/15/18 07:13 08/15/18 07:13 08/15/18 02:45 08/15/18 07:13 Oxygen Devices in Use Now: None Appearance: Female lying in bed in NAD Eyes: No Scleral Icterus Ears/Nose/Mouth/Throat: Mucous Membranes Moist Respiratory: Symmetrical Chest Expansion and Respiratory Effort, - - Wheezing bilaterally, good aeration Cardiovascular: NL Sounds; No Murmurs; No JVD, No Edema Abdominal: NL Sounds; No Tenderness; No Distention Extremities: No Edema Skin: No Rash or Ulcers Neurological: Alert and Oriented x 3 Nutrition: Taking PO's Result Diagrams: 08/15/18 05:45 08/15/18 05:45 Microbiology and Other Data: . Assess/Plan/Problems-Billing Assessment: Ms. An is a 73 yo with PMH of CAD, HTN, COPD, and depression who presented to the ED with c/o AMS, recently started on chlorthalidone and was found to have hyponatremia, hypokalemia, and hypotension. - Patient Problems (1) Hyponatremia Comment: - Resolving - Likely d/t a combination of factors, but recently starting a thiazide was likely a large contributor - Should not resume chlorthalidone at d/c (2) Hypokalemia Comment: - Resolved. - 2/2 hypovolemia, dehydration, thiazide use (3) Cardiomyopathy Comment: - Asymptomatic - Hx of likely takotsubos in 2017 but EF now 50-55% (4) CAD (coronary artery disease) Comment: - Continue aspirin, plavix (5) HTN (hypertension) Comment: - Hypotensive on admission, SBP now 140 - Continue carvedilol and tekturna - Resume amlodipine, hold clonidine. Patient asked to check her BP at home and if over 150 systolically, should resume clonidine. D/C chlorthalidone. (6) COPD (chronic obstructive pulmonary disease) Comment: - Wheezing noted today, will send prescription to pharmacy if patient chooses to use it, it will be available - Continue budesonide, spiriva, nebs (7) GERD (gastroesophageal reflux disease) Comment: - Continue protonix (8) Hypothyroidism Comment: - TSH 3.66 - Med rec on admission was not correct, and pt was taken off levothyroxine in July by her PCP. D/c levothyroxine (9) Depression Comment: - With anxiety - Paroxetine may have contributed to hyponatremia - Appreciate psych consult. Hold lorazepam. Continue paxil, xanax. (10) DVT prophylaxis Comment: - SCDs (11) Full code status Comment: Status and Disposition: Inpatient. Discharge to home.
[2018-08-15] MEDS: Lidocaine PATCH 5%* 1 PATCH TRANSDERM SCH (08:21)
[2018-08-15] MEDS: Aliskiren TAB* 300 MG PO SCH (08:22)
[2018-08-15] MEDS: amLODIPine TAB* 5 MG PO SCH (08:22)
[2018-08-15] MEDS: Aspirin 81 mg CHEW TAB* 81 MG TAB.CHEW PO SCH (08:22)
[2018-08-15] MEDS: Carvedilol TAB* 3.125 MG PO SCH (08:22)
[2018-08-15] MEDS: Clopidogrel TAB* 75 MG PO SCH (08:23)
[2018-08-15] MEDS: PARoxetine HCL TAB* 40 MG PO SCH (08:25)
[2018-08-15 11:30] VITALS: BP 132/58
--- NOTE | 2018-08-15 12:23 | DS ---
CC: Dr. Miles * [facility] MEDICINE DISCHARGE SUMMARY: DATE OF ADMISSION: 08/10/18 DATE OF DISCHARGE: 08/15/18 PRIMARY CARE PHYSICIAN: Dr. Miles. ATTENDING PHYSICIAN: Dr. Richie Rodriguez * (dictation provided by Shelly Gregory NP). PRIMARY DIAGNOSES: 1. Hyponatremia secondary to chlorthalidone use. 2. Early asthma exacerbation. 3. Hypokalemia. SECONDARY DIAGNOSES: 1. History of chronic obstructive pulmonary disease/asthma with continued smoking. 2. Coronary artery disease, status post percutaneous coronary intervention. 3. Hyperlipidemia. 4. Hypertension. 5. History of takotsubo cardiomyopathy, now resolved. 6. Hypothyroidism. 7. Gastroesophageal reflux disease. 8. Depression. PAST SURGICAL HISTORY: Hysterectomy and again the coronary artery disease, status post PCI. MEDICATIONS AT THE TIME OF DISCHARGE: 1. Albuterol inhaler 2 puffs inhaled q.i.d. 2. Temazepam 15 mg p.o. at bedtime p.r.n. 3. Fluticasone/salmeterol 230/21 one puff inhaled b.i.d. 4. Tekturna 300 mg p.o. daily. 5. Fluticasone nasal spray, 2 sprays both nares daily. 6. EpiPen p.r.n. 7. Carvedilol 3.125 mg p.o. b.i.d. 8. Amlodipine 10 mg p.o. daily. 9. Pantoprazole 40 mg p.o. daily. 10. Nitroglycerin sublingually p.r.n. 11. Alprazolam 0.25 mg p.o. b.i.d. p.r.n. 12. Clopidogrel 75 mg p.o. daily. 13. Aspirin 81 mg p.o. daily. 14. Albuterol with ipratropium nebulizer inhaled p.r.n. 15. Spiriva 1 cap inhaled daily. 16. Paxil 40 mg p.o. daily. 17. Prednisone 40 mg via taper (new medication). 18. Lidocaine patch 5% p.r.n. (new medication). 19. The patient has been instructed to discontinue chlorthalidone. 20. The patient has been instructed to resume clonidine if her blood pressure remains above 150 systolically on check at home. 21. The patient has been instructed to hold lorazepam and continue alprazolam only. HOSPITAL COURSE: Ms. An is a 73-year-old female with a past medical history of asthma/COPD with continued smoking, history of takotsubo cardiomyopathy that resolved and coronary artery disease, who presented to the hospital on 08/10/18 with concern for being unresponsive. Please see the dictated H and P from Dr. Stoner for complete details. In brief, the patient's daughters brought the patient to the hospital after they noticed that she was not responding very well and was very pale. She had had an episode of syncope prior to but had not been evaluated at that point. She was brought to the hospital the Saturday before admission, noted to have a low potassium. At that point, potassium was repleted and she was sent home. She saw her primary care physician and psychiatrist on Saturday, who restarted Paxil and also we added back her Restoril and Tekturna. Apparently, she had been off these medications for some time. She has had several asthma exacerbations in recent months and recently completed a course of steroids. In the emergency room , she was hypotensive with blood pressure in the 80 systolically. She was given intravenous fluids and after a second bolus, her blood pressure improved to 130 systolically. She was awake and alert and feeling much better; however, she was also noted to have labs that showed very low sodium at 107, potassium at 2.5 with serum osmolality of 227. She had no leukocytosis. Her blood pressure had been 80 on arrival but it did improve with intravenous fluids. Ms. An was admitted to the hospital out of concern for her severe hyponatremia. Her hyponatremia was corrected with normal saline and she was initially monitored in the intensive care unit. Because of her low blood pressure and history of cardiomyopathy, she did have an echocardiogram while here in the hospital, which showed normal ejection fraction of 55%-60% with no wall motion or valvular abnormalities. Ms. An has been monitored in the hospital with slow correction of her sodium level, today it is 126. She is tolerating oral intake well. She is ambulating in her room independently. I suspected that her hyponatremia was secondary to chlorthalidone use and we have asked that that be held. During the hospitalization, we slowly resumed her antihypertensive medications. As of today, she is still off clonidine, which she had been on previously. We are discharging her to home on carvedilol, amlodipine, and Tekturna. She has been asked to hold the clonidine as well as the chlorthalidone and that she should check her blood pressure at home. She should resume clonidine if her blood pressure is over 150 systolically. We have also streamlined the patient's psychiatric medications and I have asked that she hold lorazepam but could continue alprazolam for depression and anxiety. Ms. An is evidencing some wheezing on examination today. She is not hypoxic and feels well. She states reluctance to start prednisone. I have instructed her that I will send a prescription to [facility] for her for prednisone and that she should strongly consider taking the medication. At this point, she appears to continue to be reluctant but it will be available to her if she needs it. I have also instructed her to follow up with her primary care physician or return to the emergency room and despite the use of prednisone, she feels short of breath, has chest pain or other concerning symptoms. I have also instructed her to follow up with a basic metabolic panel early next week and to see Dr. Miles early next week. Ms. An is medically stable for discharge to home. DISPOSITION: Home. DIET: Low fat. ACTIVITY: As tolerated. FOLLOWUP PLAN: 1. Please follow up with basic metabolic panel early next week to check sodium. 2. Please follow up with Dr. Miles early next week per routine after this hospitalization. 3. The patient has been instructed to check her blood pressure and resume clonidine if it is over 150 systolically. 4. The patient has been instructed to stop chlorthalidone. TIME SPENT: Approximately 75 minutes was spent on the discharge of this patient , more than half the time was spent with the patient at the bedside, reviewing the events leading up to this hospitalization and during this hospitalization, performing the physical examination, and reviewing the plan of care. SHELLY GREGORY NP [id number]/[facility] #: [id number] [facility]
== END 2018-08-15 12:00 | disposition home or self-care (01) | DRG 641 ==
LOC: ED 11:14 → ICU 15:11 → MED 08-12 18:24
PROVIDERS: ADMIT Internal Medicine Critical Care Medicine; ATTEND Internal Medicine
DX: E87.1 Hypo-osmolality and hyponatremia (principal); I51.81 Takotsubo syndrome; T50.2X5A Adverse effect of carbonic-anhydrase inhibitors, benzothiadiazides and other diuretics, initial encounter; E87.6 Hypokalemia; I25.10 Atherosclerotic heart disease of native coronary artery without angina pectoris; E78.5 Hyperlipidemia, unspecified; E03.9 Hypothyroidism, unspecified; I95.9 Hypotension, unspecified; F41.8 Other specified anxiety disorders; J44.9 Chronic obstructive pulmonary disease, unspecified; I10 Essential (primary) hypertension; K21.9 Gastro-esophageal reflux disease without esophagitis; F17.210 Nicotine dependence, cigarettes, uncomplicated; M81.0 Age-related osteoporosis without current pathological fracture; M54.9 Dorsalgia, unspecified; G89.29 Other chronic pain; Z90.710 Acquired absence of both cervix and uterus; Z91.030 Bee allergy status; Y92.009 Unspecified place in unspecified non-institutional (private) residence as the place of occurrence of the external cause; Z88.2 Allergy status to sulfonamides; Z88.8 Allergy status to other drugs, medicaments and biological substances; Z87.01 Personal history of pneumonia (recurrent); Z98.42 Cataract extraction status, left eye; Z98.41 Cataract extraction status, right eye; Z95.5 Presence of coronary angioplasty implant and graft; Z83.3 Family history of diabetes mellitus; Z82.49 Family history of ischemic heart disease and other diseases of the circulatory system; Z72.89 Other problems related to lifestyle; Z79.82 Long term (current) use of aspirin; Z79.02 Long term (current) use of antithrombotics/antiplatelets; Z79.52 Long term (current) use of systemic steroids
CPT/HCPCS: 36415; 70450; 71045; 80048; 80053; 81003; 82803; 83036; 83605; 83735; 83930; 83935; 84100; 84300; 84443; 84484; 85025; 85027; 85610; 87641; 93005; 93306; 94640; 99284; 99406; A9270-GY; J2405; J3475; J3480

== ENCOUNTER 2018-09-09 14:53 | Inpatient (IN) | payer MEDICARE ==
[2018-09-09] MEDS ORDERED: Mouth Piece, Nicotine* 1 EACH CARTRIDGE INH PRN (15:52)
[2018-09-09 16:07] LABS: ABS Basophils 0.1 10^3/ul (0-0.2); ABS Eosinophils 0.1 10^3/ul (0-0.6); ABS Lymphocytes 1.1 10^3/ul (1.0-4.8); ABS Monocytes 1.2 10^3/ul (0-0.8); ABS Neutrophils 9.5 10^3/ul (1.5-7.7); ABS Nucleated RBC 0 10^3/ul; Eosinophil % 0.5 %; Hematocrit 41 % (35-47); Hemoglobin 13.9 g/dl (12.0-16.0); Lymphocyte % 9.4 %; Mean Corpuscular HGB Conc 34 g/dl (31-36); Mean Corpuscular Hemoglobin 27 pg (27-31); Mean Corpuscular Volume 81 fL (80-97); Mean Platelet Volume 6.8 fL (7.4-10.4); Nucleated Red Blood Cells % 0; Platelet Count 387 10^3/ul (150-450); Red Blood Count 5.08 10^6/ul (4.00-5.40); Red Cell Distribution Width 16 % (10.5-15); White Blood Count 11.9 10^3/ul (3.5-10.8)
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
[2018-09-09 16:21] LABS: ALT 10 U/L (7-52); AST 17 U/L (13-39); Albumin 4.6 g/dL (3.2-5.2); Albumin/Globulin Ratio 1.5 (1-3); Alkaline Phosphatase 76 U/L (34-104); Anion Gap 11 mmol/L (2-11); BUN/Creatinine Ratio 20.9 (8-20); Blood Urea Nitrogen 27 mg/dL (6-24); CO2 Carbon Dioxide 24 mmol/L (22-32); Calcium 10.1 mg/dL (8.6-10.3); Chloride 97 mmol/L (101-111); EGFR Non-African American 40.6 (>60); Globulin 3.1 g/dL (2-4); Glucose 143 mg/dL (70-100); Potassium 3.5 mmol/L (3.5-5.0); Sodium 132 mmol/L (135-145); Total Protein 7.7 g/dL (6.4-8.9)
[2018-09-09 16:56] LABS: Acetaminophen < 15 mcg/mL; Alcohol < 10 mg/dL (<10); Salicylate < 2.50 mg/dL (<30)
[2018-09-09 19:58] LABS: Urine Appearance Cloudy; Urine Bacteria Absent (Absent); Urine Bilirubin Negative (Negative); Urine Blood Negative (Negative); Urine Color Amber; Urine Glucose Negative (Negative); Urine Ketones Trace (Negative); Urine Nitrite Negative (Negative); Urine Protein 1+(30 mg/dL) (Negative); Urine Red Blood Cell Trace(0-2/hpf) (Absent); Urine Specific Gravity 1.021 (1.010-1.030); Urine Urobilinogen Negative (Negative); Urine White Blood Cell 2+(11-20/hpf) (Absent)
[2018-09-09 20:26] LABS: Barbiturates Urine Screen None Detected (None Detect); Benzodiazepine Urine Screen None Detected (None Detect); Urine Cannabinoids Screen None Detected (None Detect)
--- NOTE | 2018-09-09 20:30 | PN ---
Progress Note - Progress Note Date of Service: 09/09/18 Note: Pt. received in sign out by DIETER Hays, pending MHE. Urinalysis is contaminated , will send for culture. Pt. was examined by therapist and psychiatry was consulted. They would like brain CT to r/o any other reasons for pt.'s confusion and behavioral issues such as bleed/mass. Psychiatry would like pt. held over night for evaluation by psychiatrist in the morning. Pt. has remained cooperative in the ED and status was switched to [address] negative per radiology. Pt. has remained cooperative in ED. Pending MHE in the a.m. Pt. will be signed out to Dr. Dunn.
--- NOTE | 2018-09-10 01:56 | ED ---
Progress - Progress Note Progress Note: Receiving sign out from DEMETRIA Pardo. Pt had a MHE and is being held until morning for a re-eval. Signing out pt to Dr. Mondragon. Course/Dx - Course Course Of Treatment: Nurse's notes reviewed. Patient is pending reevaluation by psychiatry and mental health in the morning. She previously had crisis evaluation in the psychiatrist's has elected to hold her over. Signed out to oncoming ER physician. - Diagnoses Provider Diagnoses: Anger reaction Discharge - Sign-Out/Discharge Documenting (check all that apply): Sign-Out Patient, Receiving Sign-Out Signing out patient TO: Nain Mondragon Receiving patient FROM: Raymond Ann - Discharge Plan Condition: Stable Referrals: Lina Miles MD [Primary Care Provider] - - Billing Disposition and Condition Condition: STABLE - Attestation Statements Document Initiated by Scribe: Yes Documenting Scribe: Josephine Lima Provider For Whom Scribe is Documenting (Include Credential): Jay Dunn MD Scribe Attestation: Josephine Kennedy scribed for Jay Dunn MD on 09/10/18 at 7648. Scribe Documentation Reviewed: Yes Provider Attestation: The documentation as recorded by the Josephine reaves accurately reflects the service I personally performed and the decisions made by Jay pickens MD Status of Scribe Document: Viewed
[2018-09-10] MEDS ORDERED: Clopidogrel TAB* 75 MG PO ONE (06:42)
[2018-09-10] MEDS ORDERED: Albuterol HFA INHALER* 8 gm MDI INH ONE (06:44)
[2018-09-10] MEDS ORDERED: Valsartan TAB* 160 MG PO ONE (06:44)
[2018-09-10] MEDS ORDERED: amLODIPine TAB* 5 MG PO ONE (06:44)
[2018-09-10] MEDS ORDERED: Atorvastatin* 80 MG TAB PO ONE (06:44)
[2018-09-10] MEDS ORDERED: Spiriva Inhaler DEVICE* 1 EACH DEVICE SCH (07:00)
--- NOTE | 2018-09-10 07:03 | PN ---
ED Flex Patient Progress Note Date of Service: 09/10/18 Subjective: This is a 73 year-old F who is pending observed secondary to angry behavior Pt became anger when went into room. admits to shortness of breath as has not had a respiratory treatment. Objective: Vitals: Most recent vital signs documented below. General NAD, Alert and oriented x3. patient would not let do a complete evaluation as became anger. breathing appears unlabored no acute pain distress Laboratory: Current laboratory results documented below. Assessment: anger reaction Plan: Pending psychiatric to observe will follow up daily until disposition made breathing treatment morning meds ordered Vital Signs Temp Pulse Resp BP Pulse Ox 98.5 F 102 20 182/93 100 09/09/18 19:48 09/09/18 19:48 09/09/18 19:48 09/09/18 19:48 09/09/18 19:48 Lab Results - Entire Visit 09/09/18 09/09/18 09/09/18 17:43 17:43 15:59 WBC RBC Hgb Hct MCV MCH MCHC RDW Plt Count MPV Neut % (Auto) Lymph % (Auto) Tate % (Auto) Eos % (Auto) Baso % (Auto) Absolute Neuts (auto) Absolute Lymphs (auto) Absolute Monos (auto) Absolute Eos (auto) Absolute Basos (auto) Absolute Nucleated RBC Nucleated RBC % Sodium 132 L Potassium 3.5 Chloride 97 L Carbon Dioxide 24 Anion Gap 11 BUN 27 H Creatinine 1.29 H Est GFR ( Amer) 49.2 Est GFR (Non-Af Amer) 40.6 BUN/Creatinine Ratio 20.9 H Glucose 143 H Calcium 10.1 Total Bilirubin 0.30 AST 17 ALT 10 Alkaline Phosphatase 76 Total Protein 7.7 Albumin 4.6 Globulin 3.1 Albumin/Globulin Ratio 1.5 TSH 2.30 Urine Color Shreya Urine Appearance Cloudy Urine pH 5.0 Ur Specific Bradford 1.021 Urine Protein 1+(30 mg/dl) A Urine Ketones Trace A Urine Blood Negative Urine Nitrate Negative Urine Bilirubin Negative Urine Urobilinogen Negative Ur Leukocyte Esterase Trace A Urine WBC (Auto) 2+(11-20/hpf) A Urine RBC (Auto) Trace(0-2/hpf) Ur Squamous Epith Cells Present A Urine Bacteria Absent Hyaline Casts Present A Urine Glucose Negative Salicylates < 2.50 Urine Opiates Screen Presumptive positive A Acetaminophen < 15 Ur Barbiturates Screen None detected Ur Phencyclidine Scrn None detected Ur Amphetamines Screen None detected U Benzodiazepines Scrn None detected Urine Cocaine Screen None detected U Cannabinoids Screen None detected Serum Alcohol < 10 09/09/18 15:59 WBC 11.9 H RBC 5.08 Hgb 13.9 Hct 41 MCV 81 MCH 27 MCHC 34 RDW 16 H Plt Count 387 MPV 6.8 L Neut % (Auto) 79.7 Lymph % (Auto) 9.4 Tate % (Auto) 9.9 Eos % (Auto) 0.5 Baso % (Auto) 0.5 Absolute Neuts (auto) 9.5 H Absolute Lymphs (auto) 1.1 Absolute Monos (auto) 1.2 H Absolute Eos (auto) 0.1 Absolute Basos (auto) 0.1 Absolute Nucleated RBC 0 Nucleated RBC % 0 Sodium Potassium Chloride Carbon Dioxide Anion Gap BUN Creatinine Est GFR ( Amer) Est GFR (Non-Af Amer) BUN/Creatinine Ratio Glucose Calcium Total Bilirubin AST ALT Alkaline Phosphatase Total Protein Albumin Globulin Albumin/Globulin Ratio TSH Urine Color Urine Appearance Urine pH Ur Specific Bradford Urine Protein Urine Ketones Urine Blood Urine Nitrate Urine Bilirubin Urine Urobilinogen Ur Leukocyte Esterase Urine WBC (Auto) Urine RBC (Auto) Ur Squamous Epith Cells Urine Bacteria Hyaline Casts Urine Glucose Salicylates Urine Opiates Screen Acetaminophen Ur Barbiturates Screen Ur Phencyclidine Scrn Ur Amphetamines Screen U Benzodiazepines Scrn Urine Cocaine Screen U Cannabinoids Screen Serum Alcohol
[2018-09-10] MEDS: Tiotropium CAP.INH* CAP.INH/18 MCG (USE ORDER SET !) INH SCH ×2 (07:22→09:40)
--- NOTE | 2018-09-10 07:25 | ED ---
Progress - Progress Note Progress Note: This pt was signed out by Dr. Dunn at shift change, pending disposition, on hold in the ED. Course/Dx - Course Course Of Treatment: Per ELIZABETH Saldana RN, pt will be admitted on an involuntary status by Dr. Malin, psychiatrist. Pt will be admitted to [facility] psychiatric facility with dx of mood disorder NOS. - Diagnoses Provider Diagnoses: Mood disorder Discharge - Sign-Out/Discharge Documenting (check all that apply): Patient Departure - Admit to [facility], Receiving Sign-Out Receiving patient FROM: Jay Dunn - Discharge Plan Condition: Stable Disposition: PSYCHIATRIC FACILITY-[facility] - Billing Disposition and Condition Condition: STABLE Disposition: Psychiatric Facility [facility] - Attestation Statements Document Initiated by Scribe: Yes Documenting Scribe: Justine Hyman Provider For Whom Trevin is Documenting (Include Credential): Nain Mondragon MD Scribe Attestation: Justine Kennedy, scribed for Nain Mondragon MD on 09/10/18 at 1806. Scribe Documentation Reviewed: Yes Provider Attestation: The documentation as recorded by the scribJustine fatima accurately reflects the service I personally performed and the decisions made by , Nain Mondragon MD Status of Scribe Document: Viewed
[2018-09-10] MEDS: cloNIDine TAB* 0.1 MG PO SCH ×2 (09:39→20:49)
[2018-09-10] MEDS: Mometasone/Formoter 200/5 MDI INH SCH ×2 (09:39→21:22)
[2018-09-10] MEDS: PARoxetine HCL TAB* 40 MG PO SCH (14:08)
--- NOTE | 2018-09-10 14:09 | PN ---
ED Flex Patient Progress Note Date of Service: 09/10/18 Subjective: Patient brought in by family due to aggressive behaviors and lack of self-care at home. Children feel she is off her baseline and do not feel she is safe to come home. Objective: aging white female, irritable and unable to contract for safety Assessment: Unspecified Mood DO Plan: Admit to [facility] on involuntary 9.39 legal status. Vital Signs Temp Pulse Resp BP Pulse Ox 98.1 F 90 17 141/71 98 09/10/18 08:08 09/10/18 08:08 09/10/18 08:08 09/10/18 08:08 09/10/18 08:08 Lab Results - Entire Visit 09/09/18 09/09/18 09/09/18 17:43 17:43 15:59 WBC RBC Hgb Hct MCV MCH MCHC RDW Plt Count MPV Neut % (Auto) Lymph % (Auto) [place] % (Auto) Eos % (Auto) Baso % (Auto) Absolute Neuts (auto) Absolute Lymphs (auto) Absolute Monos (auto) Absolute Eos (auto) Absolute Basos (auto) Absolute Nucleated RBC Nucleated RBC % Sodium 132 L Potassium 3.5 Chloride 97 L Carbon Dioxide 24 Anion Gap 11 BUN 27 H Creatinine 1.29 H Est GFR ( Amer) 49.2 Est GFR (Non-Af Amer) 40.6 BUN/Creatinine Ratio 20.9 H Glucose 143 H Calcium 10.1 Total Bilirubin 0.30 AST 17 ALT 10 Alkaline Phosphatase 76 Total Protein 7.7 Albumin 4.6 Globulin 3.1 Albumin/Globulin Ratio 1.5 TSH 2.30 Urine Color Shreya Urine Appearance Cloudy Urine pH 5.0 Ur Specific Sherrill 1.021 Urine Protein 1+(30 mg/dl) A Urine Ketones Trace A Urine Blood Negative Urine Nitrate Negative Urine Bilirubin Negative Urine Urobilinogen Negative Ur Leukocyte Esterase Trace A Urine WBC (Auto) 2+(11-20/hpf) A Urine RBC (Auto) Trace(0-2/hpf) Ur Squamous Epith Cells Present A Urine Bacteria Absent Hyaline Casts Present A Urine Glucose Negative Salicylates < 2.50 Urine Opiates Screen Presumptive positive A Acetaminophen < 15 Ur Barbiturates Screen None detected Ur Phencyclidine Scrn None detected Ur Amphetamines Screen None detected U Benzodiazepines Scrn None detected Urine Cocaine Screen None detected U Cannabinoids Screen None detected Serum Alcohol < 10 09/09/18 15:59 WBC 11.9 H RBC 5.08 Hgb 13.9 Hct 41 MCV 81 MCH 27 MCHC 34 RDW 16 H Plt Count 387 MPV 6.8 L Neut % (Auto) 79.7 Lymph % (Auto) 9.4 [place] % (Auto) 9.9 Eos % (Auto) 0.5 Baso % (Auto) 0.5 Absolute Neuts (auto) 9.5 H Absolute Lymphs (auto) 1.1 Absolute Monos (auto) 1.2 H Absolute Eos (auto) 0.1 Absolute Basos (auto) 0.1 Absolute Nucleated RBC 0 Nucleated RBC % 0 Sodium Potassium Chloride Carbon Dioxide Anion Gap BUN Creatinine Est GFR ( Amer) Est GFR (Non-Af Amer) BUN/Creatinine Ratio Glucose Calcium Total Bilirubin AST ALT Alkaline Phosphatase Total Protein Albumin Globulin Albumin/Globulin Ratio TSH Urine Color Urine Appearance Urine pH Ur Specific Sherrill Urine Protein Urine Ketones Urine Blood Urine Nitrate Urine Bilirubin Urine Urobilinogen Ur Leukocyte Esterase Urine WBC (Auto) Urine RBC (Auto) Ur Squamous Epith Cells Urine Bacteria Hyaline Casts Urine Glucose Salicylates Urine Opiates Screen Acetaminophen Ur Barbiturates Screen Ur Phencyclidine Scrn Ur Amphetamines Screen U Benzodiazepines Scrn Urine Cocaine Screen U Cannabinoids Screen Serum Alcohol
[2018-09-11 07:43] LABS: HDL Cholesterol 68.4 mg/dL
[2018-09-11] MEDS: Mometasone/Formoter 200/5 MDI INH SCH ×2 (09:16→21:56)
[2018-09-11] MEDS: PARoxetine HCL TAB* 40 MG PO SCH (09:17)
[2018-09-11] MEDS: cloNIDine TAB* 0.1 MG PO SCH ×2 (09:18→21:56)
[2018-09-11] MEDS: Tiotropium CAP.INH* CAP.INH/18 MCG (USE ORDER SET !) INH SCH (09:19)
[2018-09-11] MEDS: Nicotine Inhaler* 10 MG AMP INH PRN (10:31)
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
[2018-09-11] MEDS: Albuterol HFA INHALER* 8 gm MDI INH PRN (15:56)
[2018-09-11] MEDS: Acetaminophen TAB* 325 MG PO PRN (19:12)
[2018-09-11] MEDS: Lidocaine PATCH 5%* 1 PATCH TRANSDERM SCH (21:56)
[2018-09-12] MEDS: PARoxetine HCL TAB* 40 MG PO SCH (09:11)
[2018-09-12] MEDS: Lidocaine Patch REMOVE* 1 NOTE MISC PATCH OFF SCH (09:11)
[2018-09-12] MEDS: cloNIDine TAB* 0.1 MG PO SCH ×2 (09:11→21:53)
[2018-09-12] MEDS: Tiotropium CAP.INH* CAP.INH/18 MCG (USE ORDER SET !) INH SCH (09:12)
[2018-09-12] MEDS: Mometasone/Formoter 200/5 MDI INH SCH ×2 (09:12→21:55)
[2018-09-12] MEDS: Albuterol HFA INHALER* 8 gm MDI INH PRN ×3 (10:15→20:50)
[2018-09-12] MEDS: Nicotine Inhaler* 10 MG AMP INH PRN (10:53)
[2018-09-12] MEDS: Acetaminophen TAB* 325 MG PO PRN (16:10)
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
[2018-09-12] MEDS ORDERED: QUEtiapine TAB* 25 MG PO SCH ×2 (21:00)
[2018-09-12] MEDS: Lurasidone(*) 40 MG TAB PO SCH (21:54)
[2018-09-12] MEDS: Lidocaine PATCH 5%* 1 PATCH TRANSDERM SCH (21:58)
[2018-09-13] MEDS: Lidocaine Patch REMOVE* 1 NOTE MISC PATCH OFF SCH (09:48)
[2018-09-13] MEDS: cloNIDine TAB* 0.1 MG PO SCH ×2 (09:48→19:52)
[2018-09-13] MEDS: Tiotropium CAP.INH* CAP.INH/18 MCG (USE ORDER SET !) INH SCH (09:49)
[2018-09-13] MEDS: Mometasone/Formoter 200/5 MDI INH SCH ×2 (09:49→19:57)
[2018-09-13] MEDS: Albuterol HFA INHALER* 8 gm MDI INH PRN ×3 (11:25→20:00)
[2018-09-13] MEDS: Lurasidone(*) 40 MG TAB PO SCH (19:52)
[2018-09-13] MEDS: Lidocaine PATCH 5%* 1 PATCH TRANSDERM SCH (19:52)
[2018-09-13] MEDS ORDERED: QUEtiapine TAB* 100 MG PO SCH (21:00)
[2018-09-13] MEDS: Al Hydrox/Mg Hydrox/Simet LIQ* 30 ML UDC PO PRN (21:10)
[2018-09-14] MEDS: Tiotropium CAP.INH* CAP.INH/18 MCG (USE ORDER SET !) INH SCH (13:52)
[2018-09-14] MEDS: cloNIDine TAB* 0.1 MG PO SCH ×2 (13:52→21:23)
[2018-09-14] MEDS: Lidocaine Patch REMOVE* 1 NOTE MISC PATCH OFF SCH (13:52)
[2018-09-14] MEDS: Mometasone/Formoter 200/5 MDI INH SCH ×2 (13:52→21:24)
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
[2018-09-14] MEDS ORDERED: Mouth Piece, Nicotine* 1 EACH CARTRIDGE ONE ×2 (19:02→19:03)
[2018-09-14] MEDS: Nicotine Inhaler* 10 MG AMP INH PRN (19:05)
[2018-09-14] MEDS: Albuterol HFA INHALER* 8 gm MDI INH PRN (19:30)
[2018-09-14] MEDS ORDERED: QUEtiapine TAB* 100 MG PO SCH (21:00)
[2018-09-14] MEDS: Lurasidone(*) 40 MG TAB PO SCH (21:23)
[2018-09-14] MEDS: Lidocaine PATCH 5%* 1 PATCH TRANSDERM SCH (21:24)
[2018-09-14] MEDS: Al Hydrox/Mg Hydrox/Simet LIQ* 30 ML UDC PO PRN (21:37)
[2018-09-15 08:04] VITALS: BP 132/64
[2018-09-15] MEDS: Albuterol HFA INHALER* 8 gm MDI INH PRN (08:48)
[2018-09-15] MEDS: cloNIDine TAB* 0.1 MG PO SCH (08:49)
[2018-09-15] MEDS: Tiotropium CAP.INH* CAP.INH/18 MCG (USE ORDER SET !) INH SCH (08:49)
[2018-09-15] MEDS: Lidocaine Patch REMOVE* 1 NOTE MISC PATCH OFF SCH (08:50)
[2018-09-15] MEDS: Mometasone/Formoter 200/5 MDI INH SCH (08:50)
[2018-09-15] MEDS: Al Hydrox/Mg Hydrox/Simet LIQ* 30 ML UDC PO PRN (10:58)
[2018-09-15] MEDS ORDERED: Mouth Piece, Nicotine* 1 EACH CARTRIDGE ONE (11:05)
[2018-09-15] MEDS: Nicotine Inhaler* 10 MG AMP INH PRN (11:06)
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
== END 2018-09-15 13:31 | disposition home or self-care (01) | DRG 885 ==
LOC: ED 14:53 → BSU 09-10 12:49
PROVIDERS: ADMIT Psychiatry & Neurology Psychiatry; ATTEND Psychiatry & Neurology Psychiatry
DX: F39 Unspecified mood [affective] disorder (principal); J44.9 Chronic obstructive pulmonary disease, unspecified; I11.9 Hypertensive heart disease without heart failure; F43.20 Adjustment disorder, unspecified; E03.9 Hypothyroidism, unspecified; I25.10 Atherosclerotic heart disease of native coronary artery without angina pectoris; E78.00 Pure hypercholesterolemia, unspecified; K21.9 Gastro-esophageal reflux disease without esophagitis; M54.89 Other dorsalgia; M81.0 Age-related osteoporosis without current pathological fracture; F32.9 Major depressive disorder, single episode, unspecified; F17.210 Nicotine dependence, cigarettes, uncomplicated; I25.2 Old myocardial infarction; Z88.2 Allergy status to sulfonamides; Z88.8 Allergy status to other drugs, medicaments and biological substances; Z91.030 Bee allergy status; Z79.899 Other long term (current) drug therapy
CPT/HCPCS: 36415; 70450; 80053; 80061; 80307; 80320; 80329; 81003; 81015; 83036; 84443; 85025; 87077; 87086; 99222; 99231; 99232; 99284; A9270-GY; G0480

== ENCOUNTER 2018-11-24 05:06 | Observation (INO) | payer MEDICARE ==
[2018-11-24 05:49] LABS: ABS Basophils 0 10^3/ul (0-0.2); ABS Eosinophils 0.2 10^3/ul (0-0.6); ABS Lymphocytes 0.6 10^3/ul (1.0-4.8); ABS Monocytes 0.6 10^3/ul (0-0.8); ABS Neutrophils 8.6 10^3/ul (1.5-7.7); ABS Nucleated RBC 0 10^3/ul; Eosinophil % 1.8 %; Hematocrit 34 % (33-41); Hemoglobin 11.4 g/dL (12.0-16.0); Lymphocyte % 5.7 %; Mean Corpuscular HGB Conc 33 g/dL (31-36); Mean Corpuscular Hemoglobin 27 pg (27-31); Mean Corpuscular Volume 81 fL (80-97); Nucleated Red Blood Cells % 0; Platelet Count 288 10^3/uL (150-450); Red Blood Count 4.22 10^6 /uL (3.70-4.87); Red Cell Distribution Width 16 % (10.5-15); White Blood Count 9.9 10^3/uL (3.5-10.8)
[2018-11-24 05:54] LABS: INR 0.88 (0.77-1.02)
[2018-11-24 06:17] LABS: Troponin I 0.03 ng/mL (<0.04)
[2018-11-24 06:18] LABS: ALT 231 U/L (7-52); AST 309 U/L (13-39); Albumin 3.9 g/dL (3.2-5.2); Albumin/Globulin Ratio 1.7 (1-3); Alkaline Phosphatase 100 U/L (34-104); Anion Gap 6 mmol/L (2-11); BUN/Creatinine Ratio 16.5 (8-20); Blood Urea Nitrogen 14 mg/dL (6-24); C Reactive Protein 1.15 mg/L (<8.01); CO2 Carbon Dioxide 26 mmol/L (22-32); Calcium 8.7 mg/dL (8.6-10.3); Chloride 105 mmol/L (101-111); EGFR African American 79.5 (>60); EGFR Non-African American 65.7 (>60); Globulin 2.3 g/dL (2-4); Glucose 105 mg/dL (70-100); Magnesium 2.1 mg/dL (1.9-2.7); Potassium 4.3 mmol/L (3.5-5.0); Sodium 137 mmol/L (135-145); Total Protein 6.2 g/dL (6.4-8.9)
[2018-11-24 06:19] LABS: Alcohol < 10 mg/dL (<10)
[2018-11-24 06:30] LABS: TSH (Thyroid Stimulating Horm) 3.54 mcIU/mL (0.34-5.60)
[2018-11-24] MEDS ORDERED: NS 0.9% 1000 ML** 1,000 ML IV.FLUID IV ONE (07:40)
--- NOTE | 2018-11-24 07:55 | ED ---
HPI Cardiac - HPI Summary HPI Summary: Patient arrives by EMS with a concern for cardiac arrest. Daughter and giving a history. states patient with shortness of breath and used her inhaler. As they were setting up for her nebulizer treatment, patient became unresponsive. She was not talking and slumped to the floor. The proceeded to call 911 and was told to start chest compressions. did not check for a pulse. She was on the ground for 10 minutes prior to EMS arrival. EMS continued chest compressions and checked for a pulse which she had. She also began to arouse and they ceased compressions. She states on arrival she does not recall getting up this morning, but remembers the ambulance ride. She endorses fatigue and chest wall discomfort (from compressions) denies any chest pain otherwise. Denies SOB. - History of Current Complaint Chief Complaint: EDCardiacArrest Stated Complaint: RESPIRATORY DISTRESS PER EMS Time Seen by Provider: 11/24/18 05:30 Hx Obtained From: Patient Hx Last Menstrual Period: unknown Onset/Duration: Started Minutes Ago Timing: Constant Initial Severity: Mild Current Severity: None Pain Intensity: 0 Pain Scale Used: 0-10 Numeric Aggravating Factor(s): Nothing Alleviating Factor(s): Nothing - Risk Factors Pulmonary Embolism Risk Factors: Negative Cardiac Risk Factors: Negative - Additional Pertinent History Primary Care Physician: Dr. Miles - Allergy/Home Medications Allergies/Adverse Reactions: Allergies Allergy/AdvReac Type Severity Reaction Status Date / Time bee venom protein (honey bee) Allergy Unknown Verified 09/09/18 15:09 Reaction Details lisinopril Allergy Coughing Verified 09/09/18 15:09 metoprolol Allergy Unknown Verified 09/09/18 15:09 Reaction Details Sulfa (Sulfonamide Allergy Hives Verified 09/09/18 15:09 Antibiotics) PMH/Surg Hx/FS Hx/Imm Hx Previously Healthy: Yes Endocrine/Hematology History: Reports: Hx Anticoagulant Therapy - Plavix., Hx Thyroid Disease Denies: Hx Diabetes Cardiovascular History: Reports: Hx Angina, Hx Coronary Artery Disease - stents 2005, Hx Hypercholesterolemia, Hx Hypertension, Other Cardiovascular Problems/ Disorders - Takosubo last year Denies: Hx Congestive Heart Failure, Hx Deep Vein Thrombosis, Hx Myocardial Infarction, Hx Pacemaker/ICD Respiratory History: Reports: Hx Asthma, Hx Chronic Obstructive Pulmonary Disease (COPD), Hx Pneumonia, Other Respiratory Problems/Disorders - HX OF PNEUMONIA 3/4 TIMES Denies: Hx Lung Cancer, Hx Pulmonary Embolism GI History: Reports: Hx Gastroesophageal Reflux Disease Denies: Hx Gall Bladder Disease, Hx Gastrointestinal Bleed, Hx Ulcer, Hx Urosepsis History: Reports: Hx Renal Disease - ARF in 20's Denies: Hx Kidney Stones Musculoskeletal History: Reports: Hx Back Problems - Chronic back pain, Hx Osteoporosis Sensory History: Reports: Hx Cataracts, Hx Contacts or Glasses Denies: Hx Hearing Aid Opthamlomology History: Reports: Hx Cataracts, Hx Contacts or Glasses Neurological History: Reports: Hx Headaches Denies: Hx Dementia, Hx Migraine, Hx Seizures, Hx Transient Ischemic Attacks (TIA) Psychiatric History: Reports: Hx Eating Disorder - restriction, Hx Depression, Hx of Violent Episodes Against Others Denies: Hx Anxiety, Hx Panic Disorder, Hx Schizophrenia, Hx Bipolar Disorder - Cancer History Hx Chemotherapy: No Hx Radiation Therapy: No - Surgical History Surgery Procedure, Year, and Place: HYSTERECTOMY 40 YRS AGO,. BILATERAL CARPAL TUNNEL 20 YRS AGO. 2005 - stents placed/cardiac,. GROWTH REMOVED ON RIGHT FOOT X2. CATARACT Hx Anesthesia Reactions: No - slow to wake up prn Infectious Disease History: No Infectious Disease History: Denies: Hx Clostridium Difficile, Hx Hepatitis, Hx Human Immunodeficiency Virus (HIV), Hx of Known/Suspected MRSA, Hx Shingles, Hx Tuberculosis, Hx Known/ Suspected VRE, Hx Known/Suspected VRSA, History Other Infectious Disease, Traveled Outside the [place] in Last 30 Days - Family History Known Family History: Positive: Cardiac Disease, Hypertension, Diabetes - Social History Occupation: Unemployed Lives: With Family Alcohol Use: Daily Alcohol Amount: beer Hx Substance Use: No Substance Use Type: Reports: None Hx Tobacco Use: Yes Smoking Status (MU): Former Smoker Type: Cigarettes Amount Used/How Often: 5 CIG/DAY. smoking for 50 years Have You Smoked in the Last Year: Yes Review of Systems Positive: Fatigue. Negative: Fever, Chills, Skin Diaphoresis Negative: Dental Pain Negative: Palpitations, Chest Pain Negative: Shortness Of Breath, Cough Genitourinary: Negative Positive: no symptoms reported, see HPI Negative: Arthralgia, Myalgia Skin: Negative Negative: Anxious, Depressed All Other Systems Reviewed And Are Negative: Yes NIH Scale - NIH Scale Level of Consciousness: Alert/Keenly Responsive Ask Pt to Open/Close Eyes and In Home Sales Representative/Release Non-Paretic Hand: Both Correctly Best Gaze (Only Horizontal Eye Movement): Normal Visual Field Testing: No Visual Loss Facial Paresis-Pt to Smile & Close Eyes or Grimace Symmetry: Normal/Symmetrical Motor Function - Right Arm: No Drift-Holds 10 Seconds Motor Function - Left Arm: No Drift-Holds 10 Seconds Motor Function - Right Leg: No Drift-Holds 10 Seconds Motor Function - Left Leg: No Drift-Holds 10 Seconds Limb Ataxia-Must be out of Proportion to Weakness Present: Absent Sensory (Use Pinprick to Test Arms/Legs/Trunk/Face): Normal Best Language (Describe Picture, Name Items): No Aphasia Dysarthria (Read Several Words): Normal Extinction and Inattention: No Abnormality Physical Exam Triage Information Reviewed: Yes Vital Signs On Initial Exam: Initial Vitals Temp Pulse Resp BP Pulse Ox 98.5 F 73 16 130/72 96 11/24/18 05:13 11/24/18 05:13 11/24/18 05:13 11/24/18 05:13 11/24/18 05:13 Vital Signs Reviewed: Yes Appearance: Positive: No Pain Distress, Thin, Cachectic Skin: Positive: Warm, Skin Color Reflects Adequate Perfusion Eyes: Positive: EOMI, AMADOR, Conjunctiva Clear Neck: Positive: Supple, Nontender, No Lymphadenopathy Respiratory/Lung Sounds: Positive: Clear to Auscultation Cardiovascular: Positive: RRR, Pulses are Symmetrical in both Upper and Lower Extremities. Negative: Tachycardia, Leg Edema Left, Leg Edema Right Abdomen Description: Positive: Nontender, Soft. Negative: CVA Tenderness (R), CVA Tenderness (L) Musculoskeletal: Positive: Normal, Strength/ROM Intact. Negative: Edema Left, Edema Right Neurological: Positive: Sensory/Motor Intact, Alert, Oriented to Person Place, Time, Speech Normal. Negative: Disoriented Psychiatric: Positive: Normal, Affect/Mood Appropriate AVPU Assessment: Alert Diagnostics - Vital Signs Vital Signs Temp Pulse Resp BP Pulse Ox 11/24/18 05:13 98.5 F 73 16 130/72 96 - Laboratory Lab Results: Lab Results 11/24/18 11/24/18 11/24/18 Range/Units 05:39 05:39 05:39 WBC 9.9 (3.5-10.8) 10^3/uL RBC 4.22 (3.70-4.87) 10^6 /uL Hgb 11.4 L (12.0-16.0) g/dL Hct 34 (33-41) % MCV 81 (80-97) fL MCH 27 (27-31) pg MCHC 33 (31-36) g/dL RDW 16 H (10.5-15) % Plt Count 288 (150-450) 10^3/uL MPV 7.0 L (7.4-10.4) fL Neut % (Auto) 86.3 % Lymph % (Auto) 5.7 % Rock % (Auto) 5.8 % Eos % (Auto) 1.8 % Baso % (Auto) 0.4 % Absolute Neuts (auto) 8.6 H (1.5-7.7) 10^3/ul Absolute Lymphs (auto) 0.6 L (1.0-4.8) 10^3/ul Absolute Monos (auto) 0.6 (0-0.8) 10^3/ul Absolute Eos (auto) 0.2 (0-0.6) 10^3/ul Absolute Basos (auto) 0 (0-0.2) 10^3/ul Absolute Nucleated RBC 0 10^3/ul Nucleated RBC % 0 INR (Anticoag Therapy) 0.88 (0.77-1.02) Sodium 137 (135-145) mmol/L Potassium 4.3 (3.5-5.0) mmol/L Chloride 105 (101-111) mmol/L Carbon Dioxide 26 (22-32) mmol/L Anion Gap 6 (2-11) mmol/L BUN 14 (6-24) mg/dL Creatinine 0.85 (0.51-0.95) mg/dL Est GFR ( Amer) 79.5 (>60) Est GFR (Non-Af Amer) 65.7 (>60) BUN/Creatinine Ratio 16.5 (8-20) Glucose 105 H (70-100) mg/dL Lactic Acid (0.5-2.0) mmol/L Calcium 8.7 (8.6-10.3) mg/dL Magnesium 2.1 (1.9-2.7) mg/dL Total Bilirubin 0.40 (0.2-1.0) mg/dL AST 309 H (13-39) U/L ALT 231 H (7-52) U/L Alkaline Phosphatase 100 (34-104) U/L Troponin I 0.03 (<0.04) ng/mL C-Reactive Protein 1.15 (<8.01) mg/L Total Protein 6.2 L (6.4-8.9) g/dL Albumin 3.9 (3.2-5.2) g/dL Globulin 2.3 (2-4) g/dL Albumin/Globulin Ratio 1.7 (1-3) TSH 3.54 (0.34-5.60) mcIU/mL Serum Alcohol < 10 (<10) mg/dL 11/24/18 Range/Units 05:39 WBC (3.5-10.8) 10^3/uL RBC (3.70-4.87) 10^6 /uL Hgb (12.0-16.0) g/dL Hct (33-41) % MCV (80-97) fL MCH (27-31) pg MCHC (31-36) g/dL RDW (10.5-15) % Plt Count (150-450) 10^3/uL MPV (7.4-10.4) fL Neut % (Auto) % Lymph % (Auto) % Rock % (Auto) % Eos % (Auto) % Baso % (Auto) % Absolute Neuts (auto) (1.5-7.7) 10^3/ul Absolute Lymphs (auto) (1.0-4.8) 10^3/ul Absolute Monos (auto) (0-0.8) 10^3/ul Absolute Eos (auto) (0-0.6) 10^3/ul Absolute Basos (auto) (0-0.2) 10^3/ul Absolute Nucleated RBC 10^3/ul Nucleated RBC % INR (Anticoag Therapy) (0.77-1.02) Sodium (135-145) mmol/L Potassium (3.5-5.0) mmol/L Chloride (101-111) mmol/L Carbon Dioxide (22-32) mmol/L Anion Gap (2-11) mmol/L BUN (6-24) mg/dL Creatinine (0.51-0.95) mg/dL Est GFR ( Amer) (>60) Est GFR (Non-Af Amer) (>60) BUN/Creatinine Ratio (8-20) Glucose (70-100) mg/dL Lactic Acid 1.7 (0.5-2.0) mmol/L Calcium (8.6-10.3) mg/dL Magnesium (1.9-2.7) mg/dL Total Bilirubin (0.2-1.0) mg/dL AST (13-39) U/L ALT (7-52) U/L Alkaline Phosphatase (34-104) U/L Troponin I (<0.04) ng/mL C-Reactive Protein (<8.01) mg/L Total Protein (6.4-8.9) g/dL Albumin (3.2-5.2) g/dL Globulin (2-4) g/dL Albumin/Globulin Ratio (1-3) TSH (0.34-5.60) mcIU/mL Serum Alcohol (<10) mg/dL Result Diagrams: 11/24/18 05:39 11/24/18 05:39 Lab Statement: Any lab studies that have been ordered have been reviewed, and results considered in the medical decision making process. Disposition - Course Course Of Treatment: Patient arrives by EMS with a concern for cardiac arrest. Daughter and giving a history. states patient with shortness of breath and used her inhaler. As they were setting up for her nebulizer treatment, patient became unresponsive. She was not talking and slumped to the floor. The proceeded to call 911 and was told to start chest compressions. did not check for a pulse. She was on the ground for 10 minutes prior to EMS arrival. EMS continued chest compressions and checked for a pulse which she had. She also began to arouse and they ceased compressions. She states on arrival she does not recall getting up this morning , but remembers the ambulance ride. She endorses fatigue and chest wall discomfort (from compressions) denies any chest pain otherwise. Denies SOB. Per daughter, she likely has new onset dementia and she has lost 20 pounds in the past 6-8 weeks. She has a history of alcohol abuse and recently diagnosed bipolar. She was also recently seen for hypokalemia and hyponatremia. Per her daughter and son, she is likely not been taking her medications although she states she is. on physical examination, patient appears fatigued, but no other signs of trauma. Chest wall tenderness to palpation throughout. No pain to the abdomen. No CVA tenderness. No leg swelling or edema. Lungs CTA, RRR, although breath sounds are decreased bilaterally. Labs obtained which show an elevated liver enzymes of AST of 309 and ALT of 231. Total bilirubin is 0.4. Troponin is 0.03. Serum alcohol is negative. Discussed the case with Dr. cobb , hospitalist who agrees to admit for further evaluation. While in the ED, she is given 1 L normal saline. - Differential Dx - Cardiopulmonary Differential Diagnoses - Cardiopulmonary: Other - [place], SOB, syncope, transaminitis - Diagnoses Provider Diagnoses: Unresponsive episode Is Visit Related: No - Physician Notifications Discussed Care Of Patient With: Angelita Cbob Instructed by Provider To: Admit As Inpatient - Critical Care Time Critical Care Time: 30-74 min Discharge - Sign-Out/Discharge Documenting (check all that apply): Patient Departure Patient Received Moderate/Deep Sedation with Procedure: No - Discharge Plan Condition: Fair Disposition: ADMITTED TO [facility] Referrals: Lina Miles MD [Primary Care Provider] - - Billing Disposition and Condition Condition: FAIR Disposition: Admitted to [facility]
[2018-11-24 09:05] LABS: Urine Appearance Clear; Urine Bilirubin Negative (Negative); Urine Blood Negative (Negative); Urine Color Yellow; Urine Glucose 1+(50 mg/dL) (Negative); Urine Ketones Trace (Negative); Urine Nitrite Negative (Negative); Urine Protein Negative (Negative); Urine Specific Gravity 1.008 (1.010-1.030); Urine Urobilinogen Negative (Negative)
[2018-11-24] MEDS ORDERED: Albuterol/Ipratropium NEB.SOL* Albuterol 2.5 MG/Ipratropium 0.5 MG 3 ML INH PRN (10:32)
[2018-11-24] MEDS ORDERED: Albuterol HFA INHALER* 8 gm MDI INH PRN (10:32)
[2018-11-24] MEDS ORDERED: Temazepam CAP* 15 MG PO PRN (10:32)
[2018-11-24 10:56] LABS: Barbiturates Urine Screen None Detected (None Detect); Benzodiazepine Urine Screen None Detected (None Detect); Urine Cannabinoids Screen None Detected (None Detect)
[2018-11-24] MEDS: Enoxaparin(*) 40 MG/0.4 ML SYR SUBCUT SCH (11:57)
[2018-11-24] MEDS: amLODIPine TAB* 5 MG PO SCH (11:57)
[2018-11-24] MEDS: Lidocaine PATCH 5%* 1 PATCH TRANSDERM SCH (11:58)
[2018-11-24 12:07] LABS: Hepatitis C Antibody Nonreactive (Nonreactive)
[2018-11-24 12:11] LABS: Hepatitis B Surface Antigen Nonreactive (Nonreactive)
[2018-11-24] MEDS: Acetaminophen TAB* 325 MG PO PRN ×2 (13:12→22:21)
[2018-11-24] MEDS: Ondansetron INJ* 2 MG/ML VIAL IV SCH ×3 (14:13→22:23)
--- NOTE | 2018-11-24 14:16 | HP ---
HISTORY AND PHYSICAL: DATE OF ADMISSION: 11/24/18 PRIMARY CARE PROVIDER: Dr. Miles. MANAGER ENVIRONMENTAL HEALTH AND SAFETY: Asad An, patient's . CODE STATUS: DNR. CHIEF COMPLAINT: Altered mental status and transaminitis. SOURCE OF INFORMATION: HPI is obtained from the family, chart review, and patient herself. She is an adequate historian. HISTORY OF PRESENT ILLNESS: This is a 73-year-old female with past medical history of CAD, status post PCI; hypertension; hyperlipidemia; distant history of takotsubo cardiomyopathy with no resultant heart failure; COPD; hypothyroidism; mood disorder and newly diagnosed mild cognitive impairment; daily alcohol use with no history of withdrawal; tobacco use. She was brought in by ambulance after her found her nonresponsive. Per and daughter, the patient woke up this morning and said that she felt a little bit short of breath, they were loading a nebulizer for her and when she stood up to go receive nebulizer she became acutely tachypneic and then became dizzy, needing to be held up by her and then slumped over and they were unable to arose her. They did not check for her pulse. They thought that she was still breathing. 911 was called and they instructed the family to start chest compression which they did, EMS arrived roughly 10 minutes later and they noted that the patient at the time did have a pulse. They stopped compressions and when EMS had arrived, she was already arousing and then they brought her to the emergency room for workup. EMS also reports that in the field, she had normal vital signs with sinus rhythm in the 70s. When the patient arrived in the emergency room, her GCS was 15. She was slow to respond initially. Her blood pressure was 143/73, pulse 70, respiratory rate of 20, oxygen sat of 97, she was afebrile. The patient herself says she has no recollection of the event that the last time she remembers feeling well with waking up this morning and the day prior to admission was wholly uneventful. She said that in the last 2 months that her depression has worsened. She has had decreased appetite. She has seen a primary care provider and she was recently started on new psychiatric medications although she cannot which ones. She has had mild headaches and also has had worsening diarrhea over the past month and half that she attributed to dietitian discussion, although she has never had these type of symptoms before; furthermore that she has had unintended weight loss of about 15 pounds in 2 months. This is corroborated by our weights. She was last hospitalized here in August 2018, she was 115; on admission today she is 105. Furthermore, the patient endorses that she stopped taking any of her medications altogether. She denies fevers, chills. She denies new vision changes. She denies chest pain, shortness of breath, cough, or URI symptoms. She denies nausea or vomiting or lara abdominal pain. She denies dysuria, hematuria. She denies new myalgias, arthralgias, or weakness. She denies focal weakness, numbness, or confusion. She does endorse worsening depression. Denies anxiety, auditory, or visual hallucinations. She denies polyuria, polydipsia. She denies easy bruising or bleeding. EMERGENCY ROOM COURSE: Patient had labs drawn, which were remarkable only for CBC showing hemoglobin of 11, INR was normal. CMP was done, which was unremarkable save for new transaminitis with AST of 309, ALT of 231, and alk phos of 100, troponin's are flat at 0.03. Imaging completed in the emergency room included a CT head, which showed mild volume loss but no acute intracranial pathology. Chest x- ray showed COPD with no acute infiltrate. EKG showed normal sinus rhythm with borderline left axis deviation but no active ischemia. Hospitalist team was asked to evaluate this patient for further monitoring and evaluation for new transaminitis as well as acute episode of altered mental status and possible syncope in the home. PAST MEDICAL HISTORY: CAD, status post PCI; hypertension; hyperlipidemia; takotsubo cardiomyopathy, distant, with no resultant heart failure; COPD; hypothyroidism; bipolar depression; mild cognitive impairment; daily alcohol use without history of withdrawal; tobacco use. PAST SURGICAL HISTORY: She has had hysterectomy. She had her stents placed with angioplasty. MEDICATIONS: 1. Albuterol 2 puffs inhaled q.i.d. p.r.n. 2. Amlodipine 10 mg p.o. daily. 3. Atorvastatin 80 mg p.o. daily. 4. EpiPen p.r.n. for severe allergic reaction. 5. Advair 1 puff inhaled b.i.d. 6. Valsartan 320 mg p.o. daily. 7. DuoNebs inhaled q.6 hours p.r.n. 8. Aspirin 81 mg p.o. daily. 9. Clonidine 0.1 mg p.o. b.i.d. 10. Clopidogrel 75 mg p.o. daily. 11. Lidocaine patch to low back q.12 hours. 12. Mometasone/formoterol 2 puffs inhaled b.i.d. 13. Pantoprazole 40 mg p.o. daily. 14. Paroxetine 40 mg p.o. daily. 15. Temazepam 15 mg p.o. q.h.s. 16. Tiotropium 1 cap inhaled daily. ALLERGIES: BEES, LISINOPRIL, METOPROLOL. FAMILY HISTORY: Significant for hypertension and heart disease in her father and diabetes in her mother. 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 Alcohol use is daily 3 to 5 drinks, tobacco use is daily, one-half pack per day, with a 40-pack- year history. Illicits, she has no history of. REVIEW OF SYSTEMS: As per HPI with no additional findings and notably positive for unintended weight loss of 10 pounds, diarrhea 3 or 4 episodes a day and worsening depression in the last 2 months. PHYSICAL EXAMINATION GENERAL: This is a well-appearing woman sitting up in bed, in no acute distress , although does endorse depression. VITAL SIGNS: At the time of physical exam, patient is 155/75, afebrile, heart rate sinus in the 70s, satting 98% on room air. HEENT: She is normocephalic, atraumatic. Pupils are equal and reactive. Oropharynx is clear. NECK: Supple. No supraclavicular or cervical lymphadenopathy. LUNGS: Chest is clear to auscultation with distant lung sounds and mild expiratory wheezes. CARDIAC: She has regular rate and rhythm with no murmurs, rubs or gallops. ABDOMEN: Belly is scaphoid, soft, nondistended, nontender to any quadrant. No rebound. No guarding and no palpable hepatosplenomegaly. MUSCULOSKELETAL: She moves all 4 extremities spontaneously and denies any pain on passive or active range of motion. SKIN: Has no evidence of new ulcers or lesions. NEURO: Cranial nerves II through XII are intact. She has no focal weakness. Her sensation is intact bilaterally. She is A and O x4. DIAGNOSTIC STUDIES/LAB DATA: CBC with a white blood cell count of 9.9, hemoglobin 11.4, hematocrit 34, platelets 288. CMP: Sodium 137, potassium 4.3 , chloride 105, carbon dioxide 26, BUN 14, creatinine 0.85, glucose 105, lactic acid 1.7. Total bilirubin of 0.4, AST 309, ALT 231, alk phos 100, troponin 0.03 , CRP 1.15. Total protein 6.2, albumin 3.9, globulin 2.3. Vitamin B12 is 751, folate is 15. TSH is 3.54. Chest x-ray shows chronic COPD changes without evidence of acute infiltrate. Brain CT shows mild volume loss with no acute intracranial pathology. Abdominal ultrasound was ordered in the emergency room and shows a liver that is normal in shape, size, contour, and echogenicity, with no focal parenchymal masses. No hepatic dilatation. Common bile duct is 0.6 cm. Gallbladder shows a 0.3 cm nodular focus consistent with a gallbladder wall polyp. Negative Aviles sign. No pleural effusion and no ascites is noted. EKG was done, which showed normal sinus rhythm with borderline left axis deviation with no active ischemia. Images and EKG reviewed by myself, also of note the patient had an echocardiogram done in August 2018, which shows a normal ejection fraction, left ventricular function as well as no evidence of diastolic dysfunction with normal valves. ASSESSMENT AND PLAN: This is a 73-year-old female with past medical history of CAD, status post PCI, hypertension, hyperlipidemia, history of takotsubo cardiomyopathy, COPD, hypothyroidism, bipolar depression and newly diagnosed dementia, was brought in by ambulance after noted a syncopal and nonresponsive at home that had wholly resolved by the time she came to the emergency room and she also has a new transaminitis in the setting of unintended weight loss of 10 pounds over 2 months. 1. Elevated LFTs, this is a noncholestatic pattern. I have ordered a right upper quadrant ultrasound which does not show any focal parenchymal masses. We will send for a hep panel. Her AST to ALT ratio is 1 and she did not have a significant alcohol history that is contributing with her last drink over 4 days ago; furthermore we will rule out auto-immune and transaminitis. The patient does report starting new medications in the last 2 months and will have to call Dr. Kimbrough's office to determine if this is a drug-induced liver injury , although LFTs are only moderately elevated for this kind of injury, consider consulting GI. 2. Unintended weight loss, family attributes this to failure to thrive as she has had significant depression in the last 2 months and has refused counseling or further discussion with anyone. We will also consider a CT of chest, abdomen , and pelvis for unintended weight loss workup. 3. Altered mental status and syncopal event in the home. Unclear what prompted this and it had wholly resolved by the time she came to the emergency room; possibilities include vasovagal event or hypoxia triggering acute neurologic event. She has no evidence of stroke or TIA. She has no evidence of massive pulmonary embolism. Cardiac etiology with flat troponins and patient is GCS A and O x4 upon arrival. We will continue to monitor in the setting in the hospital. 4. CAD. We will continue beta-elis and aspirin. We will hold statin at this time given her elevated LFTs. 5. COPD. Possibly hypoxia did trigger this altered mental status/syncopal event in the home. She has a mild wheeze and we will continue to offer her DuoNebs and determine if she has any worsening respiratory distress consistent with a COPD exacerbation, although at the time of evaluation patient did not seem in worsening respiratory status. 6. Hypothyroidism, TSH is normal. 7. Bipolar depression. Need to call Dr. Miles's office to determine what new medications are; currently she is listed as taking Paxil. 8. Newly diagnosed mild cognitive impairment, will also need to get collateral information from primary care's office to determine what most recent MoCA is. 9. Daily alcohol use and tobacco use. The patient's last drink was over 3 days ago witnessed by her . She had one beer at that time. She has never had any history of withdrawal or needed significant treatment for alcohol use disorder. We will continue to monitor. 10. Hypertension. We will resume her home amlodipine and ARB in place of valsartan. 11. Hyperlipidemia. As above, we are holding her statin in the setting of new transaminitis. 12. DVT prophylaxis. She will be placed on Lovenox. 13. FEN. She has a heart-healthy diet. 14. Code status: DNR/DNI. Clearly documented by the patient herself. TIME SPENT: Was 45 minutes in the planning of this admission and execution of this H and P with over half of that was spent directly at the bedside of the patient providing direct patient care. Plan of care is reviewed with patient and her family and they are agreeable to admission for continued workup of new transaminitis and presumed syncopal event in the home. [id number]/CPS #: [id number] MTDD
[2018-11-24] MEDS ORDERED: Ibuprofen TAB* 600 MG PO PRN (17:24)
--- NOTE | 2018-11-24 19:30 | CONS ---
CONSULTATION REPORT: DATE OF CONSULT: 11/24/18 INDICATION: Increased liver function tests. NARRATIVE: Ms. An is a pleasant 73-year-old female, who was brought in by ambulance after being found down and unresponsive. She does not remember anything about this. She did have labs checked in the ED and she was found to have increased transaminases. Going back to September of this year, her transaminases were normal. She states that she has never had any liver diseases in the past. She does consume alcohol on a regular basis, she tells me 1 beer every now and then; however, in the chart, it appears that it is more of a significant alcohol use, upwards of 3 to 5 drinks per night. She denies any history of jaundice or dark urine. She denies any history of hepatitis exposures. 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 No family history of liver disease. She denies any new medications. No recent antibiotics. No herbs or over-the- counter supplements. She has not been taking any significant amounts of acetaminophen. She does feel extremely fatigued and worn out. No fevers or chills. No rashes anywhere. PAST MEDICAL HISTORY: Significant for coronary artery disease, hypertension, hyperlipidemia, cardiomyopathy, COPD, mild dementia, depression, bipolar. PAST SURGICAL HISTORY: Includes angioplasty with coronary artery stents and hysterectomy. MEDICATIONS UPON ADMISSION: Include: 1. Albuterol. 2. Amlodipine. 3. Atorvastatin. 4. Advair. 5. Valsartan. 6. Aspirin. 7. Clonidine. 8. Plavix, which she has been on for a while. 9. Lidocaine patch. 10. Pantoprazole. 11. Paroxetine. ALLERGIES: To LISINOPRIL and METOPROLOL. FAMILY HISTORY: Significant for diabetes and coronary artery disease. SOCIAL HISTORY: Positive alcohol. She continues to smoke. I counseled her against this. She lives at home with her . She is retired. REVIEW OF SYSTEMS: Twelve systems were reviewed and other than that mentioned in the HPI were unremarkable. PHYSICAL EXAM: Blood pressure is 180/70, pulse is 91, respiratory rate of 18, O2 sat is 97%, temperature is 98.7. General: Chronically ill-appearing female , in no apparent distress, alert, oriented, pleasant, fluent. HEENT: Mucous membranes are moist without lesions, ulcers, or exudates. Neck is supple. Trachea is midline. No scleral icterus. Heart: Regular rate and rhythm, tachycardic. Lungs: Clear to auscultation. Some wheezing on expiration. Abdomen has positive bowel sounds. Soft, nontender, nondistended. No hepatosplenomegaly, masses, rebound, or guarding. Skin is warm and dry. No rashes. Neuro: No asterixis. DIAGNOSTIC STUDIES/LAB DATA: Labs of note, white count is 9.9, hemoglobin is 11.4, platelets of 288. INR is 0.88. Her chemistry profile was normal with the exception of a glucose of 105. Her AST is 309, ALT is 231, both of these were normal back on 2018. TSH is normal at 3.54. Alcohol level of less than 10. Her tox screen is negative. Hepatitis A, B and C all nonreactive. She does have a right upper quadrant ultrasound from today, which shows a 3 mm gallbladder wall polyp, otherwise normal. She also had an MRCP in 2017 that was unremarkable. ASSESSMENT AND PLAN: This is a pleasant 73-year-old female admitted for an unresponsive episode of unknown etiology, who also has increased liver function tests/transaminases that have gone up since September of this year. Ultrasound, viral hepatitis serologies have been negative so far. One possibility would be her alcohol use. She denies any significant increase. It does not appear that there is a culprit medication. I would like to rule out autoimmune hepatitis, primary biliary cholangitis, and hemochromatosis. No masses were seen on recent ultrasound. Less likely could be a CMV or an HSV hepatitis. We will check the lab work and continue to follow closely. [id number]/[facility] #: [id number] [facility]
[2018-11-24] MEDS: Mometasone/Formoter 200/5 MDI INH SCH (20:29)
[2018-11-24] MEDS ORDERED: Lidocaine Patch REMOVE* 1 NOTE MISC PATCH OFF SCH (21:00)
[2018-11-24] MEDS: Pantoprazole TAB * 40 MG TAB PO SCH (22:22)
[2018-11-24] MEDS: cloNIDine TAB* 0.1 MG PO SCH (22:22)
[2018-11-25] MEDS: Ondansetron INJ* 2 MG/ML VIAL IV SCH ×3 (03:32→12:06)
[2018-11-25 07:17] LABS: Albumin 3.5 g/dL (3.2-5.2); Albumin/Globulin Ratio 1.8 (1-3); BUN/Creatinine Ratio 10.7 (8-20); Calcium 8.5 mg/dL (8.6-10.3); EGFR African American 80.6 (>60); EGFR Non-African American 66.6 (>60); Potassium 3.2 mmol/L (3.5-5.0); Total Bilirubin 0.5 mg/dL (0.2-1.0); Total Protein 5.5 g/dL (6.4-8.9)
[2018-11-25] MEDS: Mometasone/Formoter 200/5 MDI INH SCH (08:08)
--- NOTE | 2018-11-25 08:26 | PN ---
Subjective Date of Service: 11/25/18 Interval History: HD #2 on 11/25 73 yo F with mood d/o, MCI, COPD, CAD s/p PCI, Takasubos CM, Hypothyroid who presented with a witnessed unresponsive event in the home with new transaminits Overnight, no acute events, VSS Labs: AST/ALT improving, still having diarrhea We did discuss weight loss and initiating a weight loss workup with CT C AP, she does say she has had colo, no mammo. This morning she feels better, some nausea, still with diarrhea, but does have appetitie,no pain no SOB no MSK complaints. Again offered mental health services which she adamantly declines, and family wants to respect her wishes We discuss if scan comes back reassuring will likely d/c this afternoon. Objective Active Medications: Acetaminophen (Tylenol Tab*) 650 mg PO Q6H PRN PRN Reason: FEVER/PAIN Last Admin: 11/24/18 22:21 Dose: 650 mg Albuterol (Ventolin Hfa Inhaler*) 2 puff INH Q4H PRN PRN Reason: SOB/WHEEZING Albuterol/Ipratropium (Duoneb (Albuterol 2.5 Mg/Ipratropium 0.5 Mg)) 1 neb INH Q6H PRN PRN Reason: SOB/WHEEZING Last Admin: 11/24/18 13:50 Dose: 1 neb Amlodipine Besylate (Norvasc Tab*) 10 mg PO DAILY [facility] Last Admin: 11/24/18 11:57 Dose: 10 mg Aspirin (Aspirin 81 Mg Chew Tab*) 81 mg PO DAILY [facility] Clonidine HCl (Catapres Tab*) 0.1 mg PO BID [facility] Last Admin: 11/24/18 22:22 Dose: 0.1 mg Clopidogrel Bisulfate (Plavix Tab*) 75 mg PO DAILY [facility] Device (Tiotropium Inhaler Device*) 1 each INH 0900 ONE Stop: 11/25/18 09:01 Enoxaparin Sodium (Lovenox(*)) 40 mg SUBCUT Q24H [facility] Last Admin: 11/24/18 11:57 Dose: 40 mg Ibuprofen (Motrin Tab*) 600 mg PO Q8H PRN PRN Reason: PAIN Last Admin: 11/24/18 17:53 Dose: 600 mg Lidocaine (Lidoderm 5% Patch*) 1 patch TRANSDERM DAILY [facility] Last Admin: 11/24/18 11:58 Dose: 1 patch Mometasone Furoate/Formoterol Fumar (Dulera 200/5 Mdi*) 2 puff INH BID [facility] Last Admin: 11/25/18 08:08 Dose: 2 puff Ondansetron HCl (Zofran Inj*) 4 mg IV Q4H [facility] Last Admin: 11/25/18 03:32 Dose: 4 mg Pantoprazole Sodium (Protonix Tab*) 40 mg PO BID [facility] Last Admin: 11/24/18 22:22 Dose: 40 mg Paroxetine HCl (Paxil Tab*) 40 mg PO DAILY [facility] Pharmacy Profile Note (Lidocaine Patch Remove*) 1 note PATCH OFF 2100 [facility] Last Admin: 11/24/18 22:22 Dose: 1 note Temazepam (Restoril Cap*) 15 mg PO BEDTIME PRN PRN Reason: INSOMNIA Tiotropium [place] (Spiriva Cap.Inh*) 1 cap INH DAILY [facility] Last Admin: 11/25/18 08:08 Dose: 1 cap Vital Signs - 8 hr 11/25/18 11/25/18 11/25/18 03:34 07:45 08:11 Temperature 98.3 F 97.8 F Pulse Rate 64 67 84 Respiratory 16 20 18 Rate Blood Pressure 139/59 150/63 (mmHg) O2 Sat by Pulse 98 98 98 Oximetry Oxygen Devices in Use Now: None Appearance: Pleasant woman in NAD, thin Eyes: No Scleral Icterus, PERRLA Neck: NL Appearance and Movements; NL JVP Respiratory: Symmetrical Chest Expansion and Respiratory Effort, Clear to Auscultation Cardiovascular: NL Sounds; No Murmurs; No JVD, RRR Abdominal: NL Sounds; No Tenderness; No Distention, No Hepatosplenomegaly Lymphatic: No Cervical Adenopathy Extremities: No Edema Skin: No Rash or Ulcers Neurological: Alert and Oriented x 3 Result Diagrams: 11/24/18 05:39 11/25/18 06:06 Additional Lab and Data: Lab Results 11/24/18 11/24/18 11/24/18 Range/Units 05:39 05:39 05:39 WBC 9.9 (3.5-10.8) 10^3/uL RBC 4.22 (3.70-4.87) 10^6 /uL Hgb 11.4 L (12.0-16.0) g/dL Hct 34 (33-41) % MCV 81 (80-97) fL MCH 27 (27-31) pg MCHC 33 (31-36) g/dL RDW 16 H (10.5-15) % Plt Count 288 (150-450) 10^3/uL MPV 7.0 L (7.4-10.4) fL Neut % (Auto) 86.3 % Lymph % (Auto) 5.7 % Castro % (Auto) 5.8 % Eos % (Auto) 1.8 % Baso % (Auto) 0.4 % Absolute Neuts (auto) 8.6 H (1.5-7.7) 10^3/ul Absolute Lymphs (auto) 0.6 L (1.0-4.8) 10^3/ul Absolute Monos (auto) 0.6 (0-0.8) 10^3/ul Absolute Eos (auto) 0.2 (0-0.6) 10^3/ul Absolute Basos (auto) 0 (0-0.2) 10^3/ul Absolute Nucleated RBC 0 10^3/ul Nucleated RBC % 0 INR (Anticoag Therapy) 0.88 (0.77-1.02) Sodium 137 (135-145) mmol/L Potassium 4.3 (3.5-5.0) mmol/L Chloride 105 (101-111) mmol/L Carbon Dioxide 26 (22-32) mmol/L Anion Gap 6 (2-11) mmol/L BUN 14 (6-24) mg/dL Creatinine 0.85 (0.51-0.95) mg/dL Est GFR ( Amer) 79.5 (>60) Est GFR (Non-Af Amer) 65.7 (>60) BUN/Creatinine Ratio 16.5 (8-20) Glucose 105 H (70-100) mg/dL Lactic Acid (0.5-2.0) mmol/L Calcium 8.7 (8.6-10.3) mg/dL Magnesium 2.1 (1.9-2.7) mg/dL Total Bilirubin 0.40 (0.2-1.0) mg/dL AST 309 H (13-39) U/L ALT 231 H (7-52) U/L Alkaline Phosphatase 100 (34-104) U/L Troponin I 0.03 (<0.04) ng/mL C-Reactive Protein 1.15 (<8.01) mg/L Total Protein 6.2 L (6.4-8.9) g/dL Albumin 3.9 (3.2-5.2) g/dL Globulin 2.3 (2-4) g/dL Albumin/Globulin Ratio 1.7 (1-3) TSH 3.54 (0.34-5.60) mcIU/mL Serum Alcohol < 10 (<10) mg/dL 11/24/18 Range/Units 05:39 WBC (3.5-10.8) 10^3/uL RBC (3.70-4.87) 10^6 /uL Hgb (12.0-16.0) g/dL Hct (33-41) % MCV (80-97) fL MCH (27-31) pg MCHC (31-36) g/dL RDW (10.5-15) % Plt Count (150-450) 10^3/uL MPV (7.4-10.4) fL Neut % (Auto) % Lymph % (Auto) % Castro % (Auto) % Eos % (Auto) % Baso % (Auto) % Absolute Neuts (auto) (1.5-7.7) 10^3/ul Absolute Lymphs (auto) (1.0-4.8) 10^3/ul Absolute Monos (auto) (0-0.8) 10^3/ul Absolute Eos (auto) (0-0.6) 10^3/ul Absolute Basos (auto) (0-0.2) 10^3/ul Absolute Nucleated RBC 10^3/ul Nucleated RBC % INR (Anticoag Therapy) (0.77-1.02) Sodium (135-145) mmol/L Potassium (3.5-5.0) mmol/L Chloride (101-111) mmol/L Carbon Dioxide (22-32) mmol/L Anion Gap (2-11) mmol/L BUN (6-24) mg/dL Creatinine (0.51-0.95) mg/dL Est GFR ( Amer) (>60) Est GFR (Non-Af Amer) (>60) BUN/Creatinine Ratio (8-20) Glucose (70-100) mg/dL Lactic Acid 1.7 (0.5-2.0) mmol/L Calcium (8.6-10.3) mg/dL Magnesium (1.9-2.7) mg/dL Total Bilirubin (0.2-1.0) mg/dL AST (13-39) U/L ALT (7-52) U/L Alkaline Phosphatase (34-104) U/L Troponin I (<0.04) ng/mL C-Reactive Protein (<8.01) mg/L Total Protein (6.4-8.9) g/dL Albumin (3.2-5.2) g/dL Globulin (2-4) g/dL Albumin/Globulin Ratio (1-3) TSH (0.34-5.60) mcIU/mL Serum Alcohol (<10) mg/dL Assess/Plan/Problems-Billing Assessment: 73 yo F with mood d/o, MCI, COPD, CAD s/p PCI, Takasubos CM, Hypothyroid who presented with a witnessed unresponsive event in the home with new transaminits in setting of unintended weight loss, now downtrending LFTs - Patient Problems (1) Transaminitis Current Visit: Yes Status: Acute Code(s): R74.0 - NONSPEC ELEV OF LEVELS OF TRANSAMNS & LACTIC ACID DEHYDRGNSE SNOMED Code(s): 042209164 Comment: - RUQ US, Hep panel unremarkable, trending down, meds vs EtOH - In the setting of unintended weight loss of 10lbs, though labs reassuring, will proceed with CT CAP for weight loss, and if neg, would d/c (2) COPD (chronic obstructive pulmonary disease) Current Visit: No Status: Chronic Code(s): J44.9 - CHRONIC OBSTRUCTIVE PULMONARY DISEASE, UNSPECIFIED SNOMED Code(s): 85122896 Comment: - Continue budesonide, spiriva, nebs (3) Depression Current Visit: No Status: Acute Code(s): F32.9 - MAJOR DEPRESSIVE DISORDER, SINGLE EPISODE, UNSPECIFIED SNOMED Code(s): 50803475 Comment: - With anxiety - Paroxetine as an old medication continued, I did reach out to Dr. Uriostegui office to give her an FYI and make sure no new meds are offenders (4) GERD (gastroesophageal reflux disease) Current Visit: No Status: Acute Code(s): K21.9 - GASTRO-ESOPHAGEAL REFLUX DISEASE WITHOUT ESOPHAGITIS SNOMED Code(s): 451393271 Comment: - Continue protonix (5) Hypokalemia Current Visit: No Status: Acute Code(s): E87.6 - HYPOKALEMIA SNOMED Code(s ): 51203178 Comment: - Repleted today (6) HTN (hypertension) Current Visit: No Status: Chronic Code(s): I10 - ESSENTIAL (PRIMARY) HYPERTENSION SNOMED Code(s): 42466667 Comment: Clonidine, amlodipine (7) CAD (coronary artery disease) Current Visit: No Status: Chronic Code(s): I25.10 - ATHSCL HEART DISEASE OF [place] CORONARY ARTERY W/O ANG PCTRS SNOMED Code(s): 16183211 Comment: - Continue aspirin, plavix (8) DVT prophylaxis Current Visit: No Status: Acute Code(s): MTR9117 - SNOMED Code(s): 645171378 Comment: - Lovenox (9) DNR (do not resuscitate) Current Visit: Yes Status: Acute Status and Disposition: Anticipate d/c later today if scans are reassuring
[2018-11-25] MEDS: amLODIPine TAB* 5 MG PO SCH (08:32)
[2018-11-25] MEDS: cloNIDine TAB* 0.1 MG PO SCH (08:32)
[2018-11-25] MEDS: Pantoprazole TAB * 40 MG TAB PO SCH (08:32)
[2018-11-25] MEDS: Lidocaine PATCH 5%* 1 PATCH TRANSDERM SCH (08:32)
[2018-11-25] MEDS ORDERED: PARoxetine HCL TAB* 40 MG PO SCH (09:00)
[2018-11-25] MEDS ORDERED: Aspirin 81 mg CHEW TAB* 81 MG TAB.CHEW PO SCH (09:00)
[2018-11-25] MEDS ORDERED: Potassium Chlor TAB* 20 MEQ TAB.ER PO SCH (09:00)
[2018-11-25] MEDS ORDERED: Spiriva Inhaler DEVICE* 1 EACH DEVICE INH ONE (09:00)
[2018-11-25] MEDS ORDERED: Tiotropium CAP.INH* CAP.INH/18 MCG (USE ORDER SET !) INH SCH (09:00)
[2018-11-25] MEDS ORDERED: Clopidogrel TAB* 75 MG PO SCH (09:00)
[2018-11-25] MEDS ORDERED: Potassium Chloride LIQUID* 20 MEQ PACKET PO SCH (10:09)
[2018-11-25] MEDS ORDERED: Iohexol 300* (CONTRAST) 10 ML SDV IV ONE (10:49)
[2018-11-25] MEDS: Enoxaparin(*) 40 MG/0.4 ML SYR SUBCUT SCH (12:06)
[2018-11-25 13:10] VITALS: BP 118/61
--- NOTE | 2018-11-25 21:15 | DS ---
CC: Dr. Miles * DISCHARGE SUMMARY: DATE OF ADMISSION: 11/24/18 DATE OF DISCHARGE: 11/25/18 DISPOSITION AT DISCHARGE: Stable PRIMARY CARE PROVIDER: Dr. Miles. PRIMARY DIAGNOSES: 1. Transaminitis. 2. Status post altered mental status, resolved in hospital. SECONDARY DIAGNOSES: 1. Major depressive disorder. 2. Mild cognitive impairment. 3. Chronic obstructive pulmonary disease. 4. Coronary artery disease, status post PCI. 5. Distant history of takotsubo's cardiomyopathy. 6. Hypothyroidism. MEDICATIONS ON DISCHARGE: 1. Valsartan 320 mg p.o. daily. 2. Advair 1 puff b.i.d. 3. Atorvastatin 80 mg p.o. daily. 4. Amlodipine 10 mg p.o. daily. 5. Albuterol nebs 2 puffs inhaled 4 times a day. 6. EpiPen p.r.n. 7. Spiriva 1 cap inhaled daily. 8. Temazepam 15 mg p.o. at bedtime. 9. Paroxetine 40 mg p.o. daily. 10. Pantoprazole 40 mg b.i.d. 11. Dulera 2 puffs inhaled b.i.d. 12. Lidocaine patch to sternum daily as needed for pain. 13. Clopidogrel 75 mg p.o. daily. 14. Ibuprofen 600 mg p.o. q.8 hours p.r.n. 15. Clonidine 0.1 mg p.o. b.i.d. 16. Aspirin 81 mg p.o. daily. 17. Risperdal, dose unknown, q.h.s. that was added recently in September 2018. Medication changes on this admission include the addition of lidocaine patch to chest wall. Furthermore, we discussed that if liver function tests continue to remain elevated, would recommend holding statin. HISTORY OF PRESENT ILLNESS: This is a 73-year-old female with above past medical history, who presented to the emergency room on 11/24/18 after a witnessed syncopal and unresponsive event in the home. The family reported that the patient had gotten up on the morning of 11/24/18 and said that she felt short of breath and was loading a neb and then she stood up became acutely dizzy and slumped over, became pale and unresponsive. 911 was called, who instructed the family to do CPR, which they did for until EMS arrived, although she was already starting to arouse prior to when they arrived and CPR was held. When EMS did arrive, the patient had a pulse and was slowly responsive. In the emergency room, her vital signs were stable. Her labs were wholly unremarkable including troponins, BNP, lactic acid was unremarkable and only changes included AST elevation of 309 and ALT of 231, alkaline phosphatase was 100. Folate and TSH were normal. UA was normal. Tox screen was normal. EKG showed normal sinus rhythm with no ST changes. Chest x-ray was done, which showed no acute cardiopulmonary disease. Physical exam was wholly unremarkable. The patient had no complaints whatsoever other than mild chest wall pain. She was actually ready to be discharged. She had no complaints, although hospitalist team was asked to evaluate the patient for observation in the setting of presumed syncope witnessed in the home as well as new transaminitis of a non- cholestatic pattern. HOSPITAL COURSE BY PROBLEM: 1. Altered mental status/unresponsive event in the home. Serial workup including troponin trending, EKG, chest x-ray, labs, and telemetry monitoring for more than 24 hours revealed no acute changes. Her BNP was not elevated. She has had a recent echocardiogram in the last year that actually showed improvement from a distant history of takotsubo. She does not seem volume overloaded and as best as we can guess, it seems that this presentation was most consistent with likely a syncopal or possible hypoxic event in the home that passed very quickly. The only lab abnormalities included is transaminitis , which is discussed in the next problem. 2. Transaminitis. Hepatitis panel, right upper quadrant ultrasound and CT abdomen and pelvis were pursued, which all showed nothing. GI was consulted, who recommended testing for autoimmune hepatitis and those tests are still pending at the time of discharge. The suspicion is low. She does have associated diarrhea that has been ongoing for several weeks. Stool studies were sent and no evidence of C. diff. Stool cultures were negative and pancreatic elastase as well as other stool fat were still pending at the time of discharge. Ultimately, after discussion with Dr. Miles, the patient's primary care provider, we decided to trend LFTs as an outpatient. By hospital day 2, her LFTs had trended down. The differential still remains as possible med changes, although her LFTs are not technically high enough for drug-induced liver injury and/or possible alcohol use. The patient continues to use alcohol daily and reports she stopped taking all her medications. Furthermore, could consider if her statin has any role in this, although she states she has not been taking her statin for several weeks at this point. 3. Unintended weight loss. The patient and her family on review of systems on admission in the ER do note unintended weight loss and this was documented when she was last here in the [facility]. In September 2018, her weight was 115 pounds, here on admission it is 105 pounds. As above, a CT chest, abdomen and pelvis was pursued for oncologic rule out, which all showed normal other than DJD in the spine. Furthermore, she has had a recent colonoscopy with no concerning findings and relatively she said she has had a mammogram not too long ago that was negative for any findings. With the differential for unintended weight loss remains as failure to thrive, although accompanied with transaminitis and diarrhea, it does make one concerned, although there was no discernible GI pathology that we could find in our workup. 4. Major depressive disorder. Obviously, this patient has declined in a mood disorder standpoint over the last several months. Psychiatry was offered to her. Counseling was recommended to her. She reports significant intramarital stress and denies any kind of outpatient followup with [facility], although ultimately she decided to continue the discussion with her primary care provider. 5. COPD. She had no evidence of exacerbation, no wheezing. She was satting well. No new oxygen requirements. Her home inhalers were continued. 6. Hypothyroidism. Her levothyroxine was continued. 7. GERD. We continued her Protonix. 8. Hypertension. Her clonidine and amlodipine were continued and the patient was not hypertensive at any point during her hospitalization. 9. CAD. We continued her aspirin, Plavix and statin. 10. The patient is a DNR. On 11/25/18, after reassuring scans and workup, the patient and her family felt that they wanted to return to home and would represent if symptoms got worse or any new symptoms occurred. We did plan for an outpatient followup LFT check on Saturday or Saturday prior to a followup appointment with Dr. Miles. DATA ON DAY OF DISCHARGE: BMP has a sodium of 135, potassium 3.2 which was repleted with 40 mEq of potassium, chloride 103, carbon dioxide 24, BUN 8, creatinine 0.84, glucose 99. LFTs show AST of 134, ALT of 149, and alkaline phosphatase of 78. Hepatitis panel was negative. Imaging done in this hospitalization included CT chest, abdomen and pelvis, which for the lung showed no suspicious nodules. For the abdomen, showed diverticulosis without diverticulitis, but does not show any pathology of gallbladder, pancreas or small bowel. 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 Right upper quadrant ultrasound was done, which does not show any pathology other than a benign appearing gallbladder polyp. Chest x-ray was done, which showed no acute cardiopulmonary disease other than COPD. CONSULTANTS DURING THIS HOSPITALIZATION: Include Dr. Reardon from GI, who felt that the patient was safe to be discharged home with ongoing workup for transaminitis as an outpatient. PHYSICAL EXAM ON DAY OF DISCHARGE: Notable for just a pleasant well woman, in no acute distress with no concerning findings and is documented in my progress note. ITEMS TO FOLLOWUP ON AFTER DISCHARGE: 1. Transaminitis. Please trend LFTs and can reconsult to GI as needed. She did see Dr. Reardon in the hospital and can make an appointment as needed with their office. For ongoing workup of elevated transaminitis, we did director of counseling the patient to undergo complete alcohol cessation during this time and she said that she would "think about it." 2. Mental health and failure to thrive. We assumed this weight loss is secondary to failure to thrive and we encouraged the patient to continue to follow up with mental health. Furthermore, if her unintended weight loss continues to progress, she may need further workup in the setting of this diarrhea and transaminitis. If you have any questions about the care of this patient during this hospitalization, please do not hesitate to reach out and contact me. TIME SPENT: Forty five minutes was spent on the planning of this discharge with over half of that spent directly at the bedside of the patient providing direct patient care. Her family as well as her are in agreement with discharge to home and continued follow up with primary care and we encouraged the patient to engage in a meaningful relationship with mental health. [id number]/[facility] #: [id number] [facility]
[2018-11-26 20:21] LABS: Mitochondria M2 Antibody 0.2 U
== END 2018-11-25 17:15 | disposition home or self-care (01) ==
LOC: ED 05:06 → MEDTELE 10:30 → INTOOBSV 10:30
PROVIDERS: ADMIT Internal Medicine; ATTEND Internal Medicine
DX: R74.0 Nonspecific elevation of levels of transaminase and lactic acid dehydrogenase [LDH] (principal); G31.84 Mild cognitive impairment of uncertain or unknown etiology; R41.82 Altered mental status, unspecified; F32.9 Major depressive disorder, single episode, unspecified; J44.9 Chronic obstructive pulmonary disease, unspecified; I25.10 Atherosclerotic heart disease of native coronary artery without angina pectoris; I42.9 Cardiomyopathy, unspecified; E03.9 Hypothyroidism, unspecified; Z79.82 Long term (current) use of aspirin; K21.9 Gastro-esophageal reflux disease without esophagitis; Z66 Do not resuscitate; Z88.2 Allergy status to sulfonamides; R19.7 Diarrhea, unspecified; E87.6 Hypokalemia
CPT/HCPCS: 36415; 70450; 71046; 71260; 74177; 76705; 80053; 80074; 80307; 80320; 81003; 82607; 82656; 82746; 83516; 83605; 83735; 84425; 84443; 84466; 84484; 85025; 85610; 86038; 86140; 87045; 87046; 87077; 87899; 93005; 94640; 96361; 96372; 96374; 99284; A9270-GY; G0378; G0480; J1650; J2405; Q9967

== ENCOUNTER 2019-04-14 03:48 | Inpatient (IN) | payer MEDICARE ==
[2019-04-14] MEDS ORDERED: Albuterol/Ipratropium NEB.SOL* Albuterol 2.5 MG/Ipratropium 0.5 MG 3 ML INH ONE (03:57)
[2019-04-14] MEDS ORDERED: methylPREDNISolone 125 MG* 2 ML VIAL IV ONE (03:57)
--- NOTE | 2019-04-14 03:57 | ED ---
Shortness of Breath - HPI Summary HPI Summary: Pt is a 74 y/o F presenting to the ED brought in by EMS for shortness of breath. She states she woke up and was suddenly unable to breathe. EMS gave her a breathing tx which alleviated her SOB, and she uses breathing tx and inhalers at home. She denies fevers, chills, nausea, vomiting, chest pain, diarrhea, sore throat, rhinorrhea, cough, edema, and rash. - History of Current Complaint Hx Obtained From: Patient Onset/Duration: Sudden Onset, Lasting Hours, Still Present Timing: Constant Current Severity: Moderate Dyspnea At: Rest Aggravating Factors: Nothing Alleviating Factors: EMS Tx Associated Signs & Symptoms: Negative - Allergy/Home Medications Allergies/Adverse Reactions: Allergies Allergy/AdvReac Type Severity Reaction Status Date / Time bee venom protein (honey bee) Allergy Unknown Verified 04/14/19 06:17 Reaction Details lisinopril Allergy Coughing Verified 04/14/19 06:17 metoprolol Allergy Unknown Verified 04/14/19 06:17 Reaction Details Sulfa (Sulfonamide Allergy Hives Verified 04/14/19 06:17 Antibiotics) PMH/Surg Hx/FS Hx/Imm Hx Previously Healthy: Yes Endocrine/Hematology History: Reports: Hx Anticoagulant Therapy - Plavix., Hx Thyroid Disease Denies: Hx Diabetes Cardiovascular History: Reports: Hx Angina, Hx Coronary Artery Disease - stents 2005, Hx Hypercholesterolemia, Hx Hypertension, Other Cardiovascular Problems/ Disorders - Takosubo last year Denies: Hx Congestive Heart Failure, Hx Deep Vein Thrombosis, Hx Myocardial Infarction, Hx Pacemaker/ICD Respiratory History: Reports: Hx Asthma, Hx Chronic Obstructive Pulmonary Disease (COPD), Hx Pneumonia, Other Respiratory Problems/Disorders - HX OF PNEUMONIA 3/4 TIMES Denies: Hx Lung Cancer, Hx Pulmonary Embolism GI History: Reports: Hx Gastroesophageal Reflux Disease Denies: Hx Gall Bladder Disease, Hx Gastrointestinal Bleed, Hx Ulcer, Hx Urosepsis History: Reports: Hx Renal Disease - ARF in 20's Denies: Hx Kidney Stones Musculoskeletal History: Reports: Hx Back Problems - Chronic back pain, Hx Osteoporosis Sensory History: Reports: Hx Cataracts, Hx Contacts or Glasses Denies: Hx Hearing Aid Opthamlomology History: Reports: Hx Cataracts, Hx Contacts or Glasses Neurological History: Reports: Hx Headaches Denies: Hx Dementia, Hx Migraine, Hx Seizures, Hx Transient Ischemic Attacks (TIA) Psychiatric History: Reports: Hx Eating Disorder - restriction, Hx Depression, Hx of Violent Episodes Against Others Denies: Hx Anxiety, Hx Panic Disorder, Hx Schizophrenia, Hx Bipolar Disorder - Cancer History Hx Chemotherapy: No Hx Radiation Therapy: No - Surgical History Surgery Procedure, Year, and Place: HYSTERECTOMY 40 YRS AGO,. BILATERAL CARPAL TUNNEL 20 YRS AGO. 2005 - stents placed/cardiac,. GROWTH REMOVED ON RIGHT FOOT X2. CATARACT Hx Anesthesia Reactions: No - slow to wake up prn Infectious Disease History: No Infectious Disease History: Denies: Hx Clostridium Difficile, Hx Hepatitis, Hx Human Immunodeficiency Virus (HIV), Hx of Known/Suspected MRSA, Hx Shingles, Hx Tuberculosis, Hx Known/ Suspected VRE, Hx Known/Suspected VRSA, History Other Infectious Disease, Traveled Outside the [place] in Last 30 Days - Family History Known Family History: Positive: Cardiac Disease, Hypertension, Diabetes - Social History Alcohol Use: None Alcohol Amount: beer Hx Substance Use: No Substance Use Type: Reports: None Hx Tobacco Use: Yes Smoking Status (MU): Former Smoker Type: Cigarettes Amount Used/How Often: 5 CIG/DAY. smoking for 50 years Have You Smoked in the Last Year: Yes Review of Systems Negative: Fever, Chills Negative: Sore Throat, Nasal Discharge Negative: Chest Pain Positive: Shortness Of Breath. Negative: Cough Negative: Vomiting, Nausea Negative: Edema Negative: Rash All Other Systems Reviewed And Are Negative: Yes Physical Exam - Summary Physical Exam Summary: Constitutional: Well-developed, Well-nourished, Alert. (-) Distressed Skin: Warm, Dry HENT: Normocephalic; Atraumatic Eyes: Conjunctiva normal Neck: Musculoskeletal ROM normal neck. (-) JVD, (-) Stridor, (-) Tracheal deviation Cardio: Rhythm regular, rate normal, Heart sounds normal; Intact distal pulses; The pedal pulses are 2+ and symmetric. Radial pulses are 2+ and symmetric. (-) Murmur Pulmonary/Chest wall: Effort normal. (-) Respiratory distress, few occasional wheezes present in bilateral lungs, (-) Rales Abd: Soft, (-) tenderness, (-) Distension, (-) Guarding, (-) Rebound Musculoskeletal: (-) Edema Lymph: (-) Cervical adenopathy Neuro: Alert, Oriented x3 Psych: Mood and affect Normal Triage Information Reviewed: Yes Vital Signs On Initial Exam: Initial Vitals Temp Pulse Resp BP Pulse Ox 97.6 F 81 20 106/67 96 04/14/19 03:50 04/14/19 03:50 04/14/19 03:50 04/14/19 03:50 04/14/19 03:50 Vital Signs Reviewed: Yes Diagnostics - Vital Signs Vital Signs Temp Pulse Resp BP Pulse Ox 04/14/19 03:50 97.6 F 81 20 106/67 96 - Laboratory Result Diagrams: 04/14/19 04:55 04/14/19 04:55 Lab Statement: Any lab studies that have been ordered have been reviewed, and results considered in the medical decision making process. - Radiology CXR Radiology Interpretation Completed By: Radiologist Summary of Radiographic Findings: R basilar infiltrate, pending official radiology report. - EKG 0406 Cardiac Rate: NL - 83bpm EKG Rhythm: Sinus Rhythm ST Segment: Non-Specific Ectopy: None Summary of EKG Findings: EKG at 0406 shows NSR at 83bpm with normal OR, normal QRS, borderline QTc, L axis deviation, elevated ST in v2, v3, and v4, normal T- waves. Overall this is a nonspecific LAD EKG. ST elevations unchanged from . Course/Dx - Course Course Of Treatment: Pt is a 74 y/o F presenting to the ED brought in by EMS for shortness of breath. She woke up suddenly with the SOB. She denies fevers, chills, nausea, vomiting, chest pain, diarrhea, sore throat, rhinorrhea, cough, edema, and rash. EMS gave her a breathing tx which alleviated her SOB. EKG at 0406 shows NSR at 83bpm with normal OR, normal QRS, borderline QTc, L axis deviation, elevated ST in v2, v3, and v4, normal T-waves. Overall this is a nonspecific LAD EKG. ST elevations unchanged from 11/24/18. CXR shows R basilar infiltrate, pending official radiology report. Pts lab results show Hgb of 11.4, RDW of 17, MPV of 6.6, CO2 of 20, total protein of 6.3, and troponin I of 0.24. At 0559, [place] was [place] [facility] [place] - Diagnoses Provider Diagnoses: COPD exacerbation, Elevated troponin, PNA (pneumonia), CAP (community acquired pneumonia) Discharge - Sign-Out/Discharge Documenting (check all that apply): Patient Departure - Discharge Plan Condition: Stable Disposition: ADMITTED TO [facility] Referrals: Lina Miles MD [Primary Care Provider] - - Billing Disposition and Condition Condition: STABLE Disposition: Admitted to [facility] - Attestation Statements Document Initiated by Scribe: Yes Documenting Scribe: Keyonna Caballero Provider For Whom Trevin is Documenting (Include Credential): Regina Santos MD. Scribe Attestation: I, Keyonna Caballero, scribed for Regina Bolden MD. on 04/14/19 at 0710. Scribe Documentation Reviewed: Yes Provider Attestation: The documentation as recorded by the scribe, Keyonna Caballero accurately reflects the service I personally performed and the decisions made by me, Regina Bolden MD. Status of Scribe Document: Viewed Consult Consult: [id number] - I spoke with Dr. Duke about the pt's present condition who accepted her [place] [facility]
[2019-04-14] MEDS ORDERED: ED cefTRIAXone 1 GM/50 ML 1 GM/50 ML PREMIX.SET IVPB ONE (04:48)
[2019-04-14] MEDS ORDERED: Azithromycin 500 mg/250 ml NS 500 MG/250 ML BAG IVPB ONE (05:02)
[2019-04-14 05:08] LABS: ABS Basophils 0.1 10^3/ul (0-0.2); ABS Eosinophils 0.3 10^3/ul (0-0.6); ABS Lymphocytes 1.7 10^3/ul (1.0-4.8); ABS Monocytes 0.9 10^3/ul (0-0.8); ABS Neutrophils 5.7 10^3/ul (1.5-7.7); Eosinophil % 3.3 %; Hematocrit 35 % (35-47); Hemoglobin 11.4 g/dL (12.0-16.0); Lymphocyte % 19.6 %; Mean Corpuscular HGB Conc 33 g/dL (31-36); Mean Corpuscular Hemoglobin 27 pg (27-31); Mean Corpuscular Volume 82 fL (80-97); Mean Platelet Volume 6.6 fL (7.4-10.4); Nucleated Red Blood Cells % 0.1; Platelet Count 291 10^3/uL (150-450); Red Blood Count 4.23 10^6 /uL (3.70-4.87); Red Cell Distribution Width 17 % (10-15); White Blood Count 8.6 10^3/uL (3.5-10.8)
[2019-04-14 05:31] LABS: ALT 10 U/L (7-52); AST 19 U/L (13-39); Albumin 3.8 g/dL (3.2-5.2); Albumin/Globulin Ratio 1.5 (1-3); Alkaline Phosphatase 64 U/L (34-104); Anion Gap 11 mmol/L (2-11); BUN/Creatinine Ratio 18.6 (8-20); Blood Urea Nitrogen 13 mg/dL (6-24); CO2 Carbon Dioxide 20 mmol/L (22-32); Calcium 8.8 mg/dL (8.6-10.3); Chloride 104 mmol/L (101-111); EGFR African American 99.2 (>60); Globulin 2.5 g/dL (2-4); Glucose 109 mg/dL (70-100); Potassium 3.9 mmol/L (3.5-5.0); Sodium 135 mmol/L (135-145); Total Protein 6.3 g/dL (6.4-8.9)
[2019-04-14 05:38] LABS: Troponin I 0.24 ng/mL (<0.04)
[2019-04-14] MEDS ORDERED: Aspirin 81 mg CHEW TAB* 81 MG TAB.CHEW PO ONE (05:52)
[2019-04-14] MEDS ORDERED: cefTRIAXone(*) 1 GM ADVAN/BAG ONE (05:55)
[2019-04-14] MEDS ORDERED: Iohexol 350* (CONTRAST) 500 ML MDV IV ONE (06:12)
[2019-04-14 07:48] LABS: Troponin I 0.55 ng/mL (<0.04)
[2019-04-14] MEDS ORDERED: Clopidogrel TAB* 75 MG PO SCH (10:00)
[2019-04-14] MEDS ORDERED: Magnesium Sulfate 1 GM IV* 1 GM/100 ML BAG IV ONE (10:06)
[2019-04-14 10:26] LABS: Magnesium 2.1 mg/dL (1.9-2.7)
[2019-04-14] MEDS: Enoxaparin(*) 60 MG/0.6 ML SYR SUBCUT SCH ×2 (10:39→21:41)
[2019-04-14 10:43] LABS: Troponin I 0.6 ng/mL (<0.04)
[2019-04-14] MEDS: Albuterol/Ipratropium NEB.SOL* Albuterol 2.5 MG/Ipratropium 0.5 MG 3 ML INH SCH ×4 (11:35→23:05)
[2019-04-14] MEDS ORDERED: Diltiazem TAB* 30 MG PO SCH (12:00)
--- NOTE | 2019-04-14 12:11 | CONS ---
CC: Dr. Miles; Dr. Rodriguez CARDIOLOGY CONSULTATION NOTE: DATE OF CONSULT: 04/14/19 CONSULTING PHYSICIAN: Justine Boyce MD REASON FOR EVALUATION: [id number] VT. HISTORY OF PRESENT ILLNESS: This is a very pleasant 74-year-old woman with history of stress cardiomyopathy, coronary artery disease, COPD, hypertension, who was admitted with shortness of breath. She has a history of coronary artery disease and percutaneous revascularization dating back to 2005 when she had a Cypher stent placed to diagonal, Cypher stent to LAD, stent to circumflex at [facility]. She was also admitted in 2017 with mild elevation of troponin to 1.64 after re-presenting to the ER with chest tightness for several days and she had nonspecific ST abnormalities and went to the catheterization lab and was found to have severe LV dysfunction with patent stents. It was felt that she had a stress cardiomyopathy, possibly takotsubo just prior to the stent to the proximal mid LAD. There was moderate disease. A second diagonal with 2 stents at proximal area of 60% narrowing. The cath from July 2017 also revealed proximal eccentric 35% lesion. The proximal portion of LAD after that and prior to the stent had a 50% narrowing. The distal part of the stent was noted to be 40% to 45% in-stent restenosis. The first diagonal bifurcated to lateral medial branch. The lateral branch had a 65 % to 70% lesion of small caliber vessel. The ostium of the first diagonal was 50% to 55%. The second diagonal had 2 stents, diffuse disease, up to 60% luminal reduction, multiple 30% narrowings in the RCA which is a dominant vessel and the EF was estimated at 25% with severe hypokinesis and akinesis in mid to distal anterior wall and mid to distal inferior wall with severe hypokinesis in apical region. LVEDP was elevated at 22. It was thought that perhaps she had a stress cardiomyopathy, which was treated medically, apparently had worsening of her asthma on beta-blockers. She had a repeat echo in August 2018, which revealed an EF of 55% to 60%, moderate aortic stenosis, mean gradient of 14, calculated valve area of 0.9, mild TR, no LVH. She says that she normally is able to walk for a mile at a time with her dogs, which she said she has not been doing that regularly recently because of a hot weather, which triggers her asthma as well as [place]. She also says that her back limits her at times. She said she last walk her dog about 2 weeks ago. She normally gets around the house and goes up and down the stairs to basement to do laundry without stopping for dyspnea. She said that last night at about 2 a.m., she awoke with severe shortness of breath. She sat up and seemed little better. Because of persisting shortness of breath, she decided to call an ambulance and went to the emergency room. In the emergency room, she was given inhalers, aspirin, azithromycin, ceftriaxone, and methylprednisolone and she has had some improvement in her breathing. She denies any chest tightness or pressure, no palpitations. No syncope or near syncope. She said normally she will use 1 pillow. She denies hematemesis, hematochezia, nausea, vomiting, diarrhea, fever or chills, but she does have a nonproductive cough now which she says is new. As part of her evaluation, she had a CT scan, which revealed no evidence of pulmonary edema, but there were coronary calcifications, COPD, and pulmonary fibrosis. PAST MEDICAL HISTORY: She reports that her past medical history includes coronary artery disease, status post stenting in 2005 and takotsubo in 2017; COPD; pulmonary fibrosis on her CT scan yesterday; hypothyroidism; asthma. She denies diabetes. She continues to smoke half a pack per day and has done that since her teenage years. She has a history of depression, hyperlipidemia, bipolar depression, mild cognitive impairment. PAST SURGICAL HISTORY: Includes hysterectomy, cataract surgery, carpal tunnel surgery, stents placed in 2005, bladder resuspension. MEDICATIONS: Her medications as an outpatient include: 1. Advair 230/21 two puffs by mouth twice a day. 2. Clonidine 0.1 mg twice a day. 3. Ventolin 2 puffs 4 times a day. 4. Flonase 1 spray each nostril daily. 5. Paroxetine 40 mg daily. 6. Pantoprazole 40 mg daily. 7. Clopidogrel 75 mg a day. 8. EpiPen 0.3 mg as needed for anaphylaxis. 9. Spiriva as needed. 10. Valsartan 320 mg daily. 11. Nitrostat as needed. 12. Amlodipine 10 mg daily. 13. Atorvastatin 80 mg a day. 14. Risperidone 0.5 mg a day. 15. Aspirin 81 mg a day. 16. Dulera 200/5 mcg 2 puffs b.i.d. ALLERGIES: Include bee stings, anaphylaxis; LISINOPRIL, cough; METOPROLOL, cough and worsening for asthma; SULFA, contact dermatitis. FAMILY HISTORY: Her father's history is unknown. Her mother at 83. No premature coronary artery disease. SOCIAL HISTORY: She says that she drinks 1 to 2 beers approximately 4 times a week. She drinks 2 to 3 coffees a day, caffeinated. She is , has 4 children. She lost 1 daughter of congestive heart failure. 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 REVIEW OF SYSTEMS: Review of systems x10 was negative except for above and except for 30-pound weight loss over the last several months, which she says was intentional. She cut back on junk food. PHYSICAL EXAM: She is a well-developed, well-nourished female, in no apparent distress. No significant JVD. Carotids 2+. Soft bruit or transmitted murmur on the right. No cervical adenopathy. No thyromegaly. Extraocular muscles intact. Sclerae anicteric. Atraumatic, normocephalic. Cardiac Exam: S1, S2. Somewhat distant with 2/6 systolic ejection murmur at the left sternal border. She has decreased breath sounds, prolonged expiratory phase, soft rales at the right base which incompletely clear with coughing, no CVAT. Abdomen: Bowel sounds present, nontender. Femoral pulses intact with right femoral bruit. Distal pulses intact. No edema. Motor strength 5/5 bilaterally. Deep tendon reflexes 2/4 in the lower extremities, 3/4 in the upper extremities. Negative Homans sign. Alert and oriented x3. DIAGNOSTIC STUDIES/LAB DATA: Labs include white count 8.6, hemoglobin 11.4, hematocrit 35, platelet count 291. Sodium 135, potassium 3.9, BUN 13, creatinine of 0.7. Troponin of 0.24 at 4:55 a.m. and 0.55 at 6:51 a.m. BNP of 117. CTA as mentioned above was negative for pulmonary embolism but was positive for COPD and fibrosis. EKG from 9:04 revealed sinus tachycardia with left axis deviation, left anterior hemiblock, possible anterior septal VT, nonspecific anterior ST elevations similar to the previous of 4 a.m. and 11/24/18, although there was less of a leftward axis at that time. IMPRESSION AND PLAN: My impression is that Ms. An has history of coronary artery disease, chronic obstructive pulmonary disease, continued tobacco abuse, moderate alcohol use, history of stress cardiomyopathy, now with shortness of breath and mildly elevated troponins of unclear etiology. This may be demand ischemia and injury related to chronic obstructive pulmonary disease exacerbation given her cough. We treat her underlying chronic obstructive pulmonary disease plus pulmonary infection as you are doing. Would also consider possibly recurrent acute coronary ischemia or stress cardiomyopathy. She is intolerant of beta- blockers, which limits her ability to treat her ischemia. For the time being, I recommend the followin. Would consider the possibility of using calcium channel blockers and perhaps Cardizem 120 mg a day. 2. We consider anticoagulation for [id number] VT. 3. We treat her pulmonary issues as you are doing. 4. Would obtain an echo to evaluate for LV dysfunction. 5. Would evaluate for progression of her aortic stenosis. 6. I have advised her to discontinue tobacco use. 7. Would moderate alcohol and caffeine use. 8. Would consider an exercise stress test or pharmacologic stress test if unable to achieve target heart rate to evaluate for progression of her ischemia. medical management and perhaps cardiac catheterization. [id number]/[facility] #: [id number] NEFTALY
[2019-04-14] MEDS ORDERED: Temazepam CAP* 15 MG PO PRN (12:29)
[2019-04-14] MEDS ORDERED: Spiriva HANDIHALER DEVICE (NF) 1 EACH DEVICE INH ONE (13:00)
[2019-04-14] MEDS ORDERED: Famotidine TAB* 20 MG PO ONE (13:10)
[2019-04-14 13:43] LABS: TSH (Thyroid Stimulating Horm) 2.78 mcIU/mL (0.34-5.60)
[2019-04-14] MEDS ORDERED: Nitroglycerin 0.1 mg/Hr PATCH* (2.5 MG) TRANSDERM SCH (14:00)
[2019-04-14] MEDS ORDERED: Nitroglycerin TAB 0.4 MG* 0.4 MG TAB ONE (14:03)
[2019-04-14] MEDS ORDERED: Nitroglycerin TAB 0.4 MG* 0.4 MG TAB SL STA (14:08)
--- NOTE | 2019-04-14 14:16 | HP ---
CC: Lina Miles MD * HISTORY AND PHYSICAL: DATE OF ADMISSION: 04/14/19 PRIMARY CARE PHYSICIAN: Lina Miles MD HEALTHCARE PROXY: Her , Nat An. Phone number is [phone]. CODE STATUS: DNR/DNI. CHIEF COMPLAINT: Cough and progressive shortness of breath for 3 days. HISTORY OF PRESENT ILLNESS: Ms. An is a 74-year-old woman with COPD; active tobacco use; coronary artery disease, status post PCI; hypertension; history of stress cardiomyopathy; bipolar disorder; mild cognitive impairment, who is presenting from home with progressive shortness of breath. The patient reports that she was in her usual state of health until few days ago when she noted the weather to be very hot and humid and she began to experience shortness of breath and wheezing that was associated with a new nonproductive cough. She states that she had people visiting her at home at this time, so she was ignoring her symptoms. She denies sick contacts and she denies recent upper respiratory infection symptoms. She reports that she began using her nebulizer over the last couple days but the shortness of breath has persisted. The shortness of breath is made worse by exertion, although she reports that she rarely exerts herself and she has still been able to complete all her activities of daily living. She denies fevers, chills, chest pain, abdominal pain, nausea, vomiting, constipation, diarrhea, or dysuria. She does not use oxygen at home, however, she does still continue to smoke cigarettes. She states some days it is just 3 cigarettes a day but if she is very stressed, she will still smoke up to 1 pack per day. She reports adherence to her home inhalers, however, she is unable to name them and when it was pointed out that she is prescribed both Dulera and Advair as well as Spiriva, she seemed confuse about this and it is possible that she may only use albuterol as needed. In the emergency department, the patient had oxygen saturation above 92%. She was given nebulizers IV, antibiotics, IV steroids, and then a chest CTA was performed. The CTA was negative for PE or consolidation that showed mild pulmonary emphysema with pulmonary fibrosis. As the patient's troponin was increasing with possible ST elevations on EKG, Cardiology was called and thought that this was likely from demand ischemia. However, they did order an echocardiogram and the patient was admitted for COPD exacerbation and further troponin monitoring. PAST MEDICAL HISTORY: 1. CAD, status post PCI. 2. COPD with active tobacco use. 3. Hypertension. 4. History of takotsubo cardiomyopathy. 5. Bipolar disorder. 6. Mild cognitive impairment. HOME MEDICATIONS: 1. Spiriva 1 inhalation daily, although the patient may not be taking this. 2. Amlodipine 10 mg daily. 3. Clopidogrel 75 mg daily. 4. Aspirin 81 mg daily. 5. Atorvastatin 80 mg daily. 6. Albuterol inhaler as needed. 7. DuoNebs as needed. Of note, the patient's home med list that she carries with her included clonidine, valsartan, pantoprazole, paroxetine, Dulera, and Advair, but the patient reports that she does not think she takes any of these medications. ALLERGIES: METOPROLOL causes asthma exacerbation, LISINOPRIL caused cough, SULFA ANTIBIOTICS cause hives. FAMILY HISTORY: Father, hypertension and heart disease. Mother with diabetes. SOCIAL HISTORY: The patient lives with her . 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 The patient drinks a beer approximately every day, but occasionally may have up to 3 beers per day. The patient reports active tobacco use since the age of 16 anywhere from 3 cigarettes to a whole pack per day and does not have intention to quit. Denies recreational drug use. REVIEW OF SYSTEMS: A complete 10-point review of systems was performed and pertinent positives and negatives are listed in the HPI. PHYSICAL EXAMINATION GENERAL: She is a well-appearing woman, in no acute distress. Alert and interactive. Able to speak in full sentences without increased work of breathing, frequently coughs during exam. VITAL SIGNS: Afebrile. Blood pressure 101/76, heart rate 99, respiratory rate 16, oxygen saturation 96% on room air. NECK: No JVD. Supple. LUNGS: With decreased breath sounds. No crackles, mild expiratory wheeze. HEART: Regular rate and rhythm with soft systolic ejection murmur. ABDOMEN: Soft, nontender, nondistended. EXTREMITIES: Warm and well perfused. No edema. NEUROLOGIC: A and O x3. No focal deficits. DIAGNOSTIC STUDIES/LAB DATA: WBC normal. Hemoglobin 11.4 at baseline. BMP unremarkable. Troponin increased to 0.6 from 0.24. Chest x-ray with mild airspace opacification along the right heart border which could be civil rights representative of atelectasis or infiltrate. Chest CTA without pulmonary embolus noted with mild pulmonary emphysema and pulmonary fibrosis. EKG with sinus tachycardia with rate 106 with left axis deviation with left anterior hemiblock, nonspecific anterior ST elevations. ASSESSMENT AND PLAN: Ms. An is a 74-year-old woman with chronic obstructive pulmonary disease with active tobacco use; coronary artery disease, status post stent; hypertension; bipolar disorder; cognitive impairment and history of remote takotsubo cardiomyopathy, who is presenting with subacute progressive shortness of breath associated with nonproductive cough in the setting of continued tobacco use and likely nonadherence to home inhalers. 1. Chronic obstructive pulmonary disease exacerbation. Very low suspicion at this time for infectious process given lack of fevers, leukocytosis or other symptoms concerning for infection. We will not continue IV antibiotics, but we will continue the patient on steroid burst with nebulizers as needed. Tobacco cessation counseling performed and the patient is adamant about desire to continue smoking. We will continue Spiriva and Dulera inhalers daily. 2. Coronary artery disease. Cardiology has been consulted for increasing troponin which likely represents type 2 [id number] myocardial infarction in the setting of chronic obstructive pulmonary disease exacerbation. We will continue the patient's home Plavix and aspirin for now and continue home statin. Follow up TTE. Cardiology ordered therapeutic anticoagulation while troponins are still increasing and started the patient on diltiazem 30 mg every 6 hours with hold parameters. 3. Hypertension. We will continue, the patient on diltiazem as started by Cardiology and stop her home valsartan, amlodipine, and clonidine as it is unclear if she has been adherent to these medications at home and her blood pressure in the ER was 99/60. Can start amlodipine first if further blood pressure control is needed. 4. Bipolar disorder. The patient reports that she has recently been on paroxetine and risperidone but has not been taking these medications. For now, we will not initiate these medications. The patient is not exhibiting symptoms of bipolar disorder and she can follow up with her outpatient psychiatrist. 5. For DVT prophylaxis, the patient is on therapeutic anticoagulation with Lovenox. 6. Code status. DNR/DNI. The patient expressed these wishes and was also documented in [facility] during last admission. TIME SPENT: Approximately 60 minutes was spent on admission of this patient, more than half of which was spent at the bedside for interview and exam. [id number]/[facility] #: [id number] NEFTALY
[2019-04-14] MEDS: Mometasone/Formoter 200/5 MDI INH SCH ×2 (14:35→19:46)
[2019-04-14] MEDS: Tiotropium CAPSULE (NF) 1 CAP/18 MCG CAP.INH INH SCH (14:36)
[2019-04-14 14:41] LABS: Troponin I 0.83 ng/mL (<0.04)
[2019-04-14] MEDS: Carvedilol TAB* 3.125 MG PO SCH ×2 (16:47→21:41)
--- NOTE | 2019-04-14 16:55 | ECHO ---
*[facility]* [place] [address] Fax #: [phone] Transthoracic Echocardiogram Patient: Daniela An : 1945 Study Date: 04/14/2019 Age: 74 Gender: F HR: 96 bpm Height: 59 in /149.9 cm BSA: 1.37 m^2 Weight: 99.8 lb /45.4 kg BMI: 20.2 kg/m^2 *Access Analyst: * Trista Boswell RDCS RN *Referring Physician: * Roberth Molina MD *Reading Physician: * Roberth Molina MD Indications: Myocardial Infarction (new). SOB. Valvular disease. History: Coronary artery disease. Takotsubo cardiomyopathy. Chronic obstructive pulmonary disease. Risk factors: Current tobacco use. Hypertension. Dyslipidemia. Labs, prior tests, procedures, and surgery: Catheterization with coronary intervention. Conclusions Summary: - Impressions: The study is similar to the study of July 2017 in terms of ejection fraction and wall motion. The ejection fraction has decreased from 08/11/17 when it was 55-60%.. - Left ventricle: The estimated ejection fraction is 20-25%. - Regional wall motion abnormality: Akinesis of the mid anteroseptal, apical inferior, and apical septal myocardium; severe hypokinesis of the mid-apical anterior, mid inferoseptal, and mid inferior myocardium; moderate hypokinesis of the mid anterolateral and apical lateral myocardium; mild hypokinesis of the apical myocardium. - Right ventricle: Systolic function is moderately reduced. Hypokinesis of the RV apex. - Mitral valve: There is trace to mild regurgitation. - Aortic valve: The findings are consistent with moderate stenosis. The peak systolic velocity is 2.03 m/sec. The mean systolic gradient is 9.0 mm Hg. The peak systolic gradient is 16.0 mm Hg. The LVOT to aortic valve VTI ratio is 0.45. The valve area by the velocity-time integral method is 1.14 cm^2. The ratio of LVOT to aortic valve peak velocity is 0.44. The valve area by the peak velocity method is 1.13 cm^2. - Tricuspid valve: There is trace to mild regurgitation. Recommendations: Severe left ventricle dysfunction. Consider recurrence of stress cardiomyopathy versus progression of CAD. Study data: Transthoracic echocardiogram. Procedure: Transthoracic echocardiography was performed. Image quality was fair. The study was technically limited due to difficult positioning, COPD, and smoking history. Complete 2D, spectral Doppler, and color flow Doppler. Location: Bedside. Patient status: Inpatient. Patient room number: 450-02. Comparison is made to the study of July 2017. Rhythm: Normal sinus rhythm. Findings Left ventricle: The cavity size is normal. Wall thickness is normal. The estimated ejection fraction is 20-25%. Regional wall motion abnormalities: Severe hypokinesis of the mid to distal anteroseptal, anterior, inferolateral, lateral and inferior cason. Akinesis of the mid anteroseptal, apical inferior, and apical septal myocardium; severe hypokinesis of the mid-apical anterior, mid inferoseptal, and mid inferior myocardium; moderate hypokinesis of the mid anterolateral and apical lateral myocardium; mild hypokinesis of the apical myocardium. Left ventricular diastolic function parameters are indeterminate. Right ventricle: The cavity size is normal. Systolic function is moderately reduced. Hypokinesis of the RV apex. Left atrium: The atrium is normal in size. Right atrium: The atrium is normal in size. Mitral valve: The leaflets are mildly thickened. There is no evidence of stenosis. There is trace to mild regurgitation. Aortic valve: The annulus is mildly to moderately calcified. The leaflets are mildly thickened. The findings are consistent with moderate stenosis. There is trace regurgitation. Tricuspid valve: The valve is structurally normal. There is no evidence of stenosis. There is trace to mild regurgitation. Pulmonic valve: Not well visualized. There is no evidence of stenosis. There is no significant regurgitation. Aorta: Aortic root: The aortic root is not dilated. Ascending aorta: The ascending aorta is not dilated. Aortic arch: The aortic arch is not visualized. Pericardium: There is no pericardial effusion. Pulmonary arteries: Not well visualized. Systolic pressure can not be accurately estimated. Systemic veins: Inferior vena cava: The vessel is dilated. There is (< 50%) respiratory change in the IVC dimension. Measurements Left ventricle Value Ref Right atrium Value Ref SOLITARIO, LAX 4.4 cm 3.8 - 5.2 ML dim, ES, A4C 3.1 cm 2.6 - 4.4 ESD, LAX 3.4 cm 2.2 - 3.5 SI dim, ES, A4C 3.5 cm 3.4 - 5.3 FS, LAX (L) 22 % 27 - 45 Estimated RAP 15 mm Hg --------- PW, ED (H) 1.1 cm 0.6 - 0.9 IVS/PW, ED 0.97 Aortic valve Value Ref E', lat florinda, TDI (L) 4.4 cm/sec >=10.0 Florinda diam, ED 1.8 cm --- ------ E/e', lat florinda, 22 Peak v, S 2.03 m/sec ------ --- TDI VTI, S 42.4 cm --------- E', med floridna, TDI (L) 4.8 cm/sec >=7.0 Mean grad, S 9.0 mm Hg --- ------ E/e', med florinda, 20 Peak grad, S 16.0 mm Hg ------ --- TDI LVOT/AV, VTI ratio 0.45 --------- E', avg, TDI 4.6 cm/sec AYLA, VTI 1.14 cm^2 ------ --- E/e', avg, TDI (H) 21 <=14 AYLA, Vmax 1.13 cm^2 --- ------ LVOT Value Ref Mitral valve Value Ref Diam, S 1.80 cm Peak E 0.95 m/sec --------- Area 2.5 cm^2 Peak A 1.15 m/sec --------- Peak sang, S 0.9 m/sec Decel time 197 ms --------- VTI, S 19.0 cm Peak grad, D 3.6 mm Hg --------- Mean grad, S 2 mm Hg Peak E/A ratio 0.8 --------- SV 48 ml SV/bsa 35 ml/m^2 Pulmonic valve Value Ref Peak v, S 0.77 m/sec --------- Ventricular septum Value Ref Peak grad, S 2.0 mm Hg --------- IVS, ED (H) 1.0 cm 0.6 - 0.9 Aortic root Value Ref Right ventricle Value Ref Root diam 2.7 cm <3.7 SOLITARIO, LAX 2.4 cm SOLITARIO minor ax, 3.0 cm 1.9 - 3.5 Ascending aorta Value Ref A4C mid AAo AP diam, S 2.9 cm --------- Left atrium Value Ref Inferior vena cava Value Ref AP dim, ES (L) 2.50 cm 2.70 - Diam 2.3 cm --------- 3.80 ML dim, A4C 3.1 cm SI dim, A4C 4.2 cm Vol/bsa, ES, 1-p 21 ml/m^2 11 - 40 A4C Legend: (L) and (H) boy values outside specified reference range. Prepared and electronically signed by Roberth Molina MD 04/14/2019 16:54
[2019-04-14] MEDS ORDERED: Senna TAB 8.6 mg* TAB PO PRN (17:42)
[2019-04-14 20:28] LABS: Troponin I 0.78 ng/mL (<0.04)
[2019-04-14] MEDS ORDERED: Nitro Patch/OINT Remove PATCH OFF SCH (21:00)
[2019-04-14] MEDS: Pantoprazole TAB * 40 MG TAB PO SCH (21:43)
[2019-04-14] MEDS: Lidocaine PATCH 5%* 1 PATCH TRANSDERM SCH (21:52)
[2019-04-14] MEDS ORDERED: Nitroglycerin 0.1 mg/Hr PATCH* (2.5 MG) TRANSDERM ONE (23:00)
[2019-04-14 23:29] LABS: Troponin I 0.91 ng/mL (<0.04)
[2019-04-14] MEDS: Acetaminophen TAB* 325 MG PO PRN (23:32)
[2019-04-15 02:29] LABS: ABS Lymphocytes 1.1 10^3/ul (1.0-4.8); ABS Neutrophils 6.1 10^3/ul (1.5-7.7); Eosinophil % 0.2 %; Hematocrit 29 % (35-47); Hemoglobin 9.7 g/dL (12.0-16.0); Lymphocyte % 13.1 %; Mean Corpuscular HGB Conc 33 g/dL (31-36); Mean Corpuscular Hemoglobin 27 pg (27-31); Mean Corpuscular Volume 81 fL (80-97); Mean Platelet Volume 6.6 fL (7.4-10.4); Platelet Count 283 10^3/uL (150-450); Red Blood Count 3.63 10^6 /uL (3.70-4.87); Red Cell Distribution Width 17 % (10-15); White Blood Count 8.3 10^3/uL (3.5-10.8)
[2019-04-15 02:31] LABS: Troponin I 0.85 ng/mL (<0.04)
[2019-04-15] MEDS: Albuterol/Ipratropium NEB.SOL* Albuterol 2.5 MG/Ipratropium 0.5 MG 3 ML INH SCH (02:50)
[2019-04-15 02:52] LABS: Albumin 3.9 g/dL (3.2-5.2); Anion Gap 9 mmol/L (2-11); CO2 Carbon Dioxide 21 mmol/L (22-32); Calcium 8.8 mg/dL (8.6-10.3); Chloride 95 mmol/L (101-111); Potassium 4.3 mmol/L (3.5-5.0); Sodium 125 mmol/L (135-145)
[2019-04-15 02:58] LABS: ALT 15 U/L (7-52); AST 21 U/L (13-39); Albumin/Globulin Ratio 1.6 (1-3); Alkaline Phosphatase 57 U/L (34-104); BUN/Creatinine Ratio 16.3 (8-20); Blood Urea Nitrogen 14 mg/dL (6-24); EGFR African American 78.3 (>60); EGFR Non-African American 64.7 (>60); Globulin 2.5 g/dL (2-4); Glucose 134 mg/dL (70-100); Total Protein 6.4 g/dL (6.4-8.9)
[2019-04-15 05:57] LABS: Troponin I 0.68 ng/mL (<0.04)
[2019-04-15] MEDS: Tiotropium CAPSULE (NF) 1 CAP/18 MCG CAP.INH INH SCH (07:47)
[2019-04-15] MEDS: Mometasone/Formoter 200/5 MDI INH SCH ×2 (07:47→19:53)
--- NOTE | 2019-04-15 08:24 | PN ---
Subjective Date of Service: 04/15/19 Interval History: Evaluated by cardiology yesterday, started on therapeutic anticoagulation with Lovenox. TTE noted to have EF 20-25% again. Cardiology recommended cath, however patient and family prefer to follow this up with their Cardiologists in [place]. However, today on my interview, patient reports she would want work up here. Denies chest pain/pressure, reports significant improvement in SOB and cough. However reports chest pressure to other interviewers. Objective Active Medications: Acetaminophen (Tylenol Tab*) 975 mg PO Q8H PRN PRN Reason: FEVER/PAIN Last Admin: 04/14/19 23:32 Dose: 975 mg Albuterol (Ventolin 2.5 Mg/3 Ml Neb.Terra*) 2.5 mg INH [id number] AWAKE PRN PRN Reason: sob/wheezing Aspirin (Aspirin 81 Mg Chew Tab*) 81 mg PO DAILY [facility] Atorvastatin Calcium (Lipitor*) 80 mg PO DAILY [facility] Carvedilol (Coreg Tab*) 3.125 mg PO BID [facility] Last Admin: 04/14/19 21:41 Dose: 3.125 mg Clopidogrel Bisulfate (Plavix Tab*) 75 mg PO DAILY [facility] Enoxaparin Sodium (Lovenox(*)) 45 mg SUBCUT BID [facility] Last Admin: 04/14/19 21:41 Dose: 45 mg Lidocaine (Lidoderm 5% Patch*) 1 patch TRANSDERM BEDTIME [facility] Last Admin: 04/14/19 21:52 Dose: 1 patch Magnesium Hydroxide (Milk Of Magnjermain Liq*) 30 ml PO BID PRN PRN Reason: CONSTIPATION Mometasone Furoate/Formoterol Fumar (Dulera 200/5 Mdi*) 2 puff INH BID [facility] Last Admin: 04/15/19 07:47 Dose: 2 puff Nitroglycerin (Nitroglycerin 2.5 Mg Patch*) 1 patch TRANSDERM 2300 [facility] Pantoprazole Sodium (Protonix Tab*) 40 mg PO BID [facility] Last Admin: 04/14/19 21:43 Dose: 40 mg Pharmacy Profile Note (Lidocaine Patch Remove*) 1 note PATCH OFF 0900 [facility] Pharmacy Profile Note (Nitro Patch/Oint Remove*) 1 note PATCH OFF 1100 [facility] Prednisone (Deltasone Tab*) 40 mg PO DAILY [facility] Stop: 04/17/19 09:01 Senna (Senokot 8.6 Mg Tab*) 1 tab PO BEDTIME PRN PRN Reason: CONSTIPATION Last Admin: 04/14/19 21:43 Dose: 1 tab Temazepam (Restoril Cap*) 15 mg PO BEDTIME PRN PRN Reason: INSOMNIA Tiotropium [place] (Spiriva Cap.Inh*) 1 cap INH DAILY [facility] Last Admin: 04/15/19 07:47 Dose: 1 cap Vital Signs - 8 hr 04/15/19 04/15/19 04/15/19 00:45 01:50 01:59 Temperature 97.3 F 97.3 F Pulse Rate 93 129 108 Respiratory 18 30 Rate Blood Pressure 129/80 143/87 130/84 (mmHg) O2 Sat by Pulse 99 100 Oximetry 04/15/19 04/15/19 04/15/19 02:17 03:45 06:42 Temperature 97.9 F 97.5 F 98.3 F Pulse Rate 86 81 79 Respiratory 18 16 Rate Blood Pressure 125/79 123/70 131/77 (mmHg) O2 Sat by Pulse 98 98 99 Oximetry 04/15/19 07:49 Temperature Pulse Rate 101 Respiratory 16 Rate Blood Pressure (mmHg) O2 Sat by Pulse 99 Oximetry Oxygen Devices in Use Now: None Appearance: well appearing woman in NAD, speaking in full sentences Ears/Nose/Mouth/Throat: Clear Oropharnyx, Mucous Membranes Moist Neck: NL Appearance and Movements; NL JVP Respiratory: - - mild diffuse expiratory wheeze, no crackles Cardiovascular: RRR Abdominal: NL Sounds; No Tenderness; No Distention, No Hepatosplenomegaly Extremities: No Edema Skin: No Rash or Ulcers Neurological: Alert and Oriented x 3 Result Diagrams: 04/15/19 02:15 04/15/19 05:24 Assess/Plan/Problems-Billing Assessment: 74W with COPD and active tobacco use, CAD s/p PCI, HTN, bipolar disorder, cognitive impairment, and h/o stress cadiomyopathy (2017), presents with subacute progressive SOB associated with dry cough in setting of humidity, tobacco use, and nonadherence to home inhalers. Found with EF again reduced to 20-25% with elevated troponin. - Patient Problems (1) COPD exacerbation Comment: In setting of humidity and continued tobacco use. - continue prednisone burst - continue nebs prn - continue home Spiriva and Dulera (2) Cardiomyopathy Comment: Hx of likely stress cardiomyopathy in 2017. EF again 20-25%. - appreciate cardiology input - started on carvedilol and ARB; monitor BP - Is & Os and daily weights (3) CAD (coronary artery disease) Comment: - Continue aspirin, plavix - appreciate cardiology input - likely to cath given elevated trop and newly reduced EF, possible recurrance of stress cardiomyopathy (4) Depression Comment: possible bipolar, per chart, with anxiety. - pt reports being off medications for some time, not exhibiting active symptoms so will hold off given other acute medical problems (5) Tobacco abuse Comment: Pt reports she has no intention to quit and has many discussions with many providers. - declines NRT - reports Chantix/Welbutrin "were awful" (6) DNR (do not resuscitate) Current Visit: Yes Status: Acute
[2019-04-15] MEDS: Atorvastatin* 80 MG TAB PO SCH (09:18)
[2019-04-15] MEDS: Carvedilol TAB* 3.125 MG PO SCH ×2 (09:18→22:01)
[2019-04-15] MEDS: Pantoprazole TAB * 40 MG TAB PO SCH ×2 (09:18→22:02)
[2019-04-15] MEDS: Aspirin 81 mg CHEW TAB* 81 MG TAB.CHEW PO SCH (09:18)
[2019-04-15] MEDS: predniSONE TAB* 20 MG PO SCH (09:18)
[2019-04-15] MEDS: Clopidogrel TAB* 75 MG PO SCH (09:18)
[2019-04-15] MEDS: Enoxaparin(*) 60 MG/0.6 ML SYR SUBCUT SCH ×2 (09:22→22:06)
[2019-04-15] MEDS: Lidocaine Patch REMOVE* 1 NOTE MISC PATCH OFF SCH (09:23)
[2019-04-15] MEDS: Valsartan TAB* 40 MG PO SCH ×2 (12:36→22:01)
[2019-04-15] MEDS: Nitro Patch/OINT Remove PATCH OFF SCH (12:55)
[2019-04-15] MEDS ORDERED: traMADol TAB* 50 MG PO ONE (14:26)
[2019-04-15] MEDS: Acetaminophen TAB* 325 MG PO PRN ×2 (14:39→22:11)
[2019-04-15 16:00] LABS: BUN/Creatinine Ratio 15.8 (8-20); Calcium 8.4 mg/dL (8.6-10.3); EGFR African American 90.3 (>60); EGFR Non-African American 74.6 (>60); Potassium 4.2 mmol/L (3.5-5.0)
[2019-04-15] MEDS: Lidocaine PATCH 5%* 1 PATCH TRANSDERM SCH (21:58)
[2019-04-15] MEDS: Magnesium Hydroxide LIQ* 30 ML UDC PO PRN (22:05)
[2019-04-15] MEDS ORDERED: Nitroglycerin 0.1 mg/Hr PATCH* (2.5 MG) TRANSDERM SCH (23:00)
[2019-04-16] MEDS: Albuterol 2.5 MG/3 ML NEB.SOL* (0.083%) INH PRN ×2 (02:53→23:15)
[2019-04-16 07:01] LABS: Hematocrit 33 % (35-47); Hemoglobin 11.1 g/dL (12.0-16.0); Mean Corpuscular HGB Conc 33 g/dL (31-36); Mean Corpuscular Hemoglobin 27 pg (27-31); Mean Corpuscular Volume 82 fL (80-97); Platelet Count 292 10^3/uL (150-450); Red Blood Count 4.07 10^6 /uL (3.70-4.87); Red Cell Distribution Width 18 % (10-15); White Blood Count 11.2 10^3/uL (3.5-10.8)
[2019-04-16 07:09] LABS: INR 0.89 (0.82-1.09)
[2019-04-16 07:11] LABS: Calcium 8.3 mg/dL (8.6-10.3); Magnesium 2.4 mg/dL (1.9-2.7); Potassium 4.2 mmol/L (3.5-5.0)
[2019-04-16 07:16] LABS: BUN/Creatinine Ratio 14.9 (8-20); EGFR African American 93.1 (>60); EGFR Non-African American 76.9 (>60)
--- NOTE | 2019-04-16 08:29 | PN ---
Subjective Date of Service: 04/16/19 Interval History: Pt with deepening T-waves and intermittent chest pressure. Now amenable to cath here- will go this morning. Pt able to ambulate. Still with headache from Nitro. Reports continued improvement on SOB and cough. Objective Active Medications: Acetaminophen (Tylenol Tab*) 975 mg PO Q8H PRN PRN Reason: FEVER/PAIN Last Admin: 04/15/19 22:11 Dose: 975 mg Albuterol (Ventolin 2.5 Mg/3 Ml Neb.Terra*) 2.5 mg INH [id number] AWAKE PRN PRN Reason: sob/wheezing Last Admin: 04/16/19 02:53 Dose: 2.5 mg Aspirin (Aspirin 81 Mg Chew Tab*) 81 mg PO DAILY [facility] Last Admin: 04/15/19 09:18 Dose: 81 mg Atorvastatin Calcium (Lipitor*) 80 mg PO DAILY [facility] Last Admin: 04/15/19 09:18 Dose: 80 mg Carvedilol (Coreg Tab*) 3.125 mg PO BID [facility] Last Admin: 04/15/19 22:01 Dose: 3.125 mg Clopidogrel Bisulfate (Plavix Tab*) 75 mg PO DAILY [facility] Last Admin: 04/15/19 09:18 Dose: 75 mg Sodium Chloride (Ns 0.9% 1000 Ml) 1,000 mls @ 25 mls/hr IV PER RATE [facility] Lidocaine (Lidoderm 5% Patch*) 1 patch TRANSDERM BEDTIME [facility] Last Admin: 04/15/19 21:58 Dose: 1 patch Magnesium Hydroxide (Milk Of Magnesia Liq*) 30 ml PO BID PRN PRN Reason: CONSTIPATION Last Admin: 04/15/19 22:05 Dose: 30 ml Mometasone Furoate/Formoterol Fumar (Dulera 200/5 Mdi*) 2 puff INH BID [facility] Last Admin: 04/15/19 19:53 Dose: Not Given Nitroglycerin (Nitroglycerin 2.5 Mg Patch*) 1 patch TRANSDERM 2300 [facility] Last Admin: 04/15/19 22:11 Dose: 1 patch Pantoprazole Sodium (Protonix Tab*) 40 mg PO BID [facility] Last Admin: 04/15/19 22:02 Dose: 40 mg Pharmacy Profile Note (Lidocaine Patch Remove*) 1 note PATCH OFF 0900 [facility] Last Admin: 04/15/19 09:23 Dose: 1 note Pharmacy Profile Note (Nitro Patch/Oint Remove*) 1 note PATCH OFF 1100 [facility] Last Admin: 04/15/19 12:55 Dose: 1 note Prednisone (Deltasone Tab*) 40 mg PO DAILY [facility] Stop: 04/17/19 09:01 Last Admin: 04/15/19 09:18 Dose: 40 mg Senna (Senokot 8.6 Mg Tab*) 1 tab PO BEDTIME PRN PRN Reason: CONSTIPATION Last Admin: 04/14/19 21:43 Dose: 1 tab Temazepam (Restoril Cap*) 15 mg PO BEDTIME PRN PRN Reason: INSOMNIA Tiotropium [place] (Spiriva Cap.Inh*) 1 cap INH DAILY [facility] Last Admin: 04/15/19 07:47 Dose: 1 cap Valsartan (Diovan Tab*) 20 mg PO BID [facility] Last Admin: 04/15/19 22:01 Dose: 20 mg Vital Signs - 8 hr 04/16/19 04/16/19 02:55 03:00 Temperature 98.0 F Pulse Rate 80 70 Respiratory 16 18 Rate Blood Pressure 137/73 (mmHg) O2 Sat by Pulse 97 100 Oximetry Oxygen Devices in Use Now: None Appearance: well appearing elderly woman in NAD Ears/Nose/Mouth/Throat: Clear Oropharnyx, Mucous Membranes Moist Neck: Trachea Midline Respiratory: - - mild end expiratory wheeze, otherwise clear Cardiovascular: RRR Extremities: No Edema Skin: No Rash or Ulcers Neurological: Alert and Oriented x 3 Result Diagrams: 04/16/19 06:18 04/16/19 06:18 Assess/Plan/Problems-Billing Assessment: 74W with COPD and active tobacco use, CAD s/p PCI, HTN, bipolar disorder, cognitive impairment, and h/o stress cadiomyopathy (2017), presents with subacute progressive SOB associated with dry cough in setting of humidity, tobacco use, and nonadherence to home inhalers. Found with EF again reduced to 20-25% with elevated troponin. - Patient Problems (1) COPD exacerbation Comment: In setting of humidity and continued tobacco use. - continue prednisone burst - continue nebs prn - continue home Spiriva and Dulera (2) Cardiomyopathy Comment: Hx of likely stress cardiomyopathy in 2017. EF again 20-25%. - appreciate cardiology input - started on carvedilol and ARB; monitor BP - Is & Os and daily weights - to cath today to explore for ischemic cause of reduced EF vs stress cardiomyopathy (3) CAD (coronary artery disease) Comment: - Continue aspirin, plavix (4) Depression Comment: possible bipolar, per chart, with anxiety. - pt reports being off medications for some time, not exhibiting active symptoms so will hold off given other acute medical problems (5) Tobacco abuse Comment: Pt reports she has no intention to quit and has many discussions with many providers. - declines NRT - reports Chantix/Welbutrin "were awful" (6) DNR (do not resuscitate) Current Visit: Yes Status: Acute
[2019-04-16] MEDS ORDERED: NS 0.9% 1000 ML** 1,000 ML IV SCH ×2 (08:30→11:00)
[2019-04-16] MEDS: Tiotropium CAPSULE (NF) 1 CAP/18 MCG CAP.INH INH SCH (09:05)
[2019-04-16] MEDS: Mometasone/Formoter 200/5 MDI INH SCH ×2 (09:07→20:02)
[2019-04-16] MEDS ORDERED: fentaNYL* 50 MCG/ML 2 ML VIAL (100 MCG VIAL) ONE (09:38)
[2019-04-16] MEDS ORDERED: Midazolam* 1 MG/ML 5 ML VIAL (5 MG) ONE (09:38)
[2019-04-16] MEDS ORDERED: Heparin(*) 1000 UNIT/ML 10 ML VIAL CATH LAB IV ONE (09:38)
[2019-04-16] MEDS ORDERED: Heparin 2 UNITS/ML IVPREMIX* 3,000 UNIT/1,500 ML BAG IV ONE (09:39)
[2019-04-16] MEDS ORDERED: Lidocaine 1% INJ* 10 MG/ML 30 ML SDV ONE (09:39)
[2019-04-16] MEDS ORDERED: nitroGLYCERIN DRIP* 25,000 MCG/250 ML BTL ONE (09:39)
[2019-04-16] MEDS: Valsartan TAB* 40 MG PO SCH ×2 (09:39→20:53)
[2019-04-16] MEDS ORDERED: VERAPAMIL 2.5 MG/ML 2 ML VIAL ** 5 mg/2 ml ONE (09:39)
[2019-04-16] MEDS ORDERED: Iohexol 350 (CONTRAST) 200 ML MDV IV ONE ×2 (09:39→09:46)
[2019-04-16] MEDS: predniSONE TAB* 20 MG PO SCH (09:40)
[2019-04-16] MEDS: Carvedilol TAB* 3.125 MG PO SCH ×2 (09:41→20:53)
[2019-04-16] MEDS: Clopidogrel TAB* 75 MG PO SCH (09:41)
[2019-04-16] MEDS: Aspirin 81 mg CHEW TAB* 81 MG TAB.CHEW PO SCH (09:42)
[2019-04-16] MEDS: Atorvastatin* 80 MG TAB PO SCH (09:42)
[2019-04-16] MEDS: Pantoprazole TAB * 40 MG TAB PO SCH ×2 (09:42→20:52)
[2019-04-16] MEDS: Lidocaine Patch REMOVE* 1 NOTE MISC PATCH OFF SCH (09:49)
[2019-04-16] MEDS: Nitro Patch/OINT Remove PATCH OFF SCH (09:49)
[2019-04-16] MEDS ORDERED: Morphine 10 MG/ML VIAL (1 ml) ONE (09:59)
[2019-04-16] MEDS ORDERED: Furosemide IV* 10 MG/ML VIAL (40 MG) ONE (10:16)
--- NOTE | 2019-04-16 14:27 | CATH ---
CC: Dr. Miles; Dr. Armin Rodriguez CATHETERIZATION REPORT: DATE OF PROCEDURE: 04/16/19 PRIMARY CARE PHYSICIAN: Dr. Miles. CHUCK BONER: Dr. Armin Rodriguez. PROCEDURE: Right radial artery access, bilateral selective coronary cineangiography. HISTORY: A 74-year-old woman with severe lung disease, remote stenting of the LAD, diagonal, and circumflex in 2000, in 2017 she had Takotsubo's with subsequent improvement in LV function. She now presents with severe LV systolic dysfunction and evolving anterolateral T-wave changes. She was referred for coronary angiography to differentiate recurrence of Takotsubo's versus progression of coronary disease. PROCEDURE ACCESS: Right radial artery sheath 6F slender. MEDICATIONS: 1. Morphine 4 mg total IV and Lasix 20 mg IV as she was orthopneic and anxious at arrival, subsequently was able to lie down. 2. Heparin 3000 units. 3. Verapamil 3 mg. 4. Nitroglycerin 300 mcg IA. DIAGNOSTIC CATHETERS: 5F TIG4. 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 HEMODYNAMICS: AO 117/74. ANGIOGRAPHY: Left main: The left main is normal in size, has no stenosis. LAD: The LAD is moderate, extends past the apex, it supplies 2 large diagonal branches. The first diagonal has ostial 40% to 50% stenosis with a very short lesion. Flow is MICHELINE-3. The second diagonal has been stented, has mild intimal hyperplasia as previously without significant stenosis. The LAD continuation likewise has mild intimal hyperplasia as in 2017 without change. I would estimate the diagonal stenosis to be 30%, the LAD 40%. Circumflex: The circumflex is not dominant, is moderate, has a proximal prior stent without stenosis or restenosis, the circumflex supplies 2 small posterolateral branches. RCA: The RCA takeoff is anterior, it is large, with minor luminal irregularity , supplies the moderate PDA and 2 smaller posterolaterals, the RCA has no significant stenosis. CONCLUSION: Mild nonobstructive coronary artery disease, unchanged from 2017. Severity insufficient to explain her drop in ejection fraction. That and EKG evolution are consistent with recurrence of Takotsubo's. She will be managed medically. [id number]/[facility] #: [id number] [facility] HOSPITALJohn
[2019-04-16] MEDS: Spironolactone TAB* 25 MG PO SCH (14:50)
[2019-04-16] MEDS: Acetaminophen TAB* 325 MG PO PRN ×2 (14:50→23:00)
--- NOTE | 2019-04-16 16:19 | ECHO ---
*[facility]* [place] [address] Fax #: [phone] Limited Transthoracic Echocardiogram Patient: Daniela An : 1945 Study Date: 04/16/2019 Age: 74 Gender: F HR: 81 bpm Height: 59.1 in /150 cm BSA: 1.38 m^2 Weight: 99.9 lb /45.4 kg BMI: 20.2 kg/m^2 *[place]: * Rosalba Haro RD *Referring Physician: * Roberth Molina MD *Reading Physician: * Roberth Molina MD Indications: Chest Pain, unspecified. Cardiomyopathy. History: Coronary artery disease. PMH: Takotsubo Cardiomyopathy. Risk factors: Current tobacco use. Hypertension. Dyslipidemia. Labs, prior tests, procedures, and surgery: Catheterization. There was a stenosis which was treated with a stent. Conclusions Summary: - Left ventricle: Systolic function is severely reduced by visual assessment. The estimated ejection fraction is 20-25%. - Similar to the prior study of 04/14/19 except for perhaps mild interval improvement in the proximal anterior and anterolateral segments. Study data: Transthoracic echocardiogram, limited study. Procedure: Transthoracic echocardiography was performed. Image quality was fair. The study was technically limited due to restricted patient mobility. Location: Bedside. Patient status: Inpatient. Patient room number: 441-1. Rhythm: Normal sinus rhythm. Findings Left ventricle: The cavity size is normal. Wall thickness is normal. Systolic function is severely reduced by visual assessment. The estimated ejection fraction is 20-25%. Regional wall motion abnormalities: Severe hypokinesis of the mid-distal anteroseptal, anterior, inferolateral, lateral, mid-apical anterior, mid inferoseptal, and mid-distal inferior wall segments. Akinesis of the mid anteroseptal, and apical septal myocardium. Moderate hypokinesis of the mid anterolateral and apical lateral myocardium. Mild hypokinesis of the apical myocardium. Right ventricle: The cavity size is normal. Systolic function is low normal. Prepared and electronically signed by Roberth Molina MD 04/16/2019 16:17
[2019-04-16] MEDS: Lidocaine PATCH 5%* 1 PATCH TRANSDERM SCH (20:52)
[2019-04-16] MEDS: Enoxaparin(*) 30 MG/0.3 ML SYR SUBCUT SCH (20:55)
[2019-04-17 06:59] LABS: Hematocrit 35 % (35-47); Hemoglobin 11.9 g/dL (12.0-16.0); Mean Corpuscular HGB Conc 34 g/dL (31-36); Mean Corpuscular Hemoglobin 27 pg (27-31); Mean Corpuscular Volume 81 fL (80-97); Mean Platelet Volume 7.2 fL (7.4-10.4); Platelet Count 297 10^3/uL (150-450); Red Blood Count 4.38 10^6 /uL (3.70-4.87); Red Cell Distribution Width 17 % (10-15)
[2019-04-17 07:22] LABS: BUN/Creatinine Ratio 12.9 (8-20); Calcium 8.4 mg/dL (8.6-10.3); EGFR African American 79.3 (>60); EGFR Non-African American 65.6 (>60); Magnesium 2.2 mg/dL (1.9-2.7)
[2019-04-17] MEDS: Mometasone/Formoter 200/5 MDI INH SCH ×2 (07:50→19:29)
[2019-04-17] MEDS: Tiotropium CAPSULE (NF) 1 CAP/18 MCG CAP.INH INH SCH (07:51)
[2019-04-17] MEDS: Spironolactone TAB* 25 MG PO SCH (09:10)
[2019-04-17] MEDS: predniSONE TAB* 20 MG PO SCH (09:10)
[2019-04-17] MEDS: Atorvastatin* 80 MG TAB PO SCH (09:10)
[2019-04-17] MEDS: Valsartan TAB* 40 MG PO SCH ×2 (09:10→21:16)
[2019-04-17] MEDS: Pantoprazole TAB * 40 MG TAB PO SCH ×2 (09:10→21:15)
[2019-04-17] MEDS: Aspirin 81 mg CHEW TAB* 81 MG TAB.CHEW PO SCH (09:10)
[2019-04-17] MEDS: Carvedilol TAB* 3.125 MG PO SCH ×2 (09:11→21:15)
[2019-04-17] MEDS: Clopidogrel TAB* 75 MG PO SCH (09:11)
[2019-04-17] MEDS: Lidocaine Patch REMOVE* 1 NOTE MISC PATCH OFF SCH (09:11)
[2019-04-17] MEDS: Magnesium Hydroxide LIQ* 30 ML UDC PO PRN (09:11)
[2019-04-17] MEDS ORDERED: Demeclocycline TAB* 150 MG PO SCH (17:00)
--- NOTE | 2019-04-17 17:04 | PN ---
Subjective Date of Service: 04/17/19 Interval History: Feels better. When asked about her drinking, held up a plastic water bottle which she drinks every day, also states that she gets thirsty sometimes. No SOB , chest pain. Objective Active Medications: Acetaminophen (Tylenol Tab*) 975 mg PO Q8H PRN PRN Reason: FEVER/PAIN Last Admin: 04/16/19 23:00 Dose: 975 mg Albuterol (Ventolin 2.5 Mg/3 Ml Neb.Terra*) 2.5 mg INH RT.[id number] AWAKE PRN PRN Reason: sob/wheezing Last Admin: 04/16/19 23:15 Dose: 2.5 mg Aspirin (Aspirin 81 Mg Chew Tab*) 81 mg PO DAILY [facility] Last Admin: 04/17/19 09:10 Dose: 81 mg Atorvastatin Calcium (Lipitor*) 80 mg PO DAILY [facility] Last Admin: 04/17/19 09:10 Dose: 80 mg Carvedilol (Coreg Tab*) 6.25 mg PO BID [facility] Last Admin: 04/17/19 09:11 Dose: 6.25 mg Clopidogrel Bisulfate (Plavix Tab*) 75 mg PO DAILY [facility] Last Admin: 04/17/19 09:11 Dose: 75 mg Demeclocycline HCl (Declomycin Tab*) 150 mg PO BID [facility] Enoxaparin Sodium (Lovenox(*)) 30 mg SUBCUT Q24H [facility] Last Admin: 04/16/19 20:55 Dose: 30 mg Lidocaine (Lidoderm 5% Patch*) 1 patch TRANSDERM BEDTIME [facility] Last Admin: 04/16/19 20:52 Dose: 1 patch Magnesium Hydroxide (Milk Of Magnjermain Liq*) 30 ml PO BID PRN PRN Reason: CONSTIPATION Last Admin: 04/17/19 09:11 Dose: 30 ml Mometasone Furoate/Formoterol Fumar (Dulera 200/5 Mdi*) 2 puff INH BID [facility] Last Admin: 04/17/19 07:50 Dose: Not Given Pantoprazole Sodium (Protonix Tab*) 40 mg PO BID [facility] Last Admin: 04/17/19 09:10 Dose: 40 mg Pharmacy Profile Note (Lidocaine Patch Remove*) 1 note PATCH OFF 0900 [facility] Last Admin: 04/17/19 09:11 Dose: 1 note Senna (Senokot 8.6 Mg Tab*) 1 tab PO BEDTIME PRN PRN Reason: CONSTIPATION Last Admin: 04/14/19 21:43 Dose: 1 tab Spironolactone (Aldactone Tab*) 25 mg PO DAILY [facility] Last Admin: 04/17/19 09:10 Dose: 25 mg Temazepam (Restoril Cap*) 15 mg PO BEDTIME PRN PRN Reason: INSOMNIA Tiotropium Perry (Spiriva Cap.Inh*) 1 cap INH DAILY [facility] Last Admin: 04/17/19 07:51 Dose: 1 cap Valsartan (Diovan Tab*) 20 mg PO BID [facility] Last Admin: 04/17/19 09:10 Dose: 20 mg Vital Signs - 8 hr 04/17/19 04/17/19 11:40 15:48 Temperature 98.2 F 98.2 F Pulse Rate 70 70 Respiratory 18 16 Rate Blood Pressure 116/65 107/62 (mmHg) O2 Sat by Pulse 98 99 Oximetry Oxygen Devices in Use Now: None Appearance: Alert, partly up in bed. In good spirits. Looks comfortable. Eyes: No Scleral Icterus Neck: NL Appearance and Movements; NL JVP, No Thyroid Enlargement, Masses Respiratory: Symmetrical Chest Expansion and Respiratory Effort, Clear to Auscultation, Clear to Percussion Cardiovascular: NL Sounds; No Murmurs; No JVD, RRR, No Edema, - Extremities: No Edema, No Clubbing, Cyanosis, - Skin: No Rash or Ulcers, No Nodules or Sclerosis, - Neurological: Alert and Oriented x 3, NL Sensation Result Diagrams: 04/17/19 06:20 04/17/19 06:20 Assess/Plan/Problems-Billing Assessment: 74W with COPD and active tobacco use, CAD s/p PCI, HTN, bipolar disorder, cognitive impairment, and h/o stress cadiomyopathy (2017), presents with subacute progressive SOB associated with dry cough in setting of humidity, tobacco use, and nonadherence to home inhalers. Found with EF again reduced to 20-25% with elevated troponin. - Patient Problems (1) COPD exacerbation Current Visit: Yes Status: Acute Code(s): J44.1 - CHRONIC OBSTRUCTIVE PULMONARY DISEASE W (ACUTE) EXACERBATION SNOMED Code(s): 900004650 Comment: In setting of humidity and continued tobacco use. - continue nebs prn - continue home Spiriva and Dulera (2) Cardiomyopathy Current Visit: Yes Status: Acute Code(s): I42.9 - CARDIOMYOPATHY, UNSPECIFIED SNOMED Code(s): 18671198 Comment: Hx of likely stress cardiomyopathy in 2017. EF again 20-25%. - started on carvedilol and ARB, sprionolactone; monitor BP - Is & Os and daily weights cardiac cath c/w stress cardiomyopathy (3) Tobacco abuse Current Visit: Yes Status: Acute Code(s): Z72.0 - TOBACCO USE SNOMED Code( s): 308807586 Comment: Pt reports she has no intention to quit and has many discussions with many providers. - declines NRT - reports Chantix/Welbutrin "were awful" (4) Hyponatremia Current Visit: No Status: Acute Code(s): E87.1 - HYPO-OSMOLALITY AND HYPONATREMIA SNOMED Code(s): 95511522 Comment: In past was due to chlorthalidone, now only diuretic is spironolactone. Will start demeclocycline, encourage fluid restriction. BMP . (5) CAD (coronary artery disease) Current Visit: Yes Status: Chronic Code(s): I25.10 - ATHSCL HEART DISEASE OF [place] CORONARY ARTERY W/O ANG PCTRS SNOMED Code(s): 31098852 Comment: - Continue aspirin, plavix
[2019-04-17] MEDS: Enoxaparin(*) 30 MG/0.3 ML SYR SUBCUT SCH (21:17)
[2019-04-17] MEDS: Lidocaine PATCH 5%* 1 PATCH TRANSDERM SCH (21:18)
[2019-04-18] MEDS ORDERED: Demeclocycline TAB* 150 MG PO SCH (06:00)
[2019-04-18 06:57] LABS: BUN/Creatinine Ratio 16.9 (8-20); Calcium 8.3 mg/dL (8.6-10.3); EGFR African American 81.5 (>60); EGFR Non-African American 67.4 (>60); Potassium 4.1 mmol/L (3.5-5.0)
[2019-04-18] MEDS: Mometasone/Formoter 200/5 MDI INH SCH (07:34)
[2019-04-18] MEDS: Tiotropium CAPSULE (NF) 1 CAP/18 MCG CAP.INH INH SCH (07:35)
[2019-04-18] MEDS: Valsartan TAB* 40 MG PO SCH (09:01)
[2019-04-18] MEDS: Clopidogrel TAB* 75 MG PO SCH (09:02)
[2019-04-18] MEDS: Carvedilol TAB* 3.125 MG PO SCH (09:02)
[2019-04-18] MEDS: Aspirin 81 mg CHEW TAB* 81 MG TAB.CHEW PO SCH (09:02)
[2019-04-18] MEDS: Spironolactone TAB* 25 MG PO SCH (09:03)
[2019-04-18] MEDS: Pantoprazole TAB * 40 MG TAB PO SCH (09:03)
[2019-04-18] MEDS: Atorvastatin* 80 MG TAB PO SCH (09:04)
[2019-04-18] MEDS: Lidocaine Patch REMOVE* 1 NOTE MISC PATCH OFF SCH (09:04)
[2019-04-18 09:57] VITALS: BP 138/73
--- NOTE | 2019-04-18 12:37 | DS ---
AMENDED REPORT NOW INCLUDES DATE OF ADMISSION CC: Dr. Miles; Dr. Rodriguez * DISCHARGE SUMMARY: DATE OF ADMISSION: 04/14/19 DATE OF DISCHARGE: 04/18/19 HISTORY OF PRESENT ILLNESS/HOSPITAL COURSE: This 74-year-old woman presented with cough and progressive shortness of breath for 3 days. The history is detailed in the admission note. She was felt to have both chronic obstructive pulmonary disease exacerbation and coronary artery disease. She was treated for both. I note her BNP was 117, which is only minimally elevated. The patient was seen in consultation by Dr. Molina and had a cardiac catheterization on 04/16/19. She had nonobstructive coronary disease. Her drop in the ejection fraction would not be explained by the mild nonobstructive coronary artery disease, which is unchanged from [address] Reeves thought that the EKG evolution and cardiac catheterization were consistent with recurrence of takotsubo's disease. She was managed medically. She had several changes in her cardiac medications. I also initiated treatment for her hyponatremia with demeclocycline. She gets thirsty a lot and did not feel she could reduce her water consumption anymore, which is not really that going to begin with. She had severe hyponatremia while on the thiazide. She certainly should not have thiazide, I am concerned though that there was still a risk for severe hyponatremia and with possibly a small amount of demeclocycline, this will be more easily managed. FINAL DIAGNOSES: 1. Chronic obstructive pulmonary disease exacerbation. 2. Cardiomyopathy and takotsubo's disease. 3. Tobacco abuse. 4. Hyponatremia. 5. Coronary artery disease. DISCHARGE MEDICATIONS: 1. Carvedilol 6.25 mg b.i.d. 2. Demeclocycline 150 mg b.i.d. 3. Spironolactone 25 mg daily. 4. Valsartan 20 mg b.i.d. 5. Clopidogrel 75 mg daily. 6. Pantoprazole 40 mg b.i.d. 7. EpiPen as prescribed. 8. Aspirin 81 mg daily. 9. Temazepam 15 mg h.s. p.r.n. 10. Albuterol inhaler 2 puffs q.i.d. 11. Atorvastatin 80 mg daily. 12. Albuterol inhaler 2 puffs every 4 hours p.r.n. 13. Mometasone/formoterol 200/5 two puffs b.i.d. 14. Tiotropium 1 capsule daily. 15. Lidocaine patch daily. FOLLOWUP LABS: The patient will have a basic metabolic profile on 04/21/19. CONDITION ON DISCHARGE: Improved. DISPOSITION ON DISCHARGE: Discharged home. [id number]/[facility] #: [id number] MTDD
== END 2019-04-18 11:14 | disposition home or self-care (01) | DRG 191 ==
LOC: ED 03:48 → MEDTELE 10:00
PROVIDERS: ADMIT Internal Medicine; ATTEND Internal Medicine
PROC: B211YZZ Fluoroscopy of Multiple Coronary Arteries using Other Contrast (ICD-10-PCS; principal; 2019-04-16 10:30)
DX: J44.1 Chronic obstructive pulmonary disease with (acute) exacerbation (principal); I42.9 Cardiomyopathy, unspecified; E87.1 Hypo-osmolality and hyponatremia; I11.9 Hypertensive heart disease without heart failure; I35.0 Nonrheumatic aortic (valve) stenosis; J84.10 Pulmonary fibrosis, unspecified; I25.10 Atherosclerotic heart disease of native coronary artery without angina pectoris; F17.210 Nicotine dependence, cigarettes, uncomplicated; Z66 Do not resuscitate; F31.9 Bipolar disorder, unspecified; E03.9 Hypothyroidism, unspecified; G31.84 Mild cognitive impairment of uncertain or unknown etiology; Z79.82 Long term (current) use of aspirin; Z79.51 Long term (current) use of inhaled steroids; Z79.899 Other long term (current) drug therapy; Z88.2 Allergy status to sulfonamides; Z88.8 Allergy status to other drugs, medicaments and biological substances; Z82.49 Family history of ischemic heart disease and other diseases of the circulatory system; Z83.3 Family history of diabetes mellitus; Z95.5 Presence of coronary angioplasty implant and graft; Z91.14 Patient's other noncompliance with medication regimen; Z91.030 Bee allergy status
CPT/HCPCS: 36415; 71045; 71275; 80048; 80053; 83605; 83735; 83880; 84443; 84484; 85025; 85027; 85610; 93005; 93306; 93308; 93454; 94640; 99156; 99157; 99285; A9270-GY; J0456; J0696; J1644; J1650; J1940; J2250; J2270; J2930; J3010; J3475; J7512; Q9967

== ENCOUNTER 2019-08-04 02:40 | Emergency (ER) | payer MEDICARE ==
[2019-08-04] MEDS ORDERED: DOXYcycline CAP(*) 100 MG PO ONE (02:53)
[2019-08-04] MEDS ORDERED: predniSONE TAB* 20 MG PO ONE (02:54)
[2019-08-04] MEDS ORDERED: Albuterol 0.5% CONC NEB.SOL* 5 MG/ML 20 ml BOT INH ONE (02:54)
--- NOTE | 2019-08-04 03:04 | ED ---
Shortness of Breath - HPI Summary HPI Summary: Pt is a 74 y/o F presenting to the ED brought in by EMS for shortness of breath. Pt states shes had shortness of breath and dry cough for the past few days, and her nebulizer at home has only been giving her temporary relief. She denies chest pain, fever, or decreased appetite. - History of Current Complaint Chief Complaint: EDShortnessOfBreath Hx Obtained From: Patient Onset/Duration: Gradual Onset, Lasting Days, Still Present Timing: Constant Current Severity: Moderate Dyspnea At: Rest Aggravating Factors: Nothing Alleviating Factors: Bronchodilators Associated Signs & Symptoms: Cough (Nonproductive) - Allergy/Home Medications Allergies/Adverse Reactions: Allergies Allergy/AdvReac Type Severity Reaction Status Date / Time bee venom protein (honey bee) Allergy Unknown Verified 08/04/19 02:44 Reaction Details lisinopril Allergy Coughing Verified 08/04/19 02:44 metoprolol Allergy Unknown Verified 08/04/19 02:44 Reaction Details Sulfa (Sulfonamide Allergy Hives Verified 08/04/19 02:44 Antibiotics) PMH/Surg Hx/FS Hx/Imm Hx Previously Healthy: Yes Endocrine/Hematology History: Reports: Hx Anticoagulant Therapy - Plavix., Hx Thyroid Disease Denies: Hx Diabetes Cardiovascular History: Reports: Hx Angina, Hx Coronary Artery Disease, Hx Hypercholesterolemia, Hx Hypertension, Hx Myocardial Infarction, Hx Syncope, Other Cardiovascular Problems/Disorders - Takosubo last year Denies: Hx Congestive Heart Failure, Hx Deep Vein Thrombosis, Hx Pacemaker/ ICD, Hx Valvular Heart Disease Respiratory History: Reports: Hx Asthma, Hx Chronic Obstructive Pulmonary Disease (COPD), Hx Pneumonia, Other Respiratory Problems/Disorders - HX OF PNEUMONIA 3/4 TIMES Denies: Hx Lung Cancer, Hx Pulmonary Embolism GI History: Reports: Hx Gastroesophageal Reflux Disease Denies: Hx Gall Bladder Disease, Hx Gastrointestinal Bleed, Hx Ulcer, Hx Urosepsis History: Reports: Hx Renal Disease - ARF in 20's Denies: Hx Chronic Renal Failure, Hx Kidney Stones Musculoskeletal History: Reports: Hx Back Problems - Chronic back pain, Hx Osteoporosis Sensory History: Reports: Hx Cataracts, Hx Contacts or Glasses Denies: Hx Hearing Aid Opthamlomology History: Reports: Hx Cataracts, Hx Contacts or Glasses Neurological History: Reports: Hx Headaches Denies: Hx Dementia, Hx Migraine, Hx Seizures, Hx Transient Ischemic Attacks (TIA) Psychiatric History: Reports: Hx Eating Disorder - restriction, Hx Depression, Hx of Violent Episodes Against Others Denies: Hx Anxiety, Hx Panic Disorder, Hx Schizophrenia, Hx Bipolar Disorder - Cancer History Hx Chemotherapy: No Hx Radiation Therapy: No - Surgical History Surgery Procedure, Year, and Place: HYSTERECTOMY 40 YRS AGO,. BILATERAL CARPAL TUNNEL 20 YRS AGO. 2005 - stents placed/cardiac,. GROWTH REMOVED ON RIGHT FOOT X2. CATARACT Hx Anesthesia Reactions: No - slow to wake up prn - Immunization History Date of Tetanus Vaccine: unk Date of Influenza Vaccine: unk Infectious Disease History: No Infectious Disease History: Denies: Hx Clostridium Difficile, Hx Hepatitis, Hx Human Immunodeficiency Virus (HIV), Hx of Known/Suspected MRSA, Hx Shingles, Hx Tuberculosis, Hx Known/ Suspected VRE, Hx Known/Suspected VRSA, History Other Infectious Disease, Traveled Outside the [place] in Last 30 Days - Family History Known Family History: Positive: Cardiac Disease, Hypertension, Diabetes - Social History Alcohol Use: Rare Alcohol Amount: beer Hx Substance Use: No Substance Use Type: Reports: None Hx Tobacco Use: Yes Smoking Status (MU): Former Smoker Type: Cigarettes Amount Used/How Often: 5 CIG/DAY. smoking for 50 years Have You Smoked in the Last Year: Yes Review of Systems Negative: Fever, Other - decreased appetite Negative: Chest Pain Positive: Shortness Of Breath, Cough All Other Systems Reviewed And Are Negative: Yes Physical Exam - Summary Physical Exam Summary: Appearance: Slender elderly woman lying in the stretcher in no obvious distress. SaO2 appears to be normal. Skin: Warm, dry, no obvious rash Eyes: sclera anicteric, no conjunctival pallor ENT: mucous membranes moist, pharynx appears normal Neck: Supple, nontender Respiratory: Diffuse expiratory wheezes noted with a long expiratory phase. Cardiovascular: Normal S1, S2. No murmurs. Normal distal pulses in tibial and radial bilaterally. Abdomen: Soft, nontender, normal active bowel sounds present Musculoskeletal: Normal, Strength/ROM Intact Neurological: A&Ox3, awake and alert, mentation is normal, speech is fluent and appropriate Psychiatric: affect is normal, does not appear anxious or depressed Triage Information Reviewed: Yes Vital Signs On Initial Exam: Initial Vitals Temp Pulse Resp BP Pulse Ox 98.7 F 92 18 146/79 96 08/04/19 02:41 08/04/19 02:41 08/04/19 02:41 08/04/19 02:41 08/04/19 02:41 Vital Signs Reviewed: Yes Procedures - Sedation Patient Received Moderate/Deep Sedation with Procedure: No Diagnostics - Vital Signs Vital Signs Temp Pulse Resp BP Pulse Ox 08/04/19 02:41 98.7 F 92 18 146/79 96 - Laboratory Lab Statement: Any lab studies that have been ordered have been reviewed, and results considered in the medical decision making process. Re-Evaluation - Re-Evaluation 1st re-eval Re-Evaluation Time: 04:37 Change: Improved Comment: Pt is feeling much better and would like to be discharged. Course/Dx - Course Course Of Treatment: Pt is a 74 y/o F presenting to the ED brought in by EMS for shortness of breath. Pt states shes had shortness of breath and dry cough for the past few days, and her nebulizer at home has only been giving her temporary relief. She denies chest pain, fever, or decreased appetite. On exam , pt is a slender elderly appearing woman lying on the stretcher in no acute distress. SaO2 appears normal. She has diffuse expiratory wheezes with a prolonged expiratory phase. As of 436, pt is feeling much better and would like to be discharged. Pt will be d/c'ed with dx of COPD exacerbation. - Diagnoses Provider Diagnoses: COPD exacerbation Discharge ED - Sign-Out/Discharge Documenting (check all that apply): Patient Departure - Discharge Plan Condition: Improved Disposition: HOME Prescriptions: Doxycycline TAB(NF) [Doxycycline TAB (NF)] 100 mg PO BID #14 tab predniSONE TAB* [Deltasone 20 MG TAB*] 40 mg PO DAILY 7 Days #14 tab Patient Education Materials: COPD (Chronic Obstructive Pulmonary Disease) (ED) Referrals: Lina Miles MD [Primary Care Provider] - 3 Days - Billing Disposition and Condition Condition: IMPROVED Disposition: Home - Attestation Statements Document Initiated by Scribe: Yes Documenting Scribe: Keyonna Caballero Provider For Whom Trevin is Documenting (Include Credential): Tramaine Lind MD. Scribe Attestation: Keyonna Kennedy, anthonyibed for Tramaine Lind MD. on 08/04/19 at 0540. Scribe Documentation Reviewed: Yes Provider Attestation: The documentation as recorded by the scribe, Keyonna Caballero accurately reflects the service I personally performed and the decisions made by me, Tramaine Lind MD. Status of Anthonyibe Document: Viewed
--- OUTSIDE RECORDS SUMMARY | 2019-08-04 03:22 | XMS REPORT | Continuity of Care Document ---
:1945 External Reference #:[id number] Author Name Armin Rodriguez M.D. (transmitted by agent of provider Natalia Patel) Address [address] [place] [address] Care Team Providers Name Role Phone Kami Coy MD - Family Care Team Information Line Maintenance Technician Medicine Indio Acevedo MD - Neurological Care Team Information Line Maintenance Technician [phone] Surgery Vita Jones MD - Pulmonary Care Team Information Line Maintenance Technician [phone] Disease Luzmaria Medellin MD - Internal Medicine Care Team Information Line Maintenance Technician Problems Active Problems Provider Date Chronic obstructive lung disease Lina Miles M.D. Onset: 08/06/2011 Coronary atherosclerosis Lina Miles M.D. Onset: 08/06/2011 Essential hypertension Lina Miles M.D. Onset: 08/06/2011 Allergy Lina Miles M.D. Onset: 08/06/2011 Note: bee venom anaphylaxis Insomnia Lina Miles M.D. Onset: 08/06/2011 Depressive disorder Lina Miles M.D. Onset: 08/06/2011 Displacement of cervical intervertebral disc Jose Albright M.D. Onset: without myelopathy Tobacco user Juhi Hunter M.D. Onset: 08/04/2014 Coronary arteriosclerosis Juhi Hunter M.D. Onset: 08/04/2014 Benign essential hypertension Juhi Hunter M.D. Onset: 08/04/2014 Peripheral vascular disease Juhi Hunter M.D. Onset: 08/04/2014 Cervical spondylosis with myelopathy Ronn Bustos M.D. Onset: 10/27/2015 Osteopenia Lina Miles M.D. Onset: 03/23/2015 Aortic valve stenosis Onset: Note: mild to moderate Dr. Rodriguez Social History Type Date Description Comments Sex Unknown Tobacco Use Start: Unknown Light tobacco smoker (10 or fewer cigarettes/day) Smoking Status Reviewed: 06/12/19 Light tobacco smoker (10 or fewer cigarettes/day) ETOH Use Drinks 5 Alcoholic Beverages Per Week Recreational Drug Use Denies Drug Use Tobacco Use Start: Unknown Light tobacco smoker (10 or fewer cigarettes/day) Exercise Type/Frequency Exercises sporadically Allergies, Adverse Reactions, Alerts Active Allergies Reaction Severity Comments Date Sulfa Contact dermatitis, HIVES 08/06/2011 Bee Sting Anaphylaxis 08/06/2011 Lisinopril caused asthma flare up. 10/12/2013 Metoprolol asthma flare up 10/12/2013 Inactive Allergies Penicillin Anaphylaxis 08/06/2011 Medications Active Medications SIG Qnty Indications Ordering Date Provider Prednisone take 4 tab daily x QS J44.1 Luzmaria Medellin MD 05/05/2019 10mg Tablets 3 days then 3 tab daily x 3 days and then 2 tab daily x 3 days then 1 tab daily X 3 days Carvedilol 1 by mouth twice a 180tabs Other Ordering 04/20/2019 6.25mg day Provider Tablets Spironolactone 1 by mouth every 90tabs Other Ordering 04/20/2019 25mg day Provider Tablets Albuterol Sulfate HFA Inhale 2 Puffs By 36unyaneth Medellin MD 2018 Mouth 4 Times 108(90Base) mcg/Act Daily Aerosol Nebulizer System use one as 1units J44.1 Luzmaria Medellin MD 01/20/2019 [facility] directed Misc Valsartan 1/2 by mouth 90tabs Armin DEzequiel 08/27/2018 320mg Tablets every day Carlo Rodriguez Advair HFA inhale two puffs 36units Lina Miles, 08/20/2018 by mouth twice a M.D. 230-21mcg/Act Aerosol day Clonidine HCL Take 1 Tablet By 60tabs Lina Miles, 08/20/2018 0.1mg Mouth Twice A Day M.D. Tablets Restoril once at hs for 30caps Lina Miles, 08/04/2018 15mg Capsules insomnia M.D. Nitrostat one sl q5min up to 30tabs Luzmaria Medellin MD 10/22/2017 0.4mg Tablets 3 doses as needed Sub Flonase Use 1 [place] In 16units Lina Miles, 06/27/2017 50mcg/Act Each Nostril Daily M.D. Suspension Paroxetine HCL take 1 tablet by 90tabs F32.89 Luzmaria Medellin MD 06/25/2017 40mg mouth once daily Tablets Pantoprazole Sodium 1 Tablet Daily 90tabs Lina Miles, 10/24/[address] Clopidogrel Bisulfate Take One Tablet By 90tabs Lina Miles, 2015 Mouth One Time M.D. 75mg Tablets Daily Epipen 2-Jonathan sc as needed as 1units Luzmaria Medellin MD needed for 0.3mg/0.3ML Solution anaphylaxis Auto-Inject Spiriva Handihaler Inhale The 90caps Lina Miles, Contents Of 1 M.D. 18mcg Capsules Capsule By Mouth Daily prn Aspirin Adult Low 02/19/19 reports Unknown Dose not taking [address] mouth every day Atorvastatin Calcium 1 by mouth every 90tabs Armin Torres day Carlo Rodriguez 80mg Tablets Ipratropium Latoya , Monon/Albuterol Carlo Vaughan Sulfate 0.5-2.5(3)mg/3ML Solution Risperidone 02/19/19 reports 30tabs Lina Miles, 0.5mg not taking take 1 M.D. Tablets tablet by mouth every day Dulera 02/19/19 reports Unknown 200-5mcg/Act does not use 2 Aerosol puff twice a day History Medications Demeclocycline HCL by mouth twice Other Ordering 04/20/2019 - 150mg a day Provider 05/04/2019 Tablets Azithromycin take 2 tablets 6tabs J44.1 Luzmaria Medellin MD 02/19/2019 - 250mg today; then one 02/24/2019 Tablets tablet daily Lidocaine use as needed 30units Luzmaria Medellin MD 02/19/2019 - 5% Patches for back pain 05/04/2019 Prednisone take 3 tab 15tabs J44.1 Luzmaria Medellin MD 01/20/2019 - 10mg Tablets daily x 3 days 05/04/2019 then 2 tab daily x 3 days and then 1 tab daily x 3 days Medications Administered in Office Medication SIG Qnty Indications Ordering Provider Date Inj, Regadenoson, 0.1 MG Gerald Joel M.D., 08/02/2014 Injection [facility] Inj, Regadenoson, 0.1 MG Juhi Hunter M.D. 08/02/2014 Injection Aminophylline Gerald Joel M.D., 08/02/2014 Injection MAKENNA ELIAS Aminophylline Juhi Hunter M.D. 08/02/2014 Injection Technetium TC 99M Gerald Joel M.D., 08/02/2014 Tetrofosmin, Per Unit [facility]ose [facility] To [facility] Millic[facility] Injection Technetium TC 99M Juhi Hunter M.D. 08/02/2014 Tetrofosmin, Per Unit Dose Up To 40 Millicuries Injection Inj, Regadenoson, 0.1 MG Juhi Hunter M.D. 01/01/2013 Injection Technetium TC 99M Juhi Hunter M.D. 01/01/2013 Tetrofosmin, Per Unit Dose Up To 40 Millicuries Injection Immunizations CPT Code Status Date Vaccine Lot # 61884 Given 06/06/2018 Fluzone High Dose [id number] Given 05/21/2017 Influenza Virus Vaccine, Quadrivalent, Split, Preservative Free [id number] Given 10/09/2016 Influ Virus Vaccine, Quadrivalent, Split Virus, [place] [address] Given 03/15/2015 Pneumococcal Conjugate Vaccine 13 Valent For [id number] Intramuscular Use 63209 Given 10/12/2013 Tdap - Tetanus/Diptheria/Acellular Pertussis [id number] 29137 Given 07/28/2013 Flu Vaccine Split Virus Preservative Free For [id number] Indiv 3Yr Older Q2037 Given 08/26/2012 Fluvirin Im 3Yrs And Older [id number] 26588 Given 09/12/2011 Zoster (Zostavax) [id number] Q2038 Given 08/06/2011 Fluzone Vaccine 53643 Given 08/06/2011 Pneumonia Vaccine [id number] 68014 Given 08/06/2011 Influenza Virus 3Yrs & Over 28505 Given Unknown Flu Vaccine Split Virus Preservative Free For Indiv 3Yr Older Vital Signs Date Vital Result Comment 06/12/2019 11:57am Height 59.5 inches 4'11.50" Weight 105.00 lb with shoes Heart Rate 77 /min BP Systolic Sitting 142 mmHg BP Diastolic Sitting 80 mmHg BP Systolic Standing 140 mmHg BP Diastolic Standing 82 mmHg BMI (Body Mass Index) 20.9 kg/m2 Ejection Fraction 50-55% Echo 06/03/19 05/05/2019 8:05am Height 59.5 inches 4'11.50" Weight 105.50 lb Heart Rate 66 /min BP Systolic 148 mmHg BP Diastolic 80 mmHg Body Temperature 98.0 F O2 % BldC Oximetry 97 % BMI (Body Mass Index) 20.9 kg/m2 Results Test Date Facility Test Result H/L Range Note Basic Metabolic 05/05/2019 [facility] Sodium 124 mmol/L Low 135-[address] [place] [address] [phone] Potassium 5.0 mmol/L Normal 3.5-5.0 Chloride 94 mmol/L Low 101-111 Co2 Carbon Dioxide 25 mmol/L Normal 22-32 Anion Gap 5 mmol/L Normal 2-11 Glucose 94 mg/dL Normal 70-100 Blood Urea Nitrogen 13 mg/dL Normal 6-24 Creatinine 0.83 mg/dL Normal 0.51-0.95 BUN/Creatinine Ratio 15.7 Normal 8-20 Calcium 9.0 mg/dL Normal 8.6-10.3 Egfr Non- 67.4 >60 Egfr 81.5 >60 1 Comp Metabolic Panel 04/29/2019 [facility] Sodium 127 mmol/L Low 135-[address] [place] [address] [phone] Potassium 5.2 mmol/L High 3.5-5.0 Chloride 95 mmol/L Low 101-111 Co2 Carbon Dioxide 25 mmol/L Normal 22-32 Anion Gap 7 mmol/L Normal 2-11 Glucose 95 mg/dL Normal 70-100 Blood Urea Nitrogen 19 mg/dL Normal 6-24 Creatinine 0.82 mg/dL Normal 0.51-0.95 BUN/Creatinine Ratio 23.2 High 8-20 Calcium 9.1 mg/dL Normal 8.6-10.3 Total Protein 6.3 g/dL Low 6.4-8.9 Albumin 4.0 g/dL Normal 3.2-5.2 Globulin 2.3 g/dL Normal 2-4 Albumin/Globulin Ratio 1.7 Normal 1-3 Total Bilirubin 0.40 mg/dL Normal 0.2-1.0 Alkaline Phosphatase 67 U/L Normal 34-104 Alt 9 U/L Normal 7-52 Ast 14 U/L Normal 13-39 Egfr Non- 68.3 >60 Egfr 82.7 >60 3 Lipid Profile 04/29/2019 [facility] Triglycerides 35 mg/dL 4 (Trig/Chol/HDL) [address] [place] [address] [phone] Cholesterol 143 mg/dL 5 HDL Cholesterol 86.2 mg/dL 6 LDL Cholesterol 50 mg/dL 7 Laboratory 04/14/2019 [facility] Troponin-I 0.60 Critical < 0.04 8 test finding [address] (TnI) ng/[place] [address] [phone] Laboratory 04/14/2019 [facility] Troponin-I 0.55 Critical < 0.[address] (TnI) ng/[place] [address] [phone] CBC Auto Diff 04/14/2019 [facility] White Blood 8.6 Normal 3.5 -10.[address] Count 10^3/[place] [address] [phone] Red Blood Count 4.23 10^6/uL Normal 3.70-4.87 Hemoglobin 11.4 g/dL Low 12.0-16.0 Hematocrit 35 % Normal 35-47 Mean Corpuscular Volume 82 fL Normal 80-97 Mean Corpuscular Hemoglobin 27 pg Normal 27-31 Mean Corpuscular HGB Conc 33 g/dL Normal 31-36 Red Cell Distribution Width 17 % High 10-15 Platelet Count 291 10^3/uL Normal 150-450 Mean Platelet Volume 6.6 fL Low 7.4-10.4 Abs Neutrophils 5.7 10^3/uL Normal 1.5-7.7 Abs Lymphocytes 1.7 10^3/uL Normal 1.0-4.8 Abs Monocytes 0.9 10^3/uL High 0-0.8 Abs Eosinophils 0.3 10^3/uL Normal 0-0.6 Abs Basophils 0.1 10^3/uL Normal 0-0.2 Abs Nucleated RBC 0.0 10^3/uL Granulocyte % 66.3 % Lymphocyte % 19.6 % Monocyte % 10.2 % Eosinophil % 3.3 % Basophil % 0.6 % Nucleated Red Blood Cells % 0.1 Laboratory test 04/14/2019 [facility] B-Type 117 pg/mL High <= [address] [place] [address] Peptide BNP [phone] Lactic Acid 0.6 mmol/L Normal 0.5-2.0 10 Comp Metabolic 04/14/2019 [facility] Sodium 135 mmol/L Normal 135-[address] [place] [address] [phone] Potassium 3.9 mmol/L Normal 3.5-5.0 Chloride 104 mmol/L Normal 101-111 Co2 Carbon Dioxide 20 mmol/L Low 22-32 Anion Gap 11 mmol/L Normal 2-11 Glucose 109 mg/dL High 70-100 Blood Urea Nitrogen 13 mg/dL Normal 6-24 Creatinine 0.70 mg/dL Normal 0.51-0.95 BUN/Creatinine Ratio 18.6 Normal 8-20 Calcium 8.8 mg/dL Normal 8.6-10.3 Total Protein 6.3 g/dL Low 6.4-8.9 Albumin 3.8 g/dL Normal 3.2-5.2 Globulin 2.5 g/dL Normal 2-4 Albumin/Globulin Ratio 1.5 Normal 1-3 Total Bilirubin 0.30 mg/dL Normal 0.2-1.0 Alkaline Phosphatase 64 U/L Normal 34-104 Alt 10 U/L Normal 7-52 Ast 19 U/L Normal 13-39 Egfr Non- 82.0 >60 Egfr 99.2 >60 11 Laboratory 04/14/2019 [facility] Troponin-I 0.24 Critical < 0.[address] (TnI) ng/[place] [address] [phone] Magnesium 2.1 mg/dL Normal 1.9-2.7 TSH (Thyroid Stim Horm) 2.78 mcIU/mL Normal 0.34-5.60 CBC Auto 01/21/2019 [facility] White Blood 6.0 10^3/uL Normal 3.5-10.[address] [place] [address] [phone] Red Blood Count 4.26 10^6/uL Normal 3.70-4.87 Hemoglobin 11.2 g/dL Low 12.0-16.0 Hematocrit 34 % Low 35-47 Mean Corpuscular Volume 80 fL Normal 80-97 Mean Corpuscular Hemoglobin 26 pg Low 27-31 Mean Corpuscular HGB Conc 33 g/dL Normal 31-36 Red Cell Distribution Width 16 % High 10.5-15 Platelet Count 288 10^3/uL Normal 150-450 Mean Platelet Volume 7.2 fL Low 7.4-10.4 Abs Neutrophils 3.5 10^3/uL Normal 1.5-7.7 Abs Lymphocytes 1.2 10^3/uL Normal 1.0-4.8 Abs Monocytes 0.7 10^3/uL Normal 0-0.8 Abs Eosinophils 0.5 10^3/uL Normal 0-0.6 Abs Basophils 0.1 10^3/uL Normal 0-0.2 Abs Nucleated RBC 0.0 10^3/uL Granulocyte % 58.8 % Lymphocyte % 20.0 % Monocyte % 11.9 % Eosinophil % 8.4 % Basophil % 0.9 % Nucleated Red Blood Cells % 0.1 Protein 01/21/2019 [facility] Total 6.9 g/dL 6.3 - Electrophoresis [address] Protein(Pep) 7.9 [place] [address] [phone] Albumin 3.5 g/dL 3.4-4.7 Alpha-1 Globulin 0.3 g/dL 0.1-0.3 Alpha-2 Globulin 1.1 g/dL Abnormal 0.6-1.0 Beta Globulin 1.0 g/dL 0.7-1.2 Gamma Globulin 1.0 g/dL 0.6-1.6 Albumin/Globulin Ratio 1.05 Impression See Comment 13 Comp Metabolic Panel 01/21/2019 [facility] Sodium 130 mmol/L Low 135-145 [address] [place] [address] [phone] Potassium 4.4 mmol/L Normal 3.5-5.0 Chloride 98 mmol/L Low 101-111 Co2 Carbon Dioxide 23 mmol/L Normal 22-32 Anion Gap 9 mmol/L Normal 2-11 Glucose 93 mg/dL Normal 70-100 Blood Urea Nitrogen 11 mg/dL Normal 6-24 Creatinine 0.77 mg/dL Normal 0.51-0.95 BUN/Creatinine Ratio 14.3 Normal 8-20 Calcium 9.3 mg/dL Normal 8.6-10.3 Total Protein 6.6 g/dL Normal 6.4-8.9 Albumin 4.2 g/dL Normal 3.2-5.2 Globulin 2.4 g/dL Normal 2-4 Albumin/Globulin Ratio 1.8 Normal 1-3 Total Bilirubin 0.50 mg/dL Normal 0.2-1.0 Alkaline Phosphatase 77 U/L Normal 34-104 Alt 9 U/L Normal 7-52 Ast 16 U/L Normal 13-39 Egfr Non- 73.7 >60 Egfr 89.2 >60 14 Laboratory test 01/21/2019 [facility] Vitamin B12 425 pg/mL Normal 180-914 15 finding [address] [place] [address] [phone] TSH (Thyroid Stim Horm) 2.29 mcIU/mL Normal 0.34-5.60 Liver Function 12/18/2018 [facility] Total Protein 6.6 g/dL Normal 6.4-8.9 Panel [address] [place] [address] [phone] Albumin 4.1 g/dL Normal 3.2-5.2 Globulin 2.5 g/dL Normal 2-4 Albumin/Globulin Ratio 1.6 Normal 1-3 Total Bilirubin 0.40 mg/dL Normal 0.2-1.0 Direct Bilirubin 0.10 mg/dL Normal 0.03-0.18 Indirect Bilirubin 0.3 mg/dL Normal 0.3-1.0 Alkaline Phosphatase 88 U/L Normal 34-104 Alt 8 U/L Normal 7-52 Ast 15 U/L Normal 13-39 1 Because ethnic data is not always readily available, this report includes an eGFR for both -Americans and non- Americans. The National Kidney Disease Education Program (NKDEP) does not endorse the use of the MDRD equation for patients that are not between the ages of 18 and 70, are , have extremes of body size, muscle mass, or nutritional status, or are non- or non-. According to the National Kidney Foundation, irrespective of diagnosis, the stage of the disease is based on the level of kidney function: Stage Description GFR(mL/min/1.73 m(2)) 1 Kidney damage with normal or decreased GFR 90 2 Kidney damage with mild decrease in GFR 60-89 3 Moderate decrease in GFR 30-59 4 Severe decrease in GFR 15-29 5 Kidney failure <15 (or dialysis) 2 FASTING 10 HOUR 3 Because ethnic data is not always readily available, this report includes an eGFR for both -Americans and non- Americans. The National Kidney Disease Education Program (NKDEP) does not endorse the use of the MDRD equation for patients that are not between the ages of 18 and 70, are , have extremes of body size, muscle mass, or nutritional status, or are non- or non-. According to the National Kidney Foundation, irrespective of diagnosis, the stage of the disease is based on the level of kidney function: Stage Description GFR(mL/min/1.73 m(2)) 1 Kidney damage with normal or decreased GFR 90 2 Kidney damage with mild decrease in GFR 60-89 3 Moderate decrease in GFR 30-59 4 Severe decrease in GFR 15-29 5 Kidney failure <15 (or dialysis) 4 Desirable: <150 Borderline High: 150-199 High: 200-499 Very High: >500 5 Desirable: <200 Borderline High: 200-239 High: >239 6 Low: <40 Desirable: 40-60 High: >60 7 Desirable: <100 Near Optimal: 100-129 Borderline High: 130-159 High: 160-189 Very High: >189 8 Result TnIDx:0.60 Called to [id number] at: 10:41:46 by:[id number] Read back by: [id number] Troponin-I testing on Plasma Separator Tubes (PST) has a known false positive rate of 0.20-0.40%. All positive troponins reflex immediately to secondary confirmatory testing. Using the [employer] DxI 800 Access Immunoassay systems, the 99th percentile upper reference limit was demonstrated to be < 0.03 ng/mL. 9 Result TnIDx:0.55 Called to [id number] at: 07:47:31 by:[email or web address] Read back by: [id number] Troponin-I testing on Plasma Separator Tubes (PST) has a known false positive rate of 0.20-0.40%. All positive troponins reflex immediately to secondary confirmatory testing. Using the [employer] DxI 800 Access Immunoassay systems, the 99th percentile upper reference limit was demonstrated to be < 0.03 ng/mL. 10 [facility] Severe Sepsis and Septic Shock Management Bundle Measure requires all lactic acids initially measuring >2.0 mmol/L be repeated. 11 Because ethnic data is not always readily available, this report includes an eGFR for both -Americans and non- Americans. The National Kidney Disease Education Program (NKDEP) does not endorse the use of the MDRD equation for patients that are not between the ages of 18 and 70, are , have extremes of body size, muscle mass, or nutritional status, or are non- or non-. According to the National Kidney Foundation, irrespective of diagnosis, the stage of the disease is based on the level of kidney function: Stage Description GFR(mL/min/1.73 m(2)) 1 Kidney damage with normal or decreased GFR 90 2 Kidney damage with mild decrease in GFR 60-89 3 Moderate decrease in GFR 30-59 4 Severe decrease in GFR 15-29 5 Kidney failure <15 (or dialysis) 12 Result TnIDx:0.24 Called to [id number] at: 05:36:23 by:[id number] Read back by: [id number] Troponin-I testing on Plasma Separator Tubes (PST) has a known false positive rate of 0.20-0.40%. All positive troponins reflex immediately to secondary confirmatory testing. Using the [employer] DxI 800 Access Immunoassay systems, the 99th percentile upper reference limit was demonstrated to be < 0.03 ng/mL. 13 RESULT: No apparent monoclonal protein on serum electrophoresis. Test Performed by: [facility] [address] [place] [address] 14 Because ethnic data is not always readily available, this report includes an eGFR for both -Americans and non- Americans. The National Kidney Disease Education Program (NKDEP) does not endorse the use of the MDRD equation for patients that are not between the ages of 18 and 70, are , have extremes of body size, muscle mass, or nutritional status, or are non- or non-. According to the National Kidney Foundation, irrespective of diagnosis, the stage of the disease is based on the level of kidney function: Stage Description GFR(mL/min/1.73 m(2)) 1 Kidney damage with normal or decreased GFR 90 2 Kidney damage with mild decrease in GFR 60-89 3 Moderate decrease in GFR 30-59 4 Severe decrease in GFR 15-29 5 Kidney failure <15 (or dialysis) 15 Normal Range 180 to 914 Indeterminate Range 145 to 180 Deficient Range <145 Procedures Date Code Description Status 06/12/2019 96545 EKG Tracing & Interpretation Completed 06/03/2019 21207 ECHO Transthoracic, Real-Time 2D With Doppler And Completed Color Flow 06/03/2019 43170 ECHO Transthoracic, Real-Time 2D With Doppler And Completed Color Flow 04/16/2019 63973 Cath PLMT&NJX L Ventriculog Img S&I Completed 04/16/2019 19017 Echocardiogram, Limited Study Completed 04/14/2019 55948 ECHO Transthorasic Realtime 2D W Doppler & Color Flow Completed Hosp 05/07/2017 [id number] Colonoscopy Completed 03/15/2015 [id number] Bone Mineral Density Test Completed 03/15/2015 [id number] Mammogram Completed 07/16/2012 [id number] Bone Mineral Density Test Completed 10/04/2011 [id number] Colonoscopy Completed 08/08/2011 [id number] Bone Mineral Density Test Completed 08/08/2011 [id number] Mammogram Completed Medical Devices Description No Information Available Encounters Type Date Location Provider Dx Diagnosis Office Visit 05/05/2019 [facility] Luzmaria Medellin MD J44.1 Chronic obstructive 8:20a Medicine - [facility] pulmonary disease w (acute) exacerbation I25.10 [facility] heart disease of [place] coronary artery w/o ang pctrs E87.1 Hypo-osmolality and hyponatremia Office Visit 04/18/2019 11:02a [facility] Dwight J44.1 Chronic Assoc,pc Kardon, M.D. obstructive Hospitalists pulmonary disease w (acute) exacerbation F17.200 Nicotine dependence, unspecified, uncomplicated I42.9 Cardiomyopathy, unspecified E87.1 Hypo-osmolality and hyponatremia I25.10 [facility] heart disease of [place] coronary artery w/o ang pctrs Office Visit 04/17/2019 11:02a [facility] Dwight J44.1 Chronic Assoc,gisela Arauz M.D. obstructive Hospitalists pulmonary disease w (acute) exacerbation F17.200 Nicotine dependence, unspecified, uncomplicated I42.9 Cardiomyopathy, unspecified E87.1 Hypo-osmolality and hyponatremia I25.10 [facility]scl heart disease of [place] coronary artery w/o ang pctrs Office Visit 04/16/2019 11:02a [facility] Justine J44.1 Chronic Assoc,gisela Boyce MD obstructive Hospitalists pulmonary disease w (acute) exacerbation F17.200 Nicotine dependence, unspecified, uncomplicated I42.9 Cardiomyopathy, unspecified I25.10 [place]scl heart disease of [place] coronary artery w/o ang pctrs F32.9 Major depressive disorder, single episode, unspecified Office Visit 04/15/2019 4:29p [facility] Roberth Garay R07.9 Chest pain, Carlo Molina unspecified I42.9 Cardiomyopathy, unspecified R94.39 Abnormal result of other cardiovascular function study R94.31 Abnormal electrocardiogram [ECG] [EKG] R79.89 Other specified abnormal findings of blood chemistry Office Visit 04/15/2019 [facility] Justine F17.200 Nicotine 11:01a Assoc,gisela Boyce MD dependence, Hospitalists unspecified, uncomplicated J44.1 Chronic obstructive pulmonary disease w (acute) exacerbation I42.9 Cardiomyopathy, unspecified I25.10 Athscl heart disease of [place] coronary artery w/o ang pctrs F32.9 Major depressive disorder, single episode, unspecified Office Visit 04/14/2019 4:28p [facility] Roberth FEzequiel R06.02 Shortness of Burton Molina. breath I25.10 [facility] heart disease of [place] coronary artery w/o ang pctrs J44.1 Chronic obstructive pulmonary disease w (acute) exacerbation I42.9 Cardiomyopathy, unspecified Office Visit 04/14/2019 11:00a [facility] Justine J44.1 Chronic Assoc,pc MD [place] obstructive Hospitalists pulmonary disease w (acute) exacerbation F17.200 Nicotine dependence, unspecified, uncomplicated I25.10 Athscl heart disease of [place] coronary artery w/o ang pctrs I10 Essential (primary) hypertension F31.9 Bipolar disorder, unspecified Office Visit 02/27/2019 1:00p [facility] Internal Luzmaria Medellin J44.1 [facility] pulmonary disease w (acute) exacerbation Z12.31 Encntr screen mammogram for malignant neoplasm of breast I10 Essential (primary) hypertension Office Visit 02/19/2019 2:40p [facility] Internal Sal Crook44.1 [facility] (acute) exacerbation I10 Essential (primary) hypertension Office Visit 01/20/2019 4:00p [facility] Internal aSl Crook44.1 [facility] pulmonary disease w (acute) exacerbation G31.84 Mild cognitive impairment, so stated Assessments Date Code Description Provider 06/12/2019 I25.10 Atherosclerotic heart disease of Armin Rodriguez M.D. [place] coronary artery without angina pectoris 06/12/2019 I42.9 Cardiomyopathy, unspecified Armin Rodriguez M.D. 06/03/2019 I25.10 Atherosclerotic heart disease of Armin Rodriguez M.D. [place] coronary artery without angina pectoris 06/03/2019 I25.10 Atherosclerotic heart disease of Traveling ECHO 1 [place] coronary artery without angina pectoris 06/03/2019 I42.9 Cardiomyopathy, unspecified Armin Rodriguez M.D. 06/03/2019 I42.9 Cardiomyopathy, unspecified Traveling ECHO 1 05/05/2019 J44.1 Chronic obstructive pulmonary disease Luzmaria Medellin MD with (acute) exacerbat 05/05/2019 I25.10 Atherosclerotic heart disease of Luzmaria [place] MD [place] coronary artery without angina pectoris 05/05/2019 E87.1 Hypo-osmolality and hyponatremia Luzmaria Medellin MD 04/18/2019 J44.1 Chronic obstructive pulmonary disease Dwight Arauz M.D. with (acute) exacerbation 04/18/2019 F17.200 Nicotine dependence, unspecified, Dwight Arauz M.D. uncomplicated 04/18/2019 I42.9 Cardiomyopathy, unspecified Dwight Arauz M.D. 04/18/2019 E87.1 Hypo-osmolality and hyponatremia Dwight Arauz M.D. 04/18/2019 I25.10 Atherosclerotic heart disease of Dwight Arauz M.D. [place] coronary artery without angina pectoris 04/17/2019 J44.1 Chronic obstructive pulmonary disease Dwight Arauz M.D. with (acute) exacerbation 04/17/2019 F17.200 Nicotine dependence, unspecified, Dwight Arauz M.D. uncomplicated 04/17/2019 I42.9 Cardiomyopathy, unspecified Dwight Arauz M.D. 04/17/2019 E87.1 Hypo-osmolality and hyponatremia Dwight Arauz M.D. 04/17/2019 I25.10 Atherosclerotic heart disease of Dwight Arauz M.D. [place] coronary artery without angina pectoris 04/16/2019 R07.9 Chest pain, unspecified Roberth Molina M.D. 04/16/2019 I25.10 Atherosclerotic heart disease of Maliha Reeves MD, [facility], [place] coronary artery without angina FSCAI pectoris 04/16/2019 J44.1 Chronic obstructive pulmonary disease Justine Boyce MD with (acute) exacerbation 04/16/2019 F17.200 Nicotine dependence, unspecified, Justine Boyce MD uncomplicated 04/16/2019 I42.9 Cardiomyopathy, unspecified Justine Boyce MD 04/16/2019 I25.10 Atherosclerotic heart disease of Justine Boyce MD [place] coronary artery without angina pectoris 04/16/2019 F32.9 Major depressive disorder, single Justine Boyce MD episode, unspecified 04/15/2019 R07.9 Chest pain, unspecified Roberth Molina M.D. 04/15/2019 I42.9 Cardiomyopathy, unspecified Roberth Molina M.D. 04/15/2019 F17.200 Nicotine dependence, unspecified, Justine Boyce MD uncomplicated 04/15/2019 J44.1 Chronic obstructive pulmonary disease Justine Boyce MD with (acute) exacerbation 04/15/2019 R94.39 Abnormal result of other Roberth Molina M.D. cardiovascular function study 04/15/2019 R94.31 Abnormal electrocardiogram [ECG] Roberth Molina M.D. [EKG] 04/15/2019 I42.9 Cardiomyopathy, unspecified Justine Boyce MD 04/15/2019 R79.89 Other specified abnormal findings of Roberth Molina M.D. blood chemistry 04/15/2019 I25.10 Atherosclerotic heart disease of Justine Boyce MD [place] coronary artery without angina pectoris 04/15/2019 F32.9 Major depressive disorder, single Justine Boyce MD episode, unspecified 04/14/2019 R06.02 Shortness of breath Roberth Molina M.D. 04/14/2019 J44.1 Chronic obstructive pulmonary disease Justine Boyce MD with (acute) exacerbation 04/14/2019 I25.10 Atherosclerotic heart disease of Roberth Molina M.D. [place] coronary artery without angina pectoris 04/14/2019 F17.200 Nicotine dependence, unspecified, Justine Boyce MD uncomplicated 04/14/2019 J44.1 Chronic obstructive pulmonary disease Roberth Molina M.D. with (acute) exacerbation 04/14/2019 I25.10 Atherosclerotic heart disease of Justine Boyce MD [place] coronary artery without angina pectoris 04/14/2019 I42.9 Cardiomyopathy, unspecified Roberth Molina M.D. 04/14/2019 I10 Essential (primary) hypertension Justine Boyce MD 04/14/2019 F31.9 Bipolar disorder, unspecified Justine Boyce MD 02/27/2019 J44.1 Chronic obstructive pulmonary disease Luzmaria Medellin MD with (acute) exacerbat 02/27/2019 Z12.31 Encounter for screening mammogram for Luzmaria Medellin MD malignant neoplasm of 02/27/2019 I10 Essential (primary) hypertension Luzmaria Medellin MD 02/19/2019 J44.1 Chronic obstructive pulmonary disease Luzmaria Medellin MD with (acute) exacerbat 02/19/2019 I10 Essential (primary) hypertension Luzmaria Medellin MD 01/20/2019 J44.1 Chronic obstructive pulmonary disease Luzmaria Medellin MD with (acute) exacerbat 01/20/2019 G31.84 Mild cognitive impairment, so stated Luzmaria Medellin MD Plan of Treatment Future Appointment(s):08/18/2019 11:15 am - John Hess M.D. at [facility] [place]06/12/2019 - Armin Rodriguez M.D.I25.10 Atherosclerotic heart disease of [place] coronary artery without angina pectorisFollow up:6 [id number] Cardiomyopathy, unspecified Functional Status Description No Information Available Mental Status Description No Information Available Referrals Refer to Reason for Referral Status Appt Date Vita Jones MD Sent [address] [place] [address] [phone] John Hess M.D. Sent 08/18/2019 [address] [facility] [place] [address] [place] [id number] [phone]
[2019-08-04 05:15] VITALS: BP 138/73
== END 2019-08-04 05:14 | disposition home or self-care (01) ==
LOC: ED 02:40
DX: J44.1 Chronic obstructive pulmonary disease with (acute) exacerbation (principal); E07.9 Disorder of thyroid, unspecified; I25.10 Atherosclerotic heart disease of native coronary artery without angina pectoris; E78.00 Pure hypercholesterolemia, unspecified; I10 Essential (primary) hypertension; I25.2 Old myocardial infarction; K21.9 Gastro-esophageal reflux disease without esophagitis; Z95.5 Presence of coronary angioplasty implant and graft; Z90.710 Acquired absence of both cervix and uterus; Z87.891 Personal history of nicotine dependence; Z79.01 Long term (current) use of anticoagulants; Z88.2 Allergy status to sulfonamides; Z88.8 Allergy status to other drugs, medicaments and biological substances
CPT/HCPCS: 99283; A9270-GY; J7512; J7611

== ENCOUNTER 2019-08-27 06:59 | Inpatient (IN) | payer MEDICARE ==
[~2019-08-27 06:59] MED LIST: EPINEPHrine SYR 0.1MG/ML* SYRINGE ONE
[2019-08-27] MEDS ORDERED: Dextrose 50% Syringe 50 ML* 25 GM/50 ML SYRINGE ONE (07:00)
[2019-08-27] MEDS ORDERED: Calcium CHLORIDE 10% SYRINGE* 1 GM/10 ML ONE ×3 (07:02→07:29)
[2019-08-27] MEDS ORDERED: Sodium Bicarbonate 8.4%* 50 ML SYRINGE ONE ×4 (07:03→07:56)
[2019-08-27] MEDS ORDERED: Magnesium Sulfate IV* 0.5 GM/ML 2 ML VIAL (1 GM) ONE (07:06)
--- NOTE | 2019-08-27 07:11 | ED ---
HPI Cardiac - HPI Summary HPI Summary: This pt is a 74 y/o female presenting to [facility] via EMS ALS unresponsive and in cardiac arrest. EMS reports patient called 911 for respiratory distress and was unable to answer questions. EMS reports pt had a witnessed arrest by her at home. Per EMS, pt had approximately 5 minutes of downtime before started CPR. Upon EMS arrival on scene pt was asystole. EMS started CPR and have been doing CPR for about 40-45 minutes now. EMS placed an IO in right lower extremity and ET tube prior to arrival. EMS administered epinephrine x5. Per EMS after the first epi pt had ROSC, they obtained an organized rhythm but with faint pulses. EMS report pt had a weak carotid pulse for about 20 seconds and pt arrested again. Upon arrival to the ED pt was given 1 more epi, bicarb x2, calcium, and mag x2. Per medical records pt has PMHx of CAD s/p PCI, COPD, HTN, Takotsubo cardiomyopathy, bipolar disorder, mild cognitive impairment. Pt was last seen in the ED in July 2019 for SOB. HPI is unobtainable from patient due to level 5 caveat - extremis - History of Current Complaint Stated Complaint: ABC PER EMS Hx Obtained From: EMS, Medical Records Hx From Patient Unobtainable Due To: Extremis Onset/Duration: Started Minutes Ago, Still Present Timing: Lasting Minutes Current Severity: Severe Aggravating Factor(s): Other: - unknown Alleviating Factor(s): Other: - unknown Associated Signs and Symptoms: Positive: Other: - unresponsive - Allergy/Home Medications Allergies/Adverse Reactions: Allergies Allergy/AdvReac Type Severity Reaction Status Date / Time bee venom protein (honey bee) Allergy Unknown Verified 08/27/19 07:34 Reaction Details lisinopril Allergy Coughing Verified 08/27/19 07:34 metoprolol Allergy Unknown Verified 08/27/19 07:34 Reaction Details Sulfa (Sulfonamide Allergy Hives Verified 08/27/19 07:34 Antibiotics) Home Medications: Home Medications Albuterol HFA INHALER* [Ventolin HFA Inhaler*] 2 puff INH QID PRN 08/27/19 [ History Confirmed 08/27/19] Atorvastatin* [Lipitor*] 80 mg PO DAILY 08/27/19 [History Confirmed 08/27/19] Fluticas/Salmet 230/21 HFA(NF) [Advair HFA 23O/21 (NF)] 2 puff INH BID 08/27/19 [History Confirmed 08/27/19] Fluticasone NASAL SPRAY 50MCG* [Flonase NASAL SPRAY 50MCG*] 1 spray BOTH NARES DAILY 08/27/19 [History Confirmed 08/27/19] Nitroglycerin TAB 0.4 MG* 0.4 mg SL Q5M PRN MDD 3 tabs 08/27/19 [History Confirmed 08/27/19] Pantoprazole TAB * [Protonix TAB*] 40 mg PO DAILY 08/27/19 [History Confirmed ] Temazepam CAP* [Restoril CAP*] 15 mg PO BEDTIME 08/27/19 [History Confirmed ] Tiotropium CAPSULE (NF) [Spiriva CAPSULE (NF)] 1 cap.inh INH DAILY PRN 08/27/19 [History Confirmed 08/27/19] Valsartan TAB* [Diovan TAB*] 160 mg PO DAILY 08/27/19 [History Confirmed ] cloNIDine TAB* [Catapres 0.1 MG TAB*] 0.1 mg PO BID 08/27/19 [History Confirmed 08/27/19] risperiDONE TAB* [RisperDAL*] 0.5 mg PO DAILY 08/27/19 [History Confirmed ] PMH/Surg Hx/FS Hx/Imm Hx Endocrine/Hematology History: Reports: Hx Anticoagulant Therapy - Plavix, Hx Thyroid Disease Cardiovascular History: Reports: Hx Angina, Hx Coronary Artery Disease, Hx Hypertension, Other Cardiovascular Problems/Disorders - Takotsubo cardiomyopathy Respiratory History: Reports: Hx Asthma, Hx Chronic Obstructive Pulmonary Disease (COPD), Hx Pneumonia GI History: Reports: Hx Gastroesophageal Reflux Disease History: Reports: Other Problems/Disorders - Renal disease - ARF in 20's Psychiatric History: Reports: Hx Bipolar Disorder - Family History Known Family History: Positive: Unknown - due to LEVEL 5 CAVEAT - extremis - Social History Alcohol Use: Rare Alcohol Amount: beer Hx Substance Use: No Substance Use Type: Reports: None Hx Tobacco Use: Yes Smoking Status (MU): Former Smoker Type: Cigarettes Amount Used/How Often: 5 CIG/DAY. smoking for 50 years. Review of Systems - ROS Summary Review of Systems Summary: ROS IS UNOBTAINABLE DUE TO LEVEL 5 CAVEAT - extremis Negative: Fever Neurological: Other - POSITIVE: unresponsive All Other Systems Reviewed And Are Negative: No Physical Exam - Summary Physical Exam Summary: Constitutional: Well-developed Skin: Warm, Dry HENT: No obvious signs of trauma to the head, neck, or body. Eyes: No pupillary response. Neck: No obvious signs of trauma to the neck. Cardio: Heart rate is between 85 and 115, S1 and S2, irregular Pulmonary/Chest wall: Diffuse wheezing throughout the entire lung field. No fighting event with asynchronous ventilation. Abd: Soft Musculoskeletal: IO on right tibia. IV on left foot. 20 gauge IV on right foot. Neuro: No response to any kind of painful stimulus. Triage Information Reviewed: Yes Vital Signs Reviewed: Yes Completion Of Physical Exam Limited Due To: Extremis Procedures - Sedation Patient Received Moderate/Deep Sedation with Procedure: No - Central Line Right femoral Central Line Lumen: triple Central Line Procedure: betadine prep, sterile drapes applied, sterile dressing applied Central Line Position: femoral (R) Complications: none Central Line Post Position: sutured, good blood return Diagnostics - Laboratory Result Diagrams: 08/27/19 07:26 08/27/19 09:50 Lab Statement: Any lab studies that have been ordered have been reviewed, and results considered in the medical decision making process. - Radiology Chest XR Radiology Interpretation Completed By: Radiologist Summary of Radiographic Findings: IMPRESSION: Lines and tubes as above. Hyperinflation, no active cardiopulmonary disease. Dr. Paulson has reviewed this report. - EKG 07:04 Cardiac Rate: Tachycardia - at 103 bpm EKG Rhythm: Sinus Tachycardia Summary of EKG Findings: EKG at 0847 shows sinus tachycardia at a rate of 103 bpm with prolonged QTC at 602. Very irregular. With significant motion artifact. There is nonspecific intraventricular conduction delay. Maybe RBBB but hard to say. No STEMI. 07:14 Cardiac Rate: Other Rate - Sinus arrhythmia at [address] Segment: Non-Specific EKG Comparison: Other - compared to prior QTc has dropped to 565. Summary of EKG Findings: EKG at 07:14 shows sinus arrhythmia with unspecified ectopy at 76 bpm. QTc has improved and went down to 565. Bifascicular block. Nonspecific ST and T wave abnormalities. No STEMI. Dr. Paulson has reviewed this report. Re-Evaluation - Re-Evaluation First Eval Re-Evaluation Time: 07:15 Comment: Blood pressure is 100/63. Second Eval Re-Evaluation Time: 07:29 Comment: Blood pressure at 50/31. Third Eval Re-Evaluation Time: 07:56 Comment: Blood pressure 90/50. Dr. Sierra, habitat management coordinator, at bedside. Fourth Eval Re-Evaluation Time: 08:00 Comment: Blood pressure is 141/79. Disposition - Course Assessment/Plan: ABC alert called overhead from the field by EMS. Pt is a 74 y/ o female presenting to [facility] via EMS ALS unresponsive and in cardiac arrest after calling for respiratory disress. Pt arrives with IO in RLE and intubated. Pt received epi x5 by EMS. In the ED pt received 1 more epi, bicarb x2, calcium, and mag x2. Labs remarkable for hemoglobin of 9.1, hematocrit of 28, ABG pH < 7, ABG PCO2 is 79, ABG pO2 is 453, ABG O2 sat is 100. Sodium is 132, potassium is 5.3, chloride is 97, carbon dioxide is 20, anion gap is 15, creatinine is 1.30, glucose is 434, calcium is 12.6, AST is 570, ALT is 486, troponin is 0.22. Chest XR shows lines and tubes as above. Hyperinflation, no active cardiopulmonary disease. Right sided femoral triple lumen palced with right sided radial arterial line. Confirmed ET and OG tube as well. Discussed the case with Dr. Sierra, habitat management coordinator, who accepted the pt for admission to the ICU. Dx: cardiac arrest secondary to presumed respiratory arrest, s/p ROSC now. 74-year-old male presenting with department status post collapse with cardiac arrest with CPR in progress at the time of her arrival. According to EMS 5 epinephrines at a rate given the patient was intubated successfully which the ET tube placement was confirmed on her arrival at the auto pulse was continuing continuous adequate CPR. Additional medications were given as above and continued ACLS was ongoing. At the first pulse check the patient did have pulses plus confirming rosc. The patient was noted to start exhibiting signs of hypo-tension with tenuous heart rate for this reason I did elect to put a triple lumen central venous catheter into her right femoral vein by ultrasound guidance successfully and vasopressor medications that were initially started peripherally to maintain a blood pressure moved over to the central line. Thereafter it seemed that her 90s and blood pressure cuff was not accurately measuring her blood pressure given the fact we were invasively managing her blood pressure I felt the prudent to admit basically monitored os right-sided radial arterial line was placed successfully with good plastic on the arterial waveform on the monitor and the Levophed was titrated appropriately to maintain appropriate mean arterial pressure. She was aggressively persisted with IV fluids and she seemed to respond well to this cocktail medications as noted above hemodynamically stabilizing. She did however exhibited no brain stem activity and in the absence of any sedatives or paralytics she was perfectly cigarettes with event without any pupillary response no corneal response. It seems likely that the amount of downtime may have resulted in potentially next brain injury however not perfectly clear at this time given the hyperacute phase of this event. Cage Loader currently at the bedside at this time and agreeable to transport the patient to the intensive care unit for further workup and management of return of spontaneous circulation after cardiac arrest. It seems likely that her initial inciting event was hypoxia/hypoxemia in the setting of severe COPD exacerbation/redness of breath and eventually lead to this current state. - Diagnoses Provider Diagnoses: Cardiac arrest, Respiratory arrest before cardiac arrest During the Visit The Following Alert/Code Occurred: ABC Alert - called from the field by EMS prior to arrival. - Physician Notifications Discussed Care Of Patient With: Carlos Alberto Sierra - habitat management coordinator Time Discussed With Above Provider: 07:56 Instructed by Provider To: Admit As Inpatient - Critical Care Time Critical Care Time: 75-104 min - 75 minutes Discharge ED - Sign-Out/Discharge Documenting (check all that apply): Patient Departure - Admit to ICU All imaging exams completed and their final reports reviewed: Yes - Discharge Plan Condition: Critical Disposition: ADMITTED TO [facility] - Billing Disposition and Condition Condition: CRITICAL Disposition: Admitted to [facility] - Attestation Statements Document Initiated by Trevin: Yes Documenting Scribe: Justine Hyman Provider For Whom Trevin is Documenting (Include Credential): Elliott Paulson MD Scribe Attestation: Justine Kennedy scribed for Elliott Paulson MD on 08/27/19 at 1833. Scribe Documentation Reviewed: Yes Provider Attestation: The documentation as recorded by the Justine reaves accurately reflects the service I personally performed and the decisions made by me, Elliott Paulson MD Status of Scribe Document: Viewed
[2019-08-27] MEDS ORDERED: Albuterol/Ipratropium NEB.SOL* Albuterol 2.5 MG/Ipratropium 0.5 MG 3 ML INH ONE (07:20)
[2019-08-27] MEDS ORDERED: Norepinephrine VIAL* 1 MG/ML 4 ML VIAL ONE ×4 (07:33→08:25)
[2019-08-27 07:40] LABS: ABS Basophils 0.1 10^3/ul (0-0.2); ABS Eosinophils 0.1 10^3/ul (0-0.6); ABS Lymphocytes 2.6 10^3/ul (1.0-4.8); ABS Monocytes 0.1 10^3/ul (0-0.8); ABS Neutrophils 2.7 10^3/ul (1.5-7.7); Eosinophil % 1.9 %; Hematocrit 28 % (35-47); Hemoglobin 9.1 g/dL (12.0-16.0); Lymphocyte % 46.8 %; Mean Corpuscular HGB Conc 32 g/dL (31-36); Mean Corpuscular Hemoglobin 27 pg (27-31); Mean Corpuscular Volume 84 fL (80-97); Nucleated Red Blood Cells % 0.1; Platelet Count 158 10^3/uL (150-450); Red Cell Distribution Width 16 % (10-15); White Blood Count 5.6 10^3/uL (3.5-10.8)
[2019-08-27] MEDS ORDERED: Sodium Bicarbonate 8.4% IV* 50 ML VIAL ONE (07:46)
[2019-08-27 07:53] LABS: Albumin 2.5 g/dL (3.2-5.2); Albumin/Globulin Ratio 1.5 (1-3); BUN/Creatinine Ratio 15.4 (8-20); Calcium 12.6 mg/dL (8.6-10.3); EGFR African American 48.6 (>60); EGFR Non-African American 40.2 (>60); Globulin 1.7 g/dL (2-4); Total Bilirubin 0.2 mg/dL (0.2-1.0); Total Protein 4.2 g/dL (6.4-8.9)
[2019-08-27 07:58] LABS: Potassium 5.3 mmol/L (3.5-5.0); Troponin I 0.22 ng/mL (<0.03)
[2019-08-27] MEDS ORDERED: Lactated Ringers 1000 ML Bag* 1,000 ML IV SCH (09:00)
[2019-08-27] MEDS ORDERED: Norepinephrine 16MCG/ML IVPRE* 4,000 MCG/250 ML BAG IV SCH (09:00)
[2019-08-27 10:25] LABS: Albumin 3.1 g/dL (3.2-5.2); Albumin/Globulin Ratio 1.6 (1-3); BUN/Creatinine Ratio 16.7 (8-20); Calcium 11.5 mg/dL (8.6-10.3); EGFR African American 50.4 (>60); EGFR Non-African American 41.6 (>60); Total Bilirubin 0.4 mg/dL (0.2-1.0); Total Protein 5.1 g/dL (6.4-8.9)
[2019-08-27] MEDS ORDERED: Morphine 10 MG/ML VIAL (1 ml) IV ONE (10:30)
[2019-08-27 10:35] VITALS: BP 111/78
[2019-08-27] MEDS ORDERED: Morphine PCA ADULT* 5 MG/ML 30 ML PCA SCH (11:00)
[2019-08-27] MEDS ORDERED: LORazepam INJ* 2 MG/ML 1 ML VIAL ONE (11:09)
[2019-08-27] MEDS ORDERED: Lorazepam PYXIS KEY ONE (11:09)
[2019-08-27] MEDS ORDERED: Lorazepam PYXIS KEY PRN (11:40)
[2019-08-27] MEDS ORDERED: LORazepam INJ* 2 MG/ML 1 ML VIAL IV PUSH ONE (12:00)
--- NOTE | 2019-08-27 12:11 | HP ---
ADMISSION HISTORY AND PHYSICAL: DATE OF ADMISSION: 08/27/19 REASON FOR ADMISSION: Cardiac arrest. HISTORY OF PRESENT ILLNESS: The patient is a 74-year-old female who is brought to the emergency room this morning with an asystolic cardiac arrest. The patient apparently called 911 earlier this morning but was unable to give any details, and by the time EMS arrived, the patient was down and initial EKG showed asystole. The patient received 5 amps of epinephrine in the field with transient return of spontaneous circulation, arrived in the emergency room approximately 1 hour later, and after receiving another few amps of epinephrine , there were pulses and blood pressure was maintained at systolics above 100 on norepinephrine infusion. According to the patient's , there were no complaints of chest pain or increasing shortness of breath prior to the event. PAST MEDICAL HISTORY: Significant for COPD, takatsubo's cardiomyopathy, coronary artery disease, persistent hyponatremia, and psychiatric disorder (? bipolar). The patient was last in this hospital in April 2019, when she was admitted for shortness of breath felt to be due to both CHF and COPD. OUTPATIENT MEDICATIONS: 1. Carvedilol 6.25 mg twice daily. 2. Dulera 200/5 two puffs twice daily. 3. Risperdal 0.5 mg daily. 4. Albuterol 1 inhalation q.8 hours p.r.n. 5. Lipitor 80 mg daily. 6. Aspirin 81 mg daily. 7. Spiriva 1 inhalation daily. 8. Clopidogrel 75 mg daily. 9. Protonix 40 mg daily. 10. Paxil 40 mg daily. 11. Nitroglycerin 0.4 mg sublingual p.r.n. 12. Fluticasone 1 spray daily. 13. Restoril 15 mg at bedtime. 14. Clonidine 0.1 mg twice a day. 15. Valsartan 160 mg daily. 16. Spironolactone 25 mg daily. DRUG ALLERGIES: Include LISINOPRIL which produces coughing; METOPROLOL, unknown reaction; and SULFA which produces hives. The patient is also allergic to BEE VENOM and has an EpiPen for that. FAMILY HISTORY: Noncontributory. SOCIAL HISTORY: The patient is and lives with her . 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 There is no history of alcohol or other illicit drug abuse. REVIEW OF SYSTEMS: Unobtainable. PHYSICAL EXAMINATION VITAL SIGNS: Temp 89.2 degrees by Bateman catheter, respirations 18 on mechanical ventilation, O2 sat 100% on mechanical ventilation with an FiO2 of 60 %, blood pressure 144/72 on norepinephrine infusion. HEENT: Pupils are fixed and do not react to light. Pupils dilated and fixed. Corneal reflexes are absent bilaterally. There is no apparent spontaneous respiratory efforts. There is no facial asymmetry. NECK: Supple. LUNGS: Clear to auscultation. CARDIAC EXAM: Regular rhythm. There are no murmurs or rubs. ABDOMEN: Not distended. EXTREMITIES: Cool, but not cyanotic and not edematous. DIAGNOSTIC STUDIES/LAB DATA: Admission laboratory data is significant for a lactic acid of 13.2, glucose of 434, troponin of 0.2, ALT of 486, AST of 570, BUN of 20, creatinine of 1.3, anion gap of 15, blood gas showing a pH less than 7 with a pCO2 of 79 and pO2 of 453. EKG shows an irregular rhythm, possibly representing an atrial fibrillation and a right bundle-branch block. Chest x-ray is pending. IMPRESSION: Asystolic [id number] cardiac arrest with return of spontaneous circulation, but no evidence of brainstem activity at this time. This is a possible brain determination at this point. The patient's low body temperature precludes any attempts at targeted temperature management. MANAGEMENT PLAN: We will maintain blood pressure with norepinephrine and will do a brain determination some time later on today. We will rule out hypothyroidism as a cause for the low body temperature, although I doubt. CRITICAL CARE TIME: 75 minutes. [id number]/[facility] #: [id number] NEFTALY
--- NOTE | 2019-08-27 19:57 | DS ---
SUMMARY: DATE OF ADMISSION: 08/27/19 DATE OF : 08/27/19 HOSPITAL COURSE: This was a 74-year-old female who suffered an out of hospital asystolic cardiac arrest and was resuscitated in the field and had return of spontaneous circulation after approximately 1 hour and was subsequently admitted to the intensive care unit. The patient had a history of coronary artery disease, COPD, takotsubo cardiomyopathy, and possible bipolar disorder. After admission to the intensive care unit, blood pressure was maintained on a norepinephrine infusion and the patient had fixed and dilated pupils and agonal respirations. The patient did not regain consciousness but had a bloody temperature below 93 degrees spontaneously, so no targeted temperature management was initiated. Family gathered at the patient's bedside and we were informed that the patient was a DNR, and given the degree of neurologic deficit that this patient had, it was decided to take the patient off life support which was done, and approximately 20 minutes later, the patient developed asystole and was pronounced at 11:35 a.m. (on 08/27/19). The family was present at the bedside and autopsy was denied. tax examiner was called and certificate was filled out (the number for the certificate is [id number]). FINAL DISCHARGE DIAGNOSES: 1. Asystolic cardiac arrest due to coronary artery disease with prolonged resuscitation in the field. 2. Anoxic encephalopathy. 3. Chronic obstructive lung disease. 4. Takotsubo cardiomyopathy. 5. History of psychiatric disorder (possible bipolar disorder). TIME SPENT ON THIS DISCHARGE: Thirty-five minutes. [id number]/[facility] #: [id number] NEFTALY
== END 2019-08-27 11:35 | disposition expired | DRG 303 ==
LOC: EDBD → MERGE 06:59 → ED 06:59 → ICU 08:02
PROVIDERS: ADMIT Internal Medicine Critical Care Medicine; ATTEND Internal Medicine Critical Care Medicine
PROC: 06HT33Z Insertion of Infusion Device into Right Foot Vein, Percutaneous Approach (ICD-10-PCS; principal; 2019-08-27)
PROC: 3E033XZ Introduction of Vasopressor into Peripheral Vein, Percutaneous Approach (ICD-10-PCS; 2019-08-27)
PROC: 5A1935Z Respiratory Ventilation, Less than 24 Consecutive Hours (ICD-10-PCS; 2019-08-27)
DX: I25.10 Atherosclerotic heart disease of native coronary artery without angina pectoris (principal); I51.81 Takotsubo syndrome; G93.1 Anoxic brain damage, not elsewhere classified; I46.2 Cardiac arrest due to underlying cardiac condition; F31.9 Bipolar disorder, unspecified; I45.10 Unspecified right bundle-branch block; J44.9 Chronic obstructive pulmonary disease, unspecified; K21.9 Gastro-esophageal reflux disease without esophagitis; I10 Essential (primary) hypertension; Z66 Do not resuscitate; Z88.2 Allergy status to sulfonamides; Z88.8 Allergy status to other drugs, medicaments and biological substances; Z91.030 Bee allergy status; Z87.891 Personal history of nicotine dependence
CPT/HCPCS: 36415; 71045; 80053; 82803; 83605; 83880; 84439; 84484; 85025; 85730; 86140; 87641; 92950; 93005; 99285; A9270-GY; J0171; J2060; J2270; J3475